=== PATIENT | male | born 1945 | race Caucasian/White ===

== ENCOUNTER 2020-08-22 09:03 | Emergency (ER) | payer MEDICARE, SELFPAY ==
[2020-08-22] VITALS (9 sets, daily range): BP systolic 147–222; BP diastolic 65–153; PULSE 65–76; RESP 11–18; TEMP 36.8; O2SAT 98–100
--- NOTE | ~2020-08-22 | CT_ITS ---
EXAMINATION: CT abdomen pelvis w con DATE: 08/22/2020 13:14 INDICATION: Hematuria. TECHNIQUE: Computed tomography (CT) of the abdomen and pelvis was performed with 100 mL Omnipaque 350 intravenous contrast. Automated exposure control and iterative reconstruction technique were employe d. The dose-length product was 483.19 mGy-cm. COMPARISON: PET CT 05/19/2007 FINDINGS: The visualized portions of the lung bases demonstrate mild atelectasis. No pleural effusion . The heart size is normal. No pericardial effusion. There is a small sliding hiatal hernia. Right-si ded gynecomastia is noted. The liver is normal. There is a gallstone in the gallbladder, which is con tracted. Calcifications in the spleen are consistent with old granulomatous disease. The pancreas and adrenal glands are normal. There are cysts in the kidneys measuring up to 8 mm on the right. The da dder is decompressed by a Gomez catheter. The prostate is mildly enlarged. There is diverticulosis of the colon without evidence of diverticulitis. There are changes of appendectomy. There are no dilate d loops of bowel. There are bilateral inguinal hernias containing fat. There are no pathologically en larged lymph nodes. There is no free intraperitoneal fluid. There is thoracolumbar dextrocurvature. T here is mild thoracic spondylosis and severe lumbar spondylosis. IMPRESSION: 1. No specific etiology for hematuria. Reviewed, dictated and finalized at location A. ICE SUPPORT REPRESENTATIVE
[2020-08-22 09:46] LABS: Basophils Percent Auto 0.3 % (0.2-1.2); Eosinophils Absolute Auto 0.1 K/mm3 (0-0.3); Eosinophils Percent Auto 1.4 % (0-4.4); Hematocrit 41.8 % (42.0-52.0); Hemoglobin 14.5 g/dL (14.0-18.0); Immature Granulocyte Absolute 0.03 K/mm3 (0.00-0.031); Immature Granulocyte Percent A 0.4 % (0-0.5); Lymphocytes Absolute Auto 1.43 K/mm3 (0.9-3.2); Lymphocytes Percent Auto 18.8 % (18.3-44.2); Mean Corpuscular HGB Conc 34.7 g/dl (32-36); Mean Corpuscular Hemoglobin 30.3 pg (26-34); Mean Corpuscular Volume 87.4 fl (80-100); Mean Platelet Volume 8.9 fl (7.4-10.4); Monocytes Absolute Auto 0.5 K/mm3 (0.1-0.6); Neutrophils Absolute Auto 5.6 K/mm3 (1.3-6.7); Neutrophils Percent Auto 73.1 % (45.5-73.1); Platelet Count Result 191 k/mm3 (150-375); Red Blood Count 4.78 M/mm3 (4.6-6.20); Red Cell Distribution Width 12.5 % (11.5-14.5); White Blood Count 7.6 K/mm3 (4.5-10.0)
[2020-08-22 09:59] LABS: Anion Gap 6 mmol/L (8-16); Blood Urea Nitrogen 13 mg/dL (9-20); Calcium 9.1 mg/dL (8.4-10.2); Carbon Dioxide 30 mmol/L (22-30); Chloride 101 mmol/L (98-107); Estimated CRCL calculation 57 ml/min; Estimated Glomerular Filt Rate > 60; Glucose 172 mg/dL (75-110); Potassium 4.3 mmol/L (3.4-5.0); Sodium 137 mmol/L (137-145)
[2020-08-22 10:30] LABS: Appearance Urine Cloudy (Clear); Bilirubin Urine 2+ (Negative); Blood Urine 3+ (Negative); Glucose Urine UA Negative (Negative); Ketones Urine Trace mg/dL (Negative); Leukocyte Esterase Ur 3+ LEU/UL (Negative); Nitrate Urine Positive (Negative); Protein Urine 3+ mg/dL (Negative); Specific Grav Ur 1.025 (1.001-1.035); pH Urine 8.5 (5.0-9.0)
[2020-08-22 10:37] LABS: Add Urine Microscopic? YES; Color Urine Dark Red (Yellow)
--- NOTE | 2020-08-22 10:40 | ED.GENADULT ---
HPI - General Adult General Chief complaint: Urogenital-Male Stated complaint: blood in urine Time Seen by Provider: 08/22/20 09:12 History of Present Illness HPI narrative: Patient is a 74-year-old male who presents ER with hematuria. Reports he began 2 days ago and has increased in darkness and is passing clots. He was started on ciprofloxacin by his PCP and told to come here since it was worsening. He had this happen to him once previously in [place] and it cleared with Cipro. He is having no fevers or chills or sweats. Denies any dysuria. He is having difficulty urinating at this time but had not been having urinary retention prior to this. Related Data Allergies Allergy/AdvReac Type Severity Reaction Status Date / Time NSAIDS (Non-Steroidal Allergy Unknown Swelling Verified 08/22/20 09:07 Anti-Inflamma Review of Systems Review of Systems: All systems reviewed & are unremarkable except as noted in HPI and below Constitutional: Constitutional: Denies chills, Denies fever(s) and Denies weakness ENT: Denies nasal congestion and Denies sore throat Cardiovascular: Cardiovascular: Denies chest pain and Denies radiating jaw, neck or arm pain Genitourinary: Genitourinary: Reports hematuria, Denies dysuria, Denies penile discharge, Denies urinary frequency and Reports urinary incontinence PMFSH Past Medical History Medical History (Updated 08/22/20 @ 14:22 by Marlo Bailey MD) Cerebellar ataxia Depression H/O: hypertension Memory loss Surgical History Surgical History (Updated 08/22/20 @ 10:43 by Marlo Bailey MD) H/O repair of rotator cuff History of partial colectomy Family History Family History (Updated 04/29/14 @ 07:13 by DOCTOR UNKNOWN) Mother Patient's mother is Family history of dementia Father Patient's father is Family history of malignant neoplasm Other Depression Social History Social History Smoking status: Former smoker Smoking end date: 09/02/78 Alcohol intake: never Exam Narrative: Exam Narrative: GENERAL: Well-appearing, well-nourished, and in no acute distress. HEAD: Normocephalic, atraumatic. CHEST: Clear to auscultation. No respiratory distress. HEART: Regular rate and rhythm. Normal peripheral pulses. ABDOMEN: Soft, nontender, nondistended. EXTREMITIES: Normal range of motion. No edema. SKIN: Warm, dry, no rash. NEURO: Alert and oriented x3. PSYCH: Normal mood and affect. Course Course Emergency Course: No large clots with CBI. He does have some pink hue to his urine. CT unremarkable. Discussed with Emily with urology office and she reports he will follow up in the next 1 to 2 days. Patient does not need to keep his catheter in so it has been removed. Vital Signs Vital signs: Vital Signs Temperature 98.3 F 08/22/20 09:00 Pulse Rate 71 08/22/20 09:00 Respiratory Rate 15 08/22/20 09:00 Blood Pressure 147/69 H 08/22/20 09:00 Pulse Oximetry 100 08/22/20 09:00 Temperature 98.3 F 08/22/20 09:00 Pulse Rate 76 08/22/20 12:16 Respiratory Rate 17 08/22/20 12:16 Blood Pressure 222/153 H 08/22/20 12:16 Pulse Oximetry 100 08/22/20 12:16 Medical Decision Making Vital Signs Vital Signs: Vital Signs Temperature 98.3 F 08/22/20 09:00 Pulse Rate 71 08/22/20 09:00 Respiratory Rate 15 08/22/20 09:00 Blood Pressure 147/69 H 08/22/20 09:00 Pulse Oximetry 100 08/22/20 09:00 Temperature 98.3 F 08/22/20 09:00 Pulse Rate 76 08/22/20 12:16 Respiratory Rate 17 08/22/20 12:16 Blood Pressure 222/153 H 08/22/20 12:16 Pulse Oximetry 100 08/22/20 12:16 Lab Data Result diagrams: 08/22/20 09:36 08/22/20 09:36 Labs: Lab Results 08/22/20 08/22/20 08/22/20 Range/Units 09:36 09:36 10:11 WBC 7.6 (4.5-10.0) K/mm3 RBC 4.78 (4.6-6.20) M/mm3 Hgb 14.5 (14.0-18.0) g/dL Hct 41.8 L (42.0-52.0) % MCV 87.4 (80-100)
--- NOTE | 2020-08-22 12:20 | PC.NURSE ---
patient with call light on. this RN to room to check CBI. CBI irrigation done. monsalve emptied. patient incontinent of stool. patient cleaned and repositioned. alert. oriented. asking again about discharge plan and catheter. patient has been advised several times that CBI needs to be completed before further treatment plans.
--- NOTE | 2020-08-22 12:56 | PC.NURSE ---
CBI done. plug in irrigation port. patient to CT via stretcher. and patient asking the same questions repeatedly. reviewed the plan numerous times. planning to do scan then consider removing monsalve. discharge patient home to fu with urology.
== END 2020-08-22 14:53 | disposition home or self-care (01) ==
PROVIDERS: Emergency Provider Emergency Medicine
DX: R31.9 Hematuria, unspecified (principal); I10 Essential (primary) hypertension; Z90.49 Acquired absence of other specified parts of digestive tract; Z87.891 Personal history of nicotine dependence
CPT/HCPCS: 36415; 74177; 80048; 81001; 85025; 99284; Q9967

== ENCOUNTER 2022-09-24 01:59 | Emergency (ER) | payer MEDICARE, SELFPAY ==
[2022-09-24] VITALS (33 sets, daily range): BP systolic 142–187; BP diastolic 62–83; PULSE 60–69; RESP 12–26; TEMP 36.6; O2SAT 94–97
--- NOTE | ~2022-09-24 | XR_ITS ---
Portable chest x-ray Comparison: 09/08/2011 Clinical History: Chest pain Findings: Lungs are clear, without focal consolidation or pleural effusion. Cardiomediastinal silho uette is stable. Bones and soft tissues are unremarkable. Impression: Clear lungs. Reviewed, dictated and finalized at location . [employer]INTENDENT STATIONS Impression: Clear lungs.
--- NOTE | 2022-09-24 02:04 | ECG_ITS ---
Measurements Intervals [place] Rate: 63 P: 6 HI: 167 QRS: -45 QRSD: 82 T: 28 QT: 417 QTc: 430 Interpretive Statements SINUS RHYTHM LOW QRS VOLTAGE IN PRECORDIAL LEADS LEFT ANTERIOR FASCICULAR BLOCK BORDERLINE T WAVE ABNORMALITY- ANTEROLAT/INF LEADS BASELINE ARTIFACT- I, III, AVL, AVF ABNORMAL ECG NO PREVIOUS ECG AVAILABLE FOR COMPARISON Electronically Signed On 09-24-2022 7:47:30 APPRAISAL SPECIALIST by Camron Arriaga D.O.
[2022-09-24 02:24] LABS: Basophils Percent Auto 0.3 % (0.2-1.2); Eosinophils Absolute Auto 0.2 K/mm3 (0-0.3); Eosinophils Percent Auto 2.2 % (0-4.4); Hematocrit 41.2 % (42.0-52.0); Hemoglobin 14.6 g/dL (14.0-18.0); Immature Granulocyte Absolute 0.02 K/mm3 (0.00-0.031); Immature Granulocyte Percent A 0.3 % (0-0.5); Lymphocytes Absolute Auto 2.05 K/mm3 (0.9-3.2); Lymphocytes Percent Auto 28.8 % (18.3-44.2); Mean Corpuscular HGB Conc 35.4 g/dl (32-36); Mean Corpuscular Hemoglobin 30.4 pg (26-34); Mean Corpuscular Volume 85.8 fl (80-100); Monocytes Absolute Auto 0.6 K/mm3 (0.1-0.6); Neutrophils Absolute Auto 4.3 K/mm3 (1.3-6.7); Neutrophils Percent Auto 60.4 % (45.5-73.1); Platelet Count Result 181 k/mm3 (150-375); Red Cell Distribution Width 12.2 % (11.5-14.5); White Blood Count 7.1 K/mm3 (4.5-10.0)
--- NOTE | 2022-09-24 02:39 | ED.GENADULT ---
HPI - General Adult General Chief complaint: Chest Pain Stated complaint: CHEST PAIN Time Seen by Provider: 09/24/22 02:08 History of Present Illness HPI narrative: Patient 77-year-old gentleman who presents the emergency department with chief complaint of chest pain. Patient reports that yesterday he had an episode of chest discomfort on the left side of his chest that did not radiate anywhere reports no shortness of breath the patient states that that lasted only a few seconds and then reports that tonight while he was sleeping he had an episode. The patient reports it resolved at the time EMS arrived denies shortness of breath denies diaphoresis. Patient reports no prior history of cardiac disease Related Data Home Medications Medication Instructions Recorded Confirmed sertraline 100 mg tablet 100 mg PO QPM 04/22/21 04/22/21 trazodone 150 mg tablet 150 mg PO QPM 04/22/21 04/22/21 Allergies Allergy/AdvReac Type Severity Reaction Status Date / Time NSAIDS (Non-Steroidal Allergy Unknown Swelling Verified 05/11/21 11:40 Anti-Inflamma aspirin Allergy Redness of Verified 05/11/21 11:40 Skin Review of Systems Review of Systems: A 10 system review of systems was completed on the patient and is negative except for what is stated in the HPI. Nursing and ancillary documentation was reviewed. [facility], [facility] Past Medical History Medical History Acute insomnia Anxiety Ataxia Bladder cancer Cerebellar ataxia Depression Depression Foot deformity, bilateral H/O: hypertension Memory loss Peripheral neuropathy Urinary hesitancy Surgical History Surgical History H/O repair of rotator cuff History of partial colectomy Family History Family History Mother Patient's mother is Family history of dementia Family history of malignant neoplasm Father Family history of malignant neoplasm Patient's father is Other Depression Social History Social History Social History: . High school graduate. Patient does not wear dentures due to ill-fitting dentures. Patient prefers softer foods. Patient does not wear glasses. He is hard of hearing bilaterally. He is a former smoker. He drinks alcohol occasionally. Patient lives with his in a single-story home. Steps to enter. Smoking status: Former smoker Smoking end date: 09/02/78 Alcohol intake: never Living arrangements: with family Occupation/Education: retired Gender identity (if verbalized by the patient): Male Exam Narrative: GENERAL: Well-appearing, well-nourished, and in no acute distress. HEAD: Normocephalic, atraumatic. EYES: PERRLA and EOMI. ENT: Nares clear, no rhinorrhea or epistaxis. Mucous membranes moist. NECK: Supple. CHEST: Clear to auscultation. No respiratory distress. HEART: Regular rate and rhythm. No murmur heard. Normal peripheral pulses. ABDOMEN: Soft, nontender, nondistended, normal active bowel sounds. EXTREMITIES: Normal range of motion. No edema. SKIN: Warm, dry, no rash. NEURO: No focal deficits. Alert and oriented x3. PSYCH: Normal mood and affect. Course Vital Signs Vital signs: Vital Signs Temperature 36.6 C 09/24/22 01:59 Pulse Rate 62 09/24/22 01:59 Respiratory Rate 20 09/24/22 01:59 Blood Pressure 187/73 H 09/24/22 01:59 Pulse Oximetry 97 09/24/22 01:59 Oxygen Delivery Room Air 09/24/22 01:59 Temperature 36.6 C 09/24/22 01:59 Pulse Rate 60 09/24/22 04:30 Respiratory Rate 15 09/24/22 04:30 Blood Pressure 145/73 H 09/24/22 04:16 Pulse Oximetry 96 09/24/22 04:30 Oxygen Delivery Room Air 09/24/22 01:59 Medical Decision Making MDM Narrative Medical decision making narrative: EKG
[2022-09-24 02:54] LABS: Alanine Aminotransferase 26 U/L (6-50); Albumin Level 3.8 g/dL (3.5-5.1); Alkaline Phosphatase 70 U/L (38-126); Anion Gap 7 mmol/L (8-16); Aspartate Amino Transferase 32 U/L (17-59); Bilirubin,Total 0.6 mg/dL (0.2-1.3); Blood Urea Nitrogen 17 mg/dL (9-20); Calcium 8.8 mg/dL (8.4-10.2); Carbon Dioxide 27 mmol/L (22-30); Chloride 104 mmol/L (98-107); Estimated CRCL calculation 55 ml/min; Estimated Glomerular Filt Rate > 60; Glucose 134 mg/dL (65-110); Lipase 219 U/L (23-300); Sodium 138 mmol/L (137-145)
[2022-09-24 03:00] LABS: Prothrombin Time 12.7 Seconds (11.1-14.7)
[2022-09-24 03:01] LABS: Partial Thromboplastin Time 26.7 SECONDS (22.3-36.8)
[2022-09-24 03:06] LABS: Troponin I < 0.012 ng/mL (0.000-0.034)
[2022-09-24 05:23] LABS: Troponin I < 0.012 ng/mL (0.000-0.034)
== END 2022-09-24 06:05 | disposition home or self-care (01) ==
PROVIDERS: Emergency Provider Emergency Medicine; PCP Family Medicine
DX: R07.89 Other chest pain (principal); I10 Essential (primary) hypertension; G62.9 Polyneuropathy, unspecified; R39.11 Hesitancy of micturition; F41.9 Anxiety disorder, unspecified; F32.A Depression, unspecified; Z90.49 Acquired absence of other specified parts of digestive tract; Z85.51 Personal history of malignant neoplasm of bladder; Z87.891 Personal history of nicotine dependence
CPT/HCPCS: 36415; 71045; 80053; 83690; 84484; 85025; 85610; 85730; 93005; 99284

== ENCOUNTER 2023-03-07 14:20 | Outpatient (CLI) | payer MEDICARE, SELFPAY ==
--- NOTE | ~2023-03-07 | CT_ITS ---
EXAMINATION: CT abdomen pelvis wo/w con DATE: 03/07/2023 15:59 INDICATION: Lateral wall bladder cancer TECHNIQUE: Computed tomography (CT) of the abdomen and pelvis was performed without and subsequently with 130 CC Omnipaque 350 intravenous contrast. Automated exposure control and iterative reconstructi on technique were employed. Exam dose: 1455.70 mGy-cm total exam DLP. COMPARISON: 08/22/2020 CT abdomen pelvis FINDINGS: Mild bilateral gynecomastia. Mild atelectasis in the lower lungs. Calcified pulmonary granulomas. Heart size is within normal range. There is coronary artery calcification. No pericardial or pleural effusion. Small sliding hiatal hernia. Mild gallbladder wall calcification. Cholelithiasis is suggested. Abdominal ultrasound examination wo uld be more sensitive and accurate for detection of cholelithiasis. Calcified splenic granulomas. No hepatic, splenic, pancreatic or adrenal space-occupying mass lesion. Occasional bilateral renal cysts, largest situated on the left, measuring up to approximately 11.7 mm dimension. No urinary tract calculus or hydroureteronephrosis. There is prostate enlargement, impressing the base of the urinary bladder and mild uniform bladder wa ll thickening. No focal bladder wall thickening or intraluminal lesion of the urinary bladder is evid ent. There is extensive atherosclerotic calcification but normal caliber of the abdominal aorta and iliac arteries. No abdominal aortic aneurysm. No intraperitoneal or retroperitoneal or pelvic mass lesion or adenopathy or ascites. Status post appendectomy. There are multiple diverticula of the sigmoid colon; no CT evidence of diverticulitis. No bowel obstr uction, bowel wall thickening, pneumatosis or intraperitoneal free air. Fat-containing left inguinal hernia. Degenerative changes of the included lower thoracic and lumbar spine. No suspicious osteolytic or ost eoblastic lesions are noted. IMPRESSION: Mild bilateral gynecomastia Mild atelectasis of the lower lungs Old granulomatous disease Small sliding hiatal hernia Suspected cholelithiasis. Mild gallbladder wall calcification. Occasional bilateral renal cysts, largest on left, 11.7 mm Prostate enlargement No bladder mass lesion is evident Status post appendectomy Diverticulosis of sigmoid colon; no evidence of diverticulitis Reviewed, dictated and finalized at Location [facility]. Reviewed, dictated and finalized at location A.
== END 2023-03-07 14:21 | disposition home or self-care (01) ==
PROVIDERS: PCP Nurse Practitioner Family; Visit Provider Urology
DX: C67.2 Malignant neoplasm of lateral wall of bladder (principal); R91.8 Other nonspecific abnormal finding of lung field; K44.9 Diaphragmatic hernia without obstruction or gangrene; N40.0 Benign prostatic hyperplasia without lower urinary tract symptoms; K57.30 Diverticulosis of large intestine without perforation or abscess without bleeding
CPT/HCPCS: 74178; Q9967

== ENCOUNTER 2023-07-17 19:30 | Emergency (ER) | payer MEDICARE, SELFPAY ==
[2023-07-17 19:37] VITALS: BP 142/61; PULSE 72; RESP 14; TEMP 36.6; O2SAT 96
== END 2023-07-17 22:18 | disposition left against medical advice (07) ==
PROVIDERS: PCP Nurse Practitioner Family
DX: R10.9 Unspecified abdominal pain (principal)
CPT/HCPCS: 99199

== ENCOUNTER 2023-07-18 09:09 | Emergency (ER) | payer MEDICARE, SELFPAY ==
--- NOTE | ~2023-07-18 | XR_ITS ---
EXAMINATION: XR_RIBSRTCXR1_CR DATE: 07/18/2023 09:51 INDICATION: Lower posterior rib pain. Fall. TECHNIQUE: A frontal view of the chest and 2 views on 3 radiographs of the right ribs were obtained. COMPARISON: Chest single view 09/24/2022, CT abdomen and pelvis 03/07/2023 FINDINGS: There is chronic mild elevation of right hemidiaphragm. There is mild atelectasis in right lower lung zone. No pleural effusion or pneumothorax. The heart size is normal. There are fractures o f right ninth-12th ribs. IMPRESSION: 1. Fractures of right ninth-12th ribs. 2. Chronic mild elevation right hemidiaphragm with mild atelectasis in right lower lung zone. Reviewed, dictated and finalized at location A. ER STEWARD IMPRESSION: 1. Fractures of right ninth-12th ribs. 2. Chronic mild elevation right hemidiaphragm with mild atelectasis in right lo wer lung zone.
--- NOTE | 2023-07-18 09:26 | ED.FALL ---
HPI - Fall General Chief Complaint: Fall Stated Complaint: Right side/back pain Source: patient Mode of arrival: ambulatory Limitations: no limitations History of Present Illness HPI Narrative: 77 y/o male with hx dementia and peripheral neuropathy presented for c/o pain to right posterior lower ribs after fall yesterday. Pt is accompanied by who states she was in the other room when pt fell. States he reached to turn off a light, and lost balance causing him to fall to the hardwood floor. states she thinks he also struck the couch on the way down. She ran to the room when she heard him fall, he was awake and alert. Denies hitting head or LOC. Denies neck pain or pain to UEs. Denies sob, hemoptysis, wheezing or dizziness. Denies change in gait. Patient was seen initially by EMS, who took him to ER; states they waited 3 hours then left. She gave Tramadol this morning for pain. Related Data Allergies Allergy/AdvReac Type Severity Reaction Status Date / Time NSAIDS (Non-Steroidal Allergy Unknown Swelling Verified 07/18/23 12:06 Anti-Inflamma aspirin Allergy Redness of Verified 07/18/23 12:06 Skin Review of Systems Review of Systems: CONSTITUTIONAL: Denies body aches, fever, chills EYES: Denies visual changes CARDIOVASCULAR: Denies chest pain, palpitations, or edema. RESPIRATORY: Denies cough or dyspnea. GASTROINTESTINAL: Denies abdominal pain, nausea, vomiting, or diarrhea. SKIN: Denies rash, itching, or wounds. MUSCULOSKELETAL: reports right posterior rib pain denies neck pain or pain to extremities NEUROLOGIC: Denies headache, numbness, tingling, or weakness. All systems reviewed & are unremarkable except as noted in HPI and below PMFSH Past Medical History Medical History Acute insomnia Anxiety Ataxia Bladder cancer Cerebellar ataxia Dementia Depression Depression Foot deformity, bilateral H/O: hypertension Memory loss Peripheral neuropathy Urinary hesitancy Surgical History Surgical History H/O repair of rotator cuff History of bladder surgery History of partial colectomy Family History Family History Mother Patient's mother is Family history of dementia Family history of malignant neoplasm Father Family history of malignant neoplasm Patient's father is Other Depression Social History Social History Social History: . High school graduate. Patient does not wear dentures due to ill-fitting dentures. Patient prefers softer foods. Patient does not wear glasses. He is hard of hearing bilaterally. He is a former smoker. He drinks alcohol occasionally. Patient lives with his in a single-story home. Steps to enter. Smoking packs per day: 0 Smoking cigarettes per day: 0.0 Years smoked: 0 Smoking pack-years: 0.00 Smoking status: Never smoker Smoking end date: 09/02/78 Alcohol intake: never Substance use: never Substance use type: does not use Lack of Transportation: No Lack of Food: Never True Current Housing: I Have Housing Concerned About Future Housing: No Difficulty Paying Gas/Electric Bills: No Difficulty Paying for Meds: No Currently Unemployed: No Education: High School Diploma/GED Difficulty w/ Childcare or Family Care: No Living arrangements: with family Occupation/Education: retired Gender identity (if verbalized by the patient): Male Comments At time of signature, I have reviewed and agree with nursing past medical, surgical, social and family history unless otherwise noted. Please see nursing chart for further information. There is no relevant family history pertinent to the presenting complaint Exam Narrative: GENERAL: Well-appearing, and in no acute distress.
[2023-07-18 09:30] VITALS: BP 153/72; PULSE 81; RESP 16; TEMP 36.4; O2SAT 99
[2023-07-18 11:37] VITALS: BP 153/68; PULSE 70; RESP 24; O2SAT 98
== END 2023-07-18 11:37 | disposition short-term general hospital (02) ==
PROVIDERS: Emergency Provider Nurse Practitioner Family; PCP Nurse Practitioner Family
DX: S22.41XA Multiple fractures of ribs, right side, initial encounter for closed fracture (principal); W19.XXXA Unspecified fall, initial encounter; F03.90 Unspecified dementia, unspecified severity, without behavioral disturbance, psychotic disturbance, mood disturbance, and anxiety; I10 Essential (primary) hypertension; G62.9 Polyneuropathy, unspecified; F32.A Depression, unspecified; Z87.891 Personal history of nicotine dependence; Z85.51 Personal history of malignant neoplasm of bladder; G11.9 Hereditary ataxia, unspecified
CPT/HCPCS: 71101; 99215; G0463

== ENCOUNTER 2023-07-18 11:57 | Inpatient (IN) | payer MEDICARE, SELFPAY ==
[2023-07-18] VITALS (14 sets, daily range): BP systolic 144–183; BP diastolic 59–84; PULSE 62–78; RESP 14–22; TEMP 36.6–37.1; O2SAT 95–100; BMI 24.6
--- NOTE | ~2023-07-18 | XR_ITS ---
EXAMINATION: XR lumbar spine 2-3V DATE: 07/18/2023 19:36 INDICATION: New onset low back pain with audible pop with movement. TECHNIQUE: Anteroposterior and lateral views of the lumbar spine, and cone-down lateral view of the l umbosacral junction were obtained. COMPARISON: CT abdomen and pelvis dated 03/07/2023 FINDINGS: Transitional L1 segment with bilateral hypoplastic riblets. There are 12 more cephalad paired rib rudy ring thoracic vertebrae on chest CT dated 02/28/2007. There are 5 additional more caudal nonrib-bearin g lumbar segments, L2-L6. 14 degrees thoracolumbar levoscoliosis with 10 degrees compensatory dextroc urvature in the upper lumbar spine. Vertebral body heights are normal. Severe left-sided disc height loss at L2-L3 and severe right-sided disc height loss at L3-L4 and L4-L5. Moderate disc height loss a t L1-L2 and mild disc height loss at L5 bilateral 6 and L6 S1. Moderate to severe facet osteoarthriti s in the mid to lower lumbar spine. Mild bilateral sacroiliac osteoarthritis. Atherosclerotic abdomin al aorta. IMPRESSION: 1. Mild S-shaped curvature of the lumbar spine with moderate to severe spondylosis. Reviewed, dictated and finalized at location A. ACKER IMPRESSION: 1. Mild S-shaped curvature of the lumbar spine with moderate to severe spondylo sis.
--- NOTE | ~2023-07-18 | XR_ITS ---
XR_RIBSBICXR1_CR DATE: 07/18/2023 13:19 INDICATION: Fall today. Right rib pain TECHNIQUE: 3 views of right ribs. 3 views of left ribs. PA chest. . COMPARISON: None FINDINGS: There are displaced anterior right ninth, 10th and 11th rib fractures There is discoid atelectasis at the right lung base and elevation of the right leaf of diaphragm, lik onur due to splinting from the pain from the right rib fractures. The lungs otherwise appear clear. Normal heart size. No pleural effusion or pulmonary vascular congestion or pneumothorax. Is osteoarthritic change at the glenohumeral joints, probable left rotator cuff atrophy. Osteopenia. IMPRESSION: Displaced right anterior ninth through 11th rib fractures; there is discoid atelectasis t he right lung base and mild elevation right diaphragm but no pleural effusion or pneumothorax is note d Reviewed, dictated and finalized at [facility]. Reviewed, dictated and finalized at location L. ER WELT END IMPRESSION: Displaced right anterior ninth through 11th rib fractures; there is discoid atelectasis the right lung base and mild elevation right diaphragm but no pleural effusion or pneumothorax is noted
--- NOTE | 2023-07-18 12:18 | ED.GENADULT ---
HPI - General Adult General Chief complaint: Trauma Stated complaint: mult. rib rx Time Seen by Provider: 07/18/23 12:14 History of Present Illness HPI narrative: Patient is a 77-year-old male who presents to the emergency department this afternoon after sustaining multiple right-sided rib fractures after a fall yesterday. Daughter who is present at bedside states that they actually came to the emergency department yesterday but due to a long wait they went home and today he went to an urgent care who then sent him here. Patient states that the fall was ground level, mechanical, denies any presyncopal or syncopal episodes and denies hitting his head. Patient states that when he is resting he is comfortable, however, if he takes any deep breath or tries to move he gets some sharp pains on his right side. Patient denies any blood thinner use and is currently denies any symptoms including chest pain, shortness of breath, nausea, vomiting, abdominal pain, dysuria, hematuria, constipation, diarrhea, melena, hematochezia, fevers or chills. He also denies any headaches, dizziness, lightheadedness, blurry visions, dizziness, focal weakness, numbness and or tingling. There are no other modifying, alleviating, or precipitating factors at this time. Related Data Allergies Allergy/AdvReac Type Severity Reaction Status Date / Time NSAIDS (Non-Steroidal Allergy Unknown Swelling Verified 07/18/23 12:06 Anti-Inflamma aspirin Allergy Redness of Verified 07/18/23 12:06 Skin Review of Systems Review of Systems: All systems are reviewed and are negative unless stated otherwise in the HPI. [facility] Past Medical History Medical History Acute insomnia Anxiety Ataxia Bladder cancer Cerebellar ataxia Dementia Depression Depression Foot deformity, bilateral H/O: hypertension Memory loss Peripheral neuropathy Urinary hesitancy Surgical History Surgical History H/O repair of rotator cuff History of bladder surgery History of partial colectomy Family History Family History Mother Patient's mother is Family history of dementia Family history of malignant neoplasm Father Family history of malignant neoplasm Patient's father is Other Depression Social History Social History Social History: . High school graduate. Patient does not wear dentures due to ill-fitting dentures. Patient prefers softer foods. Patient does not wear glasses. He is hard of hearing bilaterally. He is a former smoker. He drinks alcohol occasionally. Patient lives with his in a single-story home. Steps to enter. Smoking packs per day: 0 Smoking cigarettes per day: 0.0 Years smoked: 0 Smoking pack-years: 0.00 Smoking status: Never smoker Smoking end date: 09/02/78 Alcohol intake: never Substance use: never Substance use type: does not use Lack of Transportation: No Lack of Food: Never True Current Housing: I Have Housing Concerned About Future Housing: No Difficulty Paying Gas/Electric Bills: No Difficulty Paying for Meds: No Currently Unemployed: No Education: High School Diploma/GED Difficulty w/ Childcare or Family Care: No Living arrangements: with family Occupation/Education: retired Gender identity (if verbalized by the patient): Male Exam Narrative: General: Alert, awake, afebrile, in no acute distress. HEENT: PERRL, no rhinorrhea, no post nasal drip, oropharynx clear. Neck: Trachea midline, no JVD, no lymphadenopathy. Cardiovascular: Regular rate and rhythm, no murmurs, rubs or gallops, no peripheral edema. Respiratory: Clear to auscultation bilaterally, no tachypnea, no wheezing, no rhonchi, no rubs, no respiratory distress. Abdomen: S
[2023-07-18] MEDS: MORPHINE SULFATE (*CRX) 2 MG/ML INJ IV PUSH (13:00)
[2023-07-18] MEDS: ONDANSETRON INJ 4 MG/2 ML VIAL IV PUSH (13:00)
[2023-07-18 13:11] LABS: Basophils Percent Auto 0.2 % (0.2-1.2); Eosinophils Percent Auto 0.4 % (0-4.4); Hemoglobin 14.2 g/dL (14.0-18.0); Immature Granulocyte Absolute 0.03 K/mm3 (0.00-0.031); Immature Granulocyte Percent A 0.3 % (0-0.5); Lymphocytes Absolute Auto 1.43 K/mm3 (0.9-3.2); Lymphocytes Percent Auto 14.5 % (18.3-44.2); Mean Corpuscular HGB Conc 33.8 g/dl (32-36); Mean Corpuscular Hemoglobin 29.6 pg (26-34); Mean Corpuscular Volume 87.7 fl (80-100); Mean Platelet Volume 9.3 fl (7.4-10.4); Monocytes Absolute Auto 0.8 K/mm3 (0.1-0.6); Monocytes Percent Auto 8.4 % (2.6-8.5); Neutrophils Absolute Auto 7.5 K/mm3 (1.3-6.7); Neutrophils Percent Auto 76.2 % (45.5-73.1); Platelet Count Result 195 k/mm3 (150-375); Red Blood Count 4.79 M/mm3 (4.6-6.20); Red Cell Distribution Width 12.8 % (11.5-14.5); White Blood Count 9.8 K/mm3 (4.5-10.0)
[2023-07-18 13:21] LABS: Alanine Aminotransferase 39 U/L (6-50); Albumin Level 4.2 g/dL (3.5-5.1); Alkaline Phosphatase 75 U/L (38-126); Anion Gap 9 mmol/L (8-16); Aspartate Amino Transferase 40 U/L (17-59); Bilirubin,Total 0.9 mg/dL (0.2-1.3); Blood Urea Nitrogen 15 mg/dL (9-20); Calcium 9.2 mg/dL (8.4-10.2); Carbon Dioxide 27 mmol/L (22-30); Chloride 100 mmol/L (98-107); Estimated CRCL calculation 64 ml/min; Estimated Glomerular Filt Rate > 60; Glucose 120 mg/dL (65-110); Potassium 4.4 mmol/L (3.4-5.0); Sodium 136 mmol/L (137-145)
[2023-07-18] MEDS: MORPHINE SULFATE (*CRX) 4 MG/ML INJ IV PUSH (16:21)
--- NOTE | 2023-07-18 17:46 | ADMGEN ---
This patient, Denton Burnett, was admitted to 3 Med Surg Room 317-01. Patient/family oriented to hospital policies and general routines including ID bracelet, bed and alarms, visiting hours, pain management, procedures, bathroom and other care routines, personal items, smoking policy, room service/diet, and visiting hours. Information on how to activate the Rapid Response Team has been discussed. Patient/Family are encouraged to report perceived risks to care and to ask questions if they do not understand what they are told or what they should do.
--- NOTE | 2023-07-18 18:09 | PC.NURSE ---
Pt with hx of dementia was admitted to the unit with and daughter answering questions. Pt has watch, glasses, wedding ring, underwear, and personal news papers for belongings. Pt and family were educated on fall precautions and bed alarm. Pt family agreeable. Pt compliant with care. Pt grimaces when repositioning. Pt family expressed concerns for pt ability to use call light. Family reassured that pt will be checked on throughout night. Will express families concerns to maintenance mechanic 2nd shift nurse. Pt will continue to be monitored for any changes in status.
--- NOTE | 2023-07-18 20:23 | PM.IMHP ---
H&P: HPI History of Present Illness Date/Time: 07/18/23 20:23 Chief Complaint: rib fx Narrative: This is a 77-year-old male past medical history significant for cerebellar ataxia, bladder cancer, depression, anxiety, peripheral neuropathy. Patient sustained a fall he was found to multiple rib fractures has been admitted for pain control. Patient could not really contribute much to history taking has been his usual state of health up until this point. DATE: 07/18/2023 09:51 INDICATION: Lower posterior rib pain. Fall. TECHNIQUE: A frontal view of the chest and 2 views on 3 radiographs of the right ribs were obtained. COMPARISON: Chest single view 09/24/2022, CT abdomen and pelvis 03/07/2023 FINDINGS: There is chronic mild elevation of right hemidiaphragm. There is mild atelectasis in right lower lung zone. No pleural effusion or pneumothorax. The heart size is normal. There are fractures of right ninth-12th ribs. IMPRESSION: 1. Fractures of right ninth-12th ribs. 2. Chronic mild elevation right hemidiaphragm with mild atelectasis in right lower lung zone. XR_RIBSBICXR1_CR DATE: 07/18/2023 13:19 INDICATION: Fall today. Right rib pain? TECHNIQUE: 3 views of right ribs. 3 views of left ribs. PA chest. .? COMPARISON: None? FINDINGS: There are displaced anterior right ninth, 10th and 11th rib fractures There is discoid atelectasis at the right lung base and elevation of the right leaf of diaphragm, likely due to splinting from the pain from the right rib fractures. The lungs otherwise appear clear. Normal heart size. No pleural effusion or pulmonary vascular congestion or pneumothorax. Is osteoarthritic change at the glenohumeral joints, probable left rotator cuff atrophy. Osteopenia.? IMPRESSION: Displaced right anterior ninth through 11th rib fractures; there is discoid atelectasis the right lung base and mild elevation right diaphragm but no pleural effusion or pneumothorax is noted? EXAMINATION: XR lumbar spine 2-3V DATE: 07/18/2023 19:36 INDICATION: New onset low back pain with audible pop with movement. TECHNIQUE: Anteroposterior and lateral views of the lumbar spine, and cone-down lateral view of the lumbosacral junction were obtained. COMPARISON: CT abdomen and pelvis dated 03/07/2023 FINDINGS: Transitional L1 segment with bilateral hypoplastic riblets. There are 12 more cephalad paired rib bearing thoracic vertebrae on chest CT dated 02/28/2007. There are 5 additional more caudal nonrib-bearing lumbar segments, L2-L6. 14 degrees thoracolumbar levoscoliosis with 10 degrees compensatory dextrocurvature in the upper lumbar spine. Vertebral body heights are normal. Severe left-sided disc height loss at L2-L3 and severe right-sided disc height loss at L3-L4 and L4-L5. Moderate disc height loss at L1-L2 and mild disc height loss at L5 bilateral 6 and L6 S1. Moderate to severe facet osteoarthritis in the mid to lower lumbar spine. Mild bilateral sacroiliac osteoarthritis. Atherosclerotic abdominal aorta. IMPRESSION: 1. Mild S-shaped curvature of the lumbar spine with moderate to severe spondylosis. Review of Systems Review of Systems: rib fx ROS unobtainable: Yes other (Patient could not really contribute meaningfully to history take) Musculoskeletal: Comments: rib cage pain, rib fx PMFSH Past Medical History Medical History (Updated 07/19/23 @ 00:40 by Michele Otero MD) Acute insomnia Anxiety Ataxia Bladder cancer Cerebellar ataxia Dementia Depression Depression Foot deformity, bilateral H/O: hypertension Memory loss Peripheral neuropathy Urinary hesitancy Surgical History Surgical History H/O repair of rotator cuff History of bladder surgery History of partial colectomy Family History Family History Mother Patient's mother is Family history of fabricio
[2023-07-19 06:00] VITALS: BP 179/61; PULSE 66; RESP 18; TEMP 36.8; O2SAT 97
--- NOTE | 2023-07-19 07:51 | PM.IMPN ---
Progress Note: A&P Assessment and Plan (1) Ribs, multiple fractures: Code(s): S22.49XA - Multiple fractures of ribs, unspecified side, initial encounter for closed fracture Status: Acute Assessment and Plan: 07/18/23: Admit to regular medical floor Incentive spirometer Breathing treatment Pain management 07/19/23: (2) Peripheral neuropathy: Code(s): G62.9 - Polyneuropathy, unspecified Status: Acute Assessment and Plan: 07/18/23: Resume home meds as needed 07/19/23: (3) Ataxia: Code(s): R27.0 - Ataxia, unspecified Status: Acute Assessment and Plan: 07/18/23: Unchanged 07/19/23: (4) Bladder cancer: Code(s): C67.9 - Malignant neoplasm of bladder, unspecified Status: Acute Assessment and Plan: 07/18/23: Resolved 07/19/23: Time Spent With Patient Time with patient: 25 - 35 minutes Subjective Date/time seen: 07/19/23 07:51 Interval history: This is a 77 year old male with a significant past medical history of cerebellar ataxia, depression, anxiety, bladder cancer, and peripheral neuropathy who presented to the hospital on 07/19/23 with complaints of rib pain s/p ground level fall. Work up in hospital included a chest x-ray that revealed fractures of the right 9th-12th ribs, chronic mild elevation of the right hemidiaphragm with mild atelectasis in the right lower lung zone, there is no pleural effusion or pneumothorax noted. He also had a lumbar spine x-ray which revealed a [id number]-[id number]-[id number] curvature of the lumbar spine with moderate to severe spondylosis. Labs were essentially unremarkable other than Na+ 136 and BG ranging 120-186. He was admitted for pain control. On examination today patientLabs today revealedPatient currently on Tramadol and Dilaudid for pain control. Review of Systems Review of Systems: All systems reviewed & are unremarkable except as noted in HPI and below Constitutional: Constitutional: Reports as per HPI and Reports no additional constitutional complaints Eyes: Eyes: Reports as per HPI and Reports no additional eye complaints ENT: Reports system reviewed and no additional complaints, except as documented and Reports as per HPI Cardiovascular: Cardiovascular: Reports as per HPI and Reports no additional cardiovascular complaints Respiratory: Respiratory: Reports as per HPI and Reports no additional respiratory complaints Gastrointestinal: Gastrointestinal: Reports as per HPI and Reports no additional gastrointestinal complaints Genitourinary: Genitourinary: Reports no additional male genitourinary complaints and Reports as per HPI Musculoskeletal: Musculoskeletal: Reports no additional musculoskeletal complaints and Reports as per HPI Integumentary/Breasts: Skin/Breast: Reports system reviewed and no additional complaints, except as docu and Reports as per HPI Neurologic: Reports system reviewed and no additional complaints, except as documented and Reports as per HPI Psychiatric: Psychiatric: Reports no additional psychiatric complaints and Reports as per HPI Exam Narrative: General: In no acute distress, well nourished Head: atraumatic, no encephalopathy Eyes: EOMI, PERRLA, slcera clear ENT: moist mucous membranes, nasal passages clear Neck: supple, no JVD, no adenopathy, trachea midline Cardiac: Normal S1 and S2. No murmur, gallops or friction rubs, peripheral pulses intact. Respiratory: Lungs clear to auscultation, no adventitious lung sounds Gastrointestinal: soft, non-distended, non-tender, normoactive bowel sounds. : voiding without difficulty. Extremities: moves all extremities well, no edema, good ROM, strength 5/5 Skin: clean, dry, intact. No wounds or lesions. Neuro: Alert and oriented x4, cranial nerves intact, no neuro deficits. Psych: normal mood, normal affect, interactive Objective Data Vital Signs Vital Signs: Vital Signs - 24 hr 07/18/23 11:57
[2023-07-19] MEDS: ENOXAPARIN 40 MG/0.4 ML SYRINGE SUB-Q (08:40)
[2023-07-19 08:45] LABS: Hematocrit 45.2 % (42.0-52.0); Mean Corpuscular HGB Conc 33.2 g/dl (32-36); Mean Corpuscular Volume 87.4 fl (80-100); Mean Platelet Volume 9.2 fl (7.4-10.4); Platelet Count Result 181 k/mm3 (150-375); Red Blood Count 5.17 M/mm3 (4.6-6.20); Red Cell Distribution Width 12.6 % (11.5-14.5); White Blood Count 9.8 K/mm3 (4.5-10.0)
[2023-07-19 09:07] LABS: Alanine Aminotransferase 36 U/L (6-50); Albumin Level 4.2 g/dL (3.5-5.1); Alkaline Phosphatase 79 U/L (38-126); Anion Gap 10 mmol/L (8-16); Aspartate Amino Transferase 36 U/L (17-59); Blood Urea Nitrogen 14 mg/dL (9-20); Carbon Dioxide 27 mmol/L (22-30); Chloride 99 mmol/L (98-107); Estimated CRCL calculation 72 ml/min; Estimated Glomerular Filt Rate > 60; Glucose 125 mg/dL (65-110); Sodium 136 mmol/L (137-145)
--- NOTE | 2023-07-19 09:16 | PC.NURSE ---
Pt's , Guadalupe, called wanting an update. I answered her questions. She asked if pt was going to be discharged. I explained the hospitalist is still making rounds so tbd.
--- NOTE | 2023-07-19 13:12 | PCRCNOTE ---
pt refused 1400 tx, states he is going home soon and does not feel the need to recieve a tx
--- NOTE | 2023-07-19 14:49 | PM.DS ---
DS: Admitting Diagnosis Discharge Date 07/19/23 Admitting Diagnosis Multiple rib fractures Peripheral Ataxia Bladder cancer DS: Discharge Diagnosis Discharge Diagnosis (1) Ribs, multiple fractures: Code(s): S22.49XA - Multiple fractures of ribs, unspecified side, initial encounter for closed fracture Status: Acute (2) Peripheral neuropathy: Code(s): G62.9 - Polyneuropathy, unspecified Status: Acute (3) Ataxia: Code(s): R27.0 - Ataxia, unspecified Status: Acute (4) Bladder cancer: Code(s): C67.9 - Malignant neoplasm of bladder, unspecified Status: Acute DS: Summary Hospital Course Reason for hospitalization: Multiple rib fractures Pain control Hospital Course: This is a 77 year old male with a significant past medical history of cerebellar ataxia, depression, anxiety, bladder cancer, and peripheral neuropathy who presented to the hospital on 07/19/23 with complaints of rib pain s/p ground level fall. Work up in hospital included a chest x-ray that revealed fractures of the right 9th-12th ribs, chronic mild elevation of the right hemidiaphragm with mild atelectasis in the right lower lung zone, there is no pleural effusion or pneumothorax noted. He also had a lumbar spine x-ray which revealed a [id number]-mpttld curvature of the lumbar spine with moderate to severe spondylosis. Labs were essentially unremarkable other than Na+ 136 and BG ranging 120-186. He was admitted for pain control. On examination today patient alert and oriented x3. He states that his pain is well controlled with pain medication. VSS, he is afebrile, and currently on room air. He denies any new complaints at this time. is at bedside who is his primary caregiver. Discussed with to continue tramadol and alternate with Tylenol. Patient is stable for discharge home. He will need to follow up with his PCP in 1 week. Status at Discharge Cognitive/behavioral status at discharge: Alert and oriented x3 Functional status at discharge: uses cane/walker Overall status at discharge: patient is progressing back to baseline Time Spent with Patient Time attestation: Total time spent providing and/or coordinating discharge services: Exam Narrative: General: In no acute distress, well nourished, pleasant Head: atraumatic, no encephalopathy Eyes: EOMI, PERRLA, sclera clear ENT: moist mucous membranes, nasal passages clear Neck: supple, no JVD, no adenopathy, trachea midline Cardiac: Normal S1 and S2. No murmur, gallops or friction rubs, peripheral pulses intact. Respiratory: Lungs clear to auscultation, no adventitious lung sounds Gastrointestinal: soft, non-distended, non-tender, normoactive bowel sounds. : voiding without difficulty. Extremities: moves all extremities well, no edema, good ROM, strength 5/5 Skin: clean, dry, intact. No wounds or lesions. Neuro: Alert and oriented x3, cranial nerves intact, no neuro deficits. Tardive dyskinesia Psych: normal mood, normal affect, interactive DS: Data Data Completed and Pending Completed studies during hospitalization: Ribs with chest x-ray Lumbar spine x-ray Pending studies at discharge: None Labs on day of discharge: Labs from last 24 hours 07/19/23 08:17 WBC 9.8 RBC 5.17 Hgb 15.0 Hct 45.2 MCV 87.4 MCH 29.0 MCHC 33.2 RDW 12.6 Plt Count 181 MPV 9.2 Sodium 136 L Potassium 4.0 Chloride 99 Carbon Dioxide 27 Anion Gap 10 BUN 14 Creatinine 0.80 Estim Creat Clear Calc 72 Estimated GFR > 60 Glucose 125 H Calcium 9.0 Total Bilirubin 1.0 AST 36 ALT 36 Alkaline Phosphatase 79 Total Protein 7.0 Albumin 4.2 Discharge Plan Discharge Attending physician on discharge: Jennifer Rajan Discharging Clinician: Enedelia East Anticipated Discharge Date/Time: 07/19/23 13:05 Patient Disposition: Home, Self-Care Activity: as tolerated Diet: as tolerated Discharge Instructions: Continue to take
== END 2023-07-19 16:21 | disposition home or self-care (01) | DRG 184 ==
LOC: ANHED 15:41 → ANH3MEDSUR 17:41
PROVIDERS: Admitting Provider Student in an Organized Health Care Education/Training Program; Emergency Provider Emergency Medicine; PCP Nurse Practitioner Family; Visit Provider Nurse Practitioner Acute Care
DX: S22.41XA Multiple fractures of ribs, right side, initial encounter for closed fracture (principal); G11.9 Hereditary ataxia, unspecified; I10 Essential (primary) hypertension; G62.9 Polyneuropathy, unspecified; H91.93 Unspecified hearing loss, bilateral; F03.90 Unspecified dementia, unspecified severity, without behavioral disturbance, psychotic disturbance, mood disturbance, and anxiety; F32.A Depression, unspecified; F41.9 Anxiety disorder, unspecified; W19.XXXA Unspecified fall, initial encounter; Z85.51 Personal history of malignant neoplasm of bladder
CPT/HCPCS: 36415; 71101; 71111; 72100; 80053; 85025; 85027; 96374; 96375; 99215; 99285; G0463; J1650; J2270; J2405

== ENCOUNTER 2024-07-24 13:26 | Outpatient (CLI) | payer MEDICARE, SELFPAY ==
--- NOTE | ~2024-07-24 | CT_ITS ---
EXAMINATION: CT abdomen pelvis wo/w con DATE: 07/24/2024 14:34 INDICATION: Hematuria. TECHNIQUE: Computed tomography (CT) of the abdomen and pelvis was performed without and with intraven ous contrast using a total of 130 mL Omnipaque-350 intravenous contrast with a double-bolus technique for simultaneous opacification of the renal parenchyma and renal collecting system. Automated exposu re control and iterative reconstruction technique were employed. The dose-length product was 1471.30 mGy-cm. COMPARISON: CT abdomen and pelvis 03/07/23 FINDINGS: The visualized portions of the lung bases demonstrate mild atelectasis. A calcified left lung nodule is consistent with old granulomatous disease. No pleural effusion. The heart size is normal. There ar e coronary artery calcifications. No pericardial effusion. There is bilateral gynecomastia. The liver is normal. There are gallstones in the gallbladder, which is contracted. Calcifications in the splee n are consistent with old granulomatous disease. There is a calcification the pancreas, consistent wi th chronic pancreatitis. The adrenal glands are normal. There is cortical thinning of the kidneys. Th ere are cysts in the kidneys measuring up to 1.4 cm on the left. There is no urolithiasis. There is d iffuse bladder wall thickening, likely secondary to chronic outlet obstruction from the moderately en larged prostate. There is a 1.3 cm mass in the bladder on the right. There are bilateral inguinal her nias containing fat. There is diverticulosis of the colon without evidence of diverticulitis. There a re changes of appendectomy. There are no dilated loops of bowel. There are no pathologically enlarged lymph nodes. There is no free intraperitoneal fluid. There is moderate thoracic spondylosis and jefry re lumbar spondylosis. IMPRESSION: 1. 1.3 cm mass in the bladder, consistent with urothelial carcinoma. Reviewed, dictated and finalized at location A. ERCIAL LINES SALES EXECUTIVE
[2024-07-24 13:58] LABS: Estimated Glomerular Filt Rate > 60
== END 2024-07-24 13:27 | disposition home or self-care (01) ==
PROVIDERS: PCP Nurse Practitioner Family; Visit Provider Nurse Practitioner
DX: R19.09 Other intra-abdominal and pelvic swelling, mass and lump (principal); R31.9 Hematuria, unspecified
CPT/HCPCS: 74178; Q9967

== ENCOUNTER 2024-09-10 00:17 | Day surgery (SDC) | payer MEDICARE, SELFPAY ==
--- NOTE | 2024-08-31 14:24 | PC.NURSE ---
10 am Report to the Outpatient Waiting Room, entrance under the green pavilion located off [facility], at time __8 am on date _09/10/24 . Planned Procedure Time: __10 am .? Time changes happen often and if your time is changed the preop area will call you the afternoon before. - You and your visitor will be asked to self-screen and do not enter if you have any COVID symptoms. Please call surgeon if you need to reschedule. - A mask is optional within the hospital at this time. Patients may have clear liquids (water, carbonated beverages, clear teas, apple juice) until 3 hours prior to surgery(7 am) with a maximum of 20 ounces. - No food from midnight until time of surgery and no smoking. This includes no chewing gum, candy or mints. - Infants may have breast milk until 4 hours before surgery, infant formula 6 hours prior to surgery. - Children will be allowed to drink immediately following surgery.? If applicable, please bring a bottle or sippy cup to assist with drinking. Juice, water, soda, and popsicles are readily available.? For infants on formula, please bring formula the day of surgery.? Pacifiers are allowed. Take only the following medications with a SIP of water on the morning of surgery: _NONE DO NOT STOP ANY OF YOUR OTHER PRESCRIPTION MEDICATIONS PRIOR TO SURGERY EXCEPT THE FOLLOWING Medications to discontinue per physician NONE Please no make-up, nail english, hairspray, perfume, deodorant, or body powder the day of surgery.? No jewelry (including any body piercings) or valuables the day of surgery, leave them at home.? Please take a shower or bath the night before, or the morning of, surgery with an antibacterial soap.? Wear comfortable, loose fitting clothing.? Children are encouraged to wear pajamas. - Jewelry must be removed prior to entering the operating room.? Rings and piercings that are not removed may be cut off. - The hospital will not accept responsibility for valuables.? - Please leave all valuables, including medications, at home the day of surgery. If you are going home after surgery, a licensed screw driver operator must drive you home.? - NO public transportation without another adult if you receive anesthesia. - We recommend that an adult stay with you for 24 hours following discharge. - We also recommend that you do not drive, make important decision, drink alcoholic beverages, or take any drugs that were not prescribed by your health care provider for at least 24 hours after your discharge time. For Pediatric surgeries, we recommend two adults accompany the child home. Follow any additional instructions given to you from your surgeon. Telephone instructions given to MEET and asked if any additional questions and then verbalized understanding. Patient advised to call surgeon office or pre surgery nurse liaison [phone] if any additional questions.
[2024-08-31 14:40] VITALS: BMI 25.8
[2024-09-10] VITALS (10 sets, daily range): BP systolic 133–200; BP diastolic 63–108; PULSE 57–68; RESP 15–18; TEMP 36.2–36.6; O2SAT 96–100; BMI 23.3
--- NOTE | 2024-09-10 06:24 | WPDHPUPDATE1 ---
History and Physical Update Update Date/Time: 09/10/24 06:24 History and Physical has been reviewed, including an updated exam of the patient. There are NO changes in the patient's condition. Risks, benefits, and alternatives have been discussed and questions answered. Patient agrees to proceed with procedure.
[2024-09-10] MEDS: LACTATED RINGERS 1,000 ML 30 ML IV CONT (08:53)
--- NOTE | 2024-09-10 08:55 | P.PNAN_ITS ---
Anes - Initial Pre Proc Eval Procedure: Operation Date: 09/10/24 10:00 Proposed Procedures p Trans Urethral Resection Bladder Tumor with Gemcitabine Instillation - Kalpesh Clement MD Date/Time: 09/10/24 08:55 Surgeon: Kalpesh Clement MD Pre Op Diagnosis: bladder CA lateral wall Patient Data Age: 79 Gender: M Height: 1.78 m Weight: 74 kg Last Vital Signs Temp 36.2 C L 09/10/24 08:50 Pulse 57 L 09/10/24 08:50 BP 154/91 H 09/10/24 08:50 Pulse Ox 100 09/10/24 08:50 O2 Del Method Room Air 09/10/24 08:50 Allergies Allergy/AdvReac Type Severity Reaction Status Date / Time NSAIDS (Non-Steroidal Allergy Unknown Swelling Verified 08/31/24 14:26 Anti-Inflamma aspirin Allergy Redness of Verified 08/31/24 14:26 Skin Home Medications ?Medication ?Instructions ?Recorded ?Confirmed ?Type tramadol 50 mg tablet 50 mg PO .PRN PRN pain 01/14/24 08/31/24 History trazodone 150 mg tablet See Rx Instructions .Route 07/27/24 08/31/24 Rx .COMPLEX #90 tabs Patient hx anesthesia problems: none Family hx anesthesia problems: none Results Review: All pre-operative results and documents have been reviewed as part of the pre- operative evaluation. FORMERLY [facility], [facility] Past Medical History Medical History Dementia Urinary hesitancy Acute insomnia Depression Anxiety Foot deformity, bilateral Ataxia Peripheral neuropathy Bladder cancer Cerebellar ataxia Depression Memory loss H/O: hypertension Surgical History Surgical History History of bladder surgery History of partial colectomy H/O repair of rotator cuff Family History Family History Mother Patient's mother is Family history of dementia Family history of malignant neoplasm Father Family history of malignant neoplasm Patient's father is Other Depression Social History Social History Social History: . High school graduate. Patient does not wear dentures due to ill-fitting dentures. Patient prefers softer foods. Patient does not wear glasses. He is hard of hearing bilaterally. He is a former smoker. He drinks alcohol occasionally. Patient lives with his in a single-story home. Steps to enter. Smoking packs per day: 1 Smoking cigarettes per day: 20.0 Years smoked: 15 Smoking pack-years: 15.00 Smoking status: Former smoker Tobacco type: cigarettes Smoking end date: 09/02/78 Alcohol intake: former Substance use: never Substance use type: does not use Lack of Transportation: No Lack of Food: Never True Current Housing: I Have Housing Concerned About Future Housing: No Difficulty Paying Gas/Electric Bills: No Difficulty Paying for Meds: No Currently Unemployed: No Education: High School Diploma/GED Difficulty w/ Childcare or Family Care: No Living arrangements: with family Occupation/Education: retired Gender identity (if verbalized by the patient): Male Spiritual care concerns: No Anes - Eval Final PreProcedure Day of Procedure 09/10/24 08:55 Patient weight: normal Heart: regular rate and rhythm Lungs: clear to auscultation Airway: Mallampati scale class II Neurological: alert and oriented Last oral intake: >/= 8 hours ASA classification: III Emergent: no Anesthetic plan: proceed Anesthesia type and monitoring: general LMA Results Review: All pre-operative results and documents have been reviewed as part of the pre- operative evaluation. Informed Consent: The patient's anesthetic plan and its attendant risks and benefits were discussed with the patient/family/POA. Questions were solicited and answers provided to the satisfaction of the patient/family/POA.
[2024-09-10] MEDS: ceFAZolin 2 GM/D5W 50 ML 2 GM/50 ML BAG IVPB (09:06)
[2024-09-10] MEDS: LIDOCAINE 2% GEL UROJET 10 ML PKG MUCOUS MEM (09:25)
--- NOTE | 2024-09-10 09:45 | W.PM.PROC2 ---
Procedure Note - Detailed Date of Procedure 09/10/24 Pre-op Diagnosis Bladder tumor Post-op Diagnosis Same Procedure Performed TURBT ( medium, 3-4 cm) Surgeon Kalpesh Clement MD Anesthesia General Description of Procedure Patient is brought to the operative suite was prepped draped in routine sterile fashion while in dorsal lithotomy position after the uneventful induction of a general LMA anesthetic. A 24 F resectoscope was placed in his bladder. He has no urethral stricture and fairly moderate prostatic hyperplasia with a 2 cm prostatic urethra. He has no median lobe of the prostate. Bladder was very carefully inspected. He has a papillary, superficial appearing neoplasm in the right anterior lateral bladder wall that measures 3-4 cm. The remainder of the bladder mucosa is normal and the mucosa of the prostatic urethra was normal. Twenty-four F resectoscope loop was used to resect the bladder tumor in its entirety with an attempt made to include detrusor muscle for pathological evaluation of invasion. The base and periphery were was cauterized with both a loop and rollerball electrode. Resectoscope was removed and he was taken recovery room good condition. I did place an 18 F Gomez catheter prior to transfer so as to deliver intravesical gemcitabine postoperatively. Drains Yes Packing No Pathology Yes Complications No immediate complications Condition Stable
--- NOTE | 2024-09-10 09:48 | W.PM.PROC2 ---
Procedure Note - Detailed Date of Procedure 09/10/24 Pre-op Diagnosis Bladder tumor Post-op Diagnosis Same Procedure Performed Gemcitabine installation Surgeon Kalpesh Clement MD Anesthesia None Description of Procedure With the patient in the supine position, a 16F Gomez catheter is placed using sterile technique. Using a protective facemask, gown and double layer of gloves Gemcitabine 2gm in 100cc saline is administered through the catheter/into the bladder. The catheter is then plugged. Patient was instructed to lie supine x20min, then to roll both the left and right x20 min. each. Total dwell time will be 60 min., after which the bladder will be drained and catheter removed.
[2024-09-10] MEDS: SODIUM CHLORIDE 0.9% IV 23.7 ML, GEMCITABINE HCL 1,000 MG BLADDER ×2 (09:54→09:55)
[2024-09-10] MEDS: fentaNYL CITRATE INJ (*CRX) 100 MCG/2 ML VIAL 25 MCG IV PUSH ×4 (10:00→10:25)
--- NOTE | 2024-09-10 10:26 | SUR.PHASEI ---
1015 - dr. jackson aware of b/p. no orders received
[2024-09-10] MEDS: SODIUM CHLORIDE 0.9% IV 50 ML BAG 150 ML IRRIGATION (10:50)
--- NOTE | 2024-09-10 11:05 | SUR.PHASEI ---
1050 - pt turned every 20 minutes as ordered while Gemcitabine in bladder
== END 2024-09-10 12:14 | disposition home or self-care (01) ==
PROVIDERS: PCP Nurse Practitioner Family; Visit Provider Urology
PROC: 0TBB8ZZ Excision of Bladder, Via Natural or Artificial Opening Endoscopic (ICD-10-PCS; CPT 52235; principal; 2024-09-10 10:00)
DX: C67.2 Malignant neoplasm of lateral wall of bladder (principal); I10 Essential (primary) hypertension; N40.1 Benign prostatic hyperplasia with lower urinary tract symptoms; N52.9 Male erectile dysfunction, unspecified; F41.9 Anxiety disorder, unspecified; F32.A Depression, unspecified; R30.0 Dysuria; R31.0 Gross hematuria; R39.11 Hesitancy of micturition; F03.90 Unspecified dementia, unspecified severity, without behavioral disturbance, psychotic disturbance, mood disturbance, and anxiety; M19.90 Unspecified osteoarthritis, unspecified site; G47.00 Insomnia, unspecified; M21.962 Unspecified acquired deformity of left lower leg; M21.961 Unspecified acquired deformity of right lower leg; G62.9 Polyneuropathy, unspecified; Z79.891 Long term (current) use of opiate analgesic; Z98.890 Other specified postprocedural states; Z90.49 Acquired absence of other specified parts of digestive tract; Z87.891 Personal history of nicotine dependence; Z85.51 Personal history of malignant neoplasm of bladder; Z80.52 Family history of malignant neoplasm of bladder; Z80.1 Family history of malignant neoplasm of trachea, bronchus and lung
CPT/HCPCS: 52235; 51720; 88307; J0690; J2405; J2704; J3010; J7120; J9201

== ENCOUNTER 2024-09-12 09:43 | Inpatient (IN) | payer MEDICARE, SELFPAY ==
--- NOTE | ~2024-09-12 | XR_ITS ---
XR chest 2V DATE: 09/12/2024 10:23 INDICATION: Weakness TECHNIQUE: AP and lateral views COMPARISON: 09/24/22 portable upright AP chest at 0241 hours FINDINGS: Heart size appears within normal limits. There is aortic arch calcification. No hilar or me diastinal enlargement. There is volume loss of the right lung with rightward shift of heart and mediastinum, not significant ly changed since 09/24 sagittal and 23 considering some patient rotation. There may be minimal atelectasis at the lung bases. The lungs otherwise are clear. No pleural effusion or pulmonary vascular congestion or pneumothorax is evident. Osteopenia. Degenerative spurring of the thoracic spine. IMPRESSION: Chronic right lung volume loss, stable since 09/21 Minimal atelectasis is suggested at the lung bases Aortic atherosclerosis is Osteopenia Reviewed, dictated and finalized at location A. ERY TEST ENGINEER
[2024-09-12 09:43] VITALS: BP 149/58; PULSE 80; RESP 18; TEMP 37.2; O2SAT 98
--- NOTE | 2024-09-12 09:48 | ECG_ITS ---
Test Date: 2024-09-12 09:50:04 Measurements Intervals [place] Rate: 72 P: 38 PA: 148 QRS: -55 QRSD: 81 T: 63 QT: 295 QTc: 324 Interpretive Statements SINUS RHYTHM LEFT AXIS DEVIATION [QRS AXIS < -30] LOW QRS VOLTAGE [QRS DEFLECTION < 0.5/1.0 mV IN LIMB/CHEST LEADS] PATTERN CONSISTENT WITH PULMONARY DISEASE NONSPECIFIC T-WAVE ABNORMALITY ABNORMAL ECG No previous ECG available for comparison Electronically Signed On 09-12-2024 10:52:37 ARTIST COLOR SEPARATION by Reinier Sandhu M.D.
[2024-09-12 10:00] LABS: Basophils Percent Auto 0.1 % (0.2-1.2); Eosinophils Percent Auto 0.4 % (0-4.4); Hematocrit 38.2 % (42.0-52.0); Hemoglobin 13.1 g/dL (14.0-18.0); Immature Granulocyte Absolute 0.03 K/mm3 (0.00-0.031); Immature Granulocyte Percent A 0.3 % (0-0.5); Lymphocytes Absolute Auto 1.22 K/mm3 (0.9-3.2); Lymphocytes Percent Auto 12.7 % (18.3-44.2); Mean Corpuscular HGB Conc 34.3 g/dl (32-36); Mean Corpuscular Hemoglobin 30.8 pg (26-34); Mean Corpuscular Volume 89.9 fl (80-100); Mean Platelet Volume 9.3 fl (7.4-10.4); Monocytes Absolute Auto 0.2 K/mm3 (0.1-0.6); Monocytes Percent Auto 2.3 % (2.6-8.5); Neutrophils Absolute Auto 8.1 K/mm3 (1.3-6.7); Neutrophils Percent Auto 84.2 % (45.5-73.1); Platelet Count Result 165 k/mm3 (150-375); Red Blood Count 4.25 M/mm3 (4.6-6.20); Red Cell Distribution Width 12.5 % (11.5-14.5); White Blood Count 9.6 K/mm3 (4.5-10.0)
[2024-09-12 10:18] LABS: Alanine Aminotransferase 21 U/L (6-50); Albumin Level 3.6 g/dL (3.5-5.1); Alkaline Phosphatase 71 U/L (38-126); Anion Gap 5 mmol/L (4-12); Aspartate Amino Transferase 35 U/L (17-59); Bilirubin,Total 1.4 mg/dL (0.2-1.3); Blood Urea Nitrogen 20 mg/dL (9-20); Calcium 8.4 mg/dL (8.4-10.2); Carbon Dioxide 29 mmol/L (22-30); Chloride 103 mmol/L (98-107); Estimated CRCL calculation 67 ml/min; Estimated Glomerular Filt Rate > 60; Glucose 141 mg/dL (65-110); Potassium 4.3 mmol/L (3.4-5.0); Sodium 137 mmol/L (137-145)
[2024-09-12 11:06] VITALS: BP 164/69; PULSE 73; RESP 18; O2SAT 98
[2024-09-12 11:18] LABS: Add Urine Microscopic? YES; Appearance Urine Clear (Clear); Bacteria Urine None Seen /hpf; Bilirubin Urine Negative (Negative); Blood Urine 3+ (Negative); Color Urine Yellow (Yellow); Glucose Urine UA Negative (Negative); Ketones Urine Negative (Negative); Leukocyte Esterase Ur 2+ LEU/UL (Negative); Nitrate Urine Negative (Negative); Non Pathogenic Casts 0-2; Protein Urine 2+ mg/dL (Negative); RBC Urine >100 /hpf (0-2); Specific Grav Ur 1.018 (1.001-1.035); Squamous Epithelial Cell Urine None Seen /hpf (Few); Urobilinogen Urine 0.2 mg/dL (<2.0); WBC Urine 51-100 /hpf (0-3); pH Urine 6.5 (5.0-9.0)
--- NOTE | 2024-09-12 11:27 | ED.GENADULT ---
HPI - General Adult General Chief complaint: Recheck/Abnormal Lab/Rx Stated complaint: weakness post surgery Time Seen by Provider: 09/12/24 09:45 History of Present Illness HPI narrative: Patient is an 79-year-old male who presents ER with increased weakness and confusion. Has history of dementia but now cannot recommend his daughters. Too weak to get up and walk today. Recently had bladder cancer excision and chemotherapy inside the bladder. No fevers or chills or sweats. Patient was having incontinence throughout the night which is abnormal for him. He is peeing more frequently but also cannot get up to go to the bathroom which did not help the situation. Related Data Home Medications ?Medication ?Instructions ?Recorded ?Confirmed ?Last Taken ?Type tramadol 50 mg tablet 50 mg PO .PRN PRN pain 01/14/24 08/31/24 Unknown History Allergies Allergy/AdvReac Type Severity Reaction Status Date / Time NSAIDS (Non-Steroidal Allergy Unknown Swelling Verified 08/31/24 14:26 Anti-Inflamma aspirin Allergy Redness of Verified 08/31/24 14:26 Skin Review of Systems Review of Systems: ROS unobtainable: Yes unobtainable due to mental status [facility] Past Medical History Medical History Dementia Urinary hesitancy Acute insomnia Depression Anxiety Foot deformity, bilateral Ataxia Peripheral neuropathy Bladder cancer Cerebellar ataxia Depression Memory loss H/O: hypertension Surgical History Surgical History History of bladder surgery History of partial colectomy H/O repair of rotator cuff Family History Family History Mother Patient's mother is Family history of dementia Family history of malignant neoplasm Father Family history of malignant neoplasm Patient's father is Other Depression Social History Social History Social History: . High school graduate. Patient does not wear dentures due to ill-fitting dentures. Patient prefers softer foods. Patient does not wear glasses. He is hard of hearing bilaterally. He is a former smoker. He drinks alcohol occasionally. Patient lives with his in a single-story home. Steps to enter. Smoking packs per day: 1 Smoking cigarettes per day: 20.0 Years smoked: 15 Smoking pack-years: 15.00 Smoking status: Former smoker Tobacco type: cigarettes Smoking end date: 09/02/78 Alcohol intake: former Substance use: never Substance use type: does not use Lack of Transportation: No Lack of Food: Never True Current Housing: I Have Housing Concerned About Future Housing: No Difficulty Paying Gas/Electric Bills: No Difficulty Paying for Meds: No Currently Unemployed: No Education: High School Diploma/GED Difficulty w/ Childcare or Family Care: No Living arrangements: with family Occupation/Education: retired Gender identity (if verbalized by the patient): Male Spiritual care concerns: No Exam Narrative: GENERAL: Well-appearing, well-nourished, and in no acute distress. HEAD: Normocephalic, atraumatic. ENT: Mucous membranes moist. CHEST: Clear to auscultation. No respiratory distress. HEART: Regular rate and rhythm. Normal peripheral pulses. ABDOMEN: Soft, nontender, nondistended. EXTREMITIES: Normal range of motion. No edema. SKIN: Warm, dry, no rash. NEURO: Alert and oriented x1. PSYCH: Normal mood and affect. Course Course Emergency Course: Patient is pleasantly confused. Related to dementia and delirium. Admit to hospitalist service. IV ceftriaxone for UTI. Vital Signs Vital signs: Vital Signs Temperature 98.9 F 09/12/24 09:43 Pulse Rate 80 09/12/24 09:43 Respiratory Rate 18 09/12/24 09:43 Blood Pressure 149/58 H 09/12/24 09:43 Pulse Oximetry 98 09/12/24 09:43 Oxygen Delivery Room Air 09/12/24 09:43 Temperature 98.9 F 09/12/24 09:43 Pulse Rate 73 09/12/24 11:06 Respiratory Rate 18 09/12/24 11:06 Blood Pressure 164/69 H 09/12/24 11:06 Pulse Oximetry 98 09/12/24 11:06 Oxygen Delivery Room Air 09/12/24 09:43 Medical Decision Making Vital Signs Vital Signs: Vital Signs Temperature 98.9 F 09/12/24 09:43 Pulse Rate 80 09/12/24 09:43 Respiratory Rate 18 09/12/24 09:43 Blood Pressure 149/58 H 09/12/24 09:43 Pulse Oximetry 98 09/12/24 09:43 Oxygen Delivery Room Air 09/12/24 09:43 Temperature 98.9 F 09/12/24 09:43 Pulse Rate 73 09/12/24 11:06 Respiratory Rate 18 09/12/24 11:06 Blood Pressure 164/69 H 09/12/24 11:06 Pulse Oximetry 98 09/12/24 11:06 Oxygen Delivery Room Air 09/12/24 09:43 Lab Data 09/12/24 09:54 09/12/24 09:54 Labs: Lab Results 09/12/24 09/12/24 Range/Units 09:54 11:04 WBC 9.6 (4.5-10.0) K/mm3 RBC 4.25 L (4.6-6.20) M/mm3 Hgb 13.1 L (14.0-18.0) g/dL Hct 38.2 L (42.0-52.0) % MCV 89.9 (80-100) fl MCH 30.8 (26-34) pg MCHC 34.3 (32-36) g/dl RDW 12.5 (11.5-14.5) % Plt Count 165 (150-375) k/mm3 MPV 9.3 (7.4-10.4) fl Immature Gran % (Auto) 0.3 (0-0.5) % Neut % (Auto) 84.2 H (45.5-73.1) % Lymph % (Auto) 12.7 L (18.3-44.2) % [place] % (Auto) 2.3 L (2.6-8.5) % Eos % (Auto) 0.4 (0-4.4) % Baso % (Auto) 0.1 L (0.2-1.2) % Lymph # (Auto) 1.22 (0.9-3.2) K/mm3 [place] # (Auto) 0.2 (0.1-0.6) K/mm3 Eos # (Auto) 0.0 (0-0.3) K/mm3 Baso # (Auto) 0.0 (0.0-0.1) K/mm3 Abs Immat Gran (auto) 0.03 (0.00-0.031) K/mm3 Absolute Neuts (auto) 8.1 H (1.3-6.7) K/mm3 Absolute Nucleated RBC 0.000 (0.0-0.012) K/mm3 Nucleated RBC % 0.0 (0.0-0.2) % Sodium 137 (137-145) mmol/L Potassium 4.3 (3.4-5.0) mmol/L Chloride 103 (98-107) mmol/L Carbon Dioxide 29 (22-30) mmol/L Anion Gap 5 (4-12) mmol/L BUN 20 (9-20) mg/dL Creatinine 0.83 (0.7-1.3) mg/dL Estim Creat Clear Calc 67 ml/min Estimated GFR > 60 (59 - ) Glucose 141 H (65-110) mg/dL Calcium 8.4 (8.4-10.2) mg/dL Total Bilirubin 1.4 H (0.2-1.3) mg/dL AST 35 (17-59) U/L ALT 21 (6-50) U/L Alkaline Phosphatase 71 (38-126) U/L Total Protein 6.0 L (6.3-8.2) g/dL Albumin 3.6 (3.5-5.1) g/dL Urine Color Yellow (Yellow) Urine Appearance Clear (Clear) Urine pH 6.5 (5.0-9.0) Ur Specific [place] 1.018 (1.001-1.035) Urine Protein 2+ H (Negative) mg/dL Urine Glucose (UA) Negative (Negative) mg/dL Urine Ketones Negative (Negative) mg/dL Ur Blood (Man) 3+ H (Negative) Urine Nitrate Negative (Negative) Urine Bilirubin Negative (Negative) Urine Urobilinogen 0.2 (<2.0) mg/dL Leukocyte Esterase Rfl 2+ H (Negative) REDD/UL Urine RBC >100 H (0-2) /hpf Urine WBC 51-100 H (0-3) /hpf Ur Squamous Epith Cells None seen (Few) /hpf Urine Bacteria None seen /hpf Urine Casts 0-2 Imaging Data Radiologist's impression: ITS Impressions Chest X-Ray 09/12/24 10:29 IMPRESSION: Chronic right lung volume loss, stable since 09/21 Minimal atelectasis is suggested at the lung bases Aortic atherosclerosis is Osteopenia ECG Data EKG #1: ECG completion date: 09/12/24 ECG completion time: 09:50 EKG Interpretation: normal rate (72), sinus rhythm, normal QRS, normal QT and left axis Discharge Plan Discharge Clinical Impression: Acute UTI, Delirium Patient Disposition: Still a Patient Condition: Stable Patient Language: Turkmen Prescriptions: No Action tramadol 50 mg tablet 50 mg PO .PRN PRN (Reason: pain) trazodone 150 mg tablet See Rx Instructions .ROUTE .COMPLEX Qty: 90 0RF Dose Instruction: TAKE 1 TABLET BY MOUTH EVERY EVENING AT 6 PM Rx Instructions: TAKE 1 TABLET BY MOUTH EVERY EVENING AT 6 PM Follow-up/Referrals: Rubina Arzate APRN [Primary Care Provider] -
--- NOTE | 2024-09-12 12:36 | P.HP_ITS ---
H&P: HPI History of Present Illness Date/Time: 09/12/24 12:36 Chief Complaint: Altered mental status Narrative: 59-year-old male with past medical history of bladder cancer, cerebellar ataxia, hypertension and dementia presents the hospital with altered mental status. Patient is extremely hard of hearing. Per the daughter the patient had a urological procedure on when home same day. Patient was in his normal state held on Saturday. She states that this morning he was severely weak and could walk, was not eating or drinking and was altered from baseline. UA shows 2+ leukocyte esterase, chest x-ray shows atelectasis and chronic right lung volume loss stable since 2019, EKG shows sinus rhythm. Patient was started on Rocephin, blood cultures and urine culture and sensitivity pending. Review of Systems Review of Systems: ROS unobtainable: Yes unobtainable due to mental status [facility] Past Medical History Medical History Dementia Urinary hesitancy Acute insomnia Depression Anxiety Foot deformity, bilateral Ataxia Peripheral neuropathy Bladder cancer Cerebellar ataxia Depression Memory loss H/O: hypertension Surgical History Surgical History History of bladder surgery History of partial colectomy H/O repair of rotator cuff Family History Family History Mother Patient's mother is Family history of dementia Family history of malignant neoplasm Father Family history of malignant neoplasm Patient's father is Other Depression Social History Social History Social History: . High school graduate. Patient does not wear dentures due to ill-fitting dentures. Patient prefers softer foods. Patient does not wear glasses. He is hard of hearing bilaterally. He is a former smoker. He drinks alcohol occasionally. Patient lives with his in a single-story home. Steps to enter. Smoking packs per day: 1 Smoking cigarettes per day: 20.0 Years smoked: 15 Smoking pack-years: 15.00 Smoking status: Former smoker Tobacco type: cigarettes Smoking end date: 09/02/78 Alcohol intake: former Substance use: never Substance use type: does not use Lack of Transportation: No Lack of Food: Never True Current Housing: I Have Housing Concerned About Future Housing: No Difficulty Paying Gas/Electric Bills: No Difficulty Paying for Meds: No Currently Unemployed: No Education: High School Diploma/GED Difficulty w/ Childcare or Family Care: No Living arrangements: with family Occupation/Education: retired Gender identity (if verbalized by the patient): Male Spiritual care concerns: No Meds Home Medications and Allergies Home Medications ?Medication ?Instructions ?Recorded ?Confirmed ?Type tramadol 50 mg tablet 50 mg PO .PRN PRN pain 01/14/24 08/31/24 History trazodone 150 mg tablet See Rx Instructions .Route 07/27/24 08/31/24 Rx .COMPLEX #90 tabs Allergies Allergy/AdvReac Type Severity Reaction Status Date / Time NSAIDS (Non-Steroidal Allergy Unknown Swelling Verified 08/31/24 14:26 Anti-Inflamma aspirin Allergy Redness of Verified 08/31/24 14:26 Skin Vital Signs Vital Signs - 24 hr 09/12/24 09:43 09/12/24 11:06 Temperature 98.9 F Pulse Rate 80 73 Respiratory Rate 18 18 Blood Pressure 149/58 H 164/69 H Pulse Oximetry 98 98 Oxygen Delivery Room Air Exam Narrative: General: well appearing, appears stated age. Heart hearing HEENT: normocephalic, atraumatic. Mucous membranes moist. EOMI, PERRLA, bilateral sclera anicteric, no conjunctival injection. Neck supple without JVD, lymphadenopathy, or bruit. Respiratory: clear to ascultation bilaterally. No rales/rhonic/wheezes. Cardiovascular: Regular rate and rhythm, normal S1-S2 upon ascultation. No murmurs, rubs, or clicks. PMI is nondisplaced, capillary refill less than 3 second. Abdomen: Soft, round, no pulsatile masses, nondistended and nontender. No rebound, no guarding. No CVA tenderness, no hepatosplenomegaly. Bowel sounds present to all four quadrants. No high pitch or tinkling sounds, resonant to percussion. Extremities: No cyanosis, clubbing. 1+ edema present. Pulses are palpable 2/2. Active ROM to all four extremities. Neuro: Alert and orientated x 1. PERRLA. Cranial nerves 2-12 intact without focal deficit. Skin: Warm, dry, and intact, without rash, erythema, or lesion. Psych: pleasant, cooperative, normal speech, normal affect, no hallucinations, no dysarthia H&P: Results Labs Labs: Short CBC 09/12/24 Range/Units 09:54 WBC 9.6 (4.5-10.0) K/mm3 Hgb 13.1 L (14.0-18.0) g/dL Hct 38.2 L (42.0-52.0) % Plt Count 165 (150-375) k/mm3 BMP 09/12/24 09:54 Sodium 137 Potassium 4.3 Chloride 103 Carbon Dioxide 29 BUN 20 Creatinine 0.83 Glucose 141 H Calcium 8.4 Liver Function 09/12/24 Range/Units 09:54 Total Bilirubin 1.4 H (0.2-1.3) mg/dL AST 35 (17-59) U/L ALT 21 (6-50) U/L Alkaline Phosphatase 71 (38-126) U/L Albumin 3.6 (3.5-5.1) g/dL Urine 09/12/24 Range/Units 11:04 Urine Color Yellow (Yellow) Urine Appearance Clear (Clear) Urine pH 6.5 (5.0-9.0) Ur Specific [place] 1.018 (1.001-1.035) Urine Protein 2+ H (Negative) mg/dL Urine Glucose (UA) Negative (Negative) mg/dL Assessment and Plan Assessment and plan (1) Acute UTI: Code(s): N39.0 - Urinary tract infection, site not specified Status: Acute Assessment and Plan: IV Rocephin Urine cultures and sensitivity pending (2) Altered mental status: Code(s): R41.82 - Altered mental status, unspecified Status: Acute Assessment and Plan: Possibly from UTI Increased altered mental status and dementia Blood cultures pending (3) Weakness: Code(s): R53.1 - Weakness Status: Acute Assessment and Plan: PT OT eval and treat Chest x-ray shows no acute process Quality VTE Prophylaxis VTE prophylaxis: mechanical ordered and pharmacologic ordered Hospitalist MIPS Advance Care Plan I have confirmed that the patient's Advanced Care Plan is present, code status is documented, or surrogate decision maker is listed in patient medical record.: Yes Medication Reconciliation I have utilized all available resources to obtain, update and review the patients current medications (includes all prescriptions, OTC, herbals, cannabis, and nutritional supplements).: Yes
[2024-09-12 14:00] VITALS: BP 175/70; PULSE 74; RESP 18; O2SAT 98
[2024-09-12 15:18] VITALS: BP 159/62; PULSE 76; RESP 18; O2SAT 98
--- NOTE | 2024-09-12 15:38 | ADMGEN ---
This patient, Denton Burnett, was admitted to Medical Room 342-01. Patient/family oriented to hospital policies and general routines including ID bracelet, bed and alarms, visiting hours, pain management, procedures, bathroom and other care routines, personal items, smoking policy, room service/diet, and visiting hours. Information on how to activate the Rapid Response Team has been discussed. Patient/Family are encouraged to report perceived risks to care and to ask questions if they do not understand what they are told or what they should do.
[2024-09-12 15:50] VITALS: BP 173/52; PULSE 89; RESP 19; TEMP 36.3; O2SAT 99
[2024-09-12] MEDS: DOCUSATE SODIUM 100 MG CAPSULE PO (16:34)
[2024-09-12] MEDS: SODIUM CHLORIDE 0.9% IV 1,000 ML 100 ML IV CONT (16:34)
[2024-09-12 22:00] VITALS: BP 158/82; PULSE 87; RESP 20; TEMP 36.1; O2SAT 98
[2024-09-13] MEDS: ACETAMINOPHEN 325 MG TABLET 650 MG PO (02:15)
[2024-09-13 05:51] LABS: Basophils Percent Auto 0.2 % (0.2-1.2); Eosinophils Percent Auto 0.4 % (0-4.4); Hematocrit 35.6 % (42.0-52.0); Immature Granulocyte Absolute 0.07 K/mm3 (0.00-0.031); Immature Granulocyte Percent A 0.7 % (0-0.5); Lymphocytes Percent Auto 10.4 % (18.3-44.2); Mean Corpuscular HGB Conc 33.7 g/dl (32-36); Mean Corpuscular Hemoglobin 29.9 pg (26-34); Mean Corpuscular Volume 88.6 fl (80-100); Mean Platelet Volume 9.7 fl (7.4-10.4); Monocytes Absolute Auto 0.1 K/mm3 (0.1-0.6); Monocytes Percent Auto 0.8 % (2.6-8.5); Neutrophils Absolute Auto 8.4 K/mm3 (1.3-6.7); Neutrophils Percent Auto 87.5 % (45.5-73.1); Platelet Count Result 144 k/mm3 (150-375); Red Blood Count 4.02 M/mm3 (4.6-6.20); Red Cell Distribution Width 12.2 % (11.5-14.5); White Blood Count 9.6 K/mm3 (4.5-10.0)
[2024-09-13 06:00] VITALS: BP 156/65; PULSE 71; RESP 18; TEMP 36.4; O2SAT 97
[2024-09-13 06:04] LABS: Anion Gap 4 mmol/L (4-12); Blood Urea Nitrogen 16 mg/dL (9-20); Calcium 8.2 mg/dL (8.4-10.2); Carbon Dioxide 27 mmol/L (22-30); Chloride 103 mmol/L (98-107); Estimated CRCL calculation 80 ml/min; Estimated Glomerular Filt Rate > 60; Glucose 128 mg/dL (65-110); Potassium 3.7 mmol/L (3.4-5.0); Sodium 134 mmol/L (137-145)
[2024-09-13 08:00] VITALS: BP 139/60; PULSE 73; RESP 18; TEMP 36.3; O2SAT 99
[2024-09-13] MEDS: ENOXAPARIN 40 MG/0.4 ML SYRINGE SUB-Q (09:13)
[2024-09-13] MEDS: DOCUSATE SODIUM 100 MG CAPSULE PO ×2 (09:14→17:36)
[2024-09-13] MEDS: SODIUM CHLORIDE 0.9% IV 1,000 ML 100 ML IV CONT (09:15)
[2024-09-13 12:00] VITALS: BP 147/60; PULSE 92; RESP 18; TEMP 36.2; O2SAT 100
--- NOTE | 2024-09-13 13:55 | P.PNIM_ITS ---
Progress Note: A&P Assessment and Plan (1) Acute UTI: Code(s): N39.0 - Urinary tract infection, site not specified Status: Acute Assessment and Plan: Patient s/p recent TURBT with chemo insertion. UA consistent with possible UTI. Continue IV Rocephin Urine cultures and sensitivity pending (2) Altered mental status: Code(s): R41.82 - Altered mental status, unspecified Status: Acute Assessment and Plan: Possibly secondary to UTI Hx of dementia but likely worsened by UTI. Continue to follow cultures. Continue to monitor changes in mentation. (3) Weakness: Code(s): R53.1 - Weakness Status: Acute Assessment and Plan: Possibly worsened by UTI. PT OT eval and treat Fall precautions. (4) Bladder cancer: Code(s): C67.9 - Malignant neoplasm of bladder, unspecified Status: Acute Assessment and Plan: - s/p recent TURBT with chemo insertion. - Continue outpatient f/u with urologist. Plan Continue IV abx as we follow cultures. PT/OT eval and treatment. Fall precautions. DVT PPx: SCD's. Diet: Heart Healthy. Disposition: Pending PT/OT evaluation. Time Spent With Patient Time with patient: 15 - 25 minutes Subjective Date/time seen: 09/13/24 09:55 Patient states he feels alright and has no pain or other distressful symptoms. Interval history: Patient calm on bedrest having breakfast, looks to be in no acute distress. Review of Systems Review of Systems: All systems reviewed & are unremarkable except as noted in HPI and below Exam Narrative: General: well appearing, no acute distress. HEENT: normocephalic, atraumatic. Mucous membranes moist. EOMI, PERRLA, anicteric, Neck supple. Respiratory: clear bilaterally. Cardiovascular: Regular rate and rhythm, No murmurs. Abdomen: Soft, round, nondistended and nontender. Bowel sounds present to all four quadrants. Extremities: No cyanosis or clubbing. Trace edema robyn. LE present. Active ROM to all four extremities. Neuro: Alert and orientated to person and location. Cranial nerves II-XII gr ossly intact. Skin: Warm, dry, and intact, without lesions. Psych: pleasantly confused but cooperative. Objective Data Vital Signs Vital Signs: Vital Signs - 24 hr 09/12/24 14:00 09/12/24 15:18 09/12/24 15:50 Temperature 97.3 F L Pulse Rate 74 76 89 Respiratory Rate 18 18 19 Blood Pressure 175/70 H 159/62 H 173/52 H Pulse Oximetry 98 98 99 Oxygen Delivery 09/12/24 16:00 09/12/24 22:00 09/13/24 06:00 Temperature 97.0 F L 97.6 F Pulse Rate 87 71 Respiratory Rate 20 18 Blood Pressure 158/82 H 156/65 H Pulse Oximetry 98 97 Oxygen Delivery Room Air 09/13/24 08:00 Temperature 97.3 F L Pulse Rate 73 Respiratory Rate 18 Blood Pressure 139/60 Pulse Oximetry 99 Oxygen Delivery Intake/Output Intake/Output: Intake & Output 09/10/24 09/11/24 09/12/24 09/13/24 23:59 23:59 23:59 23:59 Intake Total 170 1490 Output Total 150 400 Balance 20 1090 Meds/Results Medications: Active Medications Generic Name Dose Route Start Last Admin Trade Name Freq PRN Reason Stop Dose Admin Acetaminophen 650 mg 09/12/24 12:41 09/13/24 02:15 Acetaminophen 325 Mg Tablet PO 650 mg Q4H PRN Administration Mild Pain (1-3) or Fever Docusate Sodium 100 mg 09/12/24 17:00 09/13/24 09:14 Docusate Sodium 100 Mg Capsule PO 100 mg BID RAYSHAWN Administration Enoxaparin Sodium 40 mg 09/13/24 09:00 09/13/24 09:13 Enoxaparin 40 Mg/0.4 Ml Syringe SUB-Q 40 mg DAILY RAYSHAWN Administration Ceftriaxone Sodium 1 gm in 50 mls @ 100 mls/hr 09/13/24 12:00 09/13/24 12:51 Rocephin 1 Gm/Ns 50 Ml IVPB 100 mls/hr Q24H RAYSHAWN Administration Sodium Chloride 1,000 mls @ 100 mls/hr 09/12/24 15:45 09/13/24 09:15 Normal Saline Iv IV CONT 100 mls/hr .Q10H RAYSHAWN Administration Ondansetron HCl 4 mg 09/12/24 11:39 Ondansetron Inj 4 Mg/2 Ml Vial IV PUSH Q4H PRN Nausea Radiology Results: ITS Impressions Chest X-Ray 09/12/24 10:29 IMPRESSION: Chronic right lung volume loss, stable since 09/21 Minimal atelectasis is suggested at the lung bases Aortic atherosclerosis is Osteopenia Labs Labs: Laboratory Results - last 24 hr 09/13/24 05:22 WBC 9.6 RBC 4.02 L Hgb 12.0 L Hct 35.6 L MCV 88.6 MCH 29.9 MCHC 33.7 RDW 12.2 Plt Count 144 L MPV 9.7 Immature Gran % (Auto) 0.7 H Neut % (Auto) 87.5 H Lymph % (Auto) 10.4 L [place] % (Auto) 0.8 L Eos % (Auto) 0.4 Baso % (Auto) 0.2 Lymph # (Auto) 1.00 [place] # (Auto) 0.1 Eos # (Auto) 0.0 Baso # (Auto) 0.0 Abs Immat Gran (auto) 0.07 H Absolute Neuts (auto) 8.4 H Absolute Nucleated RBC 0.000 Nucleated RBC % 0.0 Sodium 134 L Potassium 3.7 Chloride 103 Carbon Dioxide 27 Anion Gap 4 BUN 16 Creatinine 0.68 L Estim Creat Clear Calc 80 Estimated GFR > 60 Glucose 128 H Calcium 8.2 L Quality VTE Prophylaxis VTE prophylaxis: mechanical ordered and pharmacologic ordered Hospitalist MIPS Advance Care Plan I have confirmed that the patient's Advanced Care Plan is present, code status is documented, or surrogate decision maker is listed in patient medical record.: Yes Medication Reconciliation I have utilized all available resources to obtain, update and review the patients current medications (includes all prescriptions, OTC, herbals, cannabis, and nutritional supplements).: Yes
[2024-09-13 16:00] VITALS: BP 118/72; PULSE 98; RESP 18; TEMP 36.5; O2SAT 100
[2024-09-13] MEDS: traZODone HCL 50 MG TABLET 150 MG BY MOUTH (17:36)
[2024-09-13 20:00] VITALS: BP 154/71; PULSE 76; RESP 20; TEMP 36.3; O2SAT 100
[2024-09-13] MEDS: traMADol HCL (*CRX) 50 MG TABLET PO (23:35)
[2024-09-14] MEDS: diphenhydrAMINE HCl INJ 50 MG/ML VIAL IV PUSH ×2 (00:17→23:23)
--- NOTE | 2024-09-14 00:47 | PC.NURSE ---
Patient agitated and restless HS x 2 nights. patient stated he hurt all over and was given tramadol for pain and to make patient more comfortable. Patient continued to be impulsive and restless. HospitalistDirk was contacted in regards to patients insomnia. See Mar for orders
--- NOTE | 2024-09-14 05:20 | PC.NURSE ---
Patient has been impulsive and pulling at IV lines, attempting to get out of bed with pull at IV line. System Support Specialist paused fluids at this time to not compromise IV access.
[2024-09-14 06:00] VITALS: BP 142/68; PULSE 70; RESP 18; TEMP 36.1; O2SAT 96
[2024-09-14] MEDS: DOCUSATE SODIUM 100 MG CAPSULE PO ×2 (09:25→17:58)
[2024-09-14] MEDS: SODIUM CHLORIDE 0.9% IV 1,000 ML 100 ML IV CONT ×2 (09:28→17:59)
[2024-09-14 10:16] VITALS: BP 133/66; PULSE 71; RESP 16; TEMP 36.2; O2SAT 100
[2024-09-14 11:26] LABS: Basophils Percent Auto 0.3 % (0.2-1.2); Eosinophils Absolute Auto 0.2 K/mm3 (0-0.3); Eosinophils Percent Auto 2.5 % (0-4.4); Hematocrit 37.4 % (42.0-52.0); Hemoglobin 12.5 g/dL (14.0-18.0); Immature Granulocyte Absolute 0.02 K/mm3 (0.00-0.031); Immature Granulocyte Percent A 0.3 % (0-0.5); Lymphocytes Absolute Auto 0.96 K/mm3 (0.9-3.2); Mean Corpuscular HGB Conc 33.4 g/dl (32-36); Mean Corpuscular Hemoglobin 30.3 pg (26-34); Mean Corpuscular Volume 90.6 fl (80-100); Mean Platelet Volume 9.6 fl (7.4-10.4); Monocytes Percent Auto 0.6 % (2.6-8.5); Neutrophils Absolute Auto 5.7 K/mm3 (1.3-6.7); Neutrophils Percent Auto 82.3 % (45.5-73.1); Platelet Count Result 192 k/mm3 (150-375); Red Blood Count 4.13 M/mm3 (4.6-6.20); Red Cell Distribution Width 12.4 % (11.5-14.5); White Blood Count 6.9 K/mm3 (4.5-10.0)
[2024-09-14 11:36] LABS: Anion Gap 6 mmol/L (4-12); Blood Urea Nitrogen 12 mg/dL (9-20); Calcium 8.4 mg/dL (8.4-10.2); Carbon Dioxide 27 mmol/L (22-30); Chloride 104 mmol/L (98-107); Estimated CRCL calculation 77 ml/min; Estimated Glomerular Filt Rate > 60; Glucose 134 mg/dL (65-110); Potassium 3.7 mmol/L (3.4-5.0); Sodium 137 mmol/L (137-145)
[2024-09-14 13:33] VITALS: BP 150/67; PULSE 85; RESP 18; TEMP 36.8; O2SAT 100
--- NOTE | 2024-09-14 15:39 | P.DS_ITS ---
DS: Admitting Diagnosis Discharge Date 09/14/24 Admitting Diagnosis Altered Mental Status DS: Discharge Diagnosis Discharge Diagnosis (1) Acute UTI: Code(s): N39.0 - Urinary tract infection, site not specified Status: Acute Assessment and Plan: Acute. (2) Altered mental status: Code(s): R41.82 - Altered mental status, unspecified Status: Acute Assessment and Plan: Acute on Chronic. (3) Weakness: Code(s): R53.1 - Weakness Status: Acute Assessment and Plan: Acute on Chronic. (4) Bladder cancer: Code(s): C67.9 - Malignant neoplasm of bladder, unspecified Status: Acute Assessment and Plan: - Chronic. Plan Discharge Home. DS: Summary Hospital Course Reason for hospitalization: Altered Mental Status. Hospital Course: Patient was brought in to the ER with reports of alteration in mentation. Patient was s/p recent TURBT with chemo insertion. Patient's UA was negative for bacteria, but had 51-100 urine WBC's and 2+ leukocyte esterase with urine nitrate negative as well. Blood and urine cultures were collected, with the patient started on empiric Ceftriaxone for possible UTI. Patient's mentation appears baseline currently and her urine and blood cultures have been negative, therefore no abx therapy needed. Patient has no clinical signs of infection, with her WBC's remaining within normal limits since admission. Patient worked with PT and will be discharged home with home health PT and assistance. Pt is medically stable for discharge with no acute distress noted or reported prior to discharge. Status at Discharge Functional status at discharge: uses cane/walker Overall status at discharge: patient is progressing back to baseline Time Spent with Patient Time attestation: Total time spent providing and/or coordinating discharge services: Time spent: Greater than 30 minutes Exam Narrative: General: well appearing, no acute distress. HEENT: normocephalic, atraumatic. Mucous membranes moist. EOMI, PERRLA, anicteric, Neck: Supple. Respiratory: clear bilaterally. Cardiovascular: Regular rate and rhythm, No murmurs. Abdomen: Soft, round, nondistended and nontender. Bowel sounds present to all four quadrants. Extremities: No cyanosis or clubbing. Trace edema robyn. LE present. Active ROM to all four extremities. Neuro: Alert and orientated to person and location. Cranial nerves II-XII grossly intact. Skin: Warm, dry, and intact, without lesions. Psych: pleasantly confused but cooperative. DS: Data Data Completed and Pending Labs on day of discharge: Labs from last 24 hours 09/14/24 11:20 WBC 6.9 RBC 4.13 L Hgb 12.5 L Hct 37.4 L MCV 90.6 MCH 30.3 MCHC 33.4 RDW 12.4 Plt Count 192 MPV 9.6 Immature Gran % (Auto) 0.3 Neut % (Auto) 82.3 H Lymph % (Auto) 14.0 L [place] % (Auto) 0.6 L Eos % (Auto) 2.5 Baso % (Auto) 0.3 Lymph # (Auto) 0.96 [place] # (Auto) 0.0 L Eos # (Auto) 0.2 Baso # (Auto) 0.0 Abs Immat Gran (auto) 0.02 Absolute Neuts (auto) 5.7 Absolute Nucleated RBC 0.000 Nucleated RBC % 0.0 Sodium 137 Potassium 3.7 Chloride 104 Carbon Dioxide 27 Anion Gap 6 BUN 12 Creatinine 0.71 Estim Creat Clear Calc 77 Estimated GFR > 60 Glucose 134 H Calcium 8.4 Preliminary micro results at discharge 09/12/24 12:17 Blood Culture - Preliminary Blood 09/12/24 11:44 Blood Culture - Preliminary Blood Discharge Plan Discharge Attending physician on discharge: Alex Andrade Discharging Clinician: Ángel Chappell Anticipated Discharge Date/Time: 09/14/24 15:44 Patient Disposition: Home, Self-Care Activity: as tolerated Diet: as tolerated Patient Instructions: Antibiotic Form Patient Language: Malagasy Stand Alone Forms: General Discharge Information Follow-up/Referrals: Rubina Arzate APRN [Primary Care Provider] - 1 Week Discharge Medications: Continued tramadol 50 mg tablet 50 mg PO .PRN PRN (Reason: pain) trazodone 150 mg tablet See Rx Instructions .ROUTE .COMPLEX Qty: 90 0RF Dose Instruction: TAKE 1 TABLET BY MOUTH EVERY EVENING AT 6 PM Rx Instructions: TAKE 1 TABLET BY MOUTH EVERY EVENING AT 6 PM Date of admission: 09/13/24 14:32 Primary Care Provider: Rubina Arzate Admitting Provider: Filomena Li Attending physician on admission: Filomena Li Condition: Stable Quality VTE Prophylaxis VTE prophylaxis: mechanical ordered and pharmacologic ordered
--- NOTE | 2024-09-14 15:58 | P.PNIM_ITS ---
Progress Note: A&P Assessment and Plan (1) Acute UTI: Code(s): N39.0 - Urinary tract infection, site not specified Status: Acute Assessment and Plan: - UA negative for bacteria, negative for nitrate, Urine WBC 51-100, 2+ leukocyte esterase. - WBC's wnl. - No fevers and no clinical signs of infection. - Urine and blood cultures negative. - Abx discontinued. (2) Altered mental status: Code(s): R41.82 - Altered mental status, unspecified Status: Acute Assessment and Plan: - Likely related to dementia. - Urine and blood cultures negative. - CXR with no infiltrates. - No significant metabolic derangements. - Fall precautions. - Assist with care. (3) Weakness: Code(s): R53.1 - Weakness Status: Acute Assessment and Plan: - Acute on Chronic. - Possibly related to dementia. - PT/OT eval and treatment. (4) Bladder cancer: Code(s): C67.9 - Malignant neoplasm of bladder, unspecified Status: Acute Assessment and Plan: - Chronic. - s/p recent TURBT with chemo insertion. - Continue outpatient f/u with urologist Plan Continue PT/OT treatment. unable to care for pt at home and pt will likely need placement. Time Spent With Patient Time with patient: 15 - 25 minutes Subjective Date/time seen: 09/14/24 10:48 Patient states he feels alright and has no pain or other distressful symptoms. Interval history: Patient calm on bedrest and looks to be in no acute distress. Review of Systems Review of Systems: All systems reviewed & are unremarkable except as noted in HPI and below Exam Narrative: General: well appearing, no acute distress. HEENT: normocephalic, atraumatic. Mucous membranes moist. EOMI, PERRLA, anicteric, Neck: Supple. Respiratory: clear bilaterally. Cardiovascular: Regular rate and rhythm, No murmurs. Abdomen: Soft, round, nondistended and nontender. Bowel sounds present to all four quadrants. Extremities: No cyanosis or clubbing. Trace edema robyn. LE present. Active ROM to all four extremities. Neuro: Alert and orientated to person and location. Cranial nerves II-XII grossly intact. Skin: Warm, dry, and intact, without lesions. Psych: pleasantly confused but cooperative. Objective Data Vital Signs Vital Signs: Vital Signs - 24 hr 09/13/24 16:00 09/13/24 20:00 09/14/24 06:00 Temperature 97.7 F 97.3 F L 97.0 F L Pulse Rate 98 76 70 Respiratory Rate 18 20 18 Blood Pressure 118/72 154/71 H 142/68 H Pulse Oximetry 100 100 96 Oxygen Delivery 09/14/24 09:25 09/14/24 10:16 09/14/24 11:58 Temperature 97.1 F L Pulse Rate 71 Respiratory Rate 16 Blood Pressure 133/66 Pulse Oximetry 100 Oxygen Delivery Room Air Room Air 09/14/24 12:58 09/14/24 13:33 Temperature 98.2 F Pulse Rate 85 Respiratory Rate 18 Blood Pressure 150/67 H Pulse Oximetry 100 Oxygen Delivery Room Air Intake/Output Intake/Output: Intake & Output 09/11/24 09/12/24 09/13/24 09/14/24 23:59 23:59 23:59 23:59 Intake Total 170 2330 1780 Output Total 567 669 5005 Balance 20 1529 480 Meds/Results Medications: Active Medications Generic Name Dose Route Start Last Admin Trade Name Freq PRN Reason Stop Dose Admin Acetaminophen 650 mg 09/12/24 12:41 09/13/24 02:15 Acetaminophen 325 Mg Tablet PO 650 mg Q4H PRN Administration Mild Pain (1-3) or Fever Docusate Sodium 100 mg 09/12/24 17:00 09/14/24 09:25 Docusate Sodium 100 Mg Capsule PO 100 mg BID RAYSHAWN Administration Enoxaparin Sodium 40 mg 09/13/24 09:00 09/14/24 09:21 Enoxaparin 40 Mg/0.4 Ml Syringe SUB-Q Not Given DAILY RAYSHAWN Ceftriaxone Sodium 1 gm in 50 mls @ 100 mls/hr 09/13/24 12:00 09/14/24 14:28 Rocephin 1 Gm/Ns 50 Ml IVPB 100 mls/hr Q24H RAYSHAWN Administration Sodium Chloride 1,000 mls @ 100 mls/hr 09/12/24 15:45 09/14/24 09:28 Normal Saline Iv IV CONT 100 mls/hr .Q10H RASYHAWN Administration Ondansetron HCl 4 mg 09/12/24 11:39 Ondansetron Inj 4 Mg/2 Ml Vial IV PUSH Q4H PRN Nausea Tramadol HCl 50 mg 09/13/24 14:08 09/13/24 23:35 Tramadol Hcl (*Crx) 50 Mg Tablet PO 50 mg Q6H PRN Administration pain Trazodone HCl 150 mg 09/13/24 18:00 09/13/24 17:36 Trazodone Hcl 50 Mg Tablet BY MOUTH 150 mg EVENING RAYSHAWN Administration Radiology Results: ITS Impressions Chest X-Ray 09/12/24 10:29 IMPRESSION: Chronic right lung volume loss, stable since 09/21 Minimal atelectasis is suggested at the lung bases Aortic atherosclerosis is Osteopenia Labs Labs: Laboratory Results - last 24 hr 09/14/24 11:20 WBC 6.9 RBC 4.13 L Hgb 12.5 L Hct 37.4 L MCV 90.6 MCH 30.3 MCHC 33.4 RDW 12.4 Plt Count 192 MPV 9.6 Immature Gran % (Auto) 0.3 Neut % (Auto) 82.3 H Lymph % (Auto) 14.0 L [place] % (Auto) 0.6 L Eos % (Auto) 2.5 Baso % (Auto) 0.3 Lymph # (Auto) 0.96 [place] # (Auto) 0.0 L Eos # (Auto) 0.2 Baso # (Auto) 0.0 Abs Immat Gran (auto) 0.02 Absolute Neuts (auto) 5.7 Absolute Nucleated RBC 0.000 Nucleated RBC % 0.0 Sodium 137 Potassium 3.7 Chloride 104 Carbon Dioxide 27 Anion Gap 6 BUN 12 Creatinine 0.71 Estim Creat Clear Calc 77 Estimated GFR > 60 Glucose 134 H Calcium 8.4 Quality VTE Prophylaxis VTE prophylaxis: mechanical ordered and pharmacologic ordered Hospitalist MIPS Advance Care Plan I have confirmed that the patient's Advanced Care Plan is present, code status is documented, or surrogate decision maker is listed in patient medical record.: Yes Medication Reconciliation I have utilized all available resources to obtain, update and review the patients current medications (includes all prescriptions, OTC, herbals, cannabis, and nutritional supplements).: Yes
[2024-09-14] MEDS: traZODone HCL 50 MG TABLET 150 MG BY MOUTH (17:58)
[2024-09-14 19:38] VITALS: O2SAT 98
[2024-09-14 23:00] VITALS: BP 150/63; PULSE 70; RESP 20; TEMP 36.6; O2SAT 100
[2024-09-15] MEDS: HALOPERIDOL LACTATE 5 MG/ML VIAL IM (00:27)
[2024-09-15 06:11] VITALS: BP 148/59; PULSE 82; RESP 20; TEMP 36.4; O2SAT 100
[2024-09-15 08:00] VITALS: BP 157/64; PULSE 76; RESP 20; TEMP 36.4; O2SAT 96
[2024-09-15] MEDS: DOCUSATE SODIUM 100 MG CAPSULE PO ×2 (09:32→18:17)
[2024-09-15 12:00] VITALS: BP 148/68; PULSE 88; RESP 20; TEMP 36.6; O2SAT 98
--- NOTE | 2024-09-15 13:08 | P.PNIM_ITS ---
Progress Note: A&P Assessment and Plan (1) Acute UTI: Code(s): N39.0 - Urinary tract infection, site not specified Status: Acute Assessment and Plan: - UA negative for bacteria, negative for nitrate, Urine WBC 51-100, 2+ leukocyte esterase. - WBC's wnl. - No fevers and no clinical signs of infection. - Urine and blood cultures negative. - Abx discontinued. (2) Altered mental status: Code(s): R41.82 - Altered mental status, unspecified Status: Acute Assessment and Plan: - Likely related to dementia. - Urine and blood cultures negative. - CXR with no infiltrates. - No significant metabolic derangements. - Fall precautions. - Assist with care. (3) Weakness: Code(s): R53.1 - Weakness Status: Acute Assessment and Plan: - Acute on Chronic. - Possibly related to dementia vs deconditioning vs other. - Continue PT/OT eval and treatment. - Awaiting placement to SNF. (4) Bladder cancer: Code(s): C67.9 - Malignant neoplasm of bladder, unspecified Status: Acute Assessment and Plan: - Chronic. - s/p recent TURBT with chemo insertion. - Continue outpatient f/u with urologist Plan Continue PT/OT treatment. unable to care for pt at home and pt awaiting placement. Time Spent With Patient Time with patient: 15 - 25 minutes Subjective Date/time seen: 09/15/24 13:08 Patient states he feels alright and has no pain or other distressful symptoms. Interval history: Patient calm on bedrest, pleasantly confused but looks to be in no acute distress. Patient s/p recent TURBT with chemo insertion. UA was consistent with possible UTI and patient was started on IV Rocephin that was discontinued after urine culture came back negative. Patient awaiting placement as his unable to take care of him at home. Review of Systems Review of Systems: All systems reviewed & are unremarkable except as noted in HPI and below Exam Narrative: General: well appearing, no acute distress. HEENT: normocephalic, atraumatic. Mucous membranes moist. EOMI, PERRLA, anicteric, Neck: Supple. Respiratory: clear bilaterally. Cardiovascular: Regular rate and rhythm, No murmurs. Abdomen: Soft, round, nondistended and nontender. Bowel sounds present to all four quadrants. Extremities: No cyanosis or clubbing. Trace edema robyn. LE present. Active ROM to all four extremities. Neuro: Alert and orientated to person. Cranial nerves II-XII grossly intact. Skin: Warm, dry, and intact, without lesions. Psych: pleasantly confused but cooperative. Objective Data Vital Signs Vital Signs: Vital Signs - 24 hr 09/14/24 13:33 09/14/24 19:38 09/14/24 23:00 Temperature 98.2 F 97.8 F Pulse Rate 85 70 Respiratory Rate 18 20 Blood Pressure 150/67 H 150/63 H Pulse Oximetry 100 98 100 Oxygen Delivery Room Air Fraction of Inspired Oxygen 21 09/15/24 06:11 09/15/24 08:00 09/15/24 09:30 Temperature 97.5 F L 97.5 F L Pulse Rate 82 76 Respiratory Rate 20 20 Blood Pressure 148/59 H 157/64 H Pulse Oximetry 100 96 Oxygen Delivery Room Air Fraction of Inspired Oxygen Intake/Output Intake/Output: Intake & Output 09/12/24 09/13/24 09/14/24 09/15/24 23:59 23:59 23:59 23:59 Intake Total 170 2330 4211.7 360 Output Total 819 045 1367 800 Balance 20 1529 2211.7 -440 Meds/Results Medications: Active Medications Generic Name Dose Route Start Last Admin Trade Name Freq PRN Reason Stop Dose Admin Acetaminophen 650 mg 09/12/24 12:41 09/13/24 02:15 Acetaminophen 325 Mg Tablet PO 650 mg Q4H PRN Administration Mild Pain (1-3) or Fever Docusate Sodium 100 mg 09/12/24 17:00 09/15/24 09:32 Docusate Sodium 100 Mg Capsule PO 100 mg BID RAYSHAWN Administration Enoxaparin Sodium 40 mg 09/13/24 09:00 09/15/24 09:24 Enoxaparin 40 Mg/0.4 Ml Syringe SUB-Q Not Given DAILY RAYSHAWN Sodium Chloride 1,000 mls @ 100 mls/hr 09/12/24 15:45 09/15/24 09:24 Normal Saline Iv IV CONT Not Given .Q10H RAYSHAWN Ondansetron HCl 4 mg 09/12/24 11:39 Ondansetron Inj 4 Mg/2 Ml Vial IV PUSH Q4H PRN Nausea Tramadol HCl 50 mg 09/13/24 14:08 09/13/24 23:35 Tramadol Hcl (*Crx) 50 Mg Tablet PO 50 mg Q6H PRN Administration pain Trazodone HCl 150 mg 09/13/24 18:00 09/14/24 17:58 Trazodone Hcl 50 Mg Tablet BY MOUTH 150 mg EVENING RAYSHAWN Administration Radiology Results: ITS Impressions Chest X-Ray 09/12/24 10:29 IMPRESSION: Chronic right lung volume loss, stable since 09/21 Minimal atelectasis is suggested at the lung bases Aortic atherosclerosis is Osteopenia Quality VTE Prophylaxis VTE prophylaxis: mechanical ordered and pharmacologic ordered Hospitalist MIPS Advance Care Plan I have confirmed that the patient's Advanced Care Plan is present, code status is documented, or surrogate decision maker is listed in patient medical record.: Yes Medication Reconciliation I have utilized all available resources to obtain, update and review the patients current medications (includes all prescriptions, OTC, herbals, cannabis, and nutritional supplements).: Yes
[2024-09-15 16:00] VITALS: BP 136/72; PULSE 94; RESP 19; TEMP 36.8; O2SAT 97
[2024-09-15] MEDS: traZODone HCL 50 MG TABLET 150 MG BY MOUTH (18:17)
[2024-09-15 20:00] VITALS: BP 180/69; PULSE 71; RESP 16; TEMP 36.8; O2SAT 100
[2024-09-15 23:54] VITALS: BP 173/62; PULSE 68; RESP 18; TEMP 36.8; O2SAT 100
[2024-09-16 04:00] VITALS: BP 178/79; PULSE 71; RESP 20; TEMP 36.7; O2SAT 100
[2024-09-16 08:00] VITALS: BP 146/78; PULSE 78; RESP 19; TEMP 36.8; O2SAT 97
[2024-09-16] MEDS: DOCUSATE SODIUM 100 MG CAPSULE PO (09:18)
[2024-09-16] MEDS: ENOXAPARIN 40 MG/0.4 ML SYRINGE SUB-Q (09:20)
--- NOTE | 2024-09-16 12:13 | P.PNIM_ITS ---
Progress Note: A&P Assessment and Plan (1) Acute UTI: Code(s): N39.0 - Urinary tract infection, site not specified Status: Acute Assessment and Plan: - UA negative for bacteria, negative for nitrate, Urine WBC 51-100, 2+ leukocyte esterase. - WBC's wnl. - No fevers and no clinical signs of infection. - Urine and blood cultures negative. - Abx discontinued. (2) Altered mental status: Code(s): R41.82 - Altered mental status, unspecified Status: Acute Assessment and Plan: - Likely related to dementia. - Urine and blood cultures negative. - CXR with no infiltrates. - No significant metabolic derangements. - Fall precautions. - Assist with care. (3) Weakness: Code(s): R53.1 - Weakness Status: Acute Assessment and Plan: - Acute on Chronic. - Possibly related to dementia vs deconditioning vs other. - Continue PT/OT eval and treatment. - Awaiting placement to SNF. (4) Bladder cancer: Code(s): C67.9 - Malignant neoplasm of bladder, unspecified Status: Acute Assessment and Plan: - Chronic. - s/p recent TURBT with chemo insertion. - Continue outpatient f/u with urologist Plan Continue PT/OT treatment. pt awaiting placementP Time Spent With Patient Time with patient: 25 - 35 minutes Subjective Date/time seen: 09/16/24 12:13 Interval history: Patient calm on bedrest, pleasantly confused but looks to be in no acute distress. Patient s/p recent TURBT with chemo insertion. UA was consistent with possible UTI and patient was started on IV Rocephin that was discontinued after urine culture came back negative. Patient awaiting placement as his unable to take care of him at home. Review of Systems Review of Systems: All systems reviewed & are unremarkable except as noted in HPI and below ROS unobtainable: Yes unobtainable due to mental status Exam Narrative: General: well appearing, no acute distress. HEENT: normocephalic, atraumatic. Mucous membranes moist. EOMI, PERRLA, anicteric, Neck: Supple. Respiratory: clear bilaterally. Cardiovascular: Regular rate and rhythm, No murmurs. Abdomen: Soft, round, nondistended and nontender. Bowel sounds present to all four quadrants. Extremities: No cyanosis or clubbing. Trace edema robyn. LE present. Active ROM to all four extremities. Neuro: Alert and orientated to person. Cranial nerves II-XII grossly intact. Skin: Warm, dry, and intact, without lesions. Psych: pleasantly confused but cooperative. Objective Data Vital Signs Vital Signs: Vital Signs - 24 hr 09/15/24 16:00 09/15/24 20:00 09/15/24 20:00 Temperature 98.2 F 98.3 F Pulse Rate 94 71 Respiratory Rate 19 16 Blood Pressure 136/72 180/69 H Pulse Oximetry 97 100 Oxygen Delivery Room Air 09/15/24 23:54 09/16/24 04:00 09/16/24 08:00 Temperature 98.2 F 98.1 F Pulse Rate 68 71 Respiratory Rate 18 20 Blood Pressure 173/62 H 178/79 H Pulse Oximetry 100 100 Oxygen Delivery Room Air 09/16/24 08:00 Temperature 98.3 F Pulse Rate 78 Respiratory Rate 19 Blood Pressure 146/78 H Pulse Oximetry 97 Oxygen Delivery Intake/Output Intake/Output: Intake & Output 09/13/24 09/14/24 09/15/24 09/16/24 23:59 23:59 23:59 23:59 Intake Total 2330 4211.7 1570 600 Output Total 801 1999 1110 2300 Balance 1529 2211.7 460 -1700 Meds/Results Medications: Active Medications Generic Name Dose Route Start Last Admin Trade Name Freq PRN Reason Stop Dose Admin Acetaminophen 650 mg 09/12/24 12:41 09/13/24 02:15 Acetaminophen 325 Mg Tablet PO 650 mg Q4H PRN Administration Mild Pain (1-3) or Fever Docusate Sodium 100 mg 09/12/24 17:00 09/16/24 09:18 Docusate Sodium 100 Mg Capsule PO 100 mg BID RAYSHAWN Administration Enoxaparin Sodium 40 mg 09/13/24 09:00 09/16/24 09:20 Enoxaparin 40 Mg/0.4 Ml Syringe SUB-Q 40 mg DAILY RAYSHAWN Administration Ondansetron HCl 4 mg 09/12/24 11:39 Ondansetron Inj 4 Mg/2 Ml Vial IV PUSH Q4H PRN Nausea Tramadol HCl 50 mg 09/13/24 14:08 09/13/24 23:35 Tramadol Hcl (*Crx) 50 Mg Tablet PO 50 mg Q6H PRN Administration pain Trazodone HCl 150 mg 09/13/24 18:00 09/15/24 18:17 Trazodone Hcl 50 Mg Tablet BY MOUTH 150 mg EVENING RAYSHAWN Administration Radiology Results: ITS Impressions Chest X-Ray 09/12/24 10:29 IMPRESSION: Chronic right lung volume loss, stable since 09/21 Minimal atelectasis is suggested at the lung bases Aortic atherosclerosis is Osteopenia Quality VTE Prophylaxis VTE prophylaxis: mechanical ordered and pharmacologic ordered
--- NOTE | 2024-09-16 13:48 | P.DS_ITS ---
DS: Admitting Diagnosis Discharge Date 09/16 Admitting Diagnosis ams DS: Discharge Diagnosis Discharge Diagnosis (1) Acute UTI: Code(s): N39.0 - Urinary tract infection, site not specified Status: Acute Assessment and Plan: - (2) Altered mental status: Code(s): R41.82 - Altered mental status, unspecified Status: Acute Assessment and Plan: - (3) Weakness: Code(s): R53.1 - Weakness Status: Acute (4) Bladder cancer: Code(s): C67.9 - Malignant neoplasm of bladder, unspecified Status: Acute DS: Summary Hospital Course Reason for hospitalization: Altered Mental Status. Hospital Course: 59-year-old male with past medical history of bladder cancer, cerebellar ataxia, hypertension and dementia presents the hospital with altered mental status. Patient is extremely hard of hearing. Per the daughter the patient had a urological procedure on when home same day. Patient was in his normal state held on Saturday. She states that this morning he was severely weak and could walk, was not eating or drinking and was altered from baseline. UA shows 2+ leukocyte esterase, chest x-ray shows atelectasis and chronic right lung volume loss stable since 2019, EKG shows sinus rhythm. Patient was started on Rocephin, blood cultures and urine culture and sensitivity pending. Several issues were addressed during hospitalization: # acute UTI UA negative for bacteria, negative for nitrate, Urine WBC 51-100, 2+ leukocyte esterase. - WBC's wnl. - No fevers and no clinical signs of infection. - Urine and blood cultures negative. - Abx discontinued. #AMS - Likely related to dementia. - Urine and blood cultures negative. - CXR with no infiltrates. - No significant metabolic derangements. - Fall precautions. - improved # dementia Acute on Chronic. - Possibly related to dementia vs deconditioning vs other. - Continue PT/OT eval and treatment. - Awaiting placement to SNF. # bladder ca Chronic. - s/p recent TURBT with chemo insertion. - Continue outpatient f/u with urologist Status at Discharge Functional status at discharge: uses cane/walker Overall status at discharge: patient is progressing back to baseline Time Spent with Patient Time attestation: Total time spent providing and/or coordinating discharge services: Time spent: Greater than 30 minutes Exam Narrative: General: well appearing, no acute distress. HEENT: normocephalic, atraumatic. Mucous membranes moist. EOMI, PERRLA, anicteric, Neck: Supple. Respiratory: clear bilaterally. Cardiovascular: Regular rate and rhythm, No murmurs. Abdomen: Soft, round, nondistended and nontender. Bowel sounds present to all four quadrants. Extremities: No cyanosis or clubbing. Trace edema robyn. LE present. Active ROM to all four extremities. Neuro: Alert and orientated to person. Cranial nerves II-XII grossly intact. Skin: Warm, dry, and intact, without lesions. Psych: pleasantly confused but cooperative. Const: General: comfortable DS: Data Data Completed and Pending Completed studies during hospitalization: chest xray, abd/pelvis CT Labs on day of discharge: Preliminary micro results at discharge 09/12/24 12:17 Blood Culture - Preliminary Blood 09/12/24 11:44 Blood Culture - Preliminary Blood Discharge Plan Discharge Attending physician on discharge: Alex Andrade Discharging Clinician: Ángel Chappell Anticipated Discharge Date/Time: 09/14/24 15:44 Patient Disposition: Home, Self-Care Activity: as tolerated Diet: as tolerated Patient Instructions: Antibiotic Form Patient Language: Swedish Stand Alone Forms: General Discharge Information Follow-up/Referrals: Rubina Arzate APRN [Primary Care Provider] - 1 Week Discharge Medications: Continued tramadol 50 mg tablet 50 mg PO .PRN PRN (Reason: pain) Qty: 12 0RF trazodone 150 mg tablet See Rx Instructions .ROUTE .COMPLEX Qty: 90 0RF Dose Instruction: TAKE 1 TABLET BY MOUTH EVERY EVENING AT 6 PM Rx Instructions: TAKE 1 TABLET BY MOUTH EVERY EVENING AT 6 PM Date of admission: 09/13/24 14:32 Primary Care Provider: Rubina Arzate Admitting Provider: Filomena Li Attending physician on admission: Francisco Yusuf Condition: Stable Quality VTE Prophylaxis VTE prophylaxis: mechanical ordered and pharmacologic ordered
[2024-09-16 14:03] VITALS: BP 142/68; PULSE 78; RESP 18; TEMP 36.8; O2SAT 98
[2024-09-16 15:22] LABS: SARS-CoV-2 RNA PCR Negative (Negative)
--- OUTSIDE RECORDS SUMMARY | 2024-09-19 07:28 | XMS_ITS | Clinical Summary ---
Author Organization [facility] Address [address] [place] [address]. [place] [address] [place] [address] Care Team Providers Care Batch Room Technician Name Role Phone Alton Gonzalez MD Primary Care Provider [phone] Allergies Active Allergy Reactions Criticality Noted Date Comments Ibuprofen Swelling 09/23/2020 Nsaids Other (see comment) 09/23/2020 Was told not to take due top swelling form ibuprofen Medications tamsulosin 0.4 MG Cap Take 0.4 mg by mouth daily. Active finasteride 5 MG tablet Take 5 mg by mouth daily. Active traZODone 50 MG tablet Take 150 mg by mouth nightly at bedtime. Active traMADol 50 MG tablet Take 50 mg by mouth every 6 (six) hours as needed for Pain. Active Active Problems Problem Noted Date Diagnosed Date Bladder cancer ([facility]) 09/27/2020 Family History Medical History Relation Comments Cancer Father Cancer Mother Relation Status Comments Father Mother Social History Tobacco Use Types Packs/Day Years Used Date Smoking Tobacco: Former Cigarettes 1 15 0 09/23/1974 - 09/23/1989 Smokeless Tobacco: Never Alcohol Use Standard Drinks/Week Comments Not Currently 0 (1 standard drink = 0.6 oz pur e alcohol) Sex and Gender Information Value Date Recorded Sex Assigned at Not on file Legal Sex Male 9:51 AM PASTER OPERATOR Gender Identity Not on file Sexual Orientation Not on file Last Filed Vital Signs Vital Sign Reading Time Taken Comments Blood Pressure 177/87 11/01/2020 3:15 PM PASTER OPERATOR Pulse 66 11/01/2020 3:15 PM PASTER OPERATOR Temperature 36.7 ??C (98 ??F) 11/01/2020 3:15 PM PASTER OPERATOR Respiratory Rate 18 11/01/2020 3:15 PM PASTER OPERATOR Oxygen Saturation 100% 11/01/2020 2:35 PM PASTER OPERATOR Inhaled Oxygen Concentration - - Weight 86.8 kg (191 lb 5.8 oz) 11/01/2020 11:30 AM PASTER OPERATOR Height 179.1 cm (5' 10.5 ) 11/01/2020 11:[address] Body Mass Index 27.07 11/01/2020 11:30 AM PASTER OPERATOR Plan of Treatment Health Maintenance Due Date Last Done Comments DTaP, Tdap and Td Vaccines ( 1 - Tdap) 1962 Zoster Vaccines (1 of 2) 1993 Annual Medicare Wellness Visit 2008 Pneumococcal Vaccine: 65+ Ye ars (1 of 1 - PCV) 2008 RSV Immunization or 60+ Years (1 - 1-dose 75+ series) 2018 COVID-19 Vaccine ( - 2023-2 5 season) 2024 Influenza Adult (#1) 2024 Meningococcal Vaccine Aged Out No edel veronica eligible based on patient's age to complete this topic RSV Immunizations Under 20 Months Aged Out No longer eligible based on patient's age to complete this topic Insurance MEDICARE [facility] Care Teams Batch Room Technician Relationship Specialty Start Date End Date Alton Gonzalez MD [address] [place] [address] PCP - General FAMILY PRACTICE 09/23/20
--- OUTSIDE RECORDS SUMMARY | 2024-09-19 07:29 | XMS_ITS | Encounter Summary ---
Author Organization [facility] Address [address] [place] [address]. [place] [address] [place] [address] Care Team Providers Care Freelance Operator Name Role Phone Alton Gonzalez MD Primary Care Provider [phone] Encounter Details Date Type Department Care Team (Latest Contact Info) Description 10/24/2020 Travel Social History Tobacco Use Types Packs/Day Years Used Date Smoking Tobacco: Former Cigarettes 1 15 0 09/23/1974 - 09/23/1989 Smokeless Tobacco: Never Alcohol Use Standard Drinks/Week Comments Not Currently 0 (1 standard drink = 0.6 oz pur e alcohol) Sex and Gender Information Value Date Recorded Sex Assigned at Not on file Legal Sex Male 9:51 AM SONOGRAPHER Gender Identity Not on file Sexual Orientation Not on file COVID-19 Exposure Response Date Recorded In the last month, have you been in contact with someone who was confirmed or suspected to have Coronavirus / COVID-19? No / Unsure 10/24/2020 3:28 PM SONOGRAPHER documented as of this encounter Plan of Treatment Not on file documented as of this encounter Visit Diagnoses Not on filedocumented in this encounter Care Teams Freelance Operator Relationship Specialty Start Date End Date Alton Gonzalez MD [address] [place] [address] PCP - General FAMILY PRACTICE 09/23/20 documented as of this encounter
--- OUTSIDE RECORDS SUMMARY | 2024-09-19 07:29 | XMS_ITS | Encounter Summary ---
Author Organization [facility] Address [address] [place] [address]. [place] [address] [place] [address] Care Team Providers Care Oss Architect Name Role Phone Alton Gonzaelz MD Primary Care Provider [phone] Encounter Details Date Type Department Care Team (Late st Contact Info) Description 09/23/2020 Prep for Procedure [facility] Pre-Admission Testing [address] [place], [place] [id number] Bhavin Garrett MD [address] [facility]. [place], [place] [id number] Social History Tobacco Use Types Packs/Day Years Used Date Smoking Tobacco: Former Cigarettes 1 15 0 09/23/1974 - 09/23/1989 Smokeless Tobacco: Never Alcohol Use Standard Drinks/Week Comments Not Currently 0 (1 standard drink = 0.6 oz pur e alcohol) Sex and Gender Information Value Date Recorded Sex Assigned at Not on file Legal Sex Male 9:51 AM METEOROLOGY TEACHER Gender Identity Not on file Sexual Orientation Not on file COVID-19 Exposure Response Date Recorded In the last month, have you been in contact with someone who was confirmed or suspected to have Coronavirus / COVID-19? No / Unsure 09/23/2020 10:40 AM METEOROLOGY TEACHER documented as of this encounter Plan of Treatment Not on file documented as of this encounter Results * PRE-SURGICAL/PRE-PROCEDURE CORONAVIRUS (COVID 19) (09/24/2020 8:32 AM METEOROLOGY TEACHER) CORONAVIRUS SARS COV 2 PCR (RESP) NOT DETECTED NOT DETECTED 09/25/2020 3:02 PM [employer] [facility] Comment: A Not Detected (negative) test result for this test means that SARS- CoV-2 RNA was not present in the specimen above the limit of detection. A negative result does not rule out the possibility of COVID-19 and should not be used as the sole basis for treatment or patient management decisions. ??If COVID-19 is still suspected, based on exposure history together with other clinical findings, re-testing should be considered in consultation with public health authorities. Laboratory test results should always be considered in the context of clinical observations and epidemiological data in making a final diagnosis and patient management decisions. Please review the Fact Sheets and FDA authorized labeling available for health care providers and patients using the following websites: https://www.[employer]tec.Orlumet/home/Covid-19/HCP/NAAT/fact-sheet2 https://www.[employer].Orlumet/home/Covid-19/Patients/NAAT/ fact-sheet2 This test has been authorized by the FDA under an Emergency Use Authorization (EUA) for use by authorized laboratories. Due to the current public health emergency, [employer] is receiving a high volume of samples from a wide variety of swabs and media for COVID-19 testing. In order to serve patients during this public health crisis, samples from appropriate clinical sources are being tested. Negative test results derived from specimens received in non-commercially manufactured viral collection and transport media, or in media and sample collection kits not yet authorized by FDA for COVID-19 testing should be cautiously evaluated and the patient potentially subjected to extra precautions such as additional clinical monitoring, including collection of an additional specimen. Methodology: ??Nucleic Acid Amplification Test (NAAT) includes RT-PCR or TMA Additional information about COVID-19 can be found at the [employer] website: www.[employer].Orlumet/Covid19. Test performed at [facility] [place] [id number] [place] [address] ??[phone] Director: BHAVIN COOPER DO,MPH FIRST TEST YES 09/24/2020 9:[address] [facility] EMPLOYED IN HEALTHCARE NO 09/24/2020 9:[address] [facility] SYMPTOMATIC DEFINED BY CDC NO 09/24/2020 9:06 AM METEOROLOGY TEACHER [facility] DATE OF SYMPTOM ONSET NO 09/24/2020 9:38 AM METEOROLOGY TEACHER [facility] HOSPITALIZATION STATUS NO 09/24/2020 9:06 AM METEOROLOGY TEACHER [facility] PATIENT IN ICU NO 09/24/2020 9:06 AM METEOROLOGY TEACHER [facility] RESIDENT OF [facility] NO 09/24/2020 9:06 AM METEOROLOGY TEACHER [facility] NO 09/24/2020 9:38 AM METEOROLOGY TEACHER [facility] PATIENT'S RACE WHITE OR 09/24/2020 9:06 AM METEOROLOGY TEACHER [facility] ETHNICITY 09/24/2020 9:[address] [facility] SOURCE (QST) NASOPHARYNGEAL SWAB 09/24/2020 9:06 AM METEOROLOGY TEACHER [facility] NASOPHARYNGEAL SWAB / Unknown 09/24/2020 8:32 AM METEOROLOGY TEACHER us Bhavin Garrett MD MICROBIOLOGY - GENERAL OR DERABLES Final Result Performing Organization Address City/State/[facility] Co de Phone Number [facility] [address] [place] [address], [place] [phone] [facility] [address] [address], documented in this encounter Visit Diagnoses Diagnosis Preop examination- Primary Preoperative examination, unspecified documented in this encounter Additional Health Concerns Infection Onset Date Last Indicated Resolved Time COVID-19 Rule Out 09/24/2020 09/24/2020 09/25/2020 3:02 PM METEOROLOGY TEACHER COVID-19 Rule Out 10/29/2020 10/29/2020 10/30/2020 9:01 PM METEOROLOGY TEACHER documented as of this encounter Care Teams Oss Architect Relationship Specialty Start Date End Date Alton Gonzalez MD [address] [place] [address] PCP - General FAMILY PRACTICE 09/23/20 documented as of this encounter
--- OUTSIDE RECORDS SUMMARY | 2024-09-19 07:29 | XMS_ITS | Encounter Summary ---
Author Organization [facility] - [facility] Address [address] [place] [address]. [place] [address] [place] [address] Care Team Providers Care River Guide Name Role Phone Alton Gonzalez MD Primary Care Provider [phone] Encounter Details Date Type Department Care Team (Latest Contact Info) Description 09/23/2020 Travel Social History Tobacco Use Types Packs/Day Years Used Date Smoking Tobacco: Former Cigarettes 1 15 0 09/23/1974 - 09/23/1989 Smokeless Tobacco: Never Alcohol Use Standard Drinks/Week Comments Not Currently 0 (1 standard drink = 0.6 oz pur e alcohol) Sex and Gender Information Value Date Recorded Sex Assigned at Not on file Legal Sex Male 9:51 AM METALLURGICAL ENGINEERING TECHNICIAN Gender Identity Not on file Sexual Orientation Not on file COVID-19 Exposure Response Date Recorded In the last month, have you been in contact with someone who was confirmed or suspected to have Coronavirus / COVID-19? No / Unsure 09/23/2020 10:40 AM METALLURGICAL ENGINEERING TECHNICIAN documented as of this encounter Plan of Treatment Not on file documented as of this encounter Visit Diagnoses Not on filedocumented in this encounter Care Teams River Guide Relationship Specialty Start Date End Date Alton Gonzalez MD [address] [place] [address] PCP - General FAMILY PRACTICE 09/23/20 documented as of this encounter
--- OUTSIDE RECORDS SUMMARY | 2024-09-19 07:29 | XMS_ITS | Encounter Summary ---
Author Organization [facility] Address [address] [place] [address]. [place] [address] [place] [address] Care Team Providers Care Telephone Coin Box Collector Name Role Phone Alton Gonzalez MD Primary Care Provider [phone] Encounter Details Date Type Department Care Team (Latest Contact Info) Description 09/24/2020 9:05 AM PLACEMENT OFFICER - 09/24/2020 11:59 PM PLACEMENT OFFICER Hospital Encounter [facility] [place] [address] Bhavin Garrett MD [address] [facility] [place] [address] Discharge Disposition: Home or Self Care (Routine Discharge) Social History Tobacco Use Types Packs/Day Years Used Date Smoking Tobacco: Former Cigarettes 1 15 0 09/23/1974 - 09/23/1989 Smokeless Tobacco: Never Alcohol Use Standard Drinks/Week Comments Not Currently 0 (1 standard drink = 0.6 oz pur e alcohol) Sex and Gender Information Value Date Recorded Sex Assigned at Not on file Legal Sex Male 9:51 AM PLACEMENT OFFICER Gender Identity Not on file Sexual Orientation Not on file COVID-19 Exposure Response Date Recorded In the last month, have you been in contact with someone who was confirmed or suspected to have Coronavirus / COVID-19? No / Unsure 09/23/2020 10:40 AM PLACEMENT OFFICER documented as of this encounter Medications at Time of Discharge finasteride 5 MG tablet Take 5 mg by mouth daily. tamsulosin 0.4 MG Cap Take 0.4 mg by mouth daily. traZODone 50 MG tablet Take 150 mg by mouth nightly at bedtime. phenazopyridine 200 MG tablet Take 1 tablet (200 mg total) by mouth 3 (three) times daily as needed for Pain. 9 tablet 09/27/2020 09/30/2020 sulfamethoxazole- trimethoprim 800-160 MG tablet Take 1 tablet by mouth daily for 3 days. 3 tablet 09/27/2020 09/30/2020 documented as of this encounter Plan of Treatment Not on file documented as of this encounter Procedures Procedure Name Priority Date/Time Associated Diagnosis Comments CORONAVIRUS (COVID 19) Routine 09/24/2020 8:32 AM PLACEMENT OFFICER Preop examination documented in this encounter Results * PRE-SURGICAL/PRE-PROCEDURE CORONAVIRUS (COVID 19) (09/24/2020 8:32 AM PLACEMENT OFFICER) CORONAVIRUS SARS COV 2 PCR (RESP) NOT DETECTED NOT DETECTED 09/25/2020 3:02 PM PLACEMENT OFFICER [employer] [facility] Comment: A Not Detected (negative) test result [...] providers and patients using the following websites: https://www.Crowd Cast.com/home/Covid-19/HCP/NAAT/fact-sheet2 https://www.[employer].MassBioEd/home/Covid-19/Patients/NAAT/ fact-sheet2 This test has been authorized by the FDA under an Emergency Use Authorization (EUA) for use by authorized laboratories. Due to the current public health emergency, [employer] is receiving a high volume of samples [...] about COVID-19 can be found at the [employer] website: www.Leapfunder/Covid19. [facility] performed at [facility] [address] [place], [place] ??[phone] Director: BHAVIN COOPER DO,MPH FIRST TEST YES 09/24/2020 9:06 AM [facility] EMPLOYED IN HEALTHCARE NO 09/24/2020 9:06 AM [facility] SYMPTOMATIC DEFINED BY CDC NO 09/24/2020 9:06 AM PLACEMENT OFFICER [facility] DATE OF SYMPTOM ONSET NO 09/24/2020 9:38 AM [facility] HOSPITALIZATION STATUS NO 09/24/2020 9:06 AM PLACEMENT OFFICER [facility] PATIENT IN ICU NO 09/24/2020 9:06 AM [facility] RESIDENT OF [facility] NO 09/24/2020 9:06 AM [facility] NO 09/24/2020 9:38 AM [facility] PATIENT'S RACE WHITE OR 09/24/2020 9:06 AM PLACEMENT OFFICER [facility] ETHNICITY 09/24/2020 9:06 AM PLACEMENT OFFICER [facility] SOURCE (QST) NASOPHARYNGEAL SWAB 09/24/2020 9:06 AM [facility] NASOPHARYNGEAL SWAB / Unknown 09/24/2020 8:32 AM PLACEMENT OFFICER us Bhavin Garrett MD MICROBIOLOGY - GENERAL OR DERABLES Final Result [facility] [address] [place] [address], [place] [phone] [employer] [facility] [address] [place] [address], documented in this encounter Visit Diagnoses Diagnosis Preop examination Preoperative examination, unspecified documented in this encounter Additional Health Concerns Infection Onset Date Last Indicated Resolved Time COVID-19 Rule Out 09/24/2020 09/24/2020 09/25/2020 3:02 PM PLACEMENT OFFICER documented as of this encounter Care Teams Telephone Coin Box Collector Relationship Specialty Start Date End Date Alton Gonzalez MD [address] [place] [address] PCP - General FAMILY PRACTICE 09/23/20 documented as of this encounter
--- OUTSIDE RECORDS SUMMARY | 2024-09-19 07:29 | XMS_ITS | Encounter Summary ---
Author Organization [facility] Address [address] [place] [address]. [place] [address] [place] [address] Care Team Providers Care Bobbin Cleaning Machine Operator Name Role Phone Alton Belle MD Primary Care Provider Reason for Visit * Auth/Cert Specialty Diagnoses / Procedures Referred By Von reza Referred To Contact Diagnoses BLADDER TUMOR D49.4 Procedures TRANSURETHRAL RESECTION BLADDER TUMOR BIPOLAR Referral ID Status Reason Start Date Expiration Date Visits Re quested Visits Authorized [id number] 1 1 Encounter Details Date Type Department Care Team (Latest Contact Info) Description 11/01/2020 10:43 AM GLOVE OPERATOR - 11/01/2020 3:25 PM [facility] Hospital Encounter [facility] [place] [place] [address] Bhavin Garrett MD [address] [place] [address] Discharge Disposition: Home or Self Care (Routine [...] on file Legal Sex Male 9:51 AM GLOVE OPERATOR Gender Identity Not on file Sexual Orientation Not on file COVID-19 Exposure Response Date Recorded In the last month, have you been in contact with someone who was confirmed or suspected to have Coronavirus / COVID-19? No / Unsure 11/01/2020 10:41 AM GLOVE OPERATOR documented as of this encounter Last Filed Vital Signs Vital Sign Reading Time Taken Comments Blood Pressure 177/87 11/01/2020 3:15 PM GLOVE OPERATOR Pulse 66 11/01/2020 3:15 PM GLOVE OPERATOR Temperature 36.7 ??C (98 ??F) 11/01/2020 3:15 PM GLOVE OPERATOR Respiratory Rate 18 11/01/2020 3:15 PM GLOVE OPERATOR Oxygen Saturation 100% 11/01/2020 2:35 PM GLOVE OPERATOR Inhaled Oxygen Concentration - - Weight 86.8 kg (191 lb 5.8 oz) 11/01/2020 11:30 AM GLOVE OPERATOR Height 179.1 cm (5' 10.5 ) 11/01/2020 11:30 AM C Body Mass Index 27.07 11/01/2020 11:30 AM GLOVE OPERATOR documented in this encounter Discharge Instructions * Discharge Instructions* Mahnaz Gill RN - 11/01/2020 2:42 PM GLOVE OPERATOR --Your urine will be bloody and should begin to clear a few days after your treatment. Increase fluids until your urine clears. --Call your doctor if you develop a fever above 100 degrees of have thick, blood clotted urine. --If your doctor hasn???t given you a prescription for pain relievers, take two Tylenol every four hours, as needed. If the pain does not get better, call your doctor. --If you received a prescription for antibiotics, take all of the medication as directed. Do not discontinue this medication until all the pills are gone. --Return to your usual medications, unless otherwise directed by your doctor. --Do not take aspirin products until your urine begins to clear. --Avoid heavy lifting (over 25 to 30 pounds) for long periods of time during the first week after this procedure. Because you had anesthesia No driving for 24 hrs/ or while taking narcotic pain medication No alcohol, no operating machinery, do not sign any binding contracts for 24 hrs/ or while taking narcotic pain medications. Take pain medicine with food. Drink lots of fluids Use stool softener while on narcotics Resume your regular diet and advance as tolerated. Avoid greasy, fried or spicy foods for the rest of today Must have a responsible adult to stay with you for the rest of today and tonight. Home and rest, activity as tolerated. If any emergent problems such as shortness of breath, chest pain or calf pain go to emergency room. If no urine flowing into catheter, go to ED. E OPERATOR * Attachments The following attachments cannot be sent through Care Everywhere. * Transurethral Resection of Bladder Tumor Discharge Instructions (Maldivian) * Sulfamethoxazole and Trimethoprim, ADULT (Maldivian) * Phenazopyridine, ADULT (Maldivian) * General Anesthesia Discharge Instructions (Maldivian) * Monsalve Catheter, Male (Maldivian) documented in this encounter Medications at Time of Discharge finasteride 5 MG tablet Take 5 mg by mouth daily. tamsulosin 0.4 MG Cap Take 0.4 mg by mouth daily. traMADol 50 MG tablet Take 50 mg by mouth every 6 (six) hours as needed for Pain. traZODone 50 MG tablet Take 150 mg by mouth nightly at bedtime. phenazopyridine 200 MG tablet Take 1 tablet (200 mg total) by mouth 3 (three) times daily as needed for Pain (bladder). 9 tablet 11/01/2020 11/04/2020 sulfamethoxazole- trimethoprim 800-160 MG tablet Take 1 tablet by mouth daily for 3 days. 3 tablet 11/01/2020 11/04/2020 documented as of this encounter H&P Notes * Bhavin Garrett MD - 11/01/2020 12:45 PM CST Attending Provider: Bhavin Garrett MD PCP: ALTON BELLE MD Natalia Burnett is an 75-year-old male. Reason for Admission: * No active hospital problems. * HPI: Bladder cancer here for re resection. Past Medical History: Diagnosis Date ??? Bladder tumor ??? Hematuria ??? Neuropathy in feet Allergies: Allergies Allergen Reactions ??? Ibuprofen Swelling ??? Nsaids Other (see comment) Was told not to take due top swelling form ibuprofen Social History Tobacco Use ??? Smoking status: Former Smoker Packs/day: 1.00 Years: 15.00 Pack years: 15.00 Types: Cigarettes Quit date: 09/23/1989 Years since quittin.1 ??? Smokeless tobacco: Never Used Substance Use Topics ??? Alcohol use: Not Currently Past Surgical History: Procedure Laterality Date ??? ARTHROSCOPY SHOULDER ROTATOR CUFF REPAIR Left ??? COLON SURGERY 2005 resection 2/2 polyps Family History Problem Relation Name Age of Onset ??? Cancer Mother ??? Cancer Father Travel Exposure: No current facility-administered medications on file prior to encounter. Current Outpatient Medications on File Prior to Encounter Medication Sig ??? finasteride 5 MG tablet Take 5 mg by mouth daily. ??? tamsulosin 0.4 MG Cap Take 0.4 mg by mouth daily. ??? traZODone 50 MG tablet Take 150 mg by mouth nightly at bedtime. ??? traMADol 50 MG tablet Take 50 mg by mouth every 6 (six) hours as needed for Pain. Blood pressure (!) 155/79, pulse 64, temperature 98.3 ??F (36.8 ??C), temperature source Oral, resp. rate 16, height 5' 10.5 (1.791 m), weight 86.8 kg (191 lb 5.8 oz), SpO2 98 %. Review of Systems All other systems reviewed and are negative. Physical Exam Assessment: 75M with HG T1 on prior resection. Plan: Proceed with re resection. Dicussed again the r/b/a. They know he'll likely go home with another monsalve. BHAVIN GARRETT MD 11/01/2020 E OPERATOR documented in this encounter Nursing Notes * Mahnaz Gill RN - 11/01/2020 3:15 PM CST Catheter care reviewed with patient and his . Both voice understanding. Monsalve bag converted to leg bag. Patient refuses bigger bag. Patient's states she would rather empty smaller bag more frequently instead of changing it out to larger bag. E OPERATOR * Koki Navarrete RN - 11/01/2020 1:04 PM CST CALLED PATIENTS GUADALUPE TO LET HER KNOW WE STARTED AND EVERYTHING IS GOING WELL AND THAT DR. GARRETT WILL TALK TO HER AFTER THE SURGERY IS FINISHED. UPDATED @ 1320 E OPERATOR * Mahnaz Gill RN - 11/01/2020 11:20 AM CST Patient informed this nurse that they have self isolated at home since their covid testing was done. E OPERATOR documented in this encounter OR Notes * Op Note - Bhavin Garrett MD - 11/01/2020 1:47 PM CST Procedure: 1. Transurethral resection of bladder tumor, 2-5 cm Findings: 1. No obvious visible bladder tumor remaining; the base was resected again to gain muscle for analysis. Photographs were taken. Details: The patient was brought back to the operating room. He was prepped, draped, padded per protocol. Cefazolin was administered. Timeout was performed. The anterior urethra was dilated to 28 Singaporean with [place] sounds. The resectoscope was inserted into the bladder. The majority of the bladder was mil dly trabeculated but otherwise unremarkable. On the right lateral wall with some healing fluffy tissue. There is no visible papillary tumor remaining. The base of the tumor was resected again for deeper specimen analysis. Some hemostasis was achieved. Ureteral orifice was again uninjured and was seen with Deflux at the conclusion of the case. Photographs were taken. Because of the amount of resection, a Monsalve catheter was placed. This will be removed in 3 days in the office at which point I will see him back to discuss next steps. E OPERATOR * OR PreOp - ROCHELLE Gordillo - 10/25/2020 12:01 PM CST Chart reviewed. Per phone interview, patient doesn't climb stairs or walk long distances 2/2 neuropathy but denies any SOB/CP at any time. Denies recent changes in activity tolerance in past 6 months. Per phone interview, patient denies having a mechanic field service or previous cardiac testing with exception of recent preop EKG. Testing copied. Patient scheduled for COVID testing 10/29/20 EKG 09/27/20 SINUS RHYTHM MARKED LEFT AXIS DEVIATION No previous ECG available for comparison Rate 65 E OPERATOR * OR PreOp - Aminata Liu RN - 10/24/2020 3:33 PM CST Can you climb 2 flights of stairs without severe SOB or chest pain? Neuropathy pain prevents patient from walking up stairs or long distances but has never c/o chest pain or SOB Are you physically able to do the same things today as 6 months ago? Yes Have you had any heart testing? EKG [facility]op [facility] How long ago? 09/2020 Do you have a mechanic field service? No Telephone consent obtained from patient for COVID-19 testing. Patient agrees to comply with self-isolation as instructed until day of surgery. Patient expressed understanding. E OPERATOR E OPERATOR documented in this encounter Plan of Treatment Not on file documented as of this encounter Procedures Procedure Name Priority Date/Time Associated Diagnosis Comments PROCEDURE GENERIC 11/01/2020 1:0 0 PM GLOVE OPERATOR CYSTOSCOPY TRANSURETHRAL RESECTION BLADDER TUMOR 11/01/2020 12:58 PM GLOVE OPERATOR BLADDER TUMOR D49.4 Case Notes SCHED BY FAX ON 10/18/20 [facility] PHONE ASSESS PATHOLOGY Routine 11/01/2020 12:00 AM GLOVE OPERATOR documented in this encounter Results * PROCEDURE GENERIC (11/01/2020 1:00 PM GLOVE OPERATOR) Narrative 11/01/2020 1:00 PM GLOVE OPERATOR Ordered by an unspecified provider. us Documents Scanned [facility] Final Result * Pathology (11/01/2020 12:00 AM GLOVE OPERATOR) COPATH REPORT ?[facility] ? [address] ? [place], [place] ??[address] ? [id number] ? Department of Pathology ? Pathology Report ? SURGICAL FINAL REPORT Patient Name: NATALIA BURNETT ? : 1945 (Age: 75) ?Location: [facility] Gender: M ?Collected Date: 11/01/2020 Med Rec #: [id number] ?Date Received: 11/01/2020 Date Reported: 11/02/2020 Provider: BHAVIN GARRETT MD Specimen(s) Right bladder wall deep resection Final Pathologic Diagnosis BLADDER, RIGHT DEEP WALL, TRANSURETHRAL RESECTION: ? - ? GRANULATION TISSUE, INFLAMMATION, AND NECROSIS ? - ? MUSCULARIS PROPRIA PRESENT ? - ? NEGATIVE FOR VIABLE MALIGNANCY COMMENT Large areas of necrosis are identified which may be inflammatory secondary to the patient's recent transurethral resection (DO53-304). ??However, the presence of necrotic tumor cannot be entirely excluded. Electronically Signed Out ? KENNETH ALBA MD Pathologist OJL:pb Microscopic Description: Microscopic examination substantiates the above captioned diagnosis. Clinical History Bladder tumor Gross Description The specimen is received in a single formalin-filled container labeled with the patient's name (Natalia Burnett), date, and right bladder wall deep resection. ??It contains multiple fragments of kasper-pink tissue measuring 2.3 x 2.3 x 0.4 cm in aggregate. The tissue is entirely submitted in a single cassette. SMO:pb Billing Fee Code(s): 57692 [facility] Tissue specimen (specimen) (OTHER (type in comments)) 11/01/2020 1:32 PM GLOVE OPERATOR us Bhavin Garrett MD PATHOLOGY/CYTOLOGY ORDERA BLES Final Result [facility] [address] [place] [address], [place] [phone] documented in this encounter Visit Diagnoses Diagnosis Bladder cancer (CMS/HCC [facility])- Primary Malignant neoplasm of bladder, part unspecified Bladder tumor Neoplasm of unspecified nature of bladder documented in this encounter Administered Medications Inactive Administered Medications - up to 3 most recent administrations Medication Order MAR Action Action Date Dose Rate Site acetaminophen (TYLENOL) tablet 1,000 mg 1,000 mg, Oral, Once, 1 dose, On Sat11/01/20 at 1115, Maximum dose of acetaminophen is 4000 mg from all sources in 24 hours., Pre-Op Given 11/01/2020 11:53 AM GLOVE OPERATOR 1,000 mg gabapentin (NEURONTIN) capsule 300 mg 300 mg, Oral, Once, 1 dose, On Sat11/01/20 at 1115, Pre-Op Given 11/01/2020 11:53 AM GLOVE OPERATOR 300 mg lactated ringers infusion at 10 mL/hr, Intravenous, Continuous, Starting on Sat11/01/20 at 1115, Until Sat11/01/20 at 1730, Infuse at TKO rate, Pre-Op New Bag 11/01/2020 12:00 PM GLOVE OPERATOR 10 mL/hr ondansetron (ZOFRAN-ODT) disintegrating tablet 8 mg 8 mg, Oral, Once, 1 dose, On Sat11/01/20 at 1115, On admission, Pre-Op Given 11/01/2020 11:53 AM GLOVE OPERATOR 8 mg documented in this encounter Active and Recently Administered Medications Times are shown in GLOVE OPERATOR. Scheduled Medication Order 10/30/2020 10/31/2020 11/01/2020 acetaminophen (TYLENOL) tablet 1,000 mg (COMPLETED) 1,000 mg, Oral, Once, 1 dose, On Sat11/01/20 at 1115, Maximum dose of acetaminophen is 4000 mg from all sources in 24 hours., Pre-Op 1153 (Given - Provid er: Mahnaz Gill RN) ceFAZolin (ANCEF) 2 g in NS 100 mL IVPB (COMPLETED) 2 g, Intravenous, at 200 mL/hr, call center director to O.R., 1 dose, First dose on Sat11/01/20 at 1115, Pre-Op 1313 (Given - Provid er: Manuel Gray CRNA)1318 (Infusion Stop Time - Provider: Manuel Gray CRNA)1355 (Anesthesia Volume Adjustment - Provider: Manuel Gray CRNA) gabapentin (NEURONTIN) capsule 300 mg (COMPLETED) 300 mg, Oral, Once, 1 dose, On Sat11/01/20 at 1115, Pre-Op 1153 (Given - Provid er: Mahnaz Gill RN) ondansetron (ZOFRAN-ODT) disintegrating tablet 8 mg (COMPLETED) 8 mg, Oral, Once, 1 dose, On Sat11/01/20 at 1115, On admission, Pre-Op 1153 (Given - Provid er: Mahnaz Gill RN) Continuous Medication Order 10/30/2020 10/31/2020 11/01/2020 lactated ringers infusion at 10 mL/hr, Intravenous, Continuous, Starting on Sat11/01/20 at 1115, Until Sat11/01/20 at 1730, Infuse at TKO rate, Pre-Op 1200 (New Bag - Prov ider: Mahnaz Gill RN)1355 (Anesthesia Volume Adjustment - Provider: Manuel Gray CRNA) documented in this encounter Care Teams Bobbin Cleaning Machine Operator Relationship Specialty Start Date End Date Alton Belle MD [address] [address] [place] [address] PCP - General FAMILY PRACTICE 09/23/20 documented as of this encounter
--- OUTSIDE RECORDS SUMMARY | 2024-09-19 07:29 | XMS_ITS | Encounter Summary ---
Author Organization [facility] Address [address] [place] [address]. [place] [address] [place] [address] Care Team Providers Care Mattress Packer Name Role Phone Alton Belle MD Primary Care Provider [phone] Reason for Visit * Auth/Cert Specialty Diagnoses / Procedures Referred By Von reza Referred To Contact Diagnoses BLADDER TUMOR D49.4 Procedures TRANSURETHRAL RESECTION BLADDER TUMOR BIPOLAR Referral ID Status Reason Start Date Expiration Date Visits Re quested Visits Authorized [id number] 1 1 Encounter Details Date Type Department Care Team (Late st Contact Info) Description 11/01/2020 1:00 PM GAUGE CONTROLLER - 11/01/2020 2:27 PM GAUGE CONTROLLER Surgery [facility] [place] [address] Bhavin Garrett MD [address] [facility] [place] [address] TRANSURETHRAL RESECTION BLADDER TUMOR OF 2-5 CM BLADDER TUMOR Surgery Details Date/Time Status Location OR Service Patient Class Case Class Case Type Trauma Case? 11/01/2020 1:00 PM Posted [facility] OR OR 1 Urology Short Stay/Outpati ent Surgery E - Elective No Panel 1 Procedure LRB Anes Op Region Wound Class Comments TRANSURETHRAL RESECTION BLAD KEMAR TUMOR OF 2-5 CM BLADDER TUMOR N/A General Bladder Clean Conta minated Surgeon Surgeon Role Service Panel Bhavin Garrett MD Primary Urology 1 Case Notes SCHED BY FAX ON 10/18/20 [facility] PHONE ASSESS documented in this encounter Social History Tobacco Use Types Packs/Day Years Used Date Smoking Tobacco: Former Cigarettes 1 15 0 09/23/1974 - 09/23/1989 Smokeless Tobacco: Never Alcohol Use Standard Drinks/Week Comments Not Currently 0 (1 standard drink = 0.6 oz pur e alcohol) Sex and Gender Information Value Date Recorded Sex Assigned at Not on file Legal Sex Male 9:51 AM GAUGE CONTROLLER Gender Identity Not on file Sexual Orientation Not on file COVID-19 Exposure Response Date Recorded In the last month, have you been in contact with someone who was confirmed or suspected to have Coronavirus / COVID-19? No / Unsure 11/01/2020 10:41 AM GAUGE CONTROLLER documented as of this encounter Last Filed Vital Signs Vital Sign Reading Time Taken Comments Blood Pressure 165/77 11/01/2020 2:25 PM GAUGE CONTROLLER Pulse 64 11/01/2020 2:25 PM GAUGE CONTROLLER Temperature 36.1 ??C (97 ??F) 11/01/2020 2:25 PM GAUGE CONTROLLER Respiratory Rate 15 11/01/2020 2:25 PM GAUGE CONTROLLER Oxygen Saturation 99% 11/01/2020 2:25 PM GAUGE CONTROLLER Inhaled Oxygen Concentration - - Weight 86.8 kg (191 lb 5.8 oz) 11/01/2020 11:30 AM GAUGE CONTROLLER Height 179.1 cm (5' 10.5 ) 11/01/2020 11:[address] Body Mass Index 27.07 11/01/2020 11:30 AM GAUGE CONTROLLER documented in this encounter Discharge Instructions * Discharge Instructions* Mahnaz Gill RN - 11/01/2020 2:42 PM GAUGE CONTROLLER --Your urine will be bloody and should [...] flowing into catheter, go to ED. E CONTROLLER * Attachments The following attachments cannot be sent through Care Everywhere. * Transurethral Resection of Bladder Tumor Discharge Instructions (Guamanian) * Sulfamethoxazole and Trimethoprim, ADULT (Guamanian) * Phenazopyridine, ADULT (Guamanian) * General Anesthesia Discharge Instructions (Guamanian) * Monsalve Catheter, Male (Guamanian) documented in this encounter Medications at Time [...] another monsalve. BHAVIN GARRETT MD 11/01/2020 E CONTROLLER documented in this encounter Nursing Notes * Mahnaz Gill RN - 11/01/2020 3:15 PM CST Catheter care reviewed with patient and his . Both voice understanding. Monsalve bag converted to leg bag. Patient refuses bigger bag. Patient's states she would rather empty smaller bag more frequently instead of changing it out to larger bag. E CONTROLLER * Koki Navarrete RN - 11/01/2020 1:04 PM CST CALLED PATIENTS GUADALUPE TO LET HER KNOW WE STARTED AND EVERYTHING IS GOING WELL AND THAT DR. GARRETT WILL TALK TO HER AFTER THE SURGERY IS FINISHED. UPDATED @ 1320 E CONTROLLER * Mahnaz Gill RN - 11/01/2020 11:20 AM CST Patient informed this nurse that they have self isolated at home since their covid testing was done. E CONTROLLER documented in this encounter OR Notes * [...] The anterior urethra was dilated to 28 Malagasy with [place] sounds. The resectoscope was inserted into the [...] him back to discuss next steps. E CONTROLLER * OR PreOp - ROCHELLE Gordillo - 10/25/2020 12:01 PM CST Chart reviewed. Per phone interview, patient doesn't climb stairs or walk long distances 2/2 neuropathy but denies any SOB/CP at any time. Denies recent changes in activity tolerance in past 6 months. Per phone interview, patient denies having a commercial correspondent or previous cardiac testing with exception of recent preop EKG. Testing copied. Patient scheduled for COVID testing 10/29/20 EKG 09/27/20 SINUS RHYTHM MARKED LEFT AXIS DEVIATION No previous ECG available for comparison Rate 65 E CONTROLLER * OR PreOp - Aminata Liu RN [...] long ago? 09/2020 Do you have a commercial correspondent? No Telephone consent obtained from patient for COVID-19 testing. Patient agrees to comply with self-isolation as instructed until day of surgery. Patient expressed understanding. E CONTROLLER E CONTROLLER documented in this encounter Plan of Treatment Not on file documented as of this encounter Procedures Procedure Name Priority Date/Time Associated Diagnosis Comments PROCEDURE GENERIC 11/01/2020 1:0 0 PM GAUGE CONTROLLER CYSTOSCOPY TRANSURETHRAL RESECTION BLADDER TUMOR 11/01/2020 12:58 PM GAUGE CONTROLLER BLADDER TUMOR D49.4 Case Notes SCHED BY FAX ON 10/18/20 [facility] PHONE ASSESS PATHOLOGY Routine 11/01/2020 12:00 AM GAUGE CONTROLLER documented in this encounter Results * PROCEDURE GENERIC (11/01/2020 1:00 PM GAUGE CONTROLLER) Narrative 11/01/2020 1:00 PM GAUGE CONTROLLER Ordered by an unspecified provider. us Documents Scanned [facility] Final Result * Pathology (11/01/2020 12:00 AM GAUGE CONTROLLER) COPATH REPORT ?[facility] ? [address] ? [place], [place] ??[address] ? [id number] ? Department of Pathology ? Pathology Report ? SURGICAL FINAL REPORT Patient Name: NATALIA BURNETT ? : 1945 (Age: 75) ?Location: [facility] Gender: M ?Collected Date: 11/01/2020 Med Rec #: [id number] ?Date Received: 11/01/2020 Date Reported: 11/02/2020 Provider: [...] secondary to the patient's recent transurethral resection ([id number]). ??However, the presence of necrotic tumor cannot [...] a single cassette. SMO:pb Billing Fee Code(s): 47465 [facility] Tissue specimen (specimen) (OTHER (type in comments)) 11/01/2020 1:32 PM GAUGE CONTROLLER us Bhavin Garrett MD PATHOLOGY/CYTOLOGY ORDERA BLES Final Result [facility] [address] [place] [address], [place] [phone] documented in this encounter Visit Diagnoses Not on filedocumented in this encounter Administered Medications Inactive Administered Medications - up to 3 most recent administrations Medication Order MAR Action Action Date Dose Rate Site acetaminophen (TYLENOL) tablet 1,000 mg 1,000 mg, Oral, Once, 1 dose, On Sat11/01/20 at 1115, Maximum dose of acetaminophen is 4000 mg from all sources in 24 hours., Pre-Op Given 11/01/2020 11:53 AM GAUGE CONTROLLER 1,000 mg gabapentin (NEURONTIN) capsule 300 mg 300 mg, Oral, Once, 1 dose, On Sat11/01/20 at 1115, Pre-Op Given 11/01/2020 11:53 AM GAUGE CONTROLLER 300 mg lactated ringers infusion at 10 mL/hr, Intravenous, Continuous, Starting on Sat11/01/20 at 1115, Until Sat11/01/20 at 1730, Infuse at TKO rate, Pre-Op New Bag 11/01/2020 12:00 PM GAUGE CONTROLLER 10 mL/hr ondansetron (ZOFRAN-ODT) disintegrating tablet 8 mg 8 mg, Oral, Once, 1 dose, On Sat11/01/20 at 1115, On admission, Pre-Op Given 11/01/2020 11:53 AM GAUGE CONTROLLER 8 mg documented in this encounter Active and Recently Administered Medications Times are shown in GAUGE CONTROLLER. Scheduled Medication Order 10/30/2020 10/31/2020 11/01/2020 acetaminophen (TYLENOL) tablet 1,000 mg (COMPLETED) 1,000 mg, Oral, Once, 1 dose, On Sat11/01/20 at 1115, Maximum dose of acetaminophen is 4000 mg from all sources in 24 hours., Pre-Op 1153 (Given - Provid er: Mahnaz Gill RN) ceFAZolin (ANCEF) 2 g in NS 100 mL IVPB (COMPLETED) 2 g, Intravenous, at 200 mL/hr, design maker to O.R., 1 dose, First dose on [...] CRNA) documented in this encounter Care Teams Mattress Packer Relationship Specialty Start Date End Date Alton Belle MD [address] [place] [address] PCP - General FAMILY PRACTICE 09/23/20 documented as of this encounter
--- OUTSIDE RECORDS SUMMARY | 2024-09-19 07:29 | XMS_ITS | Encounter Summary ---
Author Organization [facility] Address [address] [place] [address]. 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 [address] [address] Sulma Dubois FNP 1 [place] [address] Anesthesia Record Procedure Summary Procedure Name Responsible Anesthesiologist Anesthesia Start Time Anesthesia Stop Time TRANSURETHRAL RESECTION BLADDER TUMOR OF 2-5 CM BLADDER TUMOR (Bladder) Samm Sanchez MD 11/01/20 1258 11/01/20 1356 Events Date Time Event Comment 11/01/2020 1144 1144 AN Anesthesia Prepped 1222 AN REVENUE CYCLE ADMINISTRATOR Prepped 1258 An Start Patient ID and consent checked and patient reassessed. 1258 Quick Note After speaking with the patient and explaining all aspects of the the planned analgesic/anesthetic, and offering alternatives, informed consent was obtained in which the patient demonstrated the ability to participate in care decisions, to understand pertinent issues, and to be free from control by others in making decisions. The Student Registered Nurse Deliverer Outside, TERRELL, was introduced to the patient and again, consent for the SRNA to participate in all aspects of the care for the patient was obtained. Jeovanny Grant, TERRELL present. I remain present for continuous supervision of TERRELL and maintain responsibility for documentation. 1301 An Start Data 1303 Preoxygenation 1305 An Induction 1309 An Intubation 1311 Anesthesia Ready 1342 An Emergence 1349 An Extubation 1351 Face Mask Applied 1352 an stop data 1356 Post Anesthetic Care Handoff I completed my handoff to the receiving nurse during which we: 1. Identified the patient 2. Identified the responsible provider 3. Reviewed the pertinent medical history 4. Discussed the surgical course 5. Reviewed intra-op anesthesia management and issues during anesthesia 6. Set expectations for post-procedure period 7. Allowed opportunity for questions and acknowledgement of understanding. 1356 An Stop Meds Name Total lidocaine (PF) (XYLOCAINE) 2% injection 60 mg propofol (DIPRIVAN) 200 mg/20 mL injecti on 200 mg fentaNYL (SUBLIMAZE) 100 mcg/2 mL inject ion 100 mcg rocuronium (ZEMURON) 50 mg/5 mL injectio n 30 mg ceFAZolin (ANCEF) 2 g in NS 100 mL IVPB 2 g sugammadex (BRIDION) 200 mg/2 mL injecti on 200 mg lactated ringers infusion 700 mL * Agents Name O2 N2O Air Inspired Sevoflurane Sevoflurane * Blood No blood administrations on file. Lines, Drains, and Airways Type Details Placement Removal Gomez Catheter 09/27/20; 1419; No; Urologic Surgical intervention - Bladder, Prostate, LOWERATOR OPERATOR procedures; 1; Hand hygiene performed, Sterile gloves, drape and lubricant used, Gomez care post catheter insertion, Drainage bag secured below level of bladder, Anchoring device applied, Catheter inserted using aseptic technique, Site cleansed with sterile antiseptic, Closed system maintained; Stat lock; Latex, Straight-tip; 18 Fr. 09/27/20 1419 by Tracey Samano RN Gomez Catheter 11/01/20; 1336; No; Hematuria - Gross Hematuria or CBI; 1; Hand hygiene performed, Site cleansed with sterile antiseptic, Sterile gloves, drape and lubricant used, Catheter inserted using aseptic technique, Gomez care post catheter insertion, Anchoring device applied, Drainage bag secured below level of bladder, Closed system maintained; Stat lock; Latex; 18 Fr. 11/01/20 1336 by Koki Navarrete RN ETT Placement Time: 1432 ; Extubation Assessment: Tolerated well, Suctioned, Patient spontaneously breathing, Atraumatic; Removal Date: 11/01/20; Removal Time: 1349; Removal Person: REVENUE CYCLE ADMINISTRATOR; Removal Reason: End of Case 09/27/20 1445 by 11/01/20 1349 by Manuel Gray CRNA ETT Placement Date: 09/03 02/20; Placement Time: 1348; Placed Outside of This Facility?:No; Mask Ventilate: Prior to intubation; Size (mm) : 7.5; Endotracheal: Oral; Blade Type: MAC 4; Placement Method: Direct Laryngoscopy (blade type in comment); View Grade: 2; Viewable Anatomy: Vocal cords; Insertion Attempts: 1; Placement Verified By: Capnography, Chest Rise; Placed By: MAHIN; Removal Date: 11/01/20; Removal Time: 1349 09/27/20 1348 by Paola Pace CRNA 11/01/20 1349 by Manuel Gray CRNA Peripheral IV Placement Date: 10/23; Placement Time: 1200; Placed Outside of This Facility?: No; Size: 20 G; Orientation: Right; Location: Forearm; Site Prep: Chlorhexidine; Insertion attempts: 2; Ultrasound-guided Placement?: No; Patient Tolerance: Tolerated well; Removal Date: 11/01/20; Removal Time: 1515; Removal Reason: Patient Discharged 11/01/20 1200 by Mahnaz Gill RN 11/01/20 1515 by Mahnaz Gill RN Surgical/Incision 11/01/20; 1306; Surg ical Wound; Other (Comment); NO DRESSINGS NEEDED; 11/01/20; 1515 11/01/20 1306 by Koki Navarrete RN 11/01/20 1515 by Mahnaz Gill RN ETT Placement Date: 10/23; Placement Time: 1309; Placed Outside of This Facility?:No; Mask Ventilate: Prior to intubation, Easy; Size (mm) : 8; Endotracheal: Oral, Stylet used; Blade Type: MAC 3; Placement Method: Direct Laryngoscopy (blade type in comment); View Grade: 1; Viewable Anatomy: Epiglottis, Arytenoid, Vocal cords; Insertion Attempts: 1; Placement Verified By: Capnography, Auscultation, Chest Rise; Placed By: Other (Comment) (Jeovanny Grant); Extubation Assessment: Tolerated well, Patient spontaneously breathing, Lifts et holds head > 5 seconds, Atraumatic, Able to swallow, Other (comment) (Coughing); Removal Date: 11/01/20; Removal Time: 1349; Removal Person: Other (Comment) (Jeovanny TEJADA); Removal Reason: End of Case 11/01/20 1309 by Manuel Gray CRNA 11/01/20 1349 by Manuel Gray CRNA documented in this encounter Social History Tobacco Use Types Packs/Day Years Used Date Smoking Tobacco: Former Cigarettes 1 15 0 09/23/1974 - 09/23/1989 Smokeless Tobacco: Never Alcohol Use Standard Drinks/Week Comments Not Currently 0 (1 standard drink = 0.6 oz pur e alcohol) Sex and Gender Information Value Date Recorded Sex Assigned at Not on file Legal Sex Male 9:51 AM STATE GAME WARDEN Gender Identity Not on file Sexual Orientation Not on file COVID-19 Exposure Response Date Recorded In the last month, have you been in contact with someone who was confirmed or suspected to have Coronavirus / COVID-19? No / Unsure 11/01/2020 10:41 AM STATE GAME WARDEN documented as of this encounter OR Notes * Anesthesia Postprocedure Evaluation - Samm Sanchez MD - 11/01/2020 5:07 PM CST Anesthesia Post-op Note Denton Burnett Procedure(s): TRANSURETHRAL RESECTION BLADDER TUMOR OF 2-5 CM BLADDER TUMOR (N/A Bladder) Anesthesia type: general Vitals: 11/01/20 1515 BP: (!) 177/87 Vitals: 11/01/20 1515 Pulse: 66 Vitals: 11/01/20 1515 Resp: 18 Vitals: 11/01/20 1515 Temp: 36.7 ??C Vitals: 11/01/20 1435 SpO2: 100% Patient Location: PACU Level of Consciousness: awake and lethargic Pain Management: adequate analgesia Airway Patency: patent Respiratory Status: acceptable Cardiovascular Status: acceptable Post-Op Nausea: none Postoperative Hydration: euvolemic Complications: no anesthesia complication E GAME WARDEN * Anesthesia Preprocedure Evaluation - Samm Sanchez MD - 11/01/2020 11:42 AM CST Anesthesia ROS/MED History Reviewed: Patient summary , Family history anesthesia, Anesthesia history , Medications , Unchecked boxes arenot applicable Pre-Anesthetic State: alert, awake and responds appropriately no history of anesthetic complications Pulmonary (+) COPD(-) sleep apnea, asthma, smoker Cardiovascular neg cardio ROS (-) hypertension, CAD, angina Neuro/Psych (+) neuromuscular disease, (neuropathy)(-) no TIA, no CVA, no substance use GI/Hepatic/Renal neg GI/hepatic/renal ROS (-) GERD, liver disease, renal disease Endo/Other (-) diabetes, hypothyroidism, hyperthyroidism, arthritis, blood dyscrasia GENERAL COMMENTS -- Ibuprofen -- Swelling -- Nsaids -- Other (see comment) -- Was told not to take due top swelling form ibuprofen Past Medical History: No date: Bladder tumor No date: Hematuria No date: Neuropathy Comment: in feet Past Surgical History: No date: ARTHROSCOPY SHOULDER ROTATOR CUFF REPAIR; Left 2005: COLON SURGERY Comment: resection 2/2 polyps Former smoker Poor historian. History mostly from Physical Evaluation Airway Mallampati: I TM Distance: >3 FB Neck ROM: normal Dental (edentulous) Pulmonary Pulmonary exam normal Breath sounds clear to auscultation Cardiovascular Rhythm: regular Rate: normal Cardiovascular exam normal Other findings: Blood pressure (!) 155/79, pulse 64, temperature 36.8 ??C, temperature source Oral,resp. rate 16, height 5' 10.5 (1.791 m), weight 86.8 kg (191 lb 5.8 oz), SpO2 98 %. No results for input(s): WBC, RBC, HGB, HCT, PLT, NA, K, CL, CO2, AGAP, BUN, CR, BUNCREATININ, GFRNON, GFR, GLU, CA in the last 72 hours. Anesthesia Plan ASA 2 Intravenous Induction Anesthesia type: general Discussed potential risks of General Anesthesia including but not limited to corneal abrasion, visual impairment or visual loss, mouth injury, dental damage, sore throat, hoarseness, esophageal injury, awareness under anesthesia, nerve injury due to positioning, aspiration, pneumonia, stroke, cardiac event, adverse drug reactions and . TIVA (possible Gen with LMA) Informed Consent Anesthetic plan and risks discussed with patient of whom consent was obtained. . E GAME WARDEN documented in this encounter Plan of Treatment Not on file documented as of this encounter Visit Diagnoses Not on filedocumented in this encounter Administered Medications Inactive Administered Medications - up to 3 most recent administrations Medication Order MAR Action Action Date Dose Rate Site ceFAZolin (ANCEF) 2 g in NS 100 mL IVPB 2 g, Intravenous, at 200 mL/hr, call out operator to O.R., 1 dose, First dose on Sat11/01/20 at 1115, Pre-OpIndications:Bladder tumor Given 11/01/2020 1:13 PM STATE GAME WARDEN 2 g fentaNYL (SUBLIMAZE) injection PRN, Starting on Sat11/01/20 at 1321, Until 11/01/20 at 1356, Anesthesia Intra-Op Given 11/01/2020 1:55 PM STATE GAME WARDEN 25 mcg Given 11/01/2020 1:24 PM STATE GAME WARDEN 25 mcg Given 11/01/2020 1:21 PM STATE GAME WARDEN 25 mcg lidocaine (PF) (XYLOCAINE) 2 % injection PRN, Starting on Sat11/01/20 at 1305, Until Tu11/01/20 at 1356, Anesthesia Intra-Op Given 11/01/2020 1:05 PM STATE GAME WARDEN 60 mg propofol (DIPRIVAN) IV bolus PRN, Starting on e 11/01/20 at 1311, Until 11/01/20 at 1356, Anesthesia Intra-Op Given 11/01/2020 1:28 PM STATE GAME WARDEN 40 mg Given 11/01/2020 1:11 PM STATE GAME WARDEN 40 mg Given 11/01/2020 1:05 PM STATE GAME WARDEN 120 mg rocuronium (ZEMURON) injection PRN, Starting on Sat11/01/20 at 1306, Until Tu11/01/20 at 1356, Anesthesia Intra-Op Given 11/01/2020 1:26 PM STATE GAME WARDEN 5 mg Given 11/01/2020 1:06 PM STATE GAME WARDEN 25 mg sugammadex (BRIDION) injection PRN, Starting on Sat11/01/20 at 1337, Until Sat11/01/20 at 1356, Anesthesia Intra-Op Given 11/01/2020 1:37 PM STATE GAME WARDEN 200 mg documented in this encounter Care Teams Coat Joiner Lockstitch Relationship Specialty Start Date End Date Alton Gonzalez MD [address] [place] [address] PCP - General FAMILY PRACTICE 09/23/20 documented as of this encounter
--- OUTSIDE RECORDS SUMMARY | 2024-09-19 07:29 | XMS_ITS | Encounter Summary ---
Author Organization [facility] Address [address] [place] [address]. [place] [address] [place] [address] Care Team Providers Care Fire Equipment Inspector Helper Name Role Phone Alton Gonzalez MD Primary Care Provider [phone] Encounter Details Date Type Department Care Team (Late st Contact Info) Description 10/24/2020 Prep for Procedure [facility] Pre-Admission Testing [place], [place] [id number] Bhavin Garrett MD [address] [facility]. [place], [place] [id number] Social History Tobacco Use Types Packs/Day Years Used Date Smoking Tobacco: Former Cigarettes 1 15 0 09/23/1974 - 09/23/1989 Smokeless Tobacco: Never Alcohol Use Standard Drinks/Week Comments Not Currently 0 (1 standard drink = 0.6 oz pur e alcohol) Sex and Gender Information Value Date Recorded Sex Assigned at Not on file Legal Sex Male 9:51 AM APARTMENT LEASING AGENT Gender Identity Not on file Sexual Orientation Not on file COVID-19 Exposure Response Date Recorded In the last month, have you been in contact with someone who was confirmed or suspected to have Coronavirus / COVID-19? No / Unsure 10/24/2020 3:28 PM APARTMENT LEASING AGENT documented as of this encounter Plan of Treatment Not on file documented as of this encounter Results * PRE-SURGICAL/PRE-PROCEDURE CORONAVIRUS (COVID 19) (10/29/2020 9:42 AM APARTMENT LEASING AGENT) CORONAVIRUS SARS COV 2 PCR (RESP) NOT DETECTED NOT DETECTED 10/30/2020 9:01 PM APARTMENT LEASING AGENT [facility] Comment: A Not Detected (negative) test [...] providers and patients using the following websites: https://www.[employer].Tamion/home/Covid-19/HCP/[facility]/fact- sheet.html https://www.[employer].Tamion/home/Covid-19/Patients/ [employer]/fact-sheet.html This test has been authorized by the FDA under an Emergency Use Authorization (EUA) for use by authorized laboratories. Due to the current public health emergency, [facility] is receiving a high volume of samples [...] about COVID-19 can be found at the [facility] website: www.[employer].Tamion/Covid19. Test performed at [facility] [address] ??[phone] Director: BHAVIN COOPER DO,MPH FIRST TEST NO 10/29/2020 8:56 AM [facility] EMPLOYED IN HEALTHCARE NO 10/29/2020 8:56 AM [facility] SYMPTOMATIC DEFINED BY CDC NO 10/29/2020 8:56 AM APARTMENT LEASING AGENT [facility] DATE OF SYMPTOM ONSET NO 10/29/2020 10:55 AM APARTMENT LEASING AGENT [facility] HOSPITALIZATION STATUS NO 10/29/2020 8:56 AM APARTMENT LEASING AGENT [facility] PATIENT IN ICU NO 10/29/2020 8:56 AM APARTMENT LEASING AGENT [facility] RESIDENT OF CONGREGATE CARE NO 10/29/2020 8:56 AM APARTMENT LEASING AGENT [facility] NO 10/29/2020 10:55 AM APARTMENT LEASING AGENT [facility] PATIENT'S RACE WHITE OR 10/29/2020 8:56 AM APARTMENT LEASING AGENT [facility] ETHNICITY 10/29/2020 8:56 AM APARTMENT LEASING AGENT [facility] SOURCE (QST) NASOPHARYNGEAL SWAB 10/29/2020 8:56 AM APARTMENT LEASING AGENT [facility] NASOPHARYNGEAL SWAB / Unknown 10/29/2020 9:42 AM APARTMENT LEASING AGENT Bhavin Garrett MD MICROBIOLOGY - GENERAL OR DERABLES Final Result [facility] [address] [place] [address], [facility] [id number] [place] [id number], documented in this encounter Visit Diagnoses Diagnosis Preop examination- Primary Preoperative examination, unspecified documented in this encounter Additional Health Concerns Infection Onset Date Last Indicated Resolved Time COVID-19 Rule Out 10/29/2020 10/29/2020 10/30/2020 9:01 PM APARTMENT LEASING AGENT documented as of this encounter Care Teams Fire Equipment Inspector Helper Relationship Specialty Start Date End Date Alton Gonzalez MD [address] [address] PCP - General FAMILY PRACTICE 09/23/20 documented as of this encounter
--- OUTSIDE RECORDS SUMMARY | 2024-09-19 07:29 | XMS_ITS | Encounter Summary ---
Author Organization [facility] Address [address] [place] [address]. [place] [address] [place] [address] Care Team Providers Care Bottle Cleaner Name Role Phone Alton Gonzalez MD Primary Care Provider Encounter Details Date Type Department Care Team (Latest Contact Info) Description 09/27/2020 Travel Social History Tobacco Use Types Packs/Day Years Used Date Smoking Tobacco: Former Cigarettes 1 15 0 09/23/1974 - 09/23/1989 Smokeless Tobacco: Never Alcohol Use Standard Drinks/Week Comments Not Currently 0 (1 standard drink = 0.6 oz pur e alcohol) Sex and Gender Information Value Date Recorded Sex Assigned at Not on file Legal Sex Male 9:51 AM MOBILITY ARCHITECT Gender Identity Not on file Sexual Orientation Not on file COVID-19 Exposure Response Date Recorded In the last month, have you been in contact with someone who was confirmed or suspected to have Coronavirus / COVID-19? No / Unsure 09/27/2020 12:11 PM MOBILITY ARCHITECT documented as of this encounter Plan of Treatment Not on file documented as of this encounter Visit Diagnoses Not on filedocumented in this encounter Care Teams Bottle Cleaner Relationship Specialty Start Date End Date Alton Gonzalez MD [address] [place] [address] PCP - General FAMILY PRACTICE 09/23/20 documented as of this encounter
--- OUTSIDE RECORDS SUMMARY | 2024-09-19 07:29 | XMS_ITS | Encounter Summary ---
Author Organization [facility] Address [address] [place] [address]. [place] [address] [place] [address] Care Team Providers Care Mangle Operator Garments Name Role Phone Alton Belle MD Primary Care Provider [phone] Reason for Visit * Auth/Cert Specialty Diagnoses / Procedures Referred By Contlittle t Referred To Contact Diagnoses GROSS HEMATURIA, BLADDER TUMOR R31.0, D49.4 Procedures TRANSURETHRAL RESECTION BLADDER TUMOR (BIPOLAR 4CM) Referral ID Status Reason Start Date Expiration Date Visits Re quested Visits Authorized [id number] 1 1 Encounter Details Date Type Department Care Team (Late st Contact Info) Description 09/27/2020 1:55 PM [facility] - 09/27/2020 3:29 PM [facility] Surgery [facility] [place] [address] Tegan Garrett MD [address] [place] [address] TRANSURETHRAL RESECTION BLADDER TUMOR 2-5CM Surgery Details Date/Time Status Location OR Service Patient Class Case Class Case Type Trauma Case? 09/27/2020 1:55 PM Posted [facility] OR OR 6 Urology Short Stay/Outpati ent Surgery E - Elective No Panel 1 Procedure LRB Anes Op Region Wound Class Comments TRANSURETHRAL RESECTION BLAD KEMAR TUMOR 2-5CM N/A General Bladder Clean Contaminated Surgeon Surgeon Role Service Panel Tegan Garrett MD Primary Urology 1 Case Notes SCHED BY FAX ON 09/23/20 SMI PHONE ASSESS Special Needs BIPOLAR RESECTOSCOPE documented in this encounter Social History Tobacco Use Types Packs/Day Years Used Date Smoking Tobacco: Former Cigarettes 1 15 0 09/23/1974 - 09/23/1989 Smokeless Tobacco: Never Alcohol Use Standard Drinks/Week Comments Not Currently 0 (1 standard drink = 0.6 oz pur e alcohol) Sex and Gender Information Value Date Recorded Sex Assigned at Not on file Legal Sex Male 9:51 AM ESTIMATOR [facility]ES Gender Identity Not on file Sexual Orientation Not on file COVID-19 Exposure Response Date Recorded In the last month, have you been in contact with someone who was confirmed or suspected to have Coronavirus / COVID-19? No / Unsure 09/27/2020 12:11 PM [facility] documented as of this encounter Last Filed Vital Signs Vital Sign Reading Time Taken Comments Blood Pressure 182/83 09/27/2020 3:15 PM [facility] Pulse 61 09/27/2020 3:15 PM [facility] Temperature 36 ??C (96.8 ??F) 09/27/2020 2:38 PM [facility]ES Respiratory Rate 16 09/27/2020 3:15 PM [facility]ES Oxygen Saturation 98% 09/27/2020 3:15 PM [facility] Inhaled Oxygen Concentration - - Weight 81.6 kg (179 lb 14.3 oz) 09/27/2020 1:00 PM [facility] Height 179.1 cm (5' 10.5 ) 09/27/2020 1:00 PM CS T Body Mass Index 25.45 09/27/2020 1:00 PM [facility] documented in this encounter Discharge Instructions * Discharge Instructions* Tita Ray RN - 09/27/2020 4:33 PM [employer]IMATOR [facility] [facility]ES Because you had anesthesia No driving for [...] pain or calf pain go to emergency room If unable to void go to ED If you have fever, pain not controlled by your medication, signs of infection, or any other questions, please call your surgeon. [facility] * Attachments The following attachments cannot be sent through Care Everywhere. * Transurethral Resection of Bladder Tumor Discharge Instructions ([place]) * General Anesthesia Discharge Instructions ([place]) * How to Care for Your Gomez Catheter, Male ([place]) documented in this encounter Medications at Time [...] 09/27/2020 09/30/2020 documented as of this encounter H&P Notes * Tegan Garrett MD - 09/27/2020 12:41 PM CST Attending Provider: Tegan Garrett MD PCP: ALTON BELLE MD Natalia Burnett is an 75-year-old male. Reason for Admission: * No active hospital problems. * HPI: 75M with GH, found to have large bladder tumor, here for TURBT. Culture negative from last week. Past Medical History: Diagnosis Date ??? Bladder tumor ??? Hematuria ??? Neuropathy in feet Allergies: Allergies Allergen Reactions ??? Ibuprofen Swelling ??? Nsaids Other (see comment) Was told not to take due top swelling form ibuprofen Social History Tobacco Use ??? Smoking status: Former Smoker Packs/day: 1.00 Years: 15.00 Pack years: 15.00 Types: Cigarettes Quit date: 09/23/1989 Years since quittin.0 ??? Smokeless tobacco: Never Used Substance Use [...] 150 mg by mouth nightly at bedtime. Height 5' 10.5 (1.791 m), weight 81.6 kg (180 lb). Review of Systems All other systems reviewed and are negative. Physical Exam Constitutional: He is oriented to person, place, and time. He appears well- developed and well-nourished. HENT: Head: Normocephalic and atraumatic. Eyes: Pupils are equal, round, and reactive to light. EOM are normal. Neurological: He is alert and oriented to person, place, and time. Skin: Skin is warm and dry. Psychiatric: He has a normal mood and affect. Judgment normal. Assessment: 68M with bladder tumor here for TURBT. Plan: Proceed. Discussed r/b/a. Discussed that he will have a catheter afterwards. Needs general ET tube and paralysis. TEGAN GARRETT MD 09/27/2020 [facility] documented in this encounter Nursing Notes * Annabelle Tipton RN - 09/27/2020 4:12 PM CST Patient anxious while in PACU. Givine oxybutin and pyridium for penile burning. Patient states it helped slightly, but burning sensation still significant. Blood pressure continuing to increase. Dr Alexis at bedside. Patient's BP 181/85 HR 65. Pre-op it was 137/75 with HR of 65. Per Dr Alexis, gave 5mg Oxycodone. Will continue to monitor. [facility] * Tracey Samano RN - 09/27/2020 2:[address] Garrett updated patient's , Guadalupe, on procedure end via phone at [phone]. [facility] * Shaylee Win RN - 09/27/2020 1:45 PM CST Patient informed this nurse that they have self isolated at home since their covid testing was done. [facility] documented in this encounter OR Notes * Op Note - Tegan Garrett MD - 09/27/2020 2:39 PM CST Procedure: 1. Transurethral resection of bladder tumor, 2-5 cm Findings: 1. Large nodular, suspect muscle invasive bladder tumor completely resected from the right lateral bladder wall 2. Clear urine seen effluxing from the right ureteral orifice at the conclusion of the case Details: The patient was brought back to the operating room. He was prepped, draped, padded per protocol. Cefazolin was administered. Timeout was performed. The urethra was dilated to 28 Croatian with [place]. The bladder was entered with the resectoscope, bipolar. The majority of the bladder was unremarkable. On the right lateral wall just lateral to the ureteral orifice there was a large nodular bladder tumor, approximately 3-4 cm. This was completely resected down to the base. There is no visible tumor remaining. A portion of this resection was over the intramural tunnel but there was clear efflux seen from the right ureteral orifice at the conclusion. Hemostasis was achieved. The specimenwas removed and sent to pathology. The scope was removed. An 18 Croatian Gomez catheter was placed. The patient was awoken and sent to recovery. Plan: Follow-up for catheter removal in 2-3 days. Await pathology. [facility] * OR PreOp - ROCHELLE Gordillo - 09/23/2020 1:16 PM CST Chart reviewed. Per phone interview, patient states he's unable to climb stairs 2/2 neuropathy but denies any SOB/CP with ADLs. Ambulates with scooter for long distances. Denies recent changes in activity tolerance in past 6 months. Per phone interview, patient denies having a pen rider or previous cardiac testing. Patient scheduled for COVID testing 09/24/20 [facility] * OR PreOp - Amanda Brandon RN - 09/23/2020 11:05 AM CST Denies getting chest pain or SOB with ALS- unable to climb 2 flights of stairs 2/2 Neuropathy in feet- does walk slow ans uses scooter when he goes to store Activity tolerance the same as it was 6 months ago Denies recent cardiac testing pcp- Ildefonso Arroyo Cardio- none Telephone consent obtained from patient for COVID-19 testing. Patient agrees to comply with self-isolation as instructed until day of surgery. Patient expressed understanding. [facility] documented in this encounter Plan of Treatment Not on file documented as of this encounter Procedures Procedure Name Priority Date/Time Associated Diagnosis Comments CYSTOSCOPY TRANSURETHRAL RESECTION BLADDER TUMOR 09/27/2020 1:40 PM ESTIMATOR [facility]OXES GROSS HEMATURIA, BLADDER TUMOR R31.0, D49.4 Case Notes SCHED BY FAX ON 09/23/20 SMI PHONE ASSESS Special Needs BIPOLAR RESECTOSCOPE ECG 12-LEAD Routine 09/27/2020 1:22 PM [facility] TYPE & SCREEN Routine 09/27/2020 1:10 PM [facility] PROTHROMBIN TIME, VENOUS Routine 09/27/2020 1:10 PM [facility] BASIC METABOLIC PANEL STAT 09/27/2020 1:10 PM [facility]ES Preop examination CBC, AUTO, NO DIFF STAT 09/27/2020 1: 10 PM [facility]OXES Preop examination PATHOLOGY Routine 09/27/2020 12:00 AM [facility] documented in this encounter Results * ECG 12 lead (09/27/2020 1:22 PM ESTIMATOR [facility] [facility]OXES) 09/27/2020 1:22 PM [facility]ES Narrative [facility] - 09/27/2020 11:20 PM ESTIMATOR PAP[facility]BOARD [facility]OXES ?[place] ? [address] [place] ? Test Date: ?2020-09-27 Pat Name: ? NATALIA BURNETT ?Department: ? Room: ? ODS Gender: ? Male ? Pourer Bull Ladle: ?? CH : ?1945 ? Requested By: SAMM SANCHEZ Order Number: [id number] ? Reading MD: ?? Agapito Gallagher ? Measurements Intervals ?[place] ? Rate: ? 65 ? P: ?-1 IN: ? 164 ?QRS: ?-35 QRSD: ? 80 ? T: ?9 QT: ? 405 ? QTc: ?424 ? Interpretive Statements SINUS RHYTHM MARKED LEFT AXIS DEVIATION No previous ECG available for comparison [facility] Procedure Note Agapito Gallagher MD - 09/27/[address] Test Date: 2020-09-27 Pat Name: NATALIA BURNETT Department: Room: ODS Gender: Male Pourer Bull Ladle: : 1945 Requested By: SAMM SANCHEZ Order Number: [id number] Reading MD: Agapito Gallagher Measurements Intervals [place] Rate: 65 P: -1 IN: 164 QRS: -35 QRSD: 80 T: 9 QT: 405 QTc: 424 Interpretive Statements SINUS RHYTHM MARKED LEFT AXIS DEVIATION No previous ECG available for comparison [facility] us Samm Sanchez MD ECG ORDERABLES Final Result [facility] RAD * TYPE AND SCREEN - Verify expiration date is current (09/27/2020 1:10 PM ESTIMATOR [facility]OXES) ABO/RH A POSITIVE 09/27/2020 2:22 PM [facility]ES [facility] ANTIBODY SCREEN NEGATIVE 09/27/2020 2:22 PM [facility]ES [facility] SAMPLE EXPIRATION 09/30/2020,2 359 09/27/2020 2:22 PM [facility]ES [facility] 09/27/2020 1:10 PM ESTIM[facility]OXES Samm Sanchez MD BLOOD BANK TEST ORDERABLES Fi nal Result Performing Organization Address [facility] [address]/[facility] Co de Phone Number [facility] [address] [place] [address], [place] [phone] * PROTIME/INR, VENOUS (09/27/2020 1:10 PM ESTIMATOR PAP[facility]BOARD BOXES) PROTIME 12.4 10.2 - 12.9 SEC 09/27/2020 2:25 PM [facility]ES [facility] INR 1.1 09/27/2020 2:25 PM [facility]OXES [facility] Comment: Recommended INR Therapeutic Goals: ??2.0-3.0 Routine Therapy ??2.5-3.5 Mechanical Prosthetic Valves (High Risk) 09/27/2020 1:10 PM [facility]ES Samm Sanchez MD LABORATORY Final Result Performing Organization Address [facility] [address]/ZIP Co de Phone Number [facility] [address] [place] [address], [place] [phone] * (ABNORMAL) BASIC METABOLIC PANEL (09/27/2020 1:10 PM ESTIMATOR [facility]OXES) GLUCOSE 97 70 - 99 MG/DL 09/27/2020 2:03 PM [facility]ES [facility] BUN 18 7 - 18 MG/DL 09/27/2020 2:03 PM [facility]ES [facility] CREATININE S/P/B 1.05 0.7 - 1.3 MG/DL 09/27/2020 2:03 PM [facility] SODIUM S/P/B 138 136 - 145 MMOL/L 09/27/2020 2:03 PM [facility] POTASSIUM S/P/B 3.8 3.5 - 5.1 MMOL/L 09/27/2020 2:03 PM [facility] CHLORIDE S/P/B 105 100 - 108 MMOL/L 09/27/2020 2:03 PM [facility] CO2 27.1 21 - 32 MMOL/L 09/27/2020 2:03 PM [facility] CALCIUM S/P/B 8.8 8.5 - 10.1 MG/DL 09/27/2020 2:03 PM [facility] ANION GAP 5.9 5 - 15 MMOL/L 09/27/2020 2:03 PM [facility] BUN CREATININE RATIO 17.1 6 - 26 09/27/2020 2:03 PM [facility] EGFR NON-AFR. AMER. 68(L) >90 ML/MIN/1.7 3 M2 09/27/2020 2:03 PM [facility] EGFR AFR. AMER. 79(L) >90 ML/MIN/1.7 3 M2 09/27/2020 2:03 PM [facility] Comment: NOTE: eGFR is not calculated for patients <18 years of age. This is an estimated GFR (CKD EPI) and should not be used for calculating drug doses. 09/27/2020 1:10 PM [facility] Sulma Dubois ELECTRONIC COMMUNICATIONS TECHNICIAN LABORATORY Final R esult [facility] [address] [place] [address], [place] [phone] * (ABNORMAL) CBC, AUTO, NO DIFF (09/27/2020 1:10 PM [facility]) WBC 7.2 4.5 - 11.0 x10'3/uL 09/27/2020 1:41 PM [facility] [facility]OXES [facility] RBC 4.71 4.70 - 6.10 x10'6/uL 09/27/2020 1:41 PM [facility] HGB 14.2 14.0 - 18.0 G/DL 09/27/2020 1:41 PM [facility] [facility]ES [facility] HCT 41.0(L) 43.0 - 54.0 % 09/27/2020 1:41 PM [facility] [facility] MCV 87.0 80.0 - 94.0 FL 09/27/2020 1:41 PM [facility]IM[facility] [facility]ES [facility] MCH 30.1 27.0 - 31.0 PG 09/27/2020 1:41 PM [facility] MCHC 34.6 32.0 - 36.0 G/DL 09/27/2020 1:41 PM [facility] [facility] RDW 12.1 11.5 - 14.5 % 09/27/2020 1:41 PM [facility] PLT 183 130 - 400 x10'3/uL 09/27/2020 1:41 PM [facility] [facility] MPV 9.3 9.3 - 12.2 FL 09/27/2020 1:41 PM [facility] 09/27/2020 1:10 PM [employer]IM[facility] [facility]ES Sulma Dubois ELECTRONIC COMMUNICATIONS TECHNICIAN LABORATORY Final R esult [facility] [address] [facility] [place] [address], * Pathology (09/27/2020 12:00 AM ESTIMATOR PAPERBOARD BOXES) COPATH REPORT ? [facility] ? [address] [facility] [address] ? [place] ??[id number] ? [id number] ? Department of Pathology ? Pathology Report ? SURGICAL FINAL REPORT Patient Name: NATALIA BURNETT ? : 1945 (Age: 75) ?Location: [facility] Gender: M ?Collected Date: 09/27/2020 Med Rec #: [id number] ?Date Received: 09/27/2020 Date Reported: 09/29/2020 Provider: TEGAN GARRETT MD ?ALTON BELLE MD Specimen(s) Bilateral bladder wall tumor Final Pathologic Diagnosis BLADDER, TRANSURETHRAL RESECTION: ? INVASIVE HIGH-GRADE PAPILLARY UROTHELIAL CARCINOMA ? SEE DESCRIPTION Electronically Signed Out ? CHRISTIN GIFFORD MD Pathologist SMO:maria del carmen Microscopic Description: Microscopic examination shows invasive high grade papillary urothelial carcinoma. ??The tumor shows extensive involvement of the biopsy tissue. Although some small muscle fibers are present in block 2, as highlighted on a desmin immunostain, these may represent muscularis mucosae rather than muscularis propria given the small size of the fibers. ??No definitive muscularis propria is identified. This case underwent intradepartmental review. IHC controls stained appropriately. ?? Clinical History Gross hematuria, bladder tumor Gross Description The specimen is received in a formalin-filled container labeled (Natalia Burnett), with the patient's date of and bilateral bladder wall tumor and consists of 2 grams of cauterized, pinkish kasper to possibly necrotic tissue that range from 0.1 to 0.7 cm in greatest dimension and have an aggregate measurement of 2.0 x 2.0 x 0.5 cm. ??The specimen is entirely submitted in three cassettes. OJL: Billing Fee Code(s): 79282, 51962 [facility] Tissue specimen (specimen) URINARY BLADDER STRUCTURE / Unknown 09/27/2020 2:22 PM [facility] us Tegan Garrett MD PATHOLOGY/CYTOLOGY ORDERA BLES Final Result [facility] [address] [place] [address], [place] [phone] documented in this encounter Visit Diagnoses Not on filedocumented in this encounter Administered Medications Inactive Administered Medications - up to 3 most recent administrations Medication Order MAR Action Action Date Dose Rate Site acetaminophen (TYLENOL) tablet 1,000 mg 1,000 mg, Oral, Once, 1 dose, On Sat09/27/20 at 1245, Maximum dose of acetaminophen is 4000 mg from all sources in 24 hours., Pre-Op Given 09/27/2020 1:29 PM [facility] 1,000 mg gabapentin (NEURONTIN) capsule 300 mg 300 mg, Oral, Once, 1 dose, On Sat09/27/20 at 1245, Pre-Op Given 09/27/2020 1:29 PM [facility] 300 mg lactated ringers infusion at 10 mL/hr, Intravenous, Continuous, Starting on Sat09/27/20 at 1245, Until Sat09/27/20 at 1920, Infuse at TKO rate, Pre-Op New Bag 09/27/2020 1:13 PM [facility]ES ondansetron (ZOFRAN-ODT) disintegrating tablet 8 mg 8 mg, Oral, Once, 1 dose, On Sat09/27/20 at 1245, On admission, Pre-Op Given 09/27/2020 1:29 PM [facility] 8 mg oxybutynin (DITROPAN) tablet 5 mg 5 mg, Oral, 3 times daily, First dose on Sat09/27/20 at 1515, Until Discontinued Given 09/27/2020 3:12 PM [facility] 5 mg oxyCODONE immediate release (ROXICODONE) tablet 5 mg 5 mg, Oral, Once, 1 dose, On Sat09/27/20 at 1630 Given 09/27/2020 4:09 PM [facility] 5 mg phenazopyridine tablet 190 mg 190 mg, Oral, Once, 1 dose, On Sat09/27/20 at 1545, Give after meals. May discolor urine (orange/yellow); will stain fabric. Given 09/27/2020 3:35 PM [facility] 190 mg documented in this encounter Active and Recently Administered Medications Times are shown in [facility]. Scheduled Medication Order 09/25/2020 09/26/2020 09/27/2020 acetaminophen (TYLENOL) tablet 1,000 mg (COMPLETED) 1,000 mg, Oral, Once, 1 dose, On Sat09/27/20 at 1245, Maximum dose of acetaminophen is 4000 mg from all sources in 24 hours., Pre-Op 1329 (Given - Provid er: Shaylee Win RN) ceFAZolin (ANCEF) 2 g in sodium chloride 0.9 % 100 mL IVPB (COMPLETED) 2 g, Intravenous, at 200 mL/hr, call center manager to O.R., 1 dose, First dose on Sat09/28/20 at 0600, Pre-Op 1351 (New Bag - Prov ider: Paola Pace CRNA)1401 (Infusion Stop Time - Provider: Paola Pace CRNA) gabapentin (NEURONTIN) capsule 300 mg (COMPLETED) 300 mg, Oral, Once, 1 dose, On Sat09/27/20 at 1245, Pre-Op 1329 (Given - Provid er: Shaylee Win RN) ondansetron (ZOFRAN-ODT) disintegrating tablet 8 mg (COMPLETED) 8 mg, Oral, Once, 1 dose, On Sat09/27/20 at 1245, On admission, Pre-Op 1329 (Given - Provid er: Shaylee Win RN) oxybutynin (DITROPAN) tablet 5 mg 5 mg, Oral, 3 times daily, First dose on Sat09/27/20 at 1515, Until Discontinued 1512 (Given - Provid er: Annabelle Tipton RN) oxyCODONE immediate release (ROXICODONE) tablet 5 mg (COMPLETED) 5 mg, Oral, Once, 1 dose, On Sat09/27/20 at 1630 1609 (Given - Provid er: Annabelle Tiptno RN) phenazopyridine tablet 190 mg (COMPLETED) 190 mg, Oral, Once, 1 dose, On Sat09/27/20 at 1545, Give after meals. May discolor urine (orange/yellow); will stain fabric. 1535 (Given - Provid er: Annabelle Tipton RN) Continuous Medication Order 09/25/2020 09/26/2020 09/27/2020 lactated ringers infusion at 10 mL/hr, Intravenous, Continuous, Starting on Sat09/27/20 at 1245, Until Sat09/27/20 at 1920, Infuse at TKO rate, Pre-Op 1313 (New Bag - Prov ider: Paola Pace CRNA)1443 (Anesthesia Volume Adjustment - Provider: Paola Pace CRNA) PRN Medication Order 09/25/2020 09/26/2020 09/27/2020 opium-belladonna (B&O SUPPRETTES) 16.2-60 mg suppository 60 mg 60 mg (1 suppository), Rectal, Once as needed, Bladder spasms, 1 dose, Starting on Tu09/27/20 at 1650, Until 09/27/20 at 1920, If being sent home with catheter in place or after a cysto hydrodistention for interstitial cystitis (IC), Post-Op documented in this encounter Care Teams Mangle Operator Garments Relationship Specialty Start Date End Date Alton Belle MD [address] [place] [address] PCP - General FAMILY PRACTICE 09/23/20 documented as of this encounter
--- OUTSIDE RECORDS SUMMARY | 2024-09-19 07:29 | XMS_ITS | Encounter Summary ---
Author Organization [facility] Address [address] [place] [address]. 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 Procedures TRANSURETHRAL RESECTION BLADDER TUMOR (BIPOLAR 4CM) Referral ID Status Reason Start Date Expiration Date Visits Re quested Visits Authorized [id number] 1 1 Encounter Details Date Type Department Care Team (Late st Contact Info) Description 09/27/2020 1:40 PM MATTRESS PACKER Anesthesia Event [facility] [place] [address] Natalie Barragan MD [address] [facility] [address] [place], [place] [address] Sulma Dubois FNP 1 [place] [address] Anesthesia Record Procedure Summary Procedure Name Responsible Anesthesiologist Anesthesia Start Time Anesthesia Stop Time TRANSURETHRAL RESECTION BLADDER TUMOR 2-5CM (Bladder) Natalie Corea MD 09/27/20 1340 09/27/20 1444 Events Date Time Event Comment 09/27/2020 1317 AN EQUIPMENT SCHEDULER Prepped 1322 1322 AN Anesthesia Prepped 1340 An Start Patient ID and consent checked and patient reassessed. 1340 An Start Data 1346 Preoxygenation 1347 An Induction 1348 An Intubation 1350 Anesthesia Ready 1425 An Emergence 1432 An Extubation 1435 an stop data 1443 Post Anesthetic Care Handoff I completed my handoff to the receiving nurse during which we: 1. Identified the patient 2. Identified the responsible provider 3. Reviewed the pertinent medical history 4. Discussed the surgical course 5. Reviewed intra-op anesthesia management and issues during anesthesia 6. Set expectations for post-procedure period 7. Allowed opportunity for questions and acknowledgement of understanding. 1444 An Stop Meds Name Total fentaNYL (SUBLIMAZE) 100 mcg/2 mL inject ion 100 mcg lidocaine (PF) (XYLOCAINE) 2% injection 50 mg propofol (DIPRIVAN) 200 mg/20 mL injecti on 200 mg succinylcholine (ANECTINE) 20 mg/mL inje ction 100 mg rocuronium (ZEMURON) 50 mg/5 mL injectio n 25 mg ceFAZolin (ANCEF) 2 g in sodium chloride 0.9 % 100 mL IVPB 2 g dexamethasone (DECADRON) 4 mg/mL injecti on 8 mg metoprolol tartrate (LOPRESSOR) 1 mg/mL injection 5 mg sugammadex (BRIDION) 200 mg/2 mL injecti on 150 mg lactated ringers infusion 500 mL * Agents Name O2 N2O Air Inspired Sevoflurane Sevoflurane * Blood No blood administrations on file. Lines, Drains, and Airways Type Details Placement Removal Gomez Catheter 09/27/20; 1419; No; Urologic Surgical intervention - Bladder, Prostate, SACK FILLER procedures; 1; Hand hygiene performed, Sterile gloves, drape and lubricant used, Gomez care post catheter insertion, Drainage bag secured below level of bladder, Anchoring device applied, Catheter inserted using aseptic technique, Site cleansed with sterile antiseptic, Closed system maintained; Stat lock; Latex, Straight-tip; 18 Fr. 09/27/20 1419 by Tracey Samano RN ETT Placement Time: 1432 ; Extubation Assessment: Tolerated well, Suctioned, Patient spontaneously breathing, Atraumatic; Removal Date: 11/01/20; Removal Time: 1349; Removal Person: EQUIPMENT SCHEDULER; Removal Reason: End of Case 09/27/20 1445 by 11/01/20 1349 by Manuel Gray CRNA Peripheral IV Placement Date: 09/03 02/20; Placement Time: 1340; Placed Outside of This Facility?: No; Size: 18 G; Orientation: Left; Location: Wrist; Site Prep: Chlorhexidine; Local Anesthetic: None; Inserted By: liliya hernandez rn; Insertion attempts: 1; Ultrasound-guided Placement?: No; Patient Tolerance: Tolerated well; Removal Date: 09/27/20; Removal Time: 1710; Removal Reason: Patient Discharged 09/27/20 1340 by Shaylee Win RN 09/27/20 1710 by Tita Ray RN ETT Placement Date: 09/03 02/20; Placement Time: 1348; Placed Outside of This Facility?:No; Mask Ventilate: Prior to intubation; Size (mm) : 7.5; Endotracheal: Oral; Blade Type: MAC 4; Placement Method: Direct Laryngoscopy (blade type in comment); View Grade: 2; Viewable Anatomy: Vocal cords; Insertion Attempts: 1; Placement Verified By: Capnography, Chest Rise; Placed By: EQUIPMENT SCHEDULER; Removal Date: 11/01/20; Removal Time: 1349 09/27/20 [...] on file Legal Sex Male 9:51 AM MATTRESS PACKER Gender Identity Not on file Sexual Orientation Not on file COVID-19 Exposure Response Date Recorded In the last month, have you been in contact with someone who was confirmed or suspected to have Coronavirus / COVID-19? No / Unsure 09/27/2020 12:11 PM MATTRESS PACKER documented as of this encounter OR Notes * Anesthesia Postprocedure Evaluation - Natalie Raza MD - 09/27/2020 3:24 PM CST Anesthesia Post-op Note Denton Burnett Procedure(s): TRANSURETHRAL RESECTION BLADDER TUMOR 2-5CM (N/A Bladder) Anesthesia type: general Vitals: 09/27/20 1515 BP: (!) 182/83 Vitals: 09/27/20 1515 Pulse: 61 Vitals: 09/27/20 1515 Resp: 16 Vitals: 09/27/20 1438 Temp: 36 ??C Vitals: 09/27/20 1515 SpO2: 98% Patient Location: PACU Level of Consciousness: awake, alert and oriented Pain Management: adequate analgesia Airway Patency: patent Respiratory Status: spontaneous ventilation, unassisted and nonlabored ventilation Cardiovascular Status: hemodynamically stable Post-Op Nausea: none Postoperative Hydration: euvolemic Complications: no anesthesia complication Comments: Patient evaluated prior to discharge from PACU. RESS PACKER * Anesthesia Preprocedure Evaluation - Samm Sanchez MD - 09/27/2020 12:37 PM CST Anesthesia ROS/MED History Reviewed: Patient summary , Family history anesthesia, Anesthesia history , Medications , Labs , Unchecked boxes are not applicable Pre-Anesthetic State: alert, awake and responds appropriately no history of anesthetic complications Pulmonary (+) COPD(-) sleep apnea, asthma, smoker Cardiovascular neg cardio ROS (-) hypertension, CAD, angina Neuro/Psych (+) neuromuscular disease, (neuropathy)(-) no TIA, no CVA, no substance use GI/Hepatic/Renal neg GI/hepatic/renal ROS (+) (well controlled)(-) GERD, liver disease, renal disease Endo/Other (-) [...] normal Breath sounds clear to auscultation Cardiovascular Rate: normal Cardiovascular exam normal Other findings: Height 5' 10.5 (1.791 m), weight 81.6 kg (180 lb). No results for input(s): WBC, RBC, HGB, HCT, PLT, NA, K, CL, CO2, AGAP, BUN, CR, BUNCREATININ, GFRNON, GFR, GLU, CA in the last 72 hours. Anesthesia Plan ASA 3 Intravenous Induction Anesthesia type: general Discussed potential risks of General Anesthesia including but not limited to corneal abrasion, visual impairment or visual loss, mouth injury, dental damage, sore throat, hoarseness, esophageal injury, awareness under anesthesia, nerve injury due to positioning, aspiration, pneumonia, stroke, cardiac event, adverse drug reactions and . GETA per surgeon's request Informed Consent Anesthetic plan and risks discussed with patient of whom consent was obtained. . RESS PACKER documented in this encounter Plan of Treatment Not on file documented as of this encounter Visit Diagnoses Not on filedocumented in this encounter Administered Medications Inactive Administered Medications - up to 3 most recent administrations Medication Order MAR Action Action Date Dose Rate Site ceFAZolin (ANCEF) 2 g in sodium chloride 0.9 % 100 mL IVPB 2 g, Intravenous, at 200 mL/hr, senior unix administrator to O.R., 1 dose, First dose on Sat09/28/20 at 0600, Pre-Op New Bag 09/27/2020 1:51 PM MATTRESS PACKER 2 g dexamethasone (DECADRON) injection PRN, Starting on Sat09/27/20 at 1354, Until Sat09/27/20 at 1444, Anesthesia Intra-Op Given 09/27/2020 1:54 PM MATTRESS PACKER 8 mg fentaNYL (SUBLIMAZE) injection Intravenous, PRN, Starting on Sat09/27/20 at 1347, Until Sat09/27/20 at 1444, Anesthesia Intra-Op Given 09/27/2020 1:57 PM MATTRESS PACKER 50 mcg Given 09/27/2020 1:47 PM MATTRESS PACKER 50 mcg lactated ringers infusion at 10 mL/hr, Intravenous, Continuous, Starting on Sat09/27/20 at 1245, Until Sat09/27/20 at 1920, Infuse at TKO rate, Pre-Op New Bag 09/27/2020 1:13 PM MATTRESS PACKER lidocaine (PF) (XYLOCAINE) 2 % injection Intravenous, PRN, Starting on Sat09/27/20 at 1347, Until Sat09/27/20 at 1444, Anesthesia Intra-Op Given 09/27/2020 1:47 PM MATTRESS PACKER 50 mg metoprolol tartrate (LOPRESSOR) injection PRN, Starting on Sat09/27/20 at 1418, Until Sat09/27/20 at 1444, Anesthesia Intra-Op Given 09/27/2020 2:18 PM MATTRESS PACKER 5 m g propofol (DIPRIVAN) IV bolus Intravenous, PRN, Starting on Sat09/27/20 at 1347, Until Sat09/27/20 at 1444, Anesthesia Intra-Op Given 09/27/2020 2:01 PM MATTRESS PACKER 50 mg Given 09/27/2020 1:52 PM MATTRESS PACKER 30 mg Given 09/27/2020 1:47 PM MATTRESS PACKER 120 mg rocuronium (ZEMURON) injection Intravenous, PRN, Starting on Sat09/27/20 at 1355, Until Sat09/27/20 at 1444, Anesthesia Intra-Op Given 09/27/2020 1:55 PM MATTRESS PACKER 25 mg succinylcholine (ANECTINE) injection Intravenous, PRN, Starting on Sat09/27/20 at 1347, Until Sat09/27/20 at 1444, Anesthesia Intra-Op Given 09/27/2020 1:47 PM MATTRESS PACKER 100 mg sugammadex (BRIDION) injection PRN, Starting on Sat09/27/20 at 1423, Until Sat09/27/20 at 1444, Anesthesia Intra-Op Given 09/27/2020 2:23 PM MATTRESS PACKER 150 mg documented in this encounter Care Teams Air Transportation Provider Relationship Specialty Start Date End Date Alton Gonzalez MD [address] [place] [address] PCP - General FAMILY PRACTICE 09/23/20 documented as of this encounter
--- OUTSIDE RECORDS SUMMARY | 2024-09-19 07:29 | XMS_ITS | Encounter Summary ---
Author Organization [facility] Address [address] [place] [address]. [place] [address] [place] [address] Care Team Providers Care Street Light Mechanic Name Role Phone Alton Gonzalez MD Primary Care Provider [phone] Encounter Details Date Type Department Care Team (Latest Contact Info) Description 11/01/2020 Travel Social History Tobacco Use Types Packs/Day Years Used Date Smoking Tobacco: Former Cigarettes 1 15 0 09/23/1974 - 09/23/1989 Smokeless Tobacco: Never Alcohol Use Standard Drinks/Week Comments Not Currently 0 (1 standard drink = 0.6 oz pur e alcohol) Sex and Gender Information Value Date Recorded Sex Assigned at Not on file Legal Sex Male 9:51 AM CORRECTION OFFICER PENITENTIARY Gender Identity Not on file Sexual Orientation Not on file COVID-19 Exposure Response Date Recorded In the last month, have you been in contact with someone who was confirmed or suspected to have Coronavirus / COVID-19? No / Unsure 11/01/2020 10:41 AM CORRECTION OFFICER PENITENTIARY documented as of this encounter Plan of Treatment Not on file documented as of this encounter Visit Diagnoses Not on filedocumented in this encounter Care Teams Street Light Mechanic Relationship Specialty Start Date End Date Alton Gonzalez MD [address] [place] [address] PCP - General FAMILY PRACTICE 09/23/20 documented as of this encounter
--- OUTSIDE RECORDS SUMMARY | 2024-09-19 07:29 | XMS_ITS | Encounter Summary ---
Author Organization [facility] Address [address] [place] [address]. 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 Procedures TRANSURETHRAL RESECTION BLADDER TUMOR (BIPOLAR 4CM) Referral ID Status Reason Start Date Expiration Date Visits Re quested Visits Authorized [id number] 1 1 Encounter Details Date Type Department Care Team (Latest Contact Info) Description 09/27/2020 12:14 PM STITCHDOWN THREAD LASTER - 09/27/2020 5:10 PM [facility] Hospital Encounter [facility] [place] [address] Tegan Garrett MD [address] [place] [address] Discharge Disposition: Home or Self Care (Routine [...] on file Legal Sex Male 9:51 AM STITCHDOWN THREAD LASTER Gender Identity Not on file Sexual Orientation Not on file COVID-19 Exposure Response Date Recorded In the last month, have you been in contact with someone who was confirmed or suspected to have Coronavirus / COVID-19? No / Unsure 09/27/2020 12:11 PM STITCHDOWN THREAD LASTER documented as of this encounter Last Filed Vital Signs Vital Sign Reading Time Taken Comments Blood Pressure 147/100 09/27/2020 5:10 PM STITCHDOWN THREAD LASTER Pulse 65 09/27/2020 5:10 PM STITCHDOWN THREAD LASTER Temperature 36.5 ??C (97.7 ??F) 09/27/2020 5:10 PM CS T Respiratory Rate 16 09/27/2020 5:10 PM STITCHDOWN THREAD LASTER Oxygen Saturation 98% 09/27/2020 5:10 PM STITCHDOWN THREAD LASTER Inhaled Oxygen Concentration - - Weight 81.6 kg (179 lb 14.3 oz) 09/27/2020 1:00 PM STITCHDOWN THREAD LASTER Height 179.1 cm (5' 10.5 ) 09/27/2020 1:00 PM CS T Body Mass Index 25.45 09/27/2020 1:00 PM STITCHDOWN THREAD LASTER documented in this encounter Discharge Instructions * Discharge Instructions* Tita Ray RN - 09/27/2020 4:33 PM STITCHDOWN THREAD LASTER Because you had anesthesia No driving for [...] any other questions, please call your surgeon. CHDOWN THREAD LASTER * Attachments The following attachments cannot be sent through Care Everywhere. * Transurethral Resection of Bladder Tumor Discharge Instructions (Barbadian) * General Anesthesia Discharge Instructions (Barbadian) * How to Care for Your Gomez Catheter, Male (Barbadian) documented in this encounter Medications at Time [...] tube and paralysis. TEGAN GARRETT MD 09/27/2020 [facility]DOWN THREAD LASTER documented in this encounter Nursing Notes * [...] gave 5mg Oxycodone. Will continue to monitor. CHDOWN THREAD LASTER * Tracey Samnao RN - 09/27/2020 2:[address] Garrett updated patient's , Guadalupe, on procedure end via phone at [phone]. CHDOWN THREAD LASTER * Shaylee Win RN - 09/27/2020 1:45 PM CST Patient informed this nurse that they have self isolated at home since their covid testing was done. [facility]DOWN THREAD LASTER documented in this encounter OR Notes * [...] performed. The urethra was dilated to 28 Monegasque with [place]. The bladder was entered [...] pathology. The scope was removed. An 18 Monegasque Gomez catheter was placed. The patient was awoken and sent to recovery. Plan: Follow-up for catheter removal in 2-3 days. Await pathology. [facility]DOWN THREAD LASTER * OR PreOp - ROCHELLE Gordillo - 09/23/2020 1:16 PM CST Chart reviewed. Per phone interview, patient states he's unable to climb stairs 2/2 neuropathy but denies any SOB/CP with ADLs. Ambulates with scooter for long distances. Denies recent changes in activity tolerance in past 6 months. Per phone interview, patient denies having a hourly sign language interpreter or previous cardiac testing. Patient scheduled for COVID testing 09/24/20 CHDOWN THREAD LASTER * OR PreOp - Amanda Brandon RN [...] until day of surgery. Patient expressed understanding. 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 Case Notes SCHED BY FAX ON 09/23/20 SMI PHONE ASSESS Special Needs BIPOLAR RESECTOSCOPE ECG 12-LEAD Routine 09/27/2020 1:22 PM STITCHDOWN THREAD LASTER TYPE & SCREEN Routine 09/27/2020 1:10 PM ST[facility]DOWN THREAD LASTER PROTHROMBIN TIME, VENOUS Routine 09/27/2020 1:10 PM STITCHDOWN THREAD LASTER BASIC METABOLIC PANEL STAT 09/27/2020 1:10 PM STITCHDOWN THREAD LASTER Preop examination CBC, AUTO, NO DIFF STAT 09/27/2020 1: 10 PM STITCHDOWN THREAD LASTER Preop examination PATHOLOGY Routine 09/27/2020 12:00 AM STITCHDOWN THREAD LASTER documented in this encounter Results * ECG 12 lead (09/27/2020 1:22 PM STITCHDOWN THREAD LASTER) 09/27/2020 1:22 PM STITCHDOWN THREAD LASTER Narrative [facility] - 09/27/2020 11:20 PM STITCHDOWN THREAD LASTER ?[facility] ? [address], [place] ? Test Date: ?2020-09-27 Pat Name: ? NATALIA BURNETT ?Department: ? Room: ? ODS Gender: ? Male ? Acquisition Specialist: ?? CH : ?1945 ? Requested By: SAMM SANCHEZ Order Number: [id number] ? Reading MD: ?? Agapito Hushion ? Measurements Intervals ?Tillar ? Rate: ? 65 ? P: ?-1 DE: ? 164 ?QRS: ?-35 QRSD: ? 80 ? T: ?9 QT: ? 405 ? QTc: ?424 ? Interpretive Statements SINUS RHYTHM MARKED LEFT AXIS DEVIATION No previous ECG available for comparison [facility]READ LASTER Procedure Note Agapito Gallagher MD - 09/27/[address] Test Date: 2020-09-27 Pat Name: NATALIA BURNETT Department: Room: [facility] Gender: Male Acquisition Specialist: GIANCARLO : 1945 Requested By: SAMM SANCHEZ Order Number: [id number] Reading MD: Agapito Gallagher Measurements Intervals Tillar Rate: 65 P: -1 DE: 164 QRS: -35 QRSD: 80 T: 9 QT: 405 QTc: 424 Interpretive Statements SINUS RHYTHM MARKED LEFT AXIS DEVIATION No previous ECG available for comparison [facility]DOWN [facility]READ LASTER us Samm Sanchez MD ECG ORDERABLES Final Result [facility] RAD * TYPE AND SCREEN - Verify expiration date is current (09/27/2020 1:10 PM STITCHDOWN THREAD LASTER) ABO/RH A POSITIVE 09/27/2020 2:22 PM STITCHDOWN THREAD LASTER [facility] ANTIBODY SCREEN NEGATIVE 09/27/2020 2:22 PM STITCHDOWN THREAD LASTER [facility] SAMPLE EXPIRATION 09/30/2020,2 359 09/27/2020 2:22 PM ST[facility]DOWN THREAD LASTER [facility] 09/27/2020 1:10 PM STITCHDOWN THREAD LASTER Samm Sanchez MD BLOOD BANK TEST ORDERABLES Fi nal Result Performing Organization Address [facility]/ZIP Co de Phone Number [facility] [address] [place] [address], * PROTIME/INR, VENOUS (09/27/2020 1:10 PM STITCHDOWN THREAD LASTER) PROTIME 12.4 10.2 - 12.9 SEC 09/27/2020 2:25 PM STITCHDOWN THREAD LASTER [facility] INR 1.1 09/27/2020 2:25 PM STITCHDOWN THREAD LASTER [facility] Comment: Recommended INR Therapeutic Goals: ??2.0-3.0 Routine Therapy ??2.5-3.5 Mechanical Prosthetic Valves (High Risk) 09/27/2020 1:10 PM ST[facility]DOWN THREAD LASTER [facility] Final Result Performing Organization Address [facility] Co de Phone Number [facility] [address] [place] [address], [place] [phone] * (ABNORMAL) BASIC METABOLIC PANEL (09/27/2020 1:10 PM STITCHDOWN THREAD LASTER) GLUCOSE 97 70 - 99 MG/DL 09/27/2020 2:03 PM ST[facility]DOWN THREAD LASTER [facility] BUN 18 7 - 18 MG/DL 09/27/2020 2:03 PM [facility]DOWN [facility]READ LASTER [facility] CREATININE S/P/B 1.05 0.7 - 1.3 MG/DL 09/27/2020 2:03 PM STITCHDOWN THREAD LASTER [facility] SODIUM S/P/B 138 136 - 145 MMOL/L 09/27/2020 2:03 PM ST[facility]DOWN THREAD LASTER [facility] POTASSIUM S/P/B 3.8 3.5 - 5.1 MMOL/L 09/27/2020 2:03 PM ST[facility]DOWN THREAD LASTER [facility] CHLORIDE S/P/B 105 100 - 108 MMOL/L 09/27/2020 2:03 PM STITCHDOWN THREAD LASTER [facility] CO2 27.1 21 - 32 MMOL/L 09/27/2020 2:03 PM [facility] CALCIUM S/P/B 8.8 8.5 - 10.1 MG/DL 09/27/2020 2:03 PM [facility] ANION GAP 5.9 5 - 15 MMOL/L 09/27/2020 2:03 PM [facility] BUN CREATININE RATIO 17.1 6 - 09/27/2020 2:03 PM [facility] EGFR NON-AFR. AMER. 68(L) >90 ML/MIN/1.7 3 M2 09/27/2020 2:03 PM [facility] EGFR AFR. AMER. 79(L) >90 ML/MIN/1.7 3 M2 09/27/2020 2:03 PM [facility] Comment: NOTE: eGFR is not calculated for patients <18 years of age. This is an estimated GFR (CKD EPI) and should not be used for calculating drug doses. 09/27/2020 1:10 PM STITCHDOWN THREAD LASTER [facility] Final R esult [facility] [address] [place] [address], [place] [phone] * (ABNORMAL) CBC, AUTO, NO DIFF (09/27/2020 1:10 PM STITCHDOWN THREAD LASTER) WBC 7.2 4.5 - 11.0 x10'3/uL 09/27/2020 1:41 PM STITCHDOWN THREAD LASTER [facility] RBC 4.71 4.70 - 6.10 x10'6/uL 09/27/2020 1:41 PM ST[facility]DOWN THREAD LASTER [facility] HGB 14.2 14.0 - 18.0 G/DL 09/27/2020 1:41 PM [facility] HCT 41.0(L) 43.0 - 54.0 % 09/27/2020 1:41 PM STITCHDOWN THREAD LASTER [facility] MCV 87.0 80.0 - 94.0 FL 09/27/2020 1:41 PM STITCHDOWN THREAD LASTER [facility] MCH 30.1 27.0 - 31.0 PG 09/27/2020 1:41 PM STITCHDOWN THREAD LASTER [facility] MCHC 34.6 32.0 - 36.0 G/DL 09/27/2020 1:41 PM [facility] RDW 12.1 11.5 - 14.5 % 09/27/2020 1:41 PM [facility] PLT 183 130 - 400 x10'3/uL 09/27/2020 1:41 PM [facility] MPV 9.3 9.3 - 12.2 FL 09/27/2020 1:41 PM [facility] 09/27/2020 1:10 PM ST[facility]DOWN THREAD LASTER [facility] Final R esult [facility] [address] [place] [address], * Pathology (09/27/2020 12:00 AM STITCHDOWN THREAD LASTER) COPATH REPORT ? [facility] ? [address] ? [place], [place] ??[address] ? [id number] ? Department of Pathology ? Pathology Report ? SURGICAL FINAL REPORT Patient Name: NATALIA BURNETT ? : 1945 (Age: 75) ?Location: [facility] Gender: M ?Collected Date: 09/27/2020 Med Rec #: [id number] ?Date Received: 09/27/2020 Date Reported: 09/29/2020 Provider: [...] in three cassettes. OJL: Billing Fee Code(s): 01351, 66856 [facility] Tissue specimen (specimen) URINARY BLADDER STRUCTURE / Unknown 09/27/2020 2:22 PM STITCHDOWN THREAD LASTER Tegan Garrett MD PATHOLOGY/CYTOLOGY ORDERA BLES Final Result Performing Organization Address [facility]/State/ZIP Co de Phone Number [facility] [address] [place] [address], documented in this encounter Visit Diagnoses Diagnosis Bladder cancer (CMS/HCC HHS/HCC)- Primary Malignant neoplasm of bladder, part unspecified Preop examination Preoperative examination, unspecified documented in this encounter Administered Medications Inactive Administered Medications - up to 3 most recent administrations Medication Order MAR Action Action Date Dose Rate Site acetaminophen (TYLENOL) tablet 1,000 mg 1,000 mg, Oral, Once, 1 dose, On Sat09/27/20 at 1245, Maximum dose of acetaminophen is 4000 mg from all sources in 24 hours., Pre-Op Given 09/27/2020 1:29 PM STITCHDOWN THREAD LASTER 1,000 mg gabapentin (NEURONTIN) capsule 300 mg 300 mg, Oral, Once, 1 dose, On Sat09/27/20 at 1245, Pre-Op Given 09/27/2020 1:29 PM ST[facility]DOWN THREAD LASTER 300 mg lactated ringers infusion at 10 mL/hr, Intravenous, Continuous, Starting on Sat09/27/20 at 1245, Until Sat09/27/20 at 1920, Infuse at TKO rate, Pre-Op New Bag 09/27/2020 1:13 PM [facility]DOWN THREAD LASTER ondansetron (ZOFRAN-ODT) disintegrating tablet 8 mg 8 mg, Oral, Once, 1 dose, On Sat09/27/20 at 1245, On admission, Pre-Op Given 09/27/2020 1:29 PM [facility]DOWN THREAD LASTER 8 mg oxybutynin (DITROPAN) tablet 5 mg 5 mg, Oral, 3 times daily, First dose on Sat09/27/20 at 1515, Until Discontinued Given 09/27/2020 3:12 PM STITCHDOWN THREAD LASTER 5 mg oxyCODONE immediate release (ROXICODONE) tablet 5 mg 5 mg, Oral, Once, 1 dose, On Sat09/27/20 at 1630 Given 09/27/2020 4:09 PM ST[facility]DOWN THREAD LASTER 5 mg phenazopyridine tablet 190 mg 190 mg, Oral, Once, 1 dose, On Sat09/27/20 at 1545, Give after meals. May discolor urine (orange/yellow); will stain fabric. Given 09/27/2020 3:35 PM STITCHDOWN THREAD LASTER 190 mg documented in this encounter Active and Recently Administered Medications Times are shown in STITCHDOWN THREAD LASTER. Scheduled Medication Order 09/25/2020 09/26/2020 09/27/2020 acetaminophen (TYLENOL) tablet 1,000 mg (COMPLETED) 1,000 mg, Oral, Once, 1 dose, On Sat09/27/20 at 1245, Maximum dose of acetaminophen is 4000 mg from all sources in 24 hours., Pre-Op 1329 (Given - Provid er: Shaylee Win RN) ceFAZolin (ANCEF) 2 g in sodium chloride 0.9 % 100 mL IVPB (COMPLETED) 2 g, Intravenous, at 200 mL/hr, yardage caller to O.R., 1 dose, First dose on [...] 1630 1609 (Given - Provid er: Annabelle Tipton RN) phenazopyridine tablet 190 mg (COMPLETED) 190 [...] needed, Bladder spasms, 1 dose, Starting on Sat09/27/20 at 1650, Until Sat09/27/20 at 1920, If being sent home with catheter in place or after a cysto hydrodistention for interstitial cystitis (IC), Post-Op documented in this encounter Care Teams Turret Press Operator Relationship Specialty Start Date End Date Alton Belle MD [address] [place] [address] PCP - General FAMILY PRACTICE 09/23/20 documented as of this encounter
--- OUTSIDE RECORDS SUMMARY | 2024-09-19 07:29 | XMS_ITS | Encounter Summary ---
Author Organization [facility] Address [address] [place] [address]. [place] [address] [place] [address] Care Team Providers Care Mine Equipment Design Engineer Name Role Phone Alton Gonzalez MD Primary Care Provider [phone] Encounter Details Date Type Department Care Team (Latest Contact Info) Description 10/29/2020 8:56 AM TOUR ACTOR - 10/29/2020 11:59 PM TOUR ACTOR Hospital Encounter [facility] [place] [address] Bhavin Garrett MD [address] [facility] [place] [address] Discharge Disposition: Home or Self Care (Routine [...] on file Legal Sex Male 9:51 AM TOUR ACTOR Gender Identity Not on file Sexual Orientation Not on file COVID-19 Exposure Response Date Recorded In the last month, have you been in contact with someone who was confirmed or suspected to have Coronavirus / COVID-19? No / Unsure 10/24/2020 3:28 PM TOUR ACTOR documented as of this encounter Medications at [...] 11/01/2020 11/04/2020 documented as of this encounter Plan of Treatment Not on file documented as of this encounter Procedures Procedure Name Priority Date/Time Associated Diagnosis Comments CORONAVIRUS (COVID 19) STAT 10/29/2020 9:42 AM TOUR ACTOR Preop examination documented in this encounter Results * PRE-SURGICAL/PRE-PROCEDURE CORONAVIRUS (COVID 19) (10/29/2020 9:42 AM TOUR ACTOR) CORONAVIRUS SARS COV 2 PCR (RESP) NOT DETECTED NOT DETECTED 10/30/2020 9:01 PM TOUR ACTOR [employer] [facility] Comment: A Not Detected (negative) test result [...] providers and patients using the following websites: https://www.[employer]/home/Covid-19/HCP/[employer]/fact- sheet.html https://www.[employer]/home/Covid-19/Patients/ [employer]/fact-sheet.html This test has been authorized by the FDA under an Emergency Use Authorization (EUA) for use by authorized laboratories. Due to the current public health emergency, [employer] is receiving a high volume of samples [...] about COVID-19 can be found at the [employer] website: www.moziy/Covid19. Test performed at [facility] [facility] [address] [place], [place] ??[address] Director: BHAVIN COOPER DO,MPH FIRST TEST NO 10/29/2020 8:56 AM [facility] EMPLOYED IN HEALTHCARE NO 10/29/2020 8:56 AM [facility] SYMPTOMATIC DEFINED BY CDC NO 10/29/2020 8:56 AM [facility] DATE OF SYMPTOM ONSET NO 10/29/2020 10:55 AM [facility] HOSPITALIZATION STATUS NO 10/29/2020 8:56 AM [facility] PATIENT IN ICU NO 10/29/2020 8:56 AM [facility] RESIDENT OF [facility] NO 10/29/2020 8:56 AM [facility] NO 10/29/2020 10:55 AM [facility] PATIENT'S RACE WHITE OR 10/29/2020 8:56 AM [facility] ETHNICITY 10/29/2020 8:56 AM [facility] SOURCE (QST) NASOPHARYNGEAL SWAB 10/29/2020 8:56 AM [facility] NASOPHARYNGEAL SWAB / Unknown 10/29/2020 9:42 AM TOUR ACTOR us Bhavin Garrett MD MICROBIOLOGY - GENERAL OR DERABLES Final Result [facility] [address] [place] [address], [place] [phone] [employer] [facility] [address] [place] [address], documented in this encounter Visit Diagnoses Diagnosis Preop examination Preoperative examination, unspecified documented in this encounter Additional Health Concerns Infection Onset Date Last Indicated Resolved Time COVID-19 Rule Out 10/29/2020 10/29/2020 10/30/2020 9:01 PM TOUR ACTOR documented as of this encounter Care Teams Mine Equipment Design Engineer Relationship Specialty Start Date End Date Alton Gonzalez MD [address] [address] PCP - General FAMILY PRACTICE 09/23/20 documented as of this encounter
--- OUTSIDE RECORDS SUMMARY | 2024-09-19 07:31 | XMS_ITS | Referral Summary ---
Author Organization [facility] [address] [place] [id number] Care Team Providers Care Poultry Processing Supervisor Name Role Phone Norm Eden MD Primary Care Provider [phone] Allergies Active Allergy Reactions Criticality Noted Date Comments Ibuprofen Swelling Medium 09/23/2020 Nsaids (Non-Steroidal Anti-Inflammatory Drug) Other (See comments) Low 09/23/2020 Was told not to take due top swelling form ibuprofen Doxepin Itching,Rash Medium 07/12/2022 Reaction: ITCHING Reaction: ITCHING, ??RASH, ?? Venlafaxine Unknown High Medications finasteride (PROSCAR) 5 mg tablet Take 5 mg by mouth daily Active tamsulosin (FLOMAX) 0.4 mg extended release capsule Take 0.4 mg by mouth daily Active traMADoL (ULTRAM) 50 mg tablet Take 50 mg by mouth every 6 (six) hours as needed Active traZODone (DESYREL) 150 mg tablet Take 150 mg by mouth daily 05/09/2022 Active Active Problems Problem Noted Date Diagnosed Date Bladder cancer 09/27/2020 Social History Tobacco Use Types Packs/Day Years Used Date Smoking Tobacco: Never Tobacco Cessation:Counseling Given: Not Answered Personal Safety Answer Date Recorded Getting School Help Needed Not on file 10/26 Sex and Gender Information Value Date Recorded Sex Assigned at Not on file Legal Sex Male 8:06 AM WATER PLANT PUMP OPERATOR Gender Identity Not on file Sexual Orientation Not on file Last Filed Vital Signs Vital Sign Reading Time Taken Comments Blood Pressure 145/78 07/12/2022 1:06 PM WATER PLANT PUMP OPERATOR Pulse 73 07/12/2022 1:06 PM WATER PLANT PUMP OPERATOR Temperature 36.8 ??C (98.2 ??F) 07/12/2022 1:06 PM CS T Respiratory Rate - - Oxygen Saturation - - Inhaled Oxygen Concentration - - Weight 86.2 kg (190 lb) 07/12/2022 1:06 PM WATER PLANT PUMP OPERATOR Height 180.3 cm (5' 11 ) 07/12/2022 1:06 PM WATER PLANT PUMP OPERATOR Body Mass Index 26.5 07/12/2022 1:06 PM WATER PLANT PUMP OPERATOR Plan of Treatment Not on file Insurance MEDICARE [facility] MEDICARE SUPPLEMENT INSURANCE [facility] MEDICARE SUPPLEMENT INSURANCE MEDICARE MEDICARE [employer] MEDICARE SUPPLEMENT INSURANCE Care Teams Poultry Processing Supervisor Relationship Specialty Start Date End Date Norm Eden MD PCP - General Family Medicine 07/12/22
--- OUTSIDE RECORDS SUMMARY | 2024-09-19 07:31 | XMS_ITS | Clinical Summary ---
Author Organization [facility]ician [facility] [address] [place] [phone] Care Team Providers Care Software Product Specialist Name Role Phone Norm Eden MD Primary Care Provider [phone] Allergies Active Allergy Reactions Criticality Noted Date [...] Noted Date Diagnosed Date Bladder cancer 09/27/2020 Medical History Medical History Date Comments Dementia (HCC) Bladder cancer (HCC) Social History Tobacco Use Types Packs/Day Years Used Date Smoking Tobacco: Never Tobacco Cessation:Counseling Given: Not Answered Personal Safety Answer Date Recorded Getting School Help Needed Not on file 10/26 Sex and Gender Information Value Date Recorded Sex Assigned at Not on file Legal Sex Male 8:06 AM APPLICATION DEVELOPMENT CONSULTANT Gender Identity Not on file Sexual Orientation Not on file Obstetrics History Last Filed Vital Signs Vital Sign Reading Time Taken Comments Blood Pressure 145/78 07/12/2022 1:06 PM APPLICATION DEVELOPMENT CONSULTANT Pulse 73 07/12/2022 1:06 PM APPLICATION DEVELOPMENT CONSULTANT Temperature 36.8 ??C (98.2 ??F) 07/12/2022 1:06 PM CS T Respiratory Rate - - Oxygen Saturation - - Inhaled Oxygen Concentration - - Weight 86.2 kg (190 lb) 07/12/2022 1:06 PM APPLICATION DEVELOPMENT CONSULTANT Height 180.3 cm (5' 11 ) 07/12/2022 1:06 PM APPLICATION DEVELOPMENT CONSULTANT Body Mass Index 26.5 07/12/2022 1:06 PM APPLICATION DEVELOPMENT CONSULTANT Plan of Treatment Health Maintenance Due Date Last Done Comments Depression Screening 1945 Fall Risk Assessment 1945 DTaP/Tdap/Td Vaccine (1 - Tdap) 1954 Hepatitis B Screening 1961 Zoster Vaccine (1 of 2) 1993 Pneumococcal vaccine 65+ (1 of 1 - PCV) 2008 Well Visit 65+ 2008 Influenza Vaccine (#1) 2024 Insurance MEDICARE [facility] MEDICARE SUPPLEMENT INSURANCE [facility] MEDICARE SUPPLEMENT INSURANCE MEDICARE MEDICARE [facility] MEDICARE SUPPLEMENT INSURANCE Care Teams Software Product Specialist Relationship Specialty Start Date End Date Norm Eden MD PCP - General Family Medicine 07/12/22
--- OUTSIDE RECORDS SUMMARY | 2024-09-19 07:31 | XMS_ITS | Encounter Summary ---
Author Organization [facility] Healthcare Address [facility] [place] [address] Care Team Providers Care Pantry Cook Name Role Phone Norm Eden MD Primary Care Provider [phone] Reason for Referral * Diagnostic Lab (Routine) - Closed Specialty Diagnoses / Procedures Referred By Contac t Referred To Contact Lab Diagnoses History of bladder cancer Hematuria, unspecified type Procedures Cytology Speedy Brown MD Phone: tel: fax: Referral ID Status Reason Start Date Expiration Date Visits Re quested Visits Authorized [id number] Closed 07/12/2022 08/11/2023 1 1 MAINTENANCE MECHANIC Encounter Details Date Type Department Care Team (Latest Contact Info) Description 07/12/2022 2:10 PM CNC MAINTENANCE MECHANIC - 07/12/2022 11:59 PM CNC MAINTENANCE MECHANIC Hospital Encounter [address] [address] History of bladder cancer; Hematuria, unspecified type Discharge Disposition: Discharge to home or self care Social History Tobacco Use Types Packs/Day Years Used Date Smoking Tobacco: Never Sex and Gender Information Value Date Recorded Sex Assigned at Not on file Legal Sex Male 8:06 AM CNC MAINTENANCE MECHANIC Gender Identity Not on file Sexual Orientation Not on file documented as of this encounter Medications at Time of Discharge finasteride (PROSCAR) 5 mg tablet Take 5 mg by mouth daily tamsulosin (FLOMAX) 0.4 mg extended release capsule Take 0.4 mg by mouth daily traMADoL (ULTRAM) 50 mg tablet Take 50 mg by mouth every 6 (six) hours as needed traZODone (DESYREL) 150 mg tablet Take 150 mg by mouth daily 05/09/2022 sulfamethoxazole-t rimethoprim (BACTRIM DS) 800-160 mg per tabletIndications: Hematuria, unspecified type Take 1 tablet by mouth 2 (two) times a day for 7 days 14 tablet 07/12/2022 07/19/2022 documented as of this encounter Discharge Disposition Disposition Code Departure Means Destination Discharge to home or self care documented in this encounter Plan of Treatment Not on file documented as of this encounter Procedures Procedure Name Priority Date/Time Associated Diagnosis Comments URINE CULTURE Routine 07/12/2022 2:10 PM CNC MAINTENANCE MECHANIC History of bladder cancer Hematuria, unspecified type CYTOLOGY Routine 07/12/2022 12:00 AM CNC MAINTENANCE MECHANIC History of bladder cancer Hematuria, unspecified type documented in this encounter Results * (ABNORMAL) Urine culture Urine, clean voided (07/12/2022 2:10 PM CNC MAINTENANCE MECHANIC) Report Final Report: Greater than or equal to 100,000 colonies/mL of Coagulase negative Staphylococcus species not S. lugdunensis or S. saprophyticus Plus growth of clinically insignificant bacterial consuelo. (.) ALFREDA MONDRAGON Comment:Testing performed by : [facility], [address] [place]., [address] Organism COAGULASE NEGATIVE STAPHYLOCOCCUS SPECIES ALFREDA Organism PLUS GROWTH OF CLINICALLY INSIGNIFICANT CONSUELO. ALFREDA MONDRAGON Urine, clean voided 07/12/2022 2:10 PM CNC MAINTENANCE MECHANIC 07/12/2022 10:55 PM CNC MAINTENANCE MECHANIC Narrative ALFREDA - 07/14/2022 6:56 AM CNC MAINTENANCE MECHANIC Testing performed by [facility] ([phone]) us Speedy Brown MD LAB MICROBIOLOGY - GENERAL OR DERABLES Final Result ALFREDA MONDRAGON [id number] Department [place] [address] * Cytology (07/12/2022 12:00 AM CNC MAINTENANCE MECHANIC) Fluid (Urine, Voided (Cytology)) 07/12/2022 07/12/2022 10:17 AM CNC MAINTENANCE MECHANIC Narrative PATHOLOGY CH - 07/16/2022 2:59 PM CNC MAINTENANCE MECHANIC EPIC results best viewed via link to PDF [facility] Department of Pathology [address] [place] [address] Note to Patients: ??This report may contain a detailed description of human tissue sent by a health care provider to the laboratory for pathologic evaluation. ??The content of this report is essential for diagnosis and may provide important critical findings. ??This information may be unfamiliar to patients to review without a medical professional present. ?? It is advised that the patient review this report in the presence of a health care provider who can answer questions and explain the details. Final Report Patient Name: ??NATALIA BURNETTTheo Address: ??[address], [place] [address] Gender: ??M : ??1945 (Age: 76) Service: ??Laboratory Location: ?? Hospital # ??[id number] Patient Type: ?? SPECIMEN Taken: ??07/12/2022 Received: ?? 07/12/2022 Accessioned: ?? 07/13/2022 Reported: ?? 07/16/2022 Physician(s): ??Speedy Brown MD Diagnosis: Urine, voided, cytology: ? - Negative for high-grade urothelial carcinoma (Jessica system). Noemi Berg M.D. Report Electronically Reviewed and Signed Out By ??Noemi Julien M.D. ??07/16/2022 14:59:42Specimen(s) Received: A: Urine, Voided Clinical History: The patient is a 76 year old male with bladder cancer. Gross Description: 1 container received with 70 cc yellow CytoLyt solution. 1 ThinPrep made. Microscopic Description: Microscopic examination of the voided urine (one ThinPrep slide) reveals a specimen that is adequate for evaluation. ??The specimen consists of scattered benign urothelial cells in a background of triple phosphate crystals, occasional squamous cells and mild acute inflammatory cells. ??There is no evidence of high-grade urothelial carcinoma. ?? The performance characteristics of some immunohistochemical stains, fluorescence in-situ hybridization tests and immunophenotyping by flow cytometry cited in this report (if any) were determined by the Surgical Pathology Department at [facility] as part of an ongoing automotive quality engineer program and in compliance with federally mandated regulations drawn from the Clinical Laboratory Improvement Act of 1988 (CLIA '88). ??Some of these tests rely on the use of analyte specific reagents and are subject to specific labeling requirements by the US Food and Drug Administration. ??Such diagnostic tests may only be performed in a facility that is certified by the Department of Health and Human Services as a high complexity laboratory under CLIA '88. The FDA has determined that such clearance or approval is not necessary. ??This test is used for clinical purposes. ??It should not be regarded as investigational or for research. ??Nevertheless, federal rules concerning the medical use of analyte specific reagents require that the following disclaimer be attached to the report: This test was developed and its performance characteristics determined by the Surgical Pathology Department [facility]. ??It has not been cleared or approved by the U. S. Food and Drug Administration. Unless otherwise noted all cytology processing, staining and screening is performed at [facility] ([address] [place] [address]). REPORT IMAGES AND SCANNED DOCUMENTS, IF INCLUDED, ONLY VIEWABLE IN PDF VERSION OF REPORT us Speedy Brown MD LAB CYTOLOGY ORDERABLES [place] [address] documented in this encounter Visit Diagnoses Diagnosis History of bladder cancer Personal history of malignant neoplasm of bladder Hematuria, unspecified type documented in this encounter Care Teams Pantry Cook Relationship Specialty Start Date End Date Norm Eden MD PCP - General Family Medicine 07/12/22 documented as of this encounter
--- OUTSIDE RECORDS SUMMARY | 2024-09-19 07:31 | XMS_ITS | Encounter Summary ---
Author Organization [facility] Healthcare Address [address] [place] [address] Care Team Providers Care Dray Driver Name Role Phone Norm Eden MD Primary Care Provider [phone] Encounter Details Date Type Department Care Team (Late st Contact Info) Description 07/31/2022 Telephone [facility] [address] [place] [id number] Jossy Kat RT Social History Tobacco Use Types Packs/Day Years Used Date Smoking Tobacco: Never Sex and Gender Information Value Date Recorded Sex Assigned at Not on file Legal Sex Male 8:06 AM RETAIL SALES SPECIALIST Gender Identity Not on file Sexual Orientation Not on file documented as of this encounter Miscellaneous Notes * Telephone Encounter - Jossy Kat RT - 07/31/2022 3:30 PM CST Confirmed appt [place] SALES SPECIALIST documented in this encounter Plan of Treatment Not on file documented as of this encounter Visit Diagnoses Not on filedocumented in this encounter Care Teams Dray Driver Relationship Specialty Start Date End Date Norm Eden MD PCP - General Family Medicine 07/12/22 documented as of this encounter
--- OUTSIDE RECORDS SUMMARY | 2024-09-19 07:32 | XMS_ITS | Encounter Summary ---
Author Organization [facility] Healthcare Address [address] [place] [address] Care Team Providers Care Apiculturist Name Role Phone Unavailable Primary Care Provider Unavailabl e Encounter Details Date Type Department Care Team (Late st Contact Info) Description 02/21/2016 11:45 AM CDT - 02/21/2016 11:59 PM CDT Hospital Encounter [facility] Social History Tobacco Use Types Packs/Day Years Used Date Smoking Tobacco: Never Assessed Sex and Gender Information Value Date Recorded Sex Assigned at Not on file Legal Sex Male 8:06 AM FUEL EFFICIENT AUTOMOBILE DESIGNER Gender Identity Not on file Sexual Orientation Not on file documented as of this encounter Plan of Treatment Not on file documented as of this encounter Visit Diagnoses Not on filedocumented in this encounter
--- OUTSIDE RECORDS SUMMARY | 2024-09-19 07:32 | XMS_ITS | Encounter Summary ---
Author Organization [facility] Healthcare Address [address] [place] [address] Care Team Providers Care [employer] Name Role Phone Unavailable Primary Care Provider Unavailabl e Encounter Details Date Type Department Care Team (Late st Contact Info) Description 02/21/2016 10:56 AM CDT - 02/28/2016 11:20 AM CDT Hospital Encounter [facility] Jose Elias Arcos MD [address] [address] Major depressive disorder, single episode (CMS/HCC); Suicidal ideations; Essential (primary) hypertension; Insomnia; Personal history of nicotine dependence; Family history of other mental and behavioral disorders; Acquired absence of other specified parts of digestive tract Social History Tobacco Use Types Packs/Day Years Used Date Smoking Tobacco: Never Assessed Sex and Gender Information Value Date Recorded Sex Assigned at Not on file 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 Gender Identity Not on file Sexual Orientation Not on file documented as of this encounter Last Filed Vital Signs Vital Sign Reading Time Taken Comments Blood Pressure 128/76 02/28/2016 6:40 AM CDT Pulse 58 02/28/2016 6:40 AM CDT Temperature - - Respiratory Rate - - Oxygen Saturation - - Inhaled Oxygen Concentration - - Weight 93.8 kg (206 lb 12.7 oz) 02/25/2016 6:30 PM CDT Height 180.3 cm (5' 10.98 ) 02/21/2016 8:17 PM C DT Body Mass Index 28.85 02/21/2016 8:17 PM CDT documented in this encounter Discharge Summaries * ProviderJunior MD - 02/28/2016 12:00 AM CDT DISCHARGE SUMMARY Patient: NATALIA BURNETT Account: [id number] Room No: 284-02 : 1945 Patient Type: IP Attend.: Jose Elias Moss M.D. Admit Date: 02/21/2016 Dict.: Jose Elias Moss M.D. Disch. Date: 02/28/2016 REASON FOR ADMISSION/COURSE OF TREATMENT The patient is a 70-year-old male who lives with his . He came to the hospital because of depression and suicidal thoughts. Patient has a long history of depression. Patient had reported that he had ECT treatment in the past. Lately, he became more depressed. He was feeling suicidal, hopeless, helpless, so he came to the hospital. Patient was admitted to the geropsychiatric unit. Labs were done. His medications were adjusted. He was seen by the medicine. At the time of discharge, patient was doing better. He was sleeping, eating well. He was denying any hallucinations, delusions, manic or hypomanic symptoms. He was alert, oriented x3. His mood was pleasant. Affect was appropriate to mood. He was cooperative in taking his medications. DISCHARGE DISPOSITION Home. FOLLOWUP With Dr. Clemente, psychiatrist. Follow with his primary care physician. DISCHARGE MEDICATIONS 1. Celexa 40 mg daily. 2. Lisinopril 10 mg daily. 3. Vitamin B12 1000 mcg once a day. 4. Remeron 15 mg at bedtime. 5. Trazodone 50 mg at bedtime. 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 Wyckoff II: None. Wyckoff III: Hypertension. Wyckoff IV: Chronic mental illness. Wyckoff V: Current GAF is 50. CONDITION AT TIME OF DISCHARGE Improved. Electronically Authenticated by: Jose Elias Moss MD On 03/21/2016 07:47 PM CDT Kiki Ovalle/alicja TD: 03/20/2016 18:54 documented in this encounter Consult Notes * Provider, Historical, - 02/22/2016 12:00 AM CDT CONSULTATION REPORT Patient: NATALIA BURNETT Service Date: 02/22/2016 Account: [id number] Room No: 284-02 : 1945 Patient Type: IP Attend.: Jose Elias Moss M.D. Admit Date: 02/21/2016 Consult: Britney Magdaleno M.D. Disch. Date: DATE OF CONSULTATION 02/22/16 CONSULTING PHYSICIAN Britney Magdaleno M.D. REFERRING PHYSICIAN Dr. Moss. CHIEF COMPLAINT Medical management. SOURCE OF INFORMATION Patient and medical records. The patient is a 70-year-old, male with a history of hypertension, depression, was admitted to the psych unit for mental health evaluation. The patient mentioned that he was not eating and drinking and not able to sleep for the last couple of weeks. Patient denies any chest pain, any cough, any phlegm. No headache. No focal neurological deficits. The patient is presently living with family. Patient denies any suicidal thoughts. PAST MEDICAL HISTORY Neuropathy, depression and hypertension. PAST SURGICAL HISTORY Colectomy and left rotator cuff repair surgery. Patient mentioned that he had some polyps suspicious of cancer, so he had colectomy in the past. HOME MEDICATIONS Reviewed and placed in the chart. ALLERGIES EFFEXOR. SILENOR. FAMILY HISTORY Hypertension, depression runs in the family. SOCIAL HISTORY Was a smoker, quit 25 years ago. Used to smoke 1 pack per day. Used to drink in the past, but quit 20 years ago. Presently living with the family, at home. REVIEW OF SYSTEMS Ten systems reviewed. Patient denies any headache, any nausea, vomiting. No abdominal pain. No constipation. No diarrhea. No chest pain. No shortness of breath. No cough. No urinary complaints. Does not feel like eating food. As per the patient, the main problem is sleep. He was not able to sleep. Recently the psychiatrist adjusted his psychiatric medications and his symptoms were gradually getting worse. Vital Signs: Blood pressure is 149/79, pulse rate 63, respiratory rate is 18, temperature 36.9, saturating 96% to 97%. PHYSICAL EXAMINATION Awake, alert, not in any distress. HEENT: No pallor or icterus. Lungs: Bilateral air entry noted. No wheezes or crackles. CVS: S1, S2 heard. No murmur appreciated. Abdomen: Soft, nontender. Bowel sounds are heard. Neuro: Oriented x3. Psych: Pleasant and cooperative. Musculoskeletal: No joint tenderness, erythema or redness. LABS Sodium is 134, potassium is 4.8, chloride is 98, bicarb is 26, anion gap is 16, glucose is 103, BUN is 10.4, creatinine is 0.9. GFR is greater than 60, bilirubin is 0.4. Calcium is 8.7, albumin is 3.9, alk phos is 74, AST is 18, ALT is 15. TSH is 1.17. Calcium is 8.7, vitamin B12 is 284. PSA is 1.07. WBC 6.5, hemoglobin is 13, hematocrit is 40, platelets are 187. Folic acid is 25. UA is negative for nitrites and leukocyte esterase. Chest x-ray no infiltrate. ASSESSMENT AND PLAN 1. Depression with insomnia. Psychiatrist is on board and adjusted the medications. Will follow Dr. Moss's recommendation. 2. Hypertension. Controlled. Will resume his home medication. 3. Low vitamin B12 levels. Will place him on p.o. vitamin B12 and 1000 mcg sc once daily. I advised the patient to follow up with the PCP as an outpatient. Thank you for consultation. Electronically Authenticated and Edited by: Britney Magdaleno MD On 02/23/2016 12:44 PM CDT Britney Magdaleno M.D. ELROY/alicja TD: 02/22/2016 20:53 documented in this encounter Plan of Treatment Not on file documented as of this encounter Procedures Procedure Name Priority Date/Time Associated Diagnosis Comments DISCHARGE LABORATORY CUMULATIVE REPORT 02/28/2016 STAPH AUREUS (MRSA/MSSA) CULTURE, CDR Routine 02/21/2016 10:25 PM CDT XR CHEST PA LATERAL 2 VIEWS Routine 02/21/2016 2:09 PM CDT URINALYSIS Routine 02/21/2016 12:22 PM CDT SERUM THYROID-STIMULATING HORMONE (TSH) Routine 02/21/2016 11:45 AM CDT SERUM PROSTATE-SPECIFIC ANTIGEN (PSA) Routine 02/21/2016 11:45 AM CDT SERUM FOLIC ACID Routine 02/21/2016 11:4 5 AM CDT SERUM ESTIMATED GLOMERULAR FILTRATION RATE Routine 02/21/2016 11:45 AM CDT SERUM CYANOCOBALAMIN (VITAMIN B12) Routine 02/21/2016 11:45 AM CDT PLASMA COMPREHENSIVE METABOLIC PANEL Routine 02/21/2016 11:45 AM CDT BLOOD CELL COUNT (CBC), MORPHOLOGIC EXAM Routine 02/21/2016 11:45 AM CDT BLOOD CELL MORPHOLOGIC EXAM Routine 02/21/2016 11:45 AM CDT ELECTROCARDIOGRAPHY (ECG) 02/21/2016 documented in this encounter Results * DISCHARGE LABORATORY CUMULATIVE REPORT (02/28/2016) Narrative 02/28/2016 Ordered by an unspecified provider. us Historical Provider LAB BLOOD ORDERABLES Lali l Result * Staph aureus (MRSA/MSSA) Culture (02/21/2016 10:25 PM CDT) Nasal (Unknown) 02/21/2016 1 0:25 PM CDT Impressions HISTORICAL RESULTS - 02/23/2016 10:48 AM CDT Patient's Nasal specimens are processed for Methicillin-resistant Staphylococcus aureus (MRSA) only. Current interpretive data was last revised on 2015. Narrative HISTORICAL RESULTS - 02/23/2016 10:48 AM CDT No Methicillin Resistant Staph aureus cultured us Historical Provider LAB MICROBIOLOGY - GENERA L ORDERABLES Final Result HISTORICAL RESULTS * XR Chest Pa Lateral 2 Vw (02/21/2016 2:09 PM CDT) Anatomical Region Laterality Modality Body, Chest N/A Radiographic Renetta ging 02/21/2016 2:09 PM CDT Narrative 02/21/2016 5:02 PM CDT XR Chest 2 Views ?[id number] ??Acc#: ??[id number] DATE OF EXAM: ??Feb 21 2016 CLINICAL HISTORY: Chest pain. ??Altered mental status. RESULT: AP and lateral radiographs of the chest with no previous study for review demonstrates a normal size heart. ??Lungs are clear. IMPRESSION: NO ACTIVE DISEASE. Interpreting Physician: ??CHINMAY AGUIRRE M.D. ??Read on: ??Feb 21 2016 ??3:55P Transcribed by: ??lisa ??On: Feb 21 2016 ??4:53P Approved Electronically by: ??CHINMAY AGUIRRE M.D. ??on: ??Feb 21 2016 ??5:02P Attending: ??JOSE ELIAS MOSS Requesting: ??DIXON FLOYD Requesting Fax: ??-- Attending Fax: ??-- Attending ID: ??[id number] Requesting ID: ??[id number] Report To 1 ID: ??[id number] Report To 1 Name: ??JOSE ELIAS MOSS Report To 1 FAX: ??-- NextGen Order #: Procedure Note Provider, MD Junior - 01/07/2017 XR Chest 2 Views [id number] Acc#: [id number] DATE OF EXAM: Feb 21 2016 CLINICAL HISTORY: Chest pain. Altered mental status. RESULT: AP and lateral radiographs of the chest with no previous study for reviewdemonstrates a normal size heart. Lungs are clear. IMPRESSION: NO ACTIVE DISEASE. Interpreting Physician: CHINMAY AGUIRRE M.D. Read on: Feb 21 2016 3:55P Transcribed by: lisa On: Feb 21 2016 4:53P Approved Electronically by: CHINMAY AGUIRRE M.D. on: Feb 21 2016 5:02P Attending: JOSE ELIAS MOSS Requesting: DIXON FLOYD Requesting Fax: -- Attending Fax: -- Attending ID: [id number] Requesting ID: [id number] Report To 1 ID: [id number] Report To 1 Name: JOSE ELIAS MOSS Report To 1 FAX: -- NextGen Order #: Historical Provider IMShira XR PROCEDURES Final R esult * Urinalysis (02/21/2016 12:22 PM CDT) Color, ur Yellow Yellow HISTORICAL RESULTS Clarity, ur Clear Clear HISTORIC AL RESULTS Specific gravity, ur 1.013 1.003 - 1.030 HISTORICAL RESULTS Comment:Normal Ranges: 1.003 -1.030 pH, ur 7.5 4.5 - 8.0 HISTORICAL RESULTS Comment:Normal ranges: 4.5-8 .0 Protein, ur, quant Negative Negative mg/dl HISTORICAL RESULTS Glucose, ur, quant Negative Negative mg/dl HISTORICAL RESULTS Ketones, ur Negative Negative HISTORIC AL RESULTS Bilirubin, ur Negative Negative HISTOR ICAL RESULTS U Blood Negative Negative HISTORICAL RESULTS Urobilinogen, quant, ur 0.2 0.2 - 1.0 Jacklyn Units/dl HISTORICAL RESULTS Comment:Normal Ranges: 0.2-1 .0 EU/dL Nitrites, ur Negative Negative HISTORI DENISSE RESULTS Leukocyte esterase, ur Negative Negative HISTORICAL RESULTS Urine 02/21/2016 12:2 2 PM CDT Historical Provider LAB BLOOD ORDERABLES Lali l Result Performing Organization Address City/[facility] Co de Phone Number HISTORICAL RESULTS * (ABNORMAL) Serum folic acid (02/21/2016 11:45 AM CDT) Folic acid >24.8(H) 4.0 - 24.8 mcg/L HISTORICAL RESULTS Comment:Test performed at [facility], [address] [place] [address], [place]., [address] Serum 02/21/2016 11:4 5 AM CDT Historical Provider LAB BLOOD ORDERABLES Lali l Result Performing Organization Address [facility]/ZIP Co de Phone Number HISTORICAL RESULTS * Serum thyroid-stimulating hormone (TSH) (02/21/2016 11:45 AM CDT) TSH 1.17 0.30 - 5.00 7669 HISTORICAL RESULTS Serum 02/21/2016 11:4 5 AM CDT Historical Provider LAB BLOOD ORDERABLES Lali veras Result Performing Organization Address [facility] Co de Phone Number HISTORICAL RESULTS * Plasma comprehensive metabolic panel (02/21/2016 11:45 AM CDT) Sodium 135 135 - 145 mmol/L HISTORICAL RESULTS K, pl 4.8 3.5 - 5.1 mmol/L HISTORICAL RESULTS Chloride 98 97 - 110 mmol/L HISTORICAL RESULTS CO2 26 22 - 32 mmol/L HISTORICAL RESULTS A. gap 16 8 - 16 mmol/L HISTORICAL RESULTS Glucose 103 70 - 199 mg/dl HISTORICAL RESULTS Comment: Interpretive Data Note:The glucose is assumed non fasting Fastin-99 mg/dL Random: ??70-199 mg/dL Either a fasting glucose > 126 mg/dL or a random glucose > 200 mg/dL plus symptoms is diagnostic of diabetes when confirmed on another day. Fasting values > 100 mg/dL but < 125 mg/dL are diagnostic of impaired fasting glucose. Current interpretive data was last revised on 2014. BUN 10.4 8.0 - 25.0 mg/dl HISTORICAL RESULTS Creatinine 0.90 0.70 - 1.30 mg/dl HISTORICAL RESULTS BUN/creat ratio 12 10 - 20 HIST ORICAL RESULTS Calcium 8.7 8.6 - 10.2 mg/dl HISTORICAL RESULTS Protein, sr 6.0 6.0 - 8.4 g/dl HISTORICAL RESULTS Alb 3.9 3.6 - 5.0 g/dl HISTORICAL RESULTS Alk phos 74 40 - 130 2000 HISTORICAL RESULTS ALT 15 5 - 50 2000 HISTORICAL RESULTS AST 18 10 - 45 2000 HISTORICAL RESULTS Bilirubin 0.4 <=1.2 mg/dl HISTORICAL RESULTS Plasma 02/21/2016 11:4 5 AM CDT Historical Provider LAB BLOOD ORDERABLES Lali l Result HISTORICAL RESULTS * Blood cell morphologic exam (02/21/2016 11:45 AM CDT) Neutrophils 70.6 44.0 - 80.0 % HISTORICAL RESULTS Immature granulocytes 0.2 0.0 - 1.0 % HISTORICAL RESULTS Lymphocytes 21.8 13.0 - 44.0 % HISTORICAL RESULTS Monos 6.5 2.0 - 11.0 % HISTORICAL RESULTS Eosinophils 0.6 0.0 - 6.0 % HISTORICAL RESULTS Basophils 0.3 0.0 - 3.0 % HISTORICAL RESULTS Neutrophils, abs 4.6 1.6 - 7.0 6096 HISTORICAL RESULTS Immature granulocyte, abs 0.0 0.0 - 0.2 6096 HISTORICAL RESULTS Lymphocytes, abs 1.4 0.5 - 4.3 6096 HISTORICAL RESULTS Monocytes, absolute 0.4 0.1 - 1.0 6096 HISTORICAL RESULTS Eosinophils, abs 0.0 0.0 - 0.6 6096 HISTORICAL RESULTS Basophils, abs 0.0 0.0 - 0.3 6096 HISTORICAL RESULTS Blood specimen (specimen) 02/21/2016 11:45 AM CDT us Historical Provider LAB BLOOD ORDERABLES Lali l Result HISTORICAL RESULTS * (ABNORMAL) Blood cell count (CBC), morphologic exam (02/21/2016 11:45 AM CDT) WBC 6.5 3.8 - 9.8 6096 HISTORICAL RESULTS RBC 4.51 4.50 - 5.70 M/cumm HISTORICAL RESULTS Hgb 13.4(L) 13.8 - 17.2 g/dl HISTORICAL RESULTS Hct 39.5(L) 40.7 - 50.3 % HISTORICAL RESULTS MCV 87.6 80.0 - 100.0 2004 HISTORICAL RESULTS MCH 29.7 26.7 - 33.7 pg HISTORICAL RESULTS MCHC 33.9 32.7 - 36.0 g/dl HISTORICAL RESULTS Rdw 12.5 11.5 - 14.6 % HISTORICAL RESULTS Platelets 187 140 - 440 6096 HISTORICAL RESULTS MPV 9.6 8.0 - 12.0 2004 HISTORICAL RESULTS NRBC 0.0 0.0 - 0.0 % HISTORIC AL RESULTS NRBC, abs 0.00 0.00 - 0.00 6096 HISTORICAL RESULTS Blood specimen (specimen) 02/21/2016 11:45 AM CDT Historical Provider LAB BLOOD ORDERABLES Lali l Result Performing Organization Address [facility] de Phone Number HISTORICAL RESULTS * Serum estimated glomerular filtration rate (02/21/2016 11:45 AM CDT) eGFR >60 ml/min/1.7 3 m2 HISTORICAL RESULTS Comment: Interpretation of Estimated GFR (eGFR): Normal ?>/= 60 mL/min/1.73m2 Possible Chronic Kidney Disease ??15 - 59 mL/min/1.73m2 Possible Kidney Failure ?< 15 ??mL/min/1.73m2 If -Dutch multiply value by 1.16. ??Estimated glomerular filtration rate is determined by the CKD-EPI equation recommended by the National Kidney Foundation (KDIGO 2012 Clinical Practice Guideline for the Evaluation and Management of Chronic Kidney Disease. ??Kidney Intnl Suppl Sep 2012;3:1). ??The CKD-EPI equation should not be used in acute renal failure or acute kidney injury and is not valid in children. Serum 02/21/2016 11:4 5 AM CDT Historical Provider LAB BLOOD ORDERABLES Lali l Result Performing Organization Address [facility] de Phone Number HISTORICAL RESULTS * Serum prostate-specific antigen (PSA) (02/21/2016 11:45 AM CDT) PSA 1.07 0.00 - 4.00 3931 HISTORICAL RESULTS Comment:Test performed at [facility], [address] [place] [address], [place]., [address] Serum 02/21/2016 11:4 5 AM CDT Historical Provider LAB BLOOD ORDERABLES Lali l Result Performing Organization Address [facility]/ZIP Co de Phone Number HISTORICAL RESULTS * Serum cyanocobalamin (vitamin B12) (02/21/2016 11:45 AM CDT) Cyanocobalamin (Vit B12) 284 946 - 310 9580 HISTORICAL RESULTS Comment: B12 Reference Ranges: (greater than 1 year of age) ?Normal: ?180 - 920 pg/ml Indeterminate: ??145 - 180 pg/ml ?? Deficient: ? <145 pg/ml Test performed at [facility], [address] [place] [address]., [address] Serum 02/21/2016 11:4 5 AM CDT Historical Provider LAB BLOOD ORDERABLES Lali veras Result Performing Organization Address [facility] de Phone Number HISTORICAL RESULTS * ELECTROCARDIOGRAPHY (ECG) (02/21/2016) Narrative 02/21/2016 Ordered by an unspecified provider. Historical Provider ECG ORDERABLES Final Res ult documented in this encounter Visit Diagnoses Diagnosis Major depressive disorder, single episode Major depressive disorder, single episode, unspecified Suicidal ideations Essential (primary) hypertension Unspecified essential hypertension Insomnia Insomnia, unspecified Personal history of nicotine dependence Family history of other mental and behavioral disorders Acquired absence of other specified parts of digestive tract documented in this encounter
--- OUTSIDE RECORDS SUMMARY | 2024-09-19 07:32 | XMS_ITS | Encounter Summary ---
Author Organization [facility] Address [address] [place] [address] Phone Care Team Providers Care Animal Treatment Investigator Name Role Phone Norm Eden MD Primary Care Provider [phone] Reason for Referral * Diagnostic Lab (Routine) - Closed Specialty Diagnoses / Procedures Referred By Von reza Referred To Contact Lab Diagnoses History of bladder cancer Hematuria, unspecified type Procedures Cytology Speedy Brown MD Phone: tel: fax: Referral ID Status Reason Start Date Expiration Date Visits Re quested Visits Authorized [id number] Closed 07/12/2022 08/11/2023 1 1 ESSING SPECIALIST Reason for Visit * Reason Comments Bladder Cancer * Consultation (Routine) - Closed Specialty Diagnoses / Procedures Referred By Von reza Referred To Contact Urology Diagnoses History of bladder cancer Referral, Self [facility] (All Locations) Referral ID Status Reason Start Date Expiration Date V isits Requested Visits Authorized [id number] Closed Specialty Services Required 07/05/2022 08/04/2023 10 10 Encounter Details Date Type Department Care Team (Late st Contact Info) Description 07/12/2022 1:00 PM PROCESSING SPECIALIST Office Visit [facility]) - [facility] Urology [address] [place] [address] [place] [address] [facility] [address] [place] [address] Hematuria, unspecified type (Primary Dx); History of bladder cancer Social History Tobacco Use Types Packs/Day Years Used Date Smoking Tobacco: Never Tobacco Cessation:Counseling Given: Not Answered Sex and Gender Information Value Date Recorded Sex Assigned at Not on file Legal Sex Male 8:06 AM PROCESSING SPECIALIST Gender Identity Not on file Sexual Orientation Not on file documented as of this encounter Last Filed Vital Signs Vital Sign Reading Time Taken Comments Blood Pressure 145/78 07/12/2022 1:06 PM PROCESSING SPECIALIST Pulse 73 07/12/2022 1:06 PM PROCESSING SPECIALIST Temperature 36.8 ??C (98.2 ??F) 07/12/2022 1:06 PM CS T Respiratory Rate - - Oxygen Saturation - - Inhaled Oxygen Concentration - - Weight 86.2 kg (190 lb) 07/12/2022 1:06 PM PROCESSING SPECIALIST Height 180.3 cm (5' 11 ) 07/12/2022 1:06 PM PROCESSING SPECIALIST Body Mass Index 26.5 07/12/2022 1:06 PM PROCESSING SPECIALIST documented in this encounter Ordered Prescriptions Prescription Sig Dispense Quantity Refills Last Filled Start Date End Date sulfamethoxazole-t rimethoprim (BACTRIM DS) 800-160 mg per tabletIndications: Hematuria, unspecified type Take 1 tablet by mouth 2 (two) times a day for 7 days 14 tablet 07/12/2022 07/19/2022 documented in this encounter Progress Notes * Speedy Brown MD - 07/12/2022 1:00 PM CST Urology History and Physical CC: Bladder cancer HPI: Natalia Burnett is a 76 y.o. male history of high-grade T1 bladder cancer diagnosed in September 2020in outside hospital he subsequently underwent a staging TURBT in October 2020 which was negative. Subsequently, he had 6 cycles of induction BCG and was on regular cystoscopy surveillance. Patient reports no recurrence till date the last cystoscopy done 3 months back. Currently asymptomatic and denies hematuria or any systemic signs including loss of weight or appetite. He denies any significant lower urinary tract symptoms. Past Medical History: Diagnosis Date Bladder cancer (CMS/HCC) (HCC) Dementia (HCC) History reviewed. No pertinent surgical history. Social History Tobacco Use Smoking status: Never Smokeless tobacco: None Substance and Sexual Activity Drug use: None Sexual activity: None Alcohol Use: Not on file History reviewed. No pertinent family history. (Not in a hospital admission) Allergies Allergen Reactions Venlafaxine Unknown Ibuprofen Swelling Silenor [Doxepin] Itching and Rash Reaction: ITCHING Reaction: ITCHING, RASH, Nsaids (Non-Steroidal Anti-Inflammatory Drug) Other (See comments) Was told not to take due top swelling form ibuprofen Review of Systems: All other symptoms except HPI are negative Objective: Vitals: BP 145/78 Pulse 73 Temp 36.8 ??C (98.2 ??F) Ht 180.3 cm (5' 11 ) Wt 86.2 kg (190 lb) BMI 26.50 kg/m?? Physical exam: General: Does not appear in acute distress; No pain present Head: Normocephalic/Atraumatic Eyes: No discharge noted; (R,L) extraocular movements are intact; Ears: (R,L) hearing grossly normal Nose/Mouth/Throat: Mucous membranes moist Neck: Neck inspection is normal; neck ROM normal Respiratory: Has normal respiratory effort; Extremities: (R,L) [place] and warm; no edema Musculoskeletal: Normal range of motion present Neurology: Patient is alert and oriented to person, place and time. Mood: Has normal mood and affect Lab/Radiology/Diagnostic Review: Results for orders placed or performed in visit on 07/12/22 POCT urinalysis dipstick Result Value Ref Range Glucose, ur, POC Negative Negative MG/DL Bilirubin, ur, POC Negative Negative, Small, Moderate, Large Ketones, ur, POC Negative Negative Blood, ur, POC 2+ (A) Negative pH, ur, POC 6.0 5.0 - 8.0 Protein, ur, POC 2+ (A) Negative Nitrite, ur, POC Positive (A) Negative Leukocytes, ur, POC 3+ (A) Negative Lot Number 0 Assessment : Natalia Burnett is a 76 y.o. male with history of high-grade T1 bladder cancer status post induction BCG in 2020 and no recurrence till date. - discussed about the NCCN guidelines for management of high-grade T1 bladder cancer. Patient and his family's not interested in aggressive surveillance and wishes to have cystoscopy every 6-8 months. Plan: Send urine cytology and get CT urogram - plan for cystoscopy after 4 months Speedy Brown MD Faculty, Urology division, Department of surgery, [facility] ([facility]) [facility] [place] [facility]) ESSING SPECIALIST documented in this encounter Plan of Treatment Not on file documented as of this encounter Procedures Procedure Name Priority Date/Time Associated Diagnosis Comments POCT URINALYSIS DIPSTICK Routine 07/12/2022 3:01 PM PROCESSING SPECIALIST History of bladder cancer Hematuria, unspecified type documented in this encounter Results * (ABNORMAL) POCT urinalysis dipstick (07/12/2022 3:01 PM PROCESSING SPECIALIST) Glucose, ur, POC Negative Negative MG/DL Bilirubin, ur, POC Negative Negative, Small, Moderate, Large Ketones, ur, POC Negative Negative Blood, ur, POC 2+(A) Negative pH, ur, POC 6.0 5.0 - 8.0 Protein, ur, POC 2+(A) Negative Nitrite, ur, POC Positive(A) Negative Leukocytes, ur, POC 3+(A) Negative Lot Number 0 Urine 07/12/2022 3:01 PM PROCESSING SPECIALIST Speedy Brown MD POINT OF CARE TEST ORDERABLES Final Result * (ABNORMAL) Urine culture Urine, clean voided (07/12/2022 2:10 PM PROCESSING SPECIALIST) Report Final Report: Greater than or equal to 100,000 colonies/mL of Coagulase negative Staphylococcus species not S. lugdunensis or S. saprophyticus Plus growth of clinically insignificant bacterial consuelo. (.) ALFREDA MONDRAGON Comment:Testing performed by : [facility], [address], [place]., [address] Organism COAGULASE NEGATIVE STAPHYLOCOCCUS SPECIES ALFREDA Organism PLUS GROWTH OF CLINICALLY INSIGNIFICANT CONSUELO. ALFREDA Urine, clean voided 07/12/2022 2:10 PM PROCESSING SPECIALIST 07/12/2022 10:55 PM PROCESSING SPECIALIST Narrative ALFREDA - 07/14/2022 6:56 AM PROCESSING SPECIALIST Testing performed by [facility] Microbiology Laboratory ([phone]) Speedy Brown MD LAB MICROBIOLOGY - GENERAL OR DERABLES Final Result [facility] [address] Department [place] [address] * Cytology (07/12/2022 12:00 AM PROCESSING SPECIALIST) Fluid (Urine, Voided (Cytology)) 07/12/2022 07/12/2022 10:17 AM PROCESSING SPECIALIST Narrative PATHOLOGY CH - 07/16/2022 2:59 PM PROCESSING SPECIALIST EPIC results best viewed via link to PDF [facility] Department of Pathology [address] [place] [id number] Note to Patients: ??This report may contain [...] the details. Final Report Patient Name: ??NATALIA BURNETT Address: ??[address], [place] [address] Gender: ??M : ??1945 (Age: 76) Service: ??Laboratory Location: ?? Hospital # ??[id number] Patient Type: ?? SPECIMEN Taken: ??07/12/2022 Received: [...] determined by the Surgical Pathology Department at [facility] as part of an ongoing quality process auditor program and in compliance with federally mandated [...] characteristics determined by the Surgical Pathology Department [facility]. ??It has not been cleared or approved by the U. S. Food and Drug Administration. Unless otherwise noted all cytology processing, staining and screening is performed at [facility] ([address] [place] [address]). REPORT IMAGES AND SCANNED DOCUMENTS, IF INCLUDED, ONLY VIEWABLE IN PDF VERSION OF REPORT Speedy Brown MD LAB CYTOLOGY ORDERABLES [place] [address] documented in this encounter Visit Diagnoses Diagnosis Hematuria, unspecified type- Primary History of bladder cancer Personal history of malignant neoplasm of bladder History of bladder cancer Personal history of malignant neoplasm of bladder Hematuria, unspecified type documented in this encounter Historical Medications * This list may reflect changes made after this encounter. traZODone (DESYREL) 150 mg tablet Take 150 mg by mouth daily 05/09/2022 traMADoL (ULTRAM) 50 mg tablet Take 50 mg by mouth every 6 (six) hours as needed tamsulosin (FLOMAX) 0.4 mg extended release capsule Take 0.4 mg by mouth daily finasteride (PROSCAR) 5 mg tablet Take 5 mg by mouth daily added in this encounter Orders Outpatient Referral Count Last Ordered Date Fir st Ordered Date AMB REFERRAL TO UROLOGY 1 07/12/2022 documented in this encounter Care Teams Animal Treatment Investigator Relationship Specialty Start Date End Date Norm Eden MD PCP - General Family Medicine 07/12/22 documented as of this encounter
== END 2024-09-16 15:55 | DRG 690 ==
LOC: ANHED 12:01 → ANH3MED 09-14 06:09 → ANH2MED 09-14 13:08 → ANH3MED 09-14 13:08
PROVIDERS: Nurse Practitioner Adult Health; Nurse Practitioner Gerontology; Admitting Provider Internal Medicine; Emergency Provider Emergency Medicine; PCP Nurse Practitioner Family; Visit Provider Nurse Practitioner
DX: N39.0 Urinary tract infection, site not specified (principal); C67.9 Malignant neoplasm of bladder, unspecified; F03.90 Unspecified dementia, unspecified severity, without behavioral disturbance, psychotic disturbance, mood disturbance, and anxiety; I10 Essential (primary) hypertension; H91.90 Unspecified hearing loss, unspecified ear; Z87.891 Personal history of nicotine dependence; Z85.51 Personal history of malignant neoplasm of bladder; Z20.822 Contact with and (suspected) exposure to COVID-19
CPT/HCPCS: 36415; 71046; 80048; 80053; 81001; 85025; 87040; 87086; 87635; 93005; 96365; 96375; 97110; 97162; 97166; 97530; 97535; 99285; A9270; G0378; J0696; J1200; J1630; J1650; J7030

== ENCOUNTER 2025-02-24 13:38 | Emergency (ER) | payer MEDICARE, SELFPAY ==
[2025-02-24 14:43] VITALS: BP 146/63; PULSE 71; RESP 18; TEMP 36.6; O2SAT 100
--- NOTE | 2025-02-24 14:51 | PC.NURSE ---
1425- MISSION ANALYST went into exam room to ask about pts tetanus status, and responds that we dont take shots anymore.
--- NOTE | 2025-02-24 14:52 | ED_ITS ---
HPI - General Adult General Chief complaint: Extremity Problem,Nontraumatic Stated complaint: bilateral feet swelling/Uti symptoms Time Seen by Provider: 02/24/25 14:15 Source: patient and RN notes reviewed Mode of arrival: ambulatory Limitations: no limitations History of Present Illness HPI narrative: 79-year-old male presents to the [facility] with spouse complaining of bilateral feet swelling and wound to left foot. Patient's spouse is the POA for patient, patient has a history of dementia. Spouse states the other days use putting a shoe on his left foot when she injury to the left foot causing an abr asion. Spouse states that his feet have been swelling recently and is being currently evaluated by his PCP for it. Spouse also noticed increased confusion yesterday and that he has not been acting himself according to baseline she states. Spouse states yesterday he went into her room and had a bowel movement on the bedroom floor which she states is abnormal for him. Patient has history of UTIs it is possible in the make sure patient is not having any urinary tract infection symptoms. Patient is verbal denies any symptoms. Related Data Allergies Allergy/AdvReac Type Severity Reaction Status Date / Time NSAIDS (Non-Steroidal Allergy Unknown Swelling Verified 12/30/24 12:35 Anti-Inflamma aspirin Allergy Redness of Verified 12/30/24 12:35 Skin Review of Systems Review of Systems: CONSTITUTIONAL: Denies fever, chills, or sweats. EYES: Denies visual changes, redness, or discharge. ENT: Denies rhinorrhea, congestion, sore throat, or otalgia. CARDIOVASCULAR: Denies chest pain, palpitations. Positive for edema. RESPIRATORY: Denies cough or dyspnea. GASTROINTESTINAL: Denies abdominal pain, nausea, vomiting, or diarrhea. GENITOURINARY: Denies dysuria or hematuria. SKIN: Denies rash or itching. Positive for wound. MUSCULOSKELETAL: Denies back pain, joint pain, or myalgia. NEUROLOGIC: Denies headache, numbness, or weakness. PSYCHIATRIC: Denies anxiety or depression. All other systems reviewed are negative, except as documented in HPI. [facility] Past Medical History Medical History Dementia Urinary hesitancy Acute insomnia Depression Anxiety Foot deformity, bilateral Ataxia Peripheral neuropathy Bladder cancer Cerebellar ataxia Depression Memory loss H/O: hypertension Surgical History Surgical History History of bladder surgery History of partial colectomy H/O repair of rotator cuff Family History Family History Mother Patient's mother is Family history of dementia Family history of malignant neoplasm Father Family history of malignant neoplasm Patient's father is Other Depression Social History Social History Social History: . High school graduate. Patient does not wear dentures due to ill-fitting dentures. Patient prefers softer foods. Patient does not wear glasses. He is hard of hearing bilaterally. He is a former smoker. He drinks alcohol occasionally. Patient lives with his in a single-story home. Steps to enter. Smoking packs per day: 1 Smoking cigarettes per day: 20.0 Years smoked: 15 Smoking pack-years: 15.00 Smoking status: Former smoker Tobacco type: cigarettes Alcohol intake: never Substance use: never Substance use type: does not use Do You Feel Safe in your Home?: Yes Lack of Transportation: No Lack of Food: Never True Current Housing: I Have Housing Concerned About Future Housing: No Difficulty Paying Gas/Electric Bills: No Difficulty Paying for Meds: No Currently Unemployed: No Education: High School Diploma/GED Difficulty w/ Childcare or Family Care: No Living arrangements: with family Occupation/Education: retired Gender identity (if verbalized by the patient): Male Sexual Orientation (if Verbalized by the Patient): Straight or Heterosexual Spiritual care concerns: No Agree to blood products: Yes Comments At the time of my signature, I reviewed and agree with the nursing past medical, surgical, social, and family history. There is no relevant family history pertinent to the patient complaint. Exam Narrative: GENERAL: This is a well-nourished, well-developed adult, in no apparent distress. They are non ill-appearing, nontoxic appearing. Patient is sitting in a wheelchair. HEAD: normocephalic, atraumatic. EYES: Sclera clear/white. Conjunctiva normal. Vision is grossly intact. Extraocular movements intact EARS: External ears normal, Hearing grossly intact. NOSE: External nose normal THROAT: Mucous membranes moist, NECK: Neck supple, CARDIOVASCULAR: Regular rate and rhythm RESPIRATORY: Respiratory rate normal, respiratory effort nonlabored, no respiratory distress SKIN: warm, Dry, intact with no suspicious lesions or rash, good texture and turgor. NEURO: awake, alert, and oriented to person. Mental status is baseline. No obvious focal neurological deficits. EXTREMITIES: Bilateral feet: Feet are edematous and pitting 2+. Bilateral pedal pulses 2+ and palpable, capillary refill less than 3 seconds.. Left foot: There is abrasion to the distal dorsal surface of foot. No induration, no surrounding cellulitis, no area of fluctuance, no exudate. Abrasions measuring approximately 2 cm x 3 cm. BACK: Nontender without deformity. Course Course Emergency Course: Portions of this record may have been created with voice recognition software Level of Care: Express Care Visit Vital Signs Vital signs: Vital Signs Temperature 97.8 F 02/24/25 14:43 Pulse Rate 71 02/24/25 14:43 Respiratory Rate 18 02/24/25 14:43 Blood Pressure 146/63 H 02/24/25 14:43 Pulse Oximetry 100 02/24/25 14:43 Temperature 97.8 F 02/24/25 14:43 Pulse Rate 71 02/24/25 14:43 Respiratory Rate 18 02/24/25 14:43 Blood Pressure 146/63 H 02/24/25 14:43 Pulse Oximetry 100 02/24/25 14:43 Reviewed Medical Decision Making MDM Narrative Medical decision making narrative: Urine dipstick showed evidence of leukocytes. Urine culture is pending. Abrasion on left foot appears to be healing well with no evidence of cellulitis or infection. However spouse states that she feels like he is not acting himself lately. It may be possibly as a urinary tract infection or other underlying condition that may be worsening his confusion. PCP is evaluating patient's leg swelling, review of previous lab work from PCP office shows no elevated BNP. Given patient's symptoms, it is recommend the patient seek a higher level care and proceed immediately to the emergency department. Spouse is POA patient she does not want to take the patient to the ER. Patient's spouse has the mental capacity to make informed medical decisions for him. Patient's spouse will be signing patient out against medical advice and states she will wait till her his PCP returns from vacation to have him follow-up. Patient is hemodynamically stable, nontoxic appearing, and does not appear to be in any apparent distress. T Asked patient's spouse if patient's tetanus is up-to-date within the last 10 years and she is unsure and is refusing a tetanus prophylaxis for his wound. Will go ahead and treat him prophylactically for urinary tract infection with cefuroxime. Strict ER precautions discussed. Differential Diagnosis Differential Diagnosis: Urinary tract infection, sepsis, dementia, cellulitis, heart failure, dependent edema Vital Signs Vital Signs: Vital Signs Temperature 97.8 F 02/24/25 14:43 Pulse Rate 71 02/24/25 14:43 Respiratory Rate 18 02/24/25 14:43 Blood Pressure 146/63 H 02/24/25 14:43 Pulse Oximetry 100 02/24/25 14:43 Temperature 97.8 F 02/24/25 14:43 Pulse Rate 71 02/24/25 14:43 Respiratory Rate 18 02/24/25 14:43 Blood Pressure 146/63 H 02/24/25 14:43 Pulse Oximetry 100 02/24/25 14:43 Critical Care Time Critical Care Time Critical Care Time: No Discharge Plan Discharge Clinical Impression: Visit for wound check, Bilateral swelling of feet Urinary tract infection Qualifiers: Urinary tract infection type: site unspecified Hematuria presence: without hematuria Qualified Code(s): N39.0 - Urinary tract infection, site not specified Patient Disposition: Left Against Medical Advice Condition: Stable Instructions: Antibiotic Form, Abrasion (ED), Urinary Tract Infection in Older Adults (ED) Additional Instructions: Take the antibiotic as prescribed The urine will be sent of for a culture to identify what type of bacteria is causing your infection. If the culture shows that the antibiotic will not get rid of your infection, you will be notified and a new antibiotic will be called in for you. Increase water intake Hirsch with does not appear infected on his foot. Please wash the wound daily with mild soap and water. Please keep it dry and covered. Do not use any peroxide or alcohol in the wound. Please monitor for signs of worsening infection which she can include increased redness, swelling, pain, green yellow discharge, red streaking, or fevers. you will need to follow up with your PCP 3-5 days. Go to the ER for any worsening symptoms, abdominal pain, worsening confusion, fevers, nausea, vomiting, or worsening redness, swelling, green or yellow drainage from his wound, or any other concerns Patient Language: Jordanian Prescriptions: New cefuroxime axetil 500 mg tablet 500 mg PO Q12H 7 Days Qty: 14 0RF No Action trazodone 150 mg tablet See Rx Instructions .ROUTE .COMPLEX Qty: 90 1RF Dose Instruction: TAKE 1 TABLET BY MOUTH EVERY EVENING AT 6 PM Rx Instructions: TAKE 1 TABLET BY MOUTH EVERY EVENING AT 6 PM tramadol 50 mg tablet 50 mg PO .PRN PRN (Reason: pain) Qty: 12 0RF Follow-up/Referrals: Rubina Arzate APRN [Primary Care Provider] - Time of Disposition: 14:34
== END 2025-02-24 14:40 | disposition left against medical advice (07) ==
PROVIDERS: PCP Nurse Practitioner Family
DX: S90.812A Abrasion, left foot, initial encounter (principal); X58.XXXA Exposure to other specified factors, initial encounter; R22.43 Localized swelling, mass and lump, lower limb, bilateral; N39.0 Urinary tract infection, site not specified; F03.90 Unspecified dementia, unspecified severity, without behavioral disturbance, psychotic disturbance, mood disturbance, and anxiety; G62.9 Polyneuropathy, unspecified; F32.A Depression, unspecified; Z90.49 Acquired absence of other specified parts of digestive tract; Z87.891 Personal history of nicotine dependence
CPT/HCPCS: 87086; 87181; 99213; G0463

== ENCOUNTER 2025-07-06 09:03 | Emergency (ER) | payer MEDICARE, SELFPAY ==
--- NOTE | ~2025-07-06 | CT_ITS ---
EXAMINATION: CT brain wo serafin, 07/06/2025 10:00 GUIDE ESCORT HISTORY: AMS COMPARISON: No comparisons available. Technique: Axial images obtained of the brain without contrast. One or more of the following dose reduction techniques were used: automated exposure control, adjustment of the mA and/or kV according to patient size, use of iterative reconstruction technique. Findings: No acute infarct or parenchymal hemorrhage. No abnormal mass or mass effect. No midline shift. No extra-axial fluid collections. No hydrocephalus. Mastoid air cells unremarkable. Sinuses and orbits unremarkable. No acute fracture. No significant facial or scalp soft tissue swelling evident. No radiopaque foreign body is seen. Impression: 1.No acute intracranial abnormality. Reviewed, dictated and finalized at location P. E ESCORT Impression: 1.No acute intracranial abnormality.
--- NOTE | ~2025-07-06 | XR_ITS ---
EXAMINATION: XR chest 2V, 07/06/2025 10:00 COMPLIANCE REPRESENTATIVE HISTORY: new cough WEAKNESS AND CONFUSION NOTED COMPARISON: No comparisons available. Technique: 2 views obtained. Findings: The lungs are clear, no effusion. No pneumothorax. Heart is normal size. Mediastinal and hilar contours are within normal limits. Bony thorax no acute abnormality. Impression: No acute cardiopulmonary abnormality. Reviewed, dictated and finalized at location P. LIANCE REPRESENTATIVE Impression: No acute cardiopulmonary abnormality.
[2025-07-06 09:06] VITALS: BP 169/77; PULSE 67; RESP 20; TEMP 36.8; O2SAT 96
--- NOTE | 2025-07-06 09:11 | ECG_ITS ---
Test Date: 2025-07-06 09:18:36 Measurements Intervals [place] Rate: 67 P: 0 [place]: 168 QRS: -34 QRSD: 79 T: 42 QT: 400 QTc: 423 Interpretive Statements SINUS RHYTHM MARKED LEFT AXIS DEVIATION [QRS AXIS < -30] LOW QRS VOLTAGE IN EXTREMITY LEADS [QRS DEFLECTION < 0.5 mV IN LIMB LEADS] Compared to ECG 09/12/2024 09:50:04 T-wave abnormality no longer present Electronically Signed On 07-06-2025 21:25:11 RECEIVING SPECIALIST by Graciela Newberry M.D.
--- NOTE | 2025-07-06 10:04 | ED_ITS ---
HPI - General Adult General Chief complaint: Altered Mental Status Stated complaint: AMS Time Seen by Provider: 07/06/25 09:07 History of Present Illness HPI narrative: 79-year-old male with PMH bladder cancer arrived by EMS from home presenting with increased weakness according to , increased urinary frequency compared to baseline, and a new cough/congestion. is primary cat driver. Daughter is at bedside. Patient is A&O x1 at baseline. Daughter states according to he was up 4 times in the night to use the restroom which is abnormal for him. Daughter states he had a follow-up with his doctor for his bladder cancer which often results in a UTI shortly afterwards. They started old antibiotics he was sent back in March. Patient usually gets around on his own at home. Daughter states no recent fall/trauma, no recent illness, no fevers/chills as far she knows. Patient is alert and oriented to person only which is his baseline. According to daughter he lives a sedentary lifestyle and was a previous smoker pack in the 80s. Related Data Allergies Allergy/AdvReac Type Severity Reaction Status Date / Time NSAIDS (Non-Steroidal Allergy Unknown Swelling Verified 03/17/25 12:52 Anti-Inflamma aspirin Allergy Redness of Verified 03/17/25 12:52 Skin Review of Systems Review of Systems: All systems reviewed & are unremarkable except as noted in HPI and below PMFSH Past Medical History Medical History Onychomycosis of toenail Male erectile dysfunction, unspecified Major depressive disorder, single episode, unspecified Laxative abuse Hypertension, benign History of colonic polyps Herpes zoster without complication Hereditary and idiopathic neuropathy Constipation, unspecified Colon cancer screening Cellulitis of great toe of left foot B12 deficiency Acquired absence of other specified parts of digestive tract Dementia Urinary hesitancy Acute insomnia Depression Anxiety Foot deformity, bilateral Ataxia Peripheral neuropathy Bladder cancer Cerebellar ataxia Depression Memory loss H/O: hypertension Surgical History Surgical History History of amputation of finger of left hand History of bladder surgery History of partial colectomy H/O repair of rotator cuff Family History Family History Mother Patient's mother is Family history of dementia Family history of malignant neoplasm Father Family history of malignant neoplasm Patient's father is Other Depression Social History Social History (Reviewed 03/17/25 @ 12:54 by Hailey Barahona [facility]) Social History: . High school graduate. Patient does not wear dentures due to ill-fitting dentures. Patient prefers softer foods. Patient does not wear glasses. He is hard of hearing bilaterally. He is a former smoker. He drinks alcohol occasionally. Patient lives with his in a single-story home. Steps to enter. Smoking packs per day: 1 Smoking cigarettes per day: 20.0 Years smoked: 15 Smoking pack-years: 15.00 Smoking status: Former smoker Tobacco type: cigarettes Alcohol intake: never Substance use: never Substance use type: does not use Do You Feel Safe in your Home?: Yes Lack of Transportation: No Lack of Food: Never True Current Housing: I Have Housing Concerned About Future Housing: No Difficulty Paying Gas/Electric Bills: No Difficulty Paying for Meds: No Currently Unemployed: No Education: High School Diploma/GED Difficulty w/ Childcare or Family Care: No Living arrangements: with family Occupation/Education: retired Gender identity (if verbalized by the patient): Male Sexual Orientation (if Verbalized by the Patient): Straight or Heterosexual Spiritual care concerns: No Agree to blood products: Yes Exam Narrative: GENERAL: Well-appearing, well-nourished, and in no acute distress. HEAD: Normocephalic, atraumatic. EYES: PERRLA and EOMI. ENT: Nares clear, no rhinorrhea or epistaxis. Mucous membranes moist. Oropharynx without tonsillar hypertrophy exudate or other lesions. Bilateral TMs pearly peterson non-bulging NECK: Supple. No adenopathy or masses. No carotid bruits or JVD CHEST: Clear to auscultation. No respiratory distress. No wheezes rales or rhonchi. HEART: Regular rate and rhythm. No murmur heard. Normal peripheral pulses. ABDOMEN: Soft, nontender, nondistended, normal active bowel sounds. EXTREMITIES: Normal range of motion. Bilateral 2+ pitting edema. SKIN: Warm, dry, no rash. NEURO: No focal deficits. Alert and oriented x1 which is baseline. Appropriate finger to nose, no pronator drift, ambulation at baseline. PSYCH: Normal mood and affect Course Vital Signs Vital signs: Vital Signs Temperature 98.2 F 07/06/25 09:06 Pulse Rate 67 07/06/25 09:06 Respiratory Rate 20 07/06/25 09:06 Blood Pressure 169/77 H 07/06/25 09:06 Pulse Oximetry 96 07/06/25 09:06 Oxygen Delivery Room Air 07/06/25 09:06 Temperature 98.2 F 07/06/25 09:06 Pulse Rate 67 07/06/25 09:06 Respiratory Rate 20 07/06/25 09:06 Blood Pressure 169/77 H 07/06/25 09:06 Pulse Oximetry 96 07/06/25 09:06 Oxygen Delivery Room Air 07/06/25 09:06 Medical Decision Making MDM Narrative Medical decision making narrative: 79-year-old male with PMH bladder cancer arrived by EMS from home presenting with increased weakness according to , increased urinary frequency compared to baseline, and a new cough/congestion. is primary cat driver. Daughter is at bedside. Patient is A&O x1 at baseline. Daughter states according to he was up 4 times in the night to use the restroom which is abnormal for him. Daughter states he had a follow-up with his doctor for his bladder cancer which often results in a UTI shortly afterwards. They started old antibiotics he was sent back in March. Patient usually gets around on his own at home. Daughter states no recent fall/trauma, no recent illness, no fevers/chills as far she knows. Patient is alert and oriented to person only which is his baseline. According to daughter he lives a sedentary lifestyle and was a previous smoker pack in the 80s. Labs WNL for patient. Urinalysis was completely clean. CXR demonstrated no acute cardiopulmonary abnormalities. Non con head CT demonstrated no acute intracranial abnormalities. Patient maintained baseline ambulation abilities with a walker. Patient sat comfortably throughout visit. All orders and results discussed with family. Patient was hypertensive throughout his visit without acute symptoms or signs of end organ damage and was educated on lifestyle modifications for treatment. Close outpatient follow-up recommended. Utilizing shared decision making, family is comfortable with d/c and close outpatient follow-up. Will recommend OTC anti-tussives. Medical Records Medical records reviewed: Yes I reviewed the external patient's medical records. Vital Signs Vital Signs: Vital Signs Temperature 98.2 F 07/06/25 09:06 Pulse Rate 67 07/06/25 09:06 Respiratory Rate 20 07/06/25 09:06 Blood Pressure 169/77 H 07/06/25 09:06 Pulse Oximetry 96 07/06/25 09:06 Oxygen Delivery Room Air 07/06/25 09:06 Temperature 98.2 F 07/06/25 09:06 Pulse Rate 67 07/06/25 09:06 Respiratory Rate 20 07/06/25 09:06 Blood Pressure 169/77 H 07/06/25 09:06 Pulse Oximetry 96 07/06/25 09:06 Oxygen Delivery Room Air 07/06/25 09:06 Lab Data Lab results reviewed: Yes I reviewed the patient's lab results. Imaging Data Attestation: I personally reviewed and interpreted this imaging study as follows: Radiologist's impression: ITS Impressions Head CT 07/06/25 10:18 Impression: 1.No acute intracranial abnormality. Chest X-Ray 07/06/25 10:20 Impression: No acute cardiopulmonary abnormality. ECG Data EKG #1: ECG completion date: 07/06/25 ECG completion time: 09:18 EKG Interpretation: normal rate, sinus rhythm and no ST changes Critical Care Time Critical Care Time Critical Care Time: No Discharge Plan Discharge Clinical Impression: Acute viral syndrome Patient Disposition: Home Condition: Stable Additional Instructions: Patient has been advised to remain well-hydrated and get plenty of rest. Take Tylenol or Motrin for pain and anti-tussives such as Mucinex [id number] as needed. Return to the emergency department if symptoms don't improve within 3 days or if symptoms worsen. Discussed with patient results of workup and diagnosis. Discussed need for follow-up with primary care, proper use of medication, and reasons to return to the emergency department, including but not limited to cp, SOB, intractable vomiting. Patient Language: Syriac Prescriptions: No Action tramadol 50 mg tablet 50 mg PO .PRN PRN (Reason: pain) Qty: 12 0RF trazodone 150 mg tablet See Rx Instructions .ROUTE .COMPLEX Qty: 90 1RF Dose Instruction: TAKE 1 TABLET BY MOUTH EVERY EVENING AT 6 PM Rx Instructions: TAKE 1 TABLET BY MOUTH EVERY EVENING AT 6 PM Follow-up/Referrals: Rubina Arzate APRN [Primary Care Provider, Internal Medicine]
[2025-07-06 10:10] LABS: Add Urine Microscopic? NO; Appearance Urine Clear (Clear); Glucose Urine UA Negative (Negative); Hematocrit 38.3 % (42.0-52.0); Hemoglobin 12.9 g/dL (14.0-18.0); Immature Granulocyte Percent A 0.3 % (0-0.5); Leukocyte Esterase Ur Negative LEU/UL (Negative); Lymphocytes Absolute Auto 0.98 K/mm3 (0.9-3.2); Mean Corpuscular HGB Conc 33.7 g/dl (32-36); Mean Corpuscular Hemoglobin 29.6 pg (26-34); Mean Corpuscular Volume 87.8 fl (80-100); Nitrate Urine Negative (Negative); Nucleated Red Blood Cells Absolute Auto 0.000 K/mm3 (0.0-0.012); Nucleated Red Blood Cells Perc 0.0 % (0.0-0.2); Platelet Count Result 150 k/mm3 (150-375); Red Blood Count 4.36 M/mm3 (4.6-6.20); Specific Grav Ur 1.010 (1.001-1.035); White Blood Count 8.9 K/mm3 (4.5-10.0)
[2025-07-06 10:21] LABS: INR 1.0; Prothrombin Time 13.8 Seconds (11.1-14.7)
[2025-07-06 10:22] LABS: Partial Thromboplastin Time 34.4 Seconds (22.3-36.8)
[2025-07-06 10:27] LABS: Alanine Aminotransferase 17 U/L (6-50); Albumin Level 3.7 g/dL (3.5-5.1); Alkaline Phosphatase 80 U/L (38-126); Anion Gap 3 mmol/L (4-12); Aspartate Amino Transferase 23 U/L (17-59); Bilirubin,Total 0.6 mg/dL (0.2-1.3); Blood Urea Nitrogen 15 mg/dL (9-20); Calcium 8.8 mg/dL (8.4-10.2); Carbon Dioxide 28 mmol/L (22-30); Chloride 102 mmol/L (98-107); Estimated Glomerular Filt Rate > 60; Glucose 123 mg/dL (65-110); Potassium 4.3 mmol/L (3.4-5.0); Sodium 133 mmol/L (137-145); Total Protein 6.3 g/dL (6.3-8.2)
[2025-07-06 10:30] VITALS: O2SAT 100
--- OUTSIDE RECORDS SUMMARY | 2025-07-06 10:33 | XMS_ITS | Data Portability ---
Author Organization [facility], Main Office Address [address] [place] [address] Care Team Providers Care Retail Event Assistant Name Role Phone GCP [facility] FAX OTHER KUSH RUBINA Primary Care Provider Assessment Encounter Date Assessment Date Assessment LastModified by Organization Details LastModified Time 09/17/2024 09/17/2024 Labs pending from this AM. Not available 09/18/2024 10:48:12 09/18/2024 09/18/2024 Pt will discharge back home with [facility] today. PCP & oncology/urol ogy need to follow up regarding neutropenia/b ladder cancer and new mild elevation of LFTs. Not available 09/18/2024 11:22:52 Plan of Treatment Reminders Order Date Submit Date Provider Last Modified By Organization Details Last Modified Time Details Appointments None record ed. Lab None record ed. Referral None record ed. Procedures None record ed. Surgeries None record ed. Imaging None record ed. Medication Orders None record ed. Patient TargetsNo targets recorded. Patient Instructions Encounter Date Encounter Id Patient Instructions Last Modified By Organization Details Last Modified Time 09/17/2024 [id number] I spent 55 minutes providing care to the patient today. More than 50% of that time was spent in discussing the expected course of the disease, discussing prognosis, coordinating care and counseling of the patient/family. Not available 09/18/2024 10:53:14 09/18/2024 [id number] I spent 45 minutes providing care to the patient today. More than 50% of that time was spent in discussing the expected course of the disease, discussing prognosis, coordinating care and counseling of the patient/family. The patient will be discharged home with home health orders of home health RN / PT / OT to evaluate and treat. The patient is homebound because of fall risk and is unable to leave home safely because requires considerable and taxing effort to leave home. The patient requires home health nursing for instruction, observation and assessment; PT for training to restore safe independent functional ambulation in community; and OT for training to improve ability to fulfill ADLs. Please follow-up with your primary care provider within 1 week. Call your primary care provider for instructions or go to the emergency room for new or worsening symptoms. Not available 09/18/2024 11:24:14 Reason for Referral None Reported. Procedures Surgical History Date Name Laterality Status Provider Name and Address Organization Details Recorded Time operation on urinary bladder completed [facility] 09/16/2024 22:33:49 partial resection of colon completed [facility] 09/16/2024 22:33:57 repair of musculotendinous cuff of shoulder completed [facility] 09/16/2024 22:34:08 transurethral excision of neoplasm [place] [address] [place], [address] 09/18/2024 10:01:09 Imaging Results None recorded. Procedure Notes None recorded. Medical Equipment None Reported. Medications Name Sig Start Date Stop Date Status Note LastModified by Organization Details LastModified Time tramadol 50 mg tablet Take 1 tablet every 6 hours by oral route as needed. 025 active Not Available Not Available Not Avai lable trazodone 150 mg tablet Take 1 tablet every day by oral route at bedtime. active Not Available Not Available No t Available Vitals Date Recorded Heart rate Oxygen saturation Oxygen saturation in Arterial blood by Pulse oximetry Respiratory rate Body temperature Body height Systolic And Diastolic Provider Name and Address Organization Details Last Updated DateTime 5 69 /min 99 % 99 % 20 /min 98 [degF] 154.94 cm 136/78 mm[Hg] [place] [address] [place], [address], [facility] 5 11:18:11 Social History Question Answer Notes LastModified by Organizat ion Details LastModified Time Tobacco Smoking Status Former Smoker [facility] 09/16/2024 22:36:49 What Is Your Code Status? Full Code Information not available 09/16/2024 When Did You Quit Smoking? 16+yearssinc elastcigaret te Information not available 09/16/2024 What Was The Date Of Your Most Recent Tobacco Screening? 09/17/2024 Information not available 09/17/2024 What Is Your Relationship Status? Information not available 09/18/2024 How Much Tobacco Do You Smoke? 1 PPD Information not available 09/16/2024 Sex: Unknown Functional Status Question Answer Note LastModified by Organizat ion Details LastModified Time Do you use any illicit or recreational drugs? No Information not available 09/17/2024 What is your level of alcohol consumption? None Information not available 09/16/2024 Mental Status None recorded. Family History Relationship Description Onset Age of this Age Resolved Age Notes LastModified by Organization Details LastModified Time Mother Dementia Not available 0 09/16/2024 22:34:52 Father Malignant neoplastic disease Not available 2024 22:35:02 Unspecified Relation History of depression Not available 09/16 22:35:13 Medical History Condition Response Psychiatric -- Anxiety Disorder Y Psychiatric -- Depression Y Insomnia Y Dementia Y Cancer -- Bladder Y Neuropathy Y Past Encounters Encounter ID Performer Location Encounter Start Date Encounter Closed Date Diagnosis/Indication Diagnosis SNOMED-CT Code Diagnosis ICD10 Code Diagnosis IMO Codes Diagnosis Note [id number] Carrie Hall, [address] [address] 09/17/2024 09:49:15 10/19/2024 09:08:43 Dementia 76365497 F03.93 Advancing. Continue Trazodone as sole treatment. Does not follow with neurology and/or psychiatry any longer although has in the distant past -- PCP is managing behaviors. SEE ABOVE... Metabolic encephalopathy 17102375 G93.41 Likely sec to anesthesia on 09/10 during TURBT and chemothera py.Urine cx, blood cxs, CXR, etc. unconcerni ng.He was treated with 2 days of IV Rocephin while inpatient before urine cx returned negative, stopped.Im proved back to baseline per .Antonina nue therapies and monitor for reversible causes. Mixed anxi ety and depressive disorder 195658930 F41.8 SEE ABOVE... Insomnia 352704892 G47.0 0 SEE ABOVE... Cerebellar ataxia 144723 08 G32.81 Details unclear. Walks with w/w at baseline.C ontinue PT/OT. Neuropathy 103152443 G62 .9 No concerns today. Continue PRN APAP per standing orders & PRN Tramadol for pain. Malignant neoplasm of urinary bladder 552646347 C67.9 s/p TURBT & chemo on 09/10.Contin ue PRN Tramadol & APAP per standing orders.F/U with urology as directed. Physical deconditioning [id number] 9102 R68.89 Related to age, recent inpatient stay, and multiple comorbidit ies.Contin ue PT/OT/ST and monitor progress. Goal is for pt to return home with his .Antonina nue PRN APAP per standing orders for pain.No DVT prophylaxi s in ambulatory pt with fall risk.PRN cathartics per standing orders for constipati on. [id number] Carrie Hall, DO [address] [address] 09/18/2024 09:00:13 10/19/2024 09:11:57 Neutropenia due to and following chemotherapy 872138318 D70.1 WBC 2 today, ANC 0.8. Likely sec to chemothera py.Oncolog y/urology to follow. Liver enzy mes level above reference range 055959154 R74.01 First noted on 09/17 although LFTs hadn't been checked since 09/12.PCP to follow.No symptoms today. Metabolic encephalopathy 22124386 G93.41 Likely sec to anesthesia on 09/10 during TURBT and chemothera py.Urine cx, blood cxs, CXR, etc. unconcerni ng.He was treated with 2 days of IV Rocephin while inpatient before urine cx returned negative, stopped.Im proved back to baseline per .Antonina nue therapies and monitor for reversible causes. Malignant neoplasm of urinary bladder 627869167 C67.9 s/p TURBT & chemo on 09/10.Contin ue PRN Tramadol & APAP per standing orders.F/U with urology as directed. Dementia 78255622 F03.93 Advancing. Continue Trazodone as sole treatment. Does not follow with neurology and/or psychiatry any longer although has in the distant past -- PCP is managing behaviors. SEE ABOVE... Mixed anxi ety and depressive disorder 835766899 F41.8 SEE ABOVE... Insomnia 918663806 G47.0 0 SEE ABOVE... Cerebellar ataxia 076846 08 G32.81 Details unclear. Walks with w/w at baseline. Neuropathy 494316686 G62 .9 No concerns today. Continue PRN APAP per standing orders & PRN Tramadol for pain. Health Concerns Section Related Observation LastModified by Organization Detai ls LastModified Time None Recorded Concern Status LastModified by Organization Details LastModified Time None Recorded Advance Directives Directive None Recorded Payers Insurance Date Sequence Insurance Name Policy Number Policy Moore Covered Member ID Moore Member ID Guarantor Name 10/19/2024 1 [employer]ARE[employer] (MEDICARE) Denton Burnett [id number] Denton Burnett 10/19/2024 2 [employer] Denton Burnett [id number] Denton Burnett Notes Date Note Type Note Provider Name and Address Organization Details Recorded Time 09/17/2024 text/html 79-year-old male with PMH of Dementia, MDD/ROSALINA, Insomnia, Cerebellar Ataxia, Neuropathy, and Bladder Cancer for rehabilitation following hospitalization at [facility] from 09/12 to 09/16/24 for altered mental status on dementia, recent TURBT with chemo (09/10), weakness, and chronic medical conditions. Bryn lives at home with his , who is his primary caregiver. Guadalupe tells me he started developing memory concerns about 5 years ago and was eventually diagnosed with dementia. He recently underwent treatment for bladder cancer -- TURBT and chemotherapy on 09/10. He was in his usual health on 09/11 but gradually became weaker over the weekend. Guadalupe noted he was too weak to walk, had urinary frequency and incontinence, and was more confused than usual. PCP instructed her to contact EMS. Bryn was brought to [place] ER on 09/12, where he was diagnosed with a UTI even though UA was negative for bacteria & nitrates. Urine culture resulted with no growth. He was treated with IV Rocephin x at least 2 doses before they were stopped. Workup was otherwise unremarkable. Ultimately it was deduced AMS was secondary to dementia in the setting of recent bladder operation & chemotherapy. No medications were added or adjusted. He has discharged here for rehabilitation with goal to return back home with . Bryn is seated in the common area, calm, reticent, responds to direct questions asked but otherwise does not attempt to interact. He stands up unassisted from chair and uses w/w to walk off down the patterson. Gait is steady. Affect is flat. VSS. Staff is without concerns today. Guadalupe is also without concerns, believes that Bryn's stay here will be short as she notes he is back to his baseline level already and would do better returning home to his normal environment with her. She is discussing with SW today. PCP SURVEILLANCE INVESTIGATOR Rubina Arzate.Lisandro is Guadalupe.Pt is a full code -- discussed with Guadalupe today, she would like him to remain a full code but plans to discuss possibly changing to DNR with her daughter Perla. Yanet Lorenzo, PACO [address] [place], [address], [facility] 09/18/2024 10:53:30 09/18/2024 text/html 79-year-old male with PMH of Dementia, MDD/ROSALINA, Insomnia, Cerebellar Ataxia, Neuropathy, and Bladder Cancer for rehabilitation following hospitalization at [facility] from 09/12 to 09/16/24 for altered mental status on dementia, recent TURBT with chemo (09/10), weakness, and chronic medical conditions. Bryn lives at home with his , who is his primary caregiver. Guadalupe tells me he started developing memory concerns about 5 years ago and was eventually diagnosed with dementia. He recently underwent treatment for bladder cancer -- TURBT and chemotherapy on 09/10. He was in his usual health on 09/11 but gradually became weaker over the weekend. Guadalupe noted he was too weak to walk, had urinary frequency and incontinence, and was more confused than usual. PCP instructed her to contact EMS. Bryn was brought to [place] ER on 09/12, where he was diagnosed with a UTI even though UA was negative for bacteria & nitrates. Urine culture resulted with no growth. He was treated with IV Rocephin x at least 2 doses before they were stopped. Workup was otherwise unremarkable. Ultimately it was deduced AMS was secondary to dementia in the setting of recent bladder operation & chemotherapy. No medications were added or adjusted. He has discharged here for rehabilitation with goal to return back home with . PCP SURVEILLANCE INVESTIGATOR Rubina Arzate.Lisandro is Guadalupe.Pt is a full code -- discussed with Guadalupe today, she would like him to remain a full code but plans to discuss possibly changing to DNR with her daughter Perla.---09/17/24Bogen is seated in the common area, calm, reticent, responds to direct questions asked but otherwise does not attempt to interact. He stands up unassisted from chair and uses w/w to walk off down the patterson. Gait is steady. Affect is flat. VSS. Staff is without concerns today. Guadalupe is also without concerns, believes that Bryn's stay here will be short as she notes he is back to his baseline level already and would do better returning home to his normal environment with her. She is discussing with SW today.---09/18/24Bogen is seated in the common area, having finished eating breakfast. He is more talkative today. When I tell him that he will be discharging home today, he tells me I'll act surprised when my gets here. He tells me her name is Guadalupe and that he met her when they were working at [facility] [employer]. He will discharge home today with his per /daughter's election. VSS. Staff is without concerns today. Labs from yesterday morning show leukopenia, likely sec to recent chemotherapy, but also mild LFT elevation. Will need follow-up as OP by PCP. Yanet Lorenzo, SURVEILLANCE INVESTIGATOR [address] [facility], [place], [address], [place] - [facility] 09/18/2024 11:26:12
--- OUTSIDE RECORDS SUMMARY | 2025-07-06 10:33 | XMS_ITS | Encounter Summary ---
Author Organization [facility] Address [address] [place] [address] Care Team Providers Care Brain Wave Technician Name Role Phone Alton Gonzalez MD Primary Care Provider [phone] Encounter Details Date Type Department Care Team (Late st Contact Info) Description 09/23/2020 Prep for Procedure [facility] Pre-Admission Testing [address] [place], [place] [id number] Bhavin Garrett MD 3 [facility]. [place], [place] [id number] Social History Tobacco Use Types Packs/Day Years Used Date Smoking Tobacco: Former Cigarettes 1 15 0 09/23/1974 - 09/23/1989 Smokeless Tobacco: Never Alcohol Use Standard Drinks/Week Comments Not Currently 0 (1 standard drink = 0.6 oz pur e alcohol) Sex and Gender Information Value Date Recorded Sex Assigned at Not on file Legal Sex Male 9:51 AM CLAY PRODUCTS GLAZER Gender Identity Not on file Sexual Orientation Not on file COVID-19 Exposure Response Date Recorded In the last month, have you been in contact with someone who was confirmed or suspected to have Coronavirus / COVID-19? No / Unsure 09/23/2020 10:40 AM CLAY PRODUCTS GLAZER documented as of this encounter Plan of Treatment Not on file documented as of this encounter Results * PRE-SURGICAL/PRE-PROCEDURE CORONAVIRUS (COVID 19) (09/24/2020 8:32 AM CLAY PRODUCTS GLAZER) CORONAVIRUS SARS COV 2 PCR (RESP) NOT DETECTED NOT DETECTED 09/25/2020 3:02 PM [facility] Comment: A Not Detected (negative) test result for this test means that SARS- CoV-2 RNA was not present in the specimen above the limit of detection. A negative result does not rule out the possibility of COVID-19 and should not be used as the sole basis for treatment or patient management decisions. If COVID-19 is still suspected, based on exposure [...] providers and patients using the following websites: https://www.[facility].yourdelivery/home/Covid-19/HCP/NAAT/fact-sheet2 https://www.[facility].yourdelivery/home/Covid-19/Patients/NAAT/ fact-sheet2 This test has been authorized by the FDA under an Emergency Use Authorization (EUA) for use by authorized laboratories. Due to the current public health emergency, [facility] is receiving a high volume of samples [...] including collection of an additional specimen. Methodology: Nucleic Acid Amplification Test (NAAT) includes RT-PCR or TMA Additional information about COVID-19 can be found at the [facility] website: www.[employer].com.yourdelivery/Covid19. Test performed at [facility] [place] [address] [place] [address] Director: BHAVIN COOPER DO,MPH FIRST TEST YES 09/24/2020 9:06 AM [facility] EMPLOYED IN HEALTHCARE NO 09/24/2020 9:06 AM [facility] SYMPTOMATIC DEFINED BY CDC NO 09/24/2020 9:06 AM [facility] DATE OF SYMPTOM ONSET NO 09/24/2020 9:38 AM CLAY PRODUCTS GLAZER [facility] HOSPITALIZATION STATUS NO 09/24/2020 9:06 AM CLAY PRODUCTS GLAZER [facility] PATIENT IN ICU NO 09/24/2020 9:06 AM CLAY PR[employer] GLAZER [facility] RESIDENT OF CONGREGATE CARE NO 09/24/2020 9:06 AM CLAY PR[employer] GLAZER [facility] NO 09/24/2020 9:38 AM C[employer] GLAZER [facility] PATIENT'S RACE WHITE OR 09/24/2020 9:06 AM C[employer] GLAZER [facility] ETHNICITY 09/24/2020 9:06 AM C[employer] GLAZER [facility] SOURCE (QST) NASOPHARYNGEAL SWAB 09/24/2020 9:06 AM [employer] [facility] NASOPHARYNGEAL SWAB / Unknown 09/24/2020 8:32 AM C[employer] GLAZER us Bhavin Garrett MD MICROBIOLOGY - GENERAL OR DERABLES Final Result Performing Organization Address City/State/[facility] Co de Phone Number [facility] [address] [place] [address], [place] [address], documented in this encounter Visit Diagnoses Diagnosis Preop examination- Primary Preoperative examination, unspecified documented in this encounter Additional Health Concerns Infection Onset Date Last Indicated Resolved Time COVID-19 Rule Out 09/24/2020 09/24/2020 09/25/2020 3:02 PM C[employer] GLAZER COVID-19 Rule Out 10/29/2020 10/29/2020 10/30/2020 9:01 PM [employer] GLA[employer]ER documented as of this encounter Care Teams Brain Wave Technician Relationship Specialty Start Date End Date Alton Gonzalez MD [address] [place] [address] PCP - General FAMILY PRACTICE 09/23/20 documented as of this encounter
--- OUTSIDE RECORDS SUMMARY | 2025-07-06 10:33 | XMS_ITS | Clinical Summary ---
Author Organization [facility] Address [address] [place] [address] Care Team Providers Care Geodetic Engineer Name Role Phone Alton Gonzalez MD Primary Care Provider [phone] Allergies Active Allergy Reactions Criticality Noted Date [...] Noted Date Diagnosed Date Bladder cancer 09/27/2020 Family History Medical History Relation Comments [...] on file Legal Sex Male 9:51 AM DENTAL LAB TECHNICIAN Gender Identity Not on file Sexual Orientation Not on file Last Filed Vital Signs Vital Sign Reading Time Taken Comments Blood Pressure 177/87 11/01/2020 3:15 PM DENTAL LAB TECHNICIAN Pulse 66 11/01/2020 3:15 PM DENTAL LAB TECHNICIAN Temperature 36.7 C (98 F) 11/01/2020 3:15 PM DENTAL LAB TECHNICIAN Respiratory Rate 18 11/01/2020 3:15 PM DENTAL LAB TECHNICIAN Oxygen Saturation 100% 11/01/2020 2:35 PM DENTAL LAB TECHNICIAN Inhaled Oxygen Concentration - - Weight 86.8 kg (191 lb 5.8 oz) 11/01/2020 11:30 AM DENTAL LAB TECHNICIAN Height 179.1 cm (5' 10.5) 11/01/2020 11:30 AM [facility] Body Mass Index 27.07 11/01/2020 11:30 AM DENTAL LAB TECHNICIAN Plan of Treatment Health Maintenance Due Date Last Done Comments DTaP, Tdap and Td Vaccines ( 1 - Tdap) 1962 Pneumococcal Vaccine: 50+ Ye ars (1 of 1 - PCV) 1993 Zoster Vaccines (1 of 2) 1993 Annual Medicare Wellness Visit 2008 RSV Immunization or 60+ Years (1 - 1-dose 75+ series) 2018 COVID-19 Vaccine ( - 2024-2 6 season) 2025 Influenza Adult (#1) 2025 Hepatitis A Vaccines Aged Out No long er eligible based on patient's age to complete this topic Meningococcal B Vaccine Aged Out No l onger eligible based on patient's age to complete this topic Meningococcal Vaccine Aged Out No edel veronica eligible based on patient's age to complete this topic RSV Immunizations Under 20 Months Aged Out No longer eligible based on patient's age to complete this topic Insurance MEDICARE [facility] Care Teams Geodetic Engineer Relationship Specialty Start Date End Date Alton Gonzalez MD [address] [address] [address] PCP - General FAMILY PRACTICE 09/23/20
--- OUTSIDE RECORDS SUMMARY | 2025-07-06 10:33 | XMS_ITS | Encounter Summary ---
Author Organization [facility] Address [address] [place] [address] Care Team Providers Care Gym Teacher Name Role Phone Alton Gonzalez MD Primary Care Provider [phone] Encounter Details Date Type Department Care Team (Late st Contact Info) Description 10/24/2020 Prep for Procedure [facility] Pre-Admission Testing [address] [place], [place] [id number] Bhavin Garrett MD 3 [facility]. [place], [place] [phone] Social History Tobacco Use Types Packs/Day Years Used Date Smoking Tobacco: Former Cigarettes 1 15 0 09/23/1974 - 09/23/1989 Smokeless Tobacco: Never Alcohol Use Standard Drinks/Week Comments Not Currently 0 (1 standard drink = 0.6 oz pur e alcohol) Sex and Gender Information Value Date Recorded Sex Assigned at Not on file Legal Sex Male 9:51 AM CORPORATE COMPLIANCE OFFICER Gender Identity Not on file Sexual Orientation Not on file COVID-19 Exposure Response Date Recorded In the last month, have you been in contact with someone who was confirmed or suspected to have Coronavirus / COVID-19? No / Unsure 10/24/2020 3:28 PM CORPORATE COMPLIANCE OFFICER documented as of this encounter Plan of Treatment Not on file documented as of this encounter Results * PRE-SURGICAL/PRE-PROCEDURE CORONAVIRUS (COVID 19) (10/29/2020 9:42 AM CORPORATE COMPLIANCE OFFICER) CORONAVIRUS SARS COV 2 PCR (RESP) NOT DETECTED NOT DETECTED 10/30/2020 9:01 PM [facility] Comment: A Not Detected (negative) test [...] providers and patients using the following websites: https://www.[employer]/home/Covid-19/HCP/[facility]/fact- sheet.html https://www.[employer]/home/Covid-19/Patients/ [employer]/fact-sheet.html This test has been authorized by the FDA under an Emergency Use Authorization (EUA) for use by authorized laboratories. Due to the current public health emergency, [facility] is receiving a high volume of samples [...] about COVID-19 can be found at the [facility] website: www.[employer]/Covid19. Test performed at [facility] [place] [address] [place] [address] Director: BHAVIN COOPER DO,MPH FIRST TEST NO 10/29/2020 8:56 AM [facility] EMPLOYED IN HEALTHCARE NO 10/29/2020 8:56 AM [facility] SYMPTOMATIC DEFINED BY [facility] NO 10/29/2020 8:56 AM CORPORATE COMPLIANCE OFFICER [facility] DATE OF SYMPTOM ONSET NO 10/29/2020 10:55 AM CORPORATE COMPLIANCE OFFICER [facility] HOSPITALIZATION STATUS NO 10/29/2020 8:56 AM CORPORATE COMPLIANCE OFFICER [facility] PATIENT IN ICU NO 10/29/2020 8:56 AM CORPORATE COMPLIANCE OFFICER [facility] RESIDENT OF CONGREGATE CARE NO 10/29/2020 8:56 AM CORPORATE COMPLIANCE OFFICER [facility] NO 10/29/2020 10:55 AM CORPORATE COMPLIANCE OFFICER [facility] PATIENT'S RACE WHITE OR 10/29/2020 8:56 AM CORPORATE COMPLIANCE OFFICER [facility] ETHNICITY 10/29/2020 8:56 AM CORPORATE COMPLIANCE OFFICER [facility] SOURCE (QST) NASOPHARYNGEAL SWAB 10/29/2020 8:56 AM CORPORATE COMPLIANCE OFFICER [facility] NASOPHARYNGEAL SWAB / Unknown 10/29/2020 9:42 AM CORPORATE COMPLIANCE OFFICER us Bhavin Garrett MD MICROBIOLOGY - GENERAL OR DERABLES Final Result [facility] [address] [place] [address], [place] [phone] [facility] [address] [address], documented in this encounter Visit Diagnoses Diagnosis Preop examination- Primary Preoperative examination, unspecified documented in this encounter Additional Health Concerns Infection Onset Date Last Indicated Resolved Time COVID-19 Rule Out 10/29/2020 10/29/2020 10/30/2020 9:01 PM CORPORATE COMPLIANCE OFFICER documented as of this encounter Care Teams Gym Teacher Relationship Specialty Start Date End Date Alton Gonzalez MD [address] [place] [address] PCP - General FAMILY PRACTICE 09/23/20 documented as of this encounter
--- OUTSIDE RECORDS SUMMARY | 2025-07-06 10:33 | XMS_ITS | Clinical Summary ---
Author Organization [facility] [address] [place] [id number] Care Team Providers Care Orthodontic Technician Name Role Phone Norm Eden MD Primary Care Provider [phone] Allergies Active Allergy Reactions Criticality Noted Date Comments Ibuprofen Swelling Medium 09/23/2020 Nsaids (Non-Steroidal Anti-Inflammatory Drug) Other (See comments) Low 09/23/2020 Was told not to take due top swelling form ibuprofen Doxepin Itching,Rash Medium 07/12/2022 Reaction: ITCHING Reaction: ITCHING, RASH, Venlafaxine Unknown High Medications finasteride (PROSCAR) 5 [...] on file Legal Sex Male 8:06 AM LINE ORDERING CLINICIAN Gender Identity Not on file Sexual Orientation Not on file Last Filed Vital Signs Vital Sign Reading Time Taken Comments Blood Pressure 145/78 07/12/2022 1:06 PM LINE ORDERING CLINICIAN Pulse 73 07/12/2022 1:06 PM LINE ORDERING CLINICIAN Temperature 36.8 C (98.2 F) 07/12/2022 1:06 PM LINE ORDERING CLINICIAN Respiratory Rate - - Oxygen Saturation - - Inhaled Oxygen Concentration - - Weight 86.2 kg (190 lb) 07/12/2022 1:06 PM LINE ORDERING CLINICIAN Height 180.3 cm (5' 11) 07/12/2022 1:06 PM LINE ORDERING CLINICIAN Body Mass Index 26.5 07/12/2022 1:06 PM LINE ORDERING CLINICIAN Plan of Treatment Health Maintenance Due Date Last Done Comments Depression Screening 1943 Fall Risk Assessment 1943 DTaP/Tdap/Td Vaccine (1 - Tdap) 1954 Hepatitis B Screening 1961 Pneumococcal vaccine 65+ (1 of 1 - PCV) 1993 Zoster Vaccine (1 of 2) 1993 Well Visit 65+ 2008 Influenza Vaccine (#1) 2025 Insurance MEDICARE [facility] MEDICARE SUPPLEMENT INSURANCE [facility] MEDICARE SUPPLEMENT INSURANCE MEDICARE MEDICARE [facility] MEDICARE SUPPLEMENT INSURANCE Care Teams Orthodontic Technician Relationship Specialty Start Date End Date Norm Eden MD PCP - General Family Medicine 07/12/22
[2025-07-06 10:44] LABS: Influenza A QL RT-PCR Negative (Negative); Influenza B QL RT-PCR Negative (Negative); RSV RNA, RT-PCR Negative (Negative); SARS-CoV-2 RNA PCR Negative (Negative)
[2025-07-06 10:47] VITALS: BP 194/68; PULSE 61; RESP 17; O2SAT 99
[2025-07-06 12:30] VITALS: BP 182/70; PULSE 62; RESP 19; O2SAT 100
--- NOTE | 2025-07-06 12:30 | PC.NURSE ---
PA at bedside updating pt. family.
[2025-07-06 12:54] VITALS: TEMP 36.6
== END 2025-07-06 14:32 | disposition home or self-care (01) ==
PROVIDERS: PCP Nurse Practitioner Family
DX: B34.9 Viral infection, unspecified (principal); Z20.822 Contact with and (suspected) exposure to COVID-19; C67.9 Malignant neoplasm of bladder, unspecified; I10 Essential (primary) hypertension; G60.9 Hereditary and idiopathic neuropathy, unspecified; E53.8 Deficiency of other specified B group vitamins; F03.90 Unspecified dementia, unspecified severity, without behavioral disturbance, psychotic disturbance, mood disturbance, and anxiety; F41.9 Anxiety disorder, unspecified; F32.9 Major depressive disorder, single episode, unspecified; Z86.0100 Personal history of colon polyps, unspecified; Z87.891 Personal history of nicotine dependence; Z89.022 Acquired absence of left finger(s); Z90.49 Acquired absence of other specified parts of digestive tract; Z79.899 Other long term (current) drug therapy
CPT/HCPCS: 36415; 70450; 71046; 80053; 81003; 85025; 85610; 85730; 87637; 93005; 99284

== ENCOUNTER 2025-08-16 12:05 | Inpatient (IN) | payer MEDICARE, SELFPAY ==
--- NOTE | ~2025-08-16 | CT_ITS ---
EXAM/PROCEDURE: CT abdomen pelvis w con HISTORY: weakness, poss intraabdominal infeciton COMPARISON: July 24, 2024 TECHNIQUE: IV contrast enhanced CT of the abdomen and pelvis FINDINGS: Mild dependent atelectatic changes in lung bases right greater than left. Lung bases otherwise are clear. Heart size normal. No pericardial effusion. Coronary artery calcifications. In the abdomen and pelvis, the bowel gas pattern is nonobstructive with no free air free fluid or pneumatosis. Partial colectomy surgical changes. Moderate to large amount stool extends to the cecum. Urinary bladder markedly distended may have mild wall thickening. Prostate moderately enlarged. Bilateral small fat-containing inguinal hernias left greater than right. No AAA. Gallbladder is contracted with small stones and/or gallbladder wall calcification. Pancreas spleen stomach and adrenal glands as well as liver appear stable. Splenic granuloma. Bones appear intact. Diffuse degenerative changes throughout the spine. IMPRESSION: 1. No focal acute process seen to explain source of patient's symptoms. 2. Moderate amount of stool which extends to the cecum. 3. Possible mild urinary bladder wall thickening. Correlate with urinalysis. 4. Mild bibasilar atelectatic appearing changes in the lung bases which are otherwise clear. Reviewed, dictated and finalized at location A. ENTICE INSTRUMENT TECHNICIAN IMPRESSION: 1. No focal acute process seen to explain source of patient's symptoms. 2. Moderate amount of stool which extends to the cecum. 3. Possible mild urinary bladder wall thickening. Correlate with urinalysis. 4. Mild bibasilar atelectatic appearing changes in the lung bases which are oth erwise clear.
--- NOTE | ~2025-08-16 | XR_ITS ---
EXAMINATION: XR chest 2V, 08/16/2025 13:50 SALESPERSON TERRAZZO TILES HISTORY: ams COMPARISON: No comparisons available. Technique: 2 views obtained. Findings: The lungs are clear, no effusion. No pneumothorax. Heart is normal size. Mediastinal and hilar contours are within normal limits. Bony thorax no acute abnormality. Impression: No acute cardiopulmonary abnormality. Reviewed, dictated and finalized at location P. SPERSON TERRAZZO TILES Impression: No acute cardiopulmonary abnormality.
--- NOTE | ~2025-08-16 | CT_ITS ---
EXAMINATION: CT brain wo con, 08/16/2025 16:13 ASSET RECOVERY SPECIALIST HISTORY: weakness COMPARISON: No comparisons available. Technique: Axial images obtained of the brain without contrast. One or more of the following dose reduction techniques were used: automated exposure control, adjustment of the mA and/or kV according to patient size, use of iterative reconstruction technique. Findings: No acute infarct or parenchymal hemorrhage. No abnormal mass or mass effect. No midline shift. No extra-axial fluid collections. No hydrocephalus. Mastoid air cells unremarkable. Sinuses and orbits unremarkable. No acute fracture. No significant facial or scalp soft tissue swelling evident. No radiopaque foreign body is seen. Impression: 1.No acute intracranial abnormality. Reviewed, dictated and finalized at location P. T RECOVERY SPECIALIST Impression: 1.No acute intracranial abnormality.
[2025-08-16 12:06] VITALS: PULSE 68; RESP 18; TEMP 37; O2SAT 99
--- NOTE | 2025-08-16 12:13 | ECG_ITS ---
Test Date: 2025-08-16 12:20:20 Measurements Intervals [place] Rate: 65 P: 24 [place]: 159 QRS: -27 QRSD: 82 T: 52 QT: 407 QTc: 425 Interpretive Statements SINUS RHYTHM BORDERLINE T WAVE ABNORMALITY- ANTERIOR LEADS BASELINE ARTIFACT- I, II, III, AVF, V1-V4 BORDERLINE ECG Compared to ECG 07/06/2025 09:18:36 No significant changes Electronically Signed On 08-16-2025 13:00:42 BARYTES GRINDER by Camron Arriaga D.O.
--- NOTE | 2025-08-16 13:21 | PC.NURSE ---
Discussed with family of patient probable need for a straight cath for a urine sample, daughter stated that this is what started all of these problems to begin with a procedure for bladder cancer back in june.
--- NOTE | 2025-08-16 13:41 | PC.NURSE ---
patient and family educated that they did order a urine sample, family not wanting straight cath done- patient provided with a urinal to attempt to collect urine sample at this time
[2025-08-16 13:46] VITALS: BP 176/70; PULSE 65; RESP 18; O2SAT 98
[2025-08-16 13:47] LABS: Hematocrit 40.4 % (42.0-52.0); Hemoglobin 13.9 g/dL (14.0-18.0); Immature Granulocyte Percent A 0.4 % (0-0.5); Lymphocytes Absolute Auto 1.58 K/mm3 (0.9-3.2); Mean Corpuscular HGB Conc 34.4 g/dl (32-36); Mean Corpuscular Hemoglobin 30.0 pg (26-34); Mean Corpuscular Volume 87.3 fl (80-100); Nucleated Red Blood Cells Absolute Auto 0.000 K/mm3 (0.0-0.012); Nucleated Red Blood Cells Perc 0.0 % (0.0-0.2); Platelet Count Result 191 k/mm3 (150-375); Red Blood Count 4.63 M/mm3 (4.6-6.20); White Blood Count 10.0 K/mm3 (4.5-10.0)
--- NOTE | 2025-08-16 13:51 | ED.WEAKNESS ---
HPI - Weakness General Chief complaint: Weakness Stated complaint: wekness Time Seen by Provider: 08/16/25 13:06 Source: patient Mode of arrival: ambulatory Limitations: dementia History of Present Illness HPI Narrative: This is an 79-year-old male with history of bladder cancer in remission, dementia presents to the ED for weakness. Family states that for the past 2 months the patient has at nightly urinary urge incontinence since a cystoscopy was done. They state that this morning, patient woke up and was unable to stand due to weakness and was having urinary incontinence during the day which was new for him as well. History is otherwise limited to the patient's dementia. Related Data Home Medications ?Medication ?Instructions ?Recorded ?Confirmed ?Last Taken ?Type tramadol 50 mg tablet 50 mg PO Q6H PRN 07/20/25 07/20/25 Unknown History Allergies Allergy/AdvReac Type Severity Reaction Status Date / Time NSAIDS (Non-Steroidal Allergy Unknown Swelling Verified 08/16/25 19:29 Anti-Inflamma aspirin Allergy Redness of Verified 08/16/25 19:29 Skin Review of Systems Review of Systems: ROS unobtainable: Yes unobtainable due to mental status PMFSH Past Medical History Medical History Male erectile dysfunction, unspecified Laxative abuse Hypertension, benign no longer on medications as of 2024 History of colonic polyps Herpes zoster without complication Hereditary and idiopathic neuropathy Colon cancer screening B12 deficiency Acquired absence of other specified parts of digestive tract HO partial colectomy Dementia Urinary hesitancy Anxiety Foot deformity, bilateral Bladder cancer Cerebellar ataxia Depression Surgical History Surgical History History of amputation of finger of left hand History of bladder surgery History of partial colectomy H/O repair of rotator cuff Family History Family History Mother Patient's mother is Family history of dementia Family history of malignant neoplasm Father Family history of malignant neoplasm Patient's father is Other Depression Social History Social History Social History: . High school graduate. Patient does not wear dentures due to ill-fitting dentures. Patient prefers softer foods. Patient does not wear glasses. He is hard of hearing bilaterally. He is a former smoker. He drinks alcohol occasionally. Patient lives with his in a single-story home. Steps to enter. Smoking packs per day: 1 Smoking cigarettes per day: 20.0 Years smoked: 15 Smoking pack-years: 15.00 Smoking status: Former smoker Tobacco type: cigarettes Alcohol intake: never Substance use: never Substance use type: does not use Lack of Transportation: No Lack of Food: Never True Current Housing: I Have Housing Concerned About Future Housing: No Difficulty Paying Gas/Electric Bills: No Difficulty Paying for Meds: No Currently Unemployed: No Education: High School Diploma/GED Difficulty w/ Childcare or Family Care: No Living arrangements: with family Occupation/Education: retired Gender identity (if verbalized by the patient): Male Sexual Orientation (if Verbalized by the Patient): Straight or Heterosexual Spiritual care concerns: No Agree to blood products: Yes Exam Narrative: APPEARANCE: No acute distress, nontoxic, resting in bed EYES: EOMI HEENT: Normocephalic, atraumatic, OMM RESPIRATORY: No respiratory distress Clear to auscultation bilaterally with no rhonchi wheezing or rales. CARDIOVASCULAR: Regular rate and rhythm without murmurs rubs or gallops. ABDOMINAL: Soft, nontender, nondistended, no rebound or guarding MUSCULOSKELETAl: Moves all extremities. Trace edema to the bilateral lower extremities up to the ankles NEURO: AAO x2. Following commands, speech normal, no focal deficits SKIN:: Warm, dry. No rashes lesions or abrasions PSYCHIATRIC: Normal affect/mood, Course Vital Signs Vital signs: Vital Signs Temperature 98.6 F 08/16/25 12:06 Pulse Rate 68 08/16/25 12:06 Respiratory Rate 18 08/16/25 12:06 Pulse Oximetry 99 08/16/25 12:06 Oxygen Delivery Room Air 08/16/25 12:06 Temperature 98.4 F 08/16/25 18:01 Pulse Rate 55 L 08/16/25 18:01 Respiratory Rate 18 08/16/25 18:01 Blood Pressure 163/67 H 08/16/25 18:01 Pulse Oximetry 98 08/16/25 18:01 Oxygen Delivery Room Air 08/16/25 12:06 MDM MDM Narrative Medical decision making narrative: 79-year-old male Presenting for new weakness. On initial evaluation patient was in no acute distress afebrile, hemodynamic stable. Differentials include but are not limited to: CVA, TIA, ICH, meningitis, UTI, cancer, drug intoxication, hypoglycemia, electrolyte abnormality Notable exam findings: A/O x2. No abdominal tenderness to palpation. Heart and lungs clear. No focal deficits I personally reviewed the patient's lab result. Notable lab findings: CBC and CMP without significant abnormalities. Troponin negative. UA with hematuria but no UTI. I personally reviewed the patient's images and interpret as follows: Chest x-ray: Normal cardiac silhouette, no consolidations, no pleural effusions, no pulmonary vascular congestion I personally reviewed the patient's EKGs: Normal sinus rhythm, normal axis, normal intervals, no acute ST or T-wave changes No obvious source of the patient's weakness at this time. This may be related to his baseline dementia. Patient's daughter did report that her and family did not feel comfortable taking care of the patient at home if he is not able stand on his own. Patient is not able ambulate at this time. He did require admission for PT OT evaluation and possible rehab versus nursing placement. Case was discussed with hospitalist who will admit the patient. Differential Diagnosis Differential Diagnosis: CVA, TIA, ICH, meningitis, UTI, cancer, drug intoxication, hypoglycemia, electrolyte abnormality Lab Data MDM Lab Attestation statement: I personally reviewed the patient's lab results. 08/16/25 13:42 08/16/25 13:42 Labs: Lab Results 08/16/25 08/16/25 Range/Units 13:42 16:58 WBC 10.0 (4.5-10.0) K/mm3 RBC 4.63 (4.6-6.20) M/mm3 Hgb 13.9 L (14.0-18.0) g/dL Hct 40.4 L (42.0-52.0) % MCV 87.3 (80-100) fl MCH 30.0 (26-34) pg MCHC 34.4 (32-36) g/dl RDW 12.7 (11.5-14.5) % Plt Count 191 (150-375) k/mm3 MPV 8.6 (7.4-10.4) fl Immature Gran % (Auto) 0.4 (0-0.5) % Neut % (Auto) 75.4 H (45.5-73.1) % Lymph % (Auto) 15.9 L (18.3-44.2) % [place] % (Auto) 7.1 (2.6-8.5) % Eos % (Auto) 0.9 (0-4.4) % Baso % (Auto) 0.3 (0.2-1.2) % Lymph # (Auto) 1.58 (0.9-3.2) K/mm3 [place] # (Auto) 0.7 H (0.1-0.6) K/mm3 Eos # (Auto) 0.1 (0-0.3) K/mm3 Baso # (Auto) 0.0 (0.0-0.1) K/mm3 Abs Immat Gran (auto) 0.04 H (0.00-0.031) K/mm3 Absolute Neuts (auto) 7.5 H (1.3-6.7) K/mm3 Absolute Nucleated RBC 0.000 (0.0-0.012) K/mm3 Nucleated RBC % 0.0 (0.0-0.2) % Sodium 137 (137-145) mmol/L Potassium 4.2 (3.4-5.0) mmol/L Chloride 106 (98-107) mmol/L Carbon Dioxide 29 (22-30) mmol/L Anion Gap 2 L (4-12) mmol/L BUN 22 H (9-20) mg/dL Creatinine 0.94 (0.7-1.3) mg/dL Estim Creat Clear Calc 54 ml/min Estimated GFR > 60 (59 - ) Glucose 115 H (65-110) mg/dL Lactic Acid 1.3 (0.7-2.0) mmol/L Calcium 9.0 (8.4-10.2) mg/dL Total Bilirubin 0.7 (0.2-1.3) mg/dL AST 26 (17-59) U/L ALT 17 (6-50) U/L Alkaline Phosphatase 96 (38-126) U/L Troponin I < 0.012 (0.000-0.034) ng/mL Total Protein 6.6 (6.3-8.2) g/dL Albumin 3.8 (3.5-5.1) g/dL Urine Color Yellow (Yellow) Urine Appearance Cloudy H (Clear) Urine pH 8.0 (5.0-9.0) Ur Specific [place] 1.032 (1.001-1.035) Urine Protein Negative (Negative) mg/dL Urine Glucose (UA) Negative (Negative) mg/dL Urine Ketones Negative (Negative) mg/dL Ur Blood (Man) 2+ H (Negative) Urine Nitrate Negative (Negative) Urine Bilirubin Negative (Negative) Urine Urobilinogen 0.2 (<2.0) mg/dL Leukocyte Esterase Rfl Negative (Negative) REDD/UL Urine RBC 51-100 H (0-2) /hpf Urine WBC 0-5 (0-3) /hpf Ur Squamous Epith Cells None seen (Few) /hpf Urine Bacteria None seen /hpf Urine Casts 0-2 Imaging Data Radiologist's impression: ITS Impressions Chest X-Ray 08/16/25 13:56 Impression: No acute cardiopulmonary abnormality. Head CT 08/16/25 16:24 Impression: 1.No acute intracranial abnormality. Abdomen/Pelvis CT 08/16/25 16:26 IMPRESSION: 1. No focal acute process seen to explain source of patient's symptoms. 2. Moderate amount of stool which extends to the cecum. 3. Possible mild urinary bladder wall thickening. Correlate with urinalysis. 4. Mild bibasilar atelectatic appearing changes in the lung bases which are otherwise clear. Discharge Plan Discharge Clinical Impression: Adult failure to thrive Hematuria Qualifiers: Hematuria type: unspecified type Qualified Code(s): R31.9 - Hematuria, unspecified Patient Disposition: Still a Patient Condition: Stable
[2025-08-16 14:06] LABS: Alanine Aminotransferase 17 U/L (6-50); Albumin Level 3.8 g/dL (3.5-5.1); Alkaline Phosphatase 96 U/L (38-126); Anion Gap 2 mmol/L (4-12); Aspartate Amino Transferase 26 U/L (17-59); Bilirubin,Total 0.7 mg/dL (0.2-1.3); Blood Urea Nitrogen 22 mg/dL (9-20); Calcium 9.0 mg/dL (8.4-10.2); Carbon Dioxide 29 mmol/L (22-30); Chloride 106 mmol/L (98-107); Estimated CRCL calculation 54 ml/min; Estimated Glomerular Filt Rate > 60; Glucose 115 mg/dL (65-110); Potassium 4.2 mmol/L (3.4-5.0); Sodium 137 mmol/L (137-145); Total Protein 6.6 g/dL (6.3-8.2)
[2025-08-16] MEDS: SODIUM CHLORIDE 0.9% IV 1,000 ML 999 ML IV CONT (15:05)
[2025-08-16 15:30] VITALS: BP 173/55; PULSE 58; RESP 14; O2SAT 99
--- NOTE | 2025-08-16 16:06 | PC.NURSE ---
Patient unable to provide urine sample in a urinal or urine cup, patient family members refuse straight cath due to bladder cancer. MD ashbyed male elizabethwijun to collect urine sample - purewick on and in place and waiting for urine at this time. patient and family educated on the urine test that we are waiting for.
[2025-08-16 16:40] LABS: Troponin I < 0.012 ng/mL (0.000-0.034)
[2025-08-16 17:08] VITALS: PULSE 60; RESP 18; O2SAT 93
[2025-08-16 17:10] LABS: Add Urine Microscopic? YES; Appearance Urine Cloudy (Clear); Glucose Urine UA Negative (Negative); Leukocyte Esterase Ur Negative LEU/UL (Negative); Nitrate Urine Negative (Negative); Non Pathogenic Casts 0-2; Specific Grav Ur 1.032 (1.001-1.035)
[2025-08-16 18:01] VITALS: BP 163/67; PULSE 55; RESP 18; TEMP 36.9; O2SAT 98
--- NOTE | 2025-08-16 18:11 | WPCEDHO ---
ED Hand Off Checklist All vitals saved: YES IV Site documented: YES All med administrations documented: YES Triage Note Triage Note pt to ed via [facility] from 08/16/25 12:06 home with c/o increased weakness over the past week per family, having urinary incontinence, lethargy. pt a/o x 2 - which is his baseline pt has pmhx of dementia Allergies NSAIDS (Non-Steroidal Anti-Inflamma Allergy (Unknown, Verified 07/20/25 14:04) Swelling aspirin Allergy (Verified 07/20/25 14:04) Redness of Skin Family History (Last Reviewed 08/16/25 @ 13:53 by Stefan Beach DO) Mother Patient's mother is Family history of dementia Family history of malignant neoplasm Father Family history of malignant neoplasm Patient's father is Other Depression Administered/Completed Medications Discontinued Medications Sodium Chloride (Normal Saline Iv) 1,000 mls @ 999 mls/hr IV CONT .Q1H1M STA Stop: 08/16/25 15:43 Last Infusion: 08/16/25 16:23 Dose: Infused Documented By: Admin: 08/16/25 15:05 Dose: 999 mls/hr Documented By: LACI Notes 08/16/25 16:06 Nurse Note by Mirna Marie. Patient unable to provide urine sample in a urinal or urine cup, patient family members refuse straight cath due to bladder cancer. MD grewal male purewick to collect urine sample - purewick on and in place and waiting for urine at this time. patient and family educated on the urine test that we are waiting for. Initialized on 08/16/25 16:06 - END OF NOTE 08/16/25 13:41 Nurse Note by Mirna Marie patient and family educated that they did order a urine sample, family not wanting straight cath done- patient provided with a urinal to attempt to collect urine sample at this time Initialized on 08/16/25 13:41 - END OF NOTE 08/16/25 13:21 Nurse Note by Mirna Marie Discussed with family of patient probable need for a straight cath for a urine sample, daughter stated that this is what started all of these problems to begin with a procedure for bladder cancer back in june. Initialized on 08/16/25 13:21 - END OF NOTE Interventions/Assessments IV / Saline Lock, Insert Start: 08/16/25 11:56 Freq: Status: Active Protocol: Document 08/16/25 15:05 AJW (Rec: 08/16/25 15:06 AJW [id number]) IV Assessment Peripheral Access Right Antecubital IV Catheter Access Initiated IV Insertion Date 08/16/25 IV Insertion Time 15:06 Catheter Gauge 20 IV Site Assessment WNL IV Care and WNL Maintenance PA: Cardiovascular Assessment Start: 08/16/25 11:56 Freq: Status: Active Protocol: Document 08/16/25 13:22 AJW (Rec: 08/16/25 13:23 AJW [id number]) Cardiovascular Assessment Cardiovascular None Symptoms Skin Description Normal Color PA: Neurological Assessment Start: 08/16/25 11:56 Freq: Status: Active Protocol: Document 08/16/25 13:22 AJW (Rec: 08/16/25 13:23 AJW [id number]) Neurological Assessment Level of Alert,Awake Consciousness Arousable to Verbal Neurological Weakness, General Symptoms Ability to Maintain Unable to Assess Balance Facial Symmetry Symmetrical Ajay Coma Scale Eyes Open Verbal Disoriented Motor Follows Commands Ajay Coma Total 14 Score Last Vital Signs Temperature 98.4 F 08/16/25 18:01 Pulse Rate 55 L 08/16/25 18:01 Respiratory Rate 18 08/16/25 18:01 Pulse Oximetry 98 08/16/25 18:01 Blood Pressure 163/67 H 08/16/25 18:01 Blood Pressure Mean 99 08/16/25 18:01 Oxygen Delivery Room Air 08/16/25 12:06 Weight 82.9 kg 08/16/25 12:06 Last Result - Abnormals Only Hgb 13.9 g/dL (14.0-18.0) L 08/16/25 13:42 Hct 40.4 % (42.0-52.0) L 08/16/25 13:42 Neut % (Auto) 75.4 % (45.5-73.1) H 08/16/25 13:42 Lymph % (Auto) 15.9 % (18.3-44.2) L 08/16/25 13:42 [place] # (Auto) 0.7 K/mm3 (0.1-0.6) H 08/16/25 13:42 Abs Immat Gran (auto) 0.04 K/mm3 (0.00-0.031) H 08/16/25 13:42 Absolute Neuts (auto) 7.5 K/mm3 (1.3-6.7) H 08/16/25 13:42 Anion Gap 2 mmol/L (4-12) L 08/16/25 13:42 BUN 22 mg/dL (9-20) H 08/16/25 13:42 Glucose 115 mg/dL (65-110) H 08/16/25 13:42 Urine Appearance Cloudy (Clear) H 08/16/25 16:58 Ur Blood (Man) 2+ (Negative) H 08/16/25 16:58 Urine RBC 51-100 /hpf (0-2) H 08/16/25 16:58 Most Recent Suicide Severity Rating Suicide Severity Rating NO RISK INDICATED 08/16/25 12:06
--- NOTE | 2025-08-16 18:31 | PM.IMHP2 ---
H&P: HPI History of Present Illness Date/Time: 08/16/25 18:31 Chief Complaint: Generalized Weakness, Urinary Incontinence Narrative: 79 y/o M with PMH of depression/anxiety, dementia, bladder cancer, S cerebellar ataxia, and hypertension presents here with generalized weakness and urinary incontinence. The patient presents here from home via EMS on 08/16 for further evaluation of worsening generalized weakness and urinary incontinence. HPI obtained through chart review and patient report. Patient currently poor historian secondary to dementia, A/Ox2 and at baseline. Per family report to the ED provider the patient has been increasingly weak over the past week. Patient was not able to stand today with assistance which is new for him. Patient does endorse generalized weakness, however he does not report any difficulty standing. He denies any focal weakness, focal numbness, changes in speech, changes in vision, or trouble swallowing. Additionally, the family reports he has been experiencing urge incontinence for the past 2 months. Developed after he had a cystoscopy done. However he has developed new urinary incontinence during the daytime which he does not typically have. Currently lives at home with his elderly . Family voice concerns that he is too weak to be safely care for at home to the emergency room provider. Initial VS at presentation: 98.6? F, HR 68, R 18, 176/70, and 99% on RA. ED workup showed: No leukocytosis, hemoglobin 13.9, no significant electrolyte derangements, creatinine 0.94 and GFR >60, glucose 115, initial troponin negative, and UA was cloudy with 2+ blood/51-100 RBC. CXR showed no acute cardiopulmonary abnormality. Head CT showed no acute intracranial abnormality. CT of the abdomen/pelvis showed no focal acute process to explain patient's symptoms, moderate amount of stool which extensive the cecum, possible mild urinary bladder wall thickening, mild bibasilar atelectatic changes in the lung bases which are otherwise clear. EKG showed sinus rhythm, borderline T-wave abnormality anterior leads, baseline artifact. Review of Systems Review of Systems: All systems reviewed & are unremarkable except as noted in HPI and below (Limited, history of dementia and A&O x2) [facility] Past Medical History Medical History Male erectile dysfunction, unspecified Laxative abuse Hypertension, benign no longer on medications as of 2024 History of colonic polyps Herpes zoster without complication Hereditary and idiopathic neuropathy Colon cancer screening B12 deficiency Acquired absence of other specified parts of digestive tract HO partial colectomy Dementia Urinary hesitancy Anxiety Foot deformity, bilateral Bladder cancer Cerebellar ataxia Depression Surgical History Surgical History History of amputation of finger of left hand History of bladder surgery History of partial colectomy H/O repair of rotator cuff Family History Family History Mother Patient's mother is Family history of dementia Family history of malignant neoplasm Father Family history of malignant neoplasm Patient's father is Other Depression Social History Social History Social History: . High school graduate. Patient does not wear dentures due to ill-fitting dentures. Patient prefers softer foods. Patient does not wear glasses. He is hard of hearing bilaterally. He is a former smoker. He drinks alcohol occasionally. Patient lives with his in a single-story home. Steps to enter. Smoking packs per day: 1 Smoking cigarettes per day: 20.0 Years smoked: 15 Smoking pack-years: 15.00 Smoking status: Former smoker Alcohol intake: former Substance use: never Substance use type: does not use Lack of Transportation: No Lack of Food: Never True Current Housing: I Have Housing Concerned About Future Housing: No Difficulty Paying Gas/Electric Bills: No Difficulty Paying for Meds: No Currently Unemployed: No Education: High School Diploma/GED Difficulty w/ Childcare or Family Care: No Living arrangements: with family Occupation/Education: retired Gender identity (if verbalized by the patient): Male Sexual Orientation (if Verbalized by the Patient): Straight or Heterosexual Spiritual care concerns: No Agree to blood products: Yes Meds Home Medications and Allergies Home Medications ?Medication ?Instructions ?Recorded ?Confirmed ?Type tramadol 50 mg tablet 50 mg PO Q6H PRN pain 07/20/25 08/16/25 History trazodone 150 mg tablet 150 mg PO HS 08/16/25 08/16/25 History Allergies Allergy/AdvReac Type Severity Reaction Status Date / Time NSAIDS (Non-Steroidal Allergy Unknown Swelling Verified 08/16/25 19:29 Anti-Inflamma aspirin Allergy Redness of Verified 08/16/25 19:29 Skin Vital Signs Vital Signs - 24 hr 08/16/25 12:06 08/16/25 13:46 08/16/25 15:30 Temperature 98.6 F Pulse Rate 68 65 58 L Respiratory Rate 18 18 14 Blood Pressure 176/70 H 173/55 H Pulse Oximetry 99 98 99 Oxygen Delivery Room Air 08/16/25 17:08 08/16/25 18:01 Temperature 98.4 F Pulse Rate 60 55 L Respiratory Rate 18 18 Blood Pressure 163/67 H Pulse Oximetry 93 98 Oxygen Delivery Exam Const: General: comfortable and no acute distress Other: , male, elderly, nontoxic appearance HENMT: Face/Nose/Sinus: Normal nares present Mouth: Yes moist mucous membranes Eyes: General: appearance normal, both eyes and all related structures Sclera: sclerae normal Pupils: Equal, round and reactive pupils present EOM: EOMs intact bilaterally Resp: Effort & Inspection: normal respiratory effort Auscultation: clear to auscultation bilaterally Cardio: Rate: regular rate Rhythm: regular rhythm Other: S1-S2 present without murmur, rub, ectopy GI: Other: Abdomen soft, nondistended, nontender. Normoactive bowel sounds in all quadrants. Skin: General skin exam: normal color and no rashes or lesions noted Wounds: no wounds Neuro: Other: A&O to self and town. Not able to provide her virtually any situational history and does not know the year. No dysarthria or facial droop appreciated. Generally weak. 4+ in the bilateral upper extremities, symmetric. 5+ in the bilateral lower extremities, symmetric. No sensory deficits. Extrem: Other: Trace edema to the bilateral ankles, symmetric Psych: Other: Poor insight and judgment Results Labs Labs: Short CBC 08/16/25 Range/Units 13:42 WBC 10.0 (4.5-10.0) K/mm3 Hgb 13.9 L (14.0-18.0) g/dL Hct 40.4 L (42.0-52.0) % Plt Count 191 (150-375) k/mm3 BMP 08/16/25 13:42 Sodium 137 Potassium 4.2 Chloride 106 Carbon Dioxide 29 BUN 22 H Creatinine 0.94 Glucose 115 H Calcium 9.0 Cardiac Enzymes 08/16/25 Range/Units 13:42 Troponin I < 0.012 (0.000-0.034) ng/mL Liver Function 08/16/25 Range/Units 13:42 Total Bilirubin 0.7 (0.2-1.3) mg/dL AST 26 (17-59) U/L ALT 17 (6-50) U/L Alkaline Phosphatase 96 (38-126) U/L Albumin 3.8 (3.5-5.1) g/dL Urine 08/16/25 Range/Units 16:58 Urine Color Yellow (Yellow) Urine Appearance Cloudy H (Clear) Urine pH 8.0 (5.0-9.0) Ur Specific [place] 1.032 (1.001-1.035) Urine Protein Negative (Negative) mg/dL Urine Glucose (UA) Negative (Negative) mg/dL Quality VTE Prophylaxis VTE prophylaxis: mechanical ordered Assessment and Plan Assessment and plan (1) Weakness: Code(s): R53.1 - Weakness Status: Acute Assessment and Plan: Patient has generalize weakness that has been increasing over the past week. Today upon awakening the patient was no longer able to stand due to the generalized weakness. No focal deficits on exam. Patient does have history of dementia and is currently at baseline. No leukocytosis or evidence of infection. No symptoms endorsed beyond urge incontinence and UA was unremarkable. Suspect failure to thrive as etiology for patient's general decline/generalized weakness. - care coordination consulted for possible acute rehab/senior care placement - PT/OT evaluation for discharge planning - fall precautions (2) Urinary incontinence: Qualifiers: Urinary Incontinence type: urge incontinence Qualified Code(s): N39.41 - Urge incontinence Code(s): R32 - Unspecified urinary incontinence Status: Acute Assessment and Plan: Urinary urge incontinence nightly for the past 2 months. Started after a cystoscopy was done. Now having new urinary incontinence during the day which is not typical for him. UA obtained in the emergency department on 08/16, which was cloudy with 2+ blood/51-100 RBC and no indicators of infection. CT of the abdomen/pelvis was obtained which showed a moderate amount of stool which is since the cecum, possible mild urinary bladder wall thickening, and mild bibasilar atelectatic changes with otherwise clear lungs. Patient does have a history of constipation, given moderate amount of stool burden could be contributing to patient's urinary incontinence. - given history of constipation, will trial oxybutynin transdermal given lower rates of constipation with transdermal application. >> per pharmacy not available until Saturday, will give oral dose of oxybutynin today and tomorrow to bridge to the transdermal - moderate stool burden on CT, start scheduled docusate b.i.d. and MiraLax daily - IV fluids: 1L bolus - UA obtained on 08/16, no indicators of infection (3) Insomnia: Qualifiers: Insomnia type: unspecified Qualified Code(s): G47.00 - Insomnia, unspecified Code(s): G47.00 - Insomnia, unspecified Status: Chronic Assessment and Plan: - continue home medication: trazodone Plan Diet: Regular GI Prophylaxis: N/a DVT Prophylaxis: SCDs IV fluids: 1L bolus Lines/Tubes: pIV Code Status: full code Prior Studies I have reviewed the following patient records and this information was taken into consideration when formulating the assessment and plan.: previous labs, previous ER visits, previous hospitalizations and previous clinic visits Time Spent with Patient Time with patient: less than 45 minutes Hospitalist MIPS Advance Care Plan I have confirmed that the patient's Advanced Care Plan is present, code status is documented, or surrogate decision maker is listed in patient medical record.: Yes Medication Reconciliation I have utilized all available resources to obtain, update and review the patients current medications (includes all prescriptions, OTC, herbals, cannabis, and nutritional supplements).: Yes
--- NOTE | 2025-08-16 18:45 | PC.NURSE ---
frank and this RN went to the patients room to get him situated to go upstairs, daughter at bedside states that she wasn't aware that the patient was being admitted. aware and going to speak to the patient and family member.
[2025-08-16 19:19] VITALS: BMI 24.1
--- NOTE | 2025-08-16 19:19 | ADMGEN ---
This patient, Denton Burnett, was admitted to Medical Room 261-01. Patient/family oriented to hospital policies and general routines including ID bracelet, bed and alarms, visiting hours, pain management, procedures, bathroom and other care routines, personal items, smoking policy, room service/diet, and visiting hours. Information on how to activate the Rapid Response Team has been discussed. Patient/Family are encouraged to report perceived risks to care and to ask questions if they do not understand what they are told or what they should do.
[2025-08-16 19:32] VITALS: BP 173/61; PULSE 58; RESP 18; TEMP 36.4; O2SAT 100
--- NOTE | 2025-08-16 19:46 | PC.NURSE ---
Patient is newly established with a new PCP: Ney Long
[2025-08-16] MEDS: DOCUSATE SODIUM 100 MG CAPSULE PO (20:35)
[2025-08-16] MEDS: oxyBUTYnin CHLORIDE XL 5 MG TAB.ER.24 PO (20:35)
[2025-08-17 05:24] VITALS: BP 155/58; PULSE 75; RESP 18; TEMP 36.5; O2SAT 96
--- OUTSIDE RECORDS SUMMARY | 2025-08-17 11:56 | XMS_ITS | Encounter Summary ---
Author Organization [facility] Address [address] [place] [address] Care Team Providers Care Gas Plant Specialist Name Role Phone Alton Gonzalez MD Primary Care Provider [phone] Encounter Details Date Type Department Care Team (Late st Contact Info) Description 10/24/2020 Prep for Procedure [facility] Pre-Admission Testing [place], [place] [id number] Bhavin Garrett MD 3 [facility]. [place], [place] [id number] Social History Tobacco Use Types Packs/Day Years Used Date Smoking Tobacco: Former Cigarettes 1 15 0 09/23/1974 - 09/23/1989 Smokeless Tobacco: Never Alcohol Use Standard Drinks/Week Comments Not Currently 0 (1 standard drink = 0.6 oz pur e alcohol) Sex and Gender Information Value Date Recorded Sex Assigned at Not on file Legal Sex Male 9:51 AM BUFFER INFLATED PAD Gender Identity Not on file Sexual Orientation Not on file COVID-19 Exposure Response Date Recorded In the last month, have you been in contact with someone who was confirmed or suspected to have Coronavirus / COVID-19? No / Unsure 10/24/2020 3:28 PM BUFFER INFLATED PAD documented as of this encounter Plan of Treatment Not on file documented as of this encounter Results * PRE-SURGICAL/PRE-PROCEDURE CORONAVIRUS (COVID 19) (10/29/2020 9:42 AM BUFFER INFLATED PAD) CORONAVIRUS SARS COV 2 PCR (RESP) NOT DETECTED NOT DETECTED 10/30/2020 9:01 PM Appear [facility] Comment: A Not Detected (negative) test result [...] providers and patients using the following websites: https://www.[employer]Jay[facility]/home/Covid-19/HCP/Quest[employer]D/fact- sheet.html https://www.[employer]/home/Covid-19/Patients/ Quest[employer]/fact-sheet.html This test has been authorized by the FDA under an Emergency Use Authorization (EUA) for use by authorized laboratories. Due to the current public health emergency, [facility] is receiving a high volume of samples [...] about COVID-19 can be found at the [facility] website: www.[employer]/Covid19. Test performed at [email or web address] [place] [address] [place] [address] Director: BHAVIN COOPER DO,MPH FIRST TEST NO 10/29/2020 8:56 AM [facility] EMPLOYED IN HEALTHCARE NO 10/29/2020 8:56 AM [facility] SYMPTOMATIC DEFINED BY [facility] NO 10/29/2020 8:[address] [facility] DATE OF SYMPTOM ONSET NO 10/29/2020 10:[address] [facility] HOSPITALIZATION STATUS NO 10/29/2020 8:[address] [facility] PATIENT IN ICU NO 10/29/2020 8:[address] [facility] RESIDENT OF CONGREGATE CARE NO 10/29/2020 8:[address] [facility] NO 10/29/2020 10:[address] [facility] PATIENT'S RACE WHITE OR 10/29/2020 8:[address] [facility] ETHNICITY 10/29/2020 8:[address] [facility] SOURCE (QST) NASOPHARYNGEAL SWAB 10/29/2020 8:[address] [facility] NASOPHARYNGEAL SWAB / Unknown 10/29/2020 9:42 AM BUFFER INFLATED PAD us Bhavin Garrett MD MICROBIOLOGY - GENERAL OR DERABLES Final Result [facility] [address] [place] [address], [place] [phone] [email or web address] [address] [address], documented in this encounter Visit Diagnoses Diagnosis Preop examination- Primary Preoperative examination, unspecified documented in this encounter Additional Health Concerns Infection Onset Date Last Indicated Resolved Time COVID-19 Rule Out 10/29/2020 10/29/2020 10/30/2020 9:01 PM BUFFER INFLATED PAD documented as of this encounter Care Teams Gas Plant Specialist Relationship Specialty Start Date End Date Alton Gonzalez MD [address] [place] [place] [address] PCP - General FAMILY PRACTICE 09/23/20 documented as of this encounter
--- OUTSIDE RECORDS SUMMARY | 2025-08-17 11:56 | XMS_ITS | Clinical Summary ---
Author Organization [facility] [address] [place] [id number] Care Team Providers Care Potato Spotter Name Role Phone Norm Eden MD Primary Care Provider [phone] Allergies Active Allergy Reactions Criticality Noted Date [...] on file Legal Sex Male 8:06 AM TRUCK CAR AND BUS CLEANER Gender Identity Not on file Sexual Orientation Not on file Last Filed Vital Signs Vital Sign Reading Time Taken Comments Blood Pressure 145/78 07/12/2022 1:06 PM TRUCK CAR AND BUS CLEANER Pulse 73 07/12/2022 1:06 PM TRUCK CAR AND BUS CLEANER Temperature 36.8 C (98.2 F) 07/12/2022 1:06 PM TRUCK CAR AND BUS CLEANER Respiratory Rate - - Oxygen Saturation - - Inhaled Oxygen Concentration - - Weight 86.2 kg (190 lb) 07/12/2022 1:06 PM TRUCK CAR AND BUS CLEANER Height 180.3 cm (5' 11) 07/12/2022 1:06 PM TRUCK CAR AND BUS CLEANER Body Mass Index 26.5 07/12/2022 1:06 PM TRUCK CAR AND BUS CLEANER Plan of Treatment Not on [place] [address] [facility] MEDICARE SUPPLEMENT INSURANCE [facility] MEDICARE SUPPLEMENT INSURANCE MEDICARE MEDICARE [employer] MEDICARE SUPPLEMENT INSURANCE Care Teams Potato Spotter Relationship Specialty Start Date End Date Norm Eden MD PCP - General Family Medicine 07/12/22
--- OUTSIDE RECORDS SUMMARY | 2025-08-17 11:56 | XMS_ITS | Clinical Summary ---
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 Gender Identity Not on file Sexual Orientation Not on file Last Filed Vital Signs Vital Sign Reading Time Taken Comments Blood Pressure 177/87 11/01/2020 3:15 PM NUCLEAR SUPERVISING OPERATOR Pulse 66 11/01/2020 3:15 PM NUCLEAR SUPERVISING OPERATOR Temperature 36.7 C (98 F) 11/01/2020 3:15 PM NUCLEAR SUPERVISING OPERATOR Respiratory Rate 18 11/01/2020 3:15 PM NUCLEAR SUPERVISING OPERATOR Oxygen Saturation 100% 11/01/2020 2:35 PM NUCLEAR SUPERVISING OPERATOR Inhaled Oxygen Concentration - - Weight 86.8 kg (191 lb 5.8 oz) 11/01/2020 11:30 AM NUCLEAR SUPERVISING OPERATOR Height 179.1 cm (5' 10.5) 11/01/2020 11:30 AM [facility] Body Mass Index 27.07 11/01/2020 11:30 AM NUCLEAR SUPERVISING OPERATOR Plan of Treatment Health Maintenance Due [...] to complete this topic Insurance MEDICARE [facility] Care Teams Operations Support Manager Relationship Specialty Start Date End Date Alton Gonzalez MD [address] [address] PCP - General FAMILY PRACTICE 09/23/20
--- OUTSIDE RECORDS SUMMARY | 2025-08-17 11:57 | XMS_ITS | Encounter Summary ---
Author Organization [facility] Address [address] [place] [address] Care Team Providers Care Ceramic Engineering Professor Name Role Phone Alton Gonzalez MD Primary Care Provider [phone] Encounter Details Date Type Department Care Team (Late st Contact Info) Description 09/23/2020 Prep for Procedure [facility] Pre-Admission Testing [place], [place] [id number] Bhavin Garrett MD 3 [facility]. [place], [place] [phone] Social History Tobacco Use Types Packs/Day Years Used Date Smoking Tobacco: Former Cigarettes 1 15 0 09/23/1974 - 09/23/1989 Smokeless Tobacco: Never Alcohol Use Standard Drinks/Week Comments Not Currently 0 (1 standard drink = 0.6 oz pur e alcohol) Sex and Gender Information Value Date Recorded Sex Assigned at Not on file Legal Sex Male 9:51 AM CARDIOTHORACIC ICU RN Gender Identity Not on file Sexual Orientation Not on file COVID-19 Exposure Response Date Recorded In the last month, have you been in contact with someone who was confirmed or suspected to have Coronavirus / COVID-19? No / Unsure 09/23/2020 10:40 AM CARDIOTHORACIC ICU RN documented as of this encounter Plan of Treatment Not on file documented as of this encounter Results * PRE-SURGICAL/PRE-PROCEDURE CORONAVIRUS (COVID 19) (09/24/2020 8:32 AM CARDIOTHORACIC ICU RN) CORONAVIRUS SARS COV 2 PCR (RESP) NOT DETECTED NOT DETECTED 09/25/2020 3:02 PM [facility] Comment: A Not Detected (negative) test result [...] providers and patients using the following websites: https://www.[facility]/home/Covid-19/HCP/NAAT/fact-sheet2 https://www.[facility]/home/Covid-19/Patients/NAAT/ fact-sheet2 This test has been authorized by the FDA under an Emergency Use Authorization (EUA) for use by authorized laboratories. Due to the current public health emergency, [facility] is receiving a high volume of samples [...] about COVID-19 can be found at the [facility] website: www.[employer]/Covid19. Test performed at [facility] [place] [address] [place] [address] Director: BHAVIN COOPER DO,MPH FIRST TEST YES 09/24/2020 9:06 AM [facility] EMPLOYED IN HEALTHCARE NO 09/24/2020 9:06 AM [facility] SYMPTOMATIC DEFINED BY CDC NO 09/24/2020 9:06 AM [facility] DATE OF SYMPTOM ONSET NO 09/24/2020 9:38 AM CARDIOTHORACIC ICU RN [facility] HOSPITALIZATION STATUS NO 09/24/2020 9:06 AM CARDIOTHORACIC ICU RN [facility] PATIENT IN ICU NO 09/24/2020 9:06 AM CARDIOTHORACIC ICU RN [facility] RESIDENT OF CONGREGATE CARE NO 09/24/2020 9:06 AM CARDIOTHORACIC ICU RN [facility] NO 09/24/2020 9:38 AM CARDIOTHORACIC ICU RN [facility] PATIENT'S RACE WHITE OR 09/24/2020 9:06 AM CARDIOTHORACIC ICU RN [facility] ETHNICITY 09/24/2020 9:06 AM CARDIOTHORACIC ICU RN [facility] SOURCE (QST) NASOPHARYNGEAL SWAB 09/24/2020 9:06 AM CARDIOTHORACIC ICU RN [facility] NASOPHARYNGEAL SWAB / Unknown 09/24/2020 8:32 AM CARDIOTHORACIC ICU RN us Bhavni Garrett MD MICROBIOLOGY - GENERAL OR DERABLES Final Result Performing Organization Address City/State/[facility] Co de Phone Number [facility] [address] [place] [address], [place] [address], documented in this encounter Visit Diagnoses Diagnosis Preop examination- Primary Preoperative examination, unspecified documented in this encounter Additional Health Concerns Infection Onset Date Last Indicated Resolved Time COVID-19 Rule Out 09/24/2020 09/24/2020 09/25/2020 3:02 PM CARDIOTHORACIC ICU RN COVID-19 Rule Out 10/29/2020 10/29/2020 10/30/2020 9:01 PM CARDIOTHORACIC ICU RN documented as of this encounter Care Teams Ceramic Engineering Professor Relationship Specialty Start Date End Date Alton Gonzalez MD [address] [address] PCP - General FAMILY PRACTICE 09/23/20 documented as of this encounter
--- NOTE | 2025-08-17 12:00 | P.PNIM_ITS ---
Assessment and Plan Assessment and Plan (1) Adult failure to thrive: Code(s): R62.7 - Adult failure to thrive Status: Acute (2) Hematuria: Qualifiers: Hematuria type: unspecified type Qualified Code(s): R31.9 - Hematuria, unspecified Code(s): R31.9 - Hematuria, unspecified Status: Acute (3) Hx of bladder cancer: Code(s): Z85.51 - Personal history of malignant neoplasm of bladder Status: Acute Plan 79 y/o M with PMH of depression/anxiety, dementia, bladder cancer, S cerebellar ataxia, and hypertension presents here with generalized weakness and urinary incontinence.Head CT showed no acute intracranial abnormality. CT of the abdomen/pelvis showed no focal acute process to explain patient's symptoms, moderate amount of stool which extensive the cecum, possible mild urinary bladder wall thickening, mild bibasilar atelectatic changes in the lung bases which are otherwise clear. CXR showed no acute cardiopulmonary abnormality. 1.Generalized Weakness: PT/OT as toledated Fall precaution Needs placement (2) Urinary incontinence: recent cystoscopy c/w oxybutynin UA not s/o infection (3) Insomnia: c/w trazodone 4. Constipation: Continue with Colace, MiraLax 5. Code:full 6. DVT ppx: Heparin subQ 7. Disposition: Pending improvement/pending placement Subjective Date/time seen: 08/17/25 12:00 Interval history: confused Review of Systems Review of Systems: ROS unobtainable: Yes unobtainable due to medical condition Exam Const: General: comfortable Other: , male, elderly, nontoxic appearance HENMT: Mouth: Yes moist mucous membranes Eyes: Sclera: sclerae normal Resp: Effort & Inspection: normal respiratory effort Auscultation: clear to auscultation bilaterally Cardio: Rate: regular rate Rhythm: regular rhythm Other: S1-S2 present without murmur, rub, ectopy GI: Other: Abdomen soft, nondistended, nontender. Normoactive bowel sounds in all quadrants. Skin: General skin exam: normal color Neuro: Other: A&O to self and town. Not able to provide her virtually any situational history and does not know the year. No dysarthria or facial droop appreciated. Generally weak. 4+ in the bilateral upper extremities, symmetric. 5+ in the bilateral lower extremities, symmetric. No sensory deficits. Extrem: Other: Trace edema to the bilateral ankles, symmetric Psych: Other: Poor insight and judgment Objective Data Vital Signs Vital Signs: Vital Signs - 24 hr 08/16/25 12:06 08/16/25 13:46 08/16/25 15:30 Temperature 98.6 F Pulse Rate 68 65 58 L Respiratory Rate 18 18 14 Blood Pressure 176/70 H 173/55 H Pulse Oximetry 99 98 99 Oxygen Delivery Room Air 08/16/25 17:08 08/16/25 18:01 08/16/25 19:32 Temperature 98.4 F 97.6 F Pulse Rate 60 55 L 58 L Respiratory Rate 18 18 18 Blood Pressure 163/67 H 173/61 H Pulse Oximetry 93 98 100 Oxygen Delivery 08/16/25 20:00 08/17/25 05:24 08/17/25 09:30 Temperature 97.7 F Pulse Rate 75 Respiratory Rate 18 Blood Pressure 155/58 H Pulse Oximetry 96 Oxygen Delivery Room Air Room Air Intake/Output Intake/Output: Intake & Output 08/14/25 08/15/25 08/16/25 08/17/25 23:59 23:59 23:59 23:59 Intake Total 1000 220 Output Total 600 Balance 1000 -380 Meds/Results Medications: Active Medications Generic Name Dose Route Start Last Admin Trade Name Freq PRN Reason Stop Dose Admin Acetaminophen 650 mg 08/16/25 18:32 Acetaminophen 325 Mg Tablet PO Q4H PRN Mild Pain (1-3) or Fever Calcium Carbonate 200 mg 08/16/25 18:32 Calcium Carbonate (Tums) 500 Mg (200 Mg Elemental) PO Q6H PRN Indigestion Docusate Sodium 100 mg 08/16/25 21:00 08/17/25 09:31 Docusate Sodium 100 Mg Capsule PO Not Given Q12HR [facility] Ondansetron HCl 4 mg 08/16/25 18:32 Ondansetron Inj 4 Mg/2 Ml Vial IV PUSH Q6H PRN Nausea And Vomiting Oxybutynin Chloride 5 mg 08/17/25 13:00 Oxybutynin Chloride Xl 5 Mg Tab.Er.24 PO DAILY RAYSHAWN Polyethylene Glycol 17 gm 08/17/25 09:00 08/17/25 09:32 Polyethylene Glycol 3350 17 Gm Powd.Pack PO Not Given QAM [facility] Tramadol HCl 50 mg 08/16/25 21:26 Tramadol Hcl (*Crx) 50 Mg Tablet PO Q6H PRN Pain Rated 4-6 Trazodone HCl 150 mg 08/16/25 21:30 08/16/25 21:46 Trazodone Hcl 50 Mg Tablet PO 150 mg HS [facility] Administration Radiology Results: ITS Impressions Chest X-Ray 08/16/25 13:56 Impression: No acute cardiopulmonary abnormality. Head CT 08/16/25 16:24 Impression: 1.No acute intracranial abnormality. Abdomen/Pelvis CT 08/16/25 16:26 IMPRESSION: 1. No focal acute process seen to explain source of patient's symptoms. 2. Moderate amount of stool which extends to the cecum. 3. Possible mild urinary bladder wall thickening. Correlate with urinalysis. 4. Mild bibasilar atelectatic appearing changes in the lung bases which are otherwise clear. Labs Labs: Laboratory Results - last 24 hr 08/16/25 08/16/25 13:42 16:58 WBC 10.0 RBC 4.63 Hgb 13.9 L Hct 40.4 L MCV 87.3 MCH 30.0 MCHC 34.4 RDW 12.7 Plt Count 191 MPV 8.6 Immature Gran % (Auto) 0.4 Neut % (Auto) 75.4 H Lymph % (Auto) 15.9 L [place] % (Auto) 7.1 Eos % (Auto) 0.9 Baso % (Auto) 0.3 Lymph # (Auto) 1.58 [place] # (Auto) 0.7 H Eos # (Auto) 0.1 Baso # (Auto) 0.0 Abs Immat Gran (auto) 0.04 H Absolute Neuts (auto) 7.5 H Absolute Nucleated RBC 0.000 Nucleated RBC % 0.0 Sodium 137 Potassium 4.2 Chloride 106 Carbon Dioxide 29 Anion Gap 2 L BUN 22 H Creatinine 0.94 Estim Creat Clear Calc 54 Estimated GFR > 60 Glucose 115 H Lactic Acid 1.3 Calcium 9.0 Total Bilirubin 0.7 AST 26 ALT 17 Alkaline Phosphatase 96 Troponin I < 0.012 Total Protein 6.6 Albumin 3.8 Urine Color Yellow Urine Appearance Cloudy H Urine pH 8.0 Ur Specific [place] 1.032 Urine Protein Negative Urine Glucose (UA) Negative Urine Ketones Negative Ur Blood (Man) 2+ H Urine Nitrate Negative Urine Bilirubin Negative Urine Urobilinogen 0.2 Leukocyte Esterase Rfl Negative Urine RBC 51-100 H Urine WBC 0-5 Ur Squamous Epith Cells None seen Urine Bacteria None seen Urine Casts 0-2 Quality VTE Prophylaxis VTE prophylaxis: mechanical ordered
[2025-08-17] MEDS: oxyBUTYnin CHLORIDE XL 5 MG TAB.ER.24 PO (12:45)
[2025-08-17 13:16] VITALS: BMI 24.1
[2025-08-17 14:00] VITALS: BP 128/62; PULSE 71; RESP 18; TEMP 36.4; O2SAT 97
[2025-08-17 20:08] VITALS: BP 169/60; PULSE 57; RESP 20; TEMP 36.4; O2SAT 100
[2025-08-17] MEDS: DOCUSATE SODIUM 100 MG CAPSULE PO (20:28)
[2025-08-18 04:15] VITALS: BP 185/62; PULSE 59; RESP 18; TEMP 36.5; O2SAT 100
[2025-08-18] MEDS: DOCUSATE SODIUM 100 MG CAPSULE PO ×2 (09:02→20:17)
[2025-08-18] MEDS: oxyBUTYnin CHLORIDE XL 5 MG TAB.ER.24 PO (09:02)
--- NOTE | 2025-08-18 13:16 | P.PNIM_ITS ---
Assessment and Plan Assessment and Plan (1) Adult failure to thrive: Code(s): R62.7 - Adult failure to thrive Status: Acute (2) Hematuria: Qualifiers: Hematuria type: unspecified type Qualified Code(s): R31.9 - Hematuria, unspecified Code(s): R31.9 - Hematuria, unspecified Status: Acute (3) Hx of bladder cancer: Code(s): Z85.51 - Personal history of malignant neoplasm of bladder Status: Acute Plan 79 y/o M with PMH of depression/anxiety, dementia, bladder cancer, cerebellar ataxia, and hypertension presents here with generalized weakness and urinary incontinence.Head CT showed no acute intracranial abnormality. CT of the abdomen/pelvis showed no focal acute process to explain patient's symptoms, moderate amount of stool which extensive the cecum, possible mild urinary bladder wall thickening, mild bibasilar atelectatic changes in the lung bases which are otherwise clear. CXR showed no acute cardiopulmonary abnormality. 1.GNW/FTT: PT/OT as tolerated Fall precaution Monitor oral intake Placement being arranged. 2. Urinary incontinence: recent cystoscopy Continue oxybutynin UA not consistent with infection 3. Hematuria: recent cystoscopy in September Follow up with Urology 4. Insomnia: continue trazodone 5. Constipation: Continue with Colace, MiraLax Code:full DVT ppx: Heparin subQ Disposition: Pending improvement/pending placement Subjective Date/time seen: 08/18/25 13:16 Interval history: 79yo male with depression/anxiety, dementia, bladder cancer, cerebellar ataxia, and hypertension presents here with generalized weakness and urinary incontinenc e. Assuming care. Chart reviewed. Patient unable to provide history. Review of Systems Review of Systems: ROS unobtainable: Yes unobtainable due to mental status Exam Narrative: AF 97.7 185/62 59 18 100% ra Gen - NARD Chest -a few scattered inspiratory crackles otherwise clear. CV - RRR S1/S2 Abd - Soft, NT/ND, Positive BS Ext - No pedal edema Neuro -alert but confused. Psych - Nml mood and affect. Calm and cooperative Skin - Warm and dry Objective Data Vital Signs Vital Signs: Vital Signs - 24 hr 08/17/25 14:00 08/17/25 20:00 08/17/25 20:08 Temperature 97.6 F 97.6 F Pulse Rate 71 57 L Respiratory Rate 18 20 Blood Pressure 128/62 169/60 H Pulse Oximetry 97 100 Oxygen Delivery Room Air 08/18/25 04:15 08/18/25 08:12 08/18/25 09:00 Temperature 97.7 F Pulse Rate 59 L Respiratory Rate 18 Blood Pressure 185/62 H Pulse Oximetry 100 Oxygen Delivery Room Air Room Air Intake/Output Intake/Output: Intake & Output 08/15/25 08/16/25 08/17/25 08/18/25 23:59 23:59 23:59 23:59 Intake Total 1000 320 600 Output Total 800 800 Balance 1000 -480 -200 Meds/Results Medications: Active Medications Generic Name Dose Route Start Last Admin Trade Name Freq PRN Reason Stop Dose Admin Acetaminophen 650 mg 08/16/25 18:32 Acetaminophen 325 Mg Tablet PO Q4H PRN Mild Pain (1-3) or Fever Calcium Carbonate 200 mg 08/16/25 18:32 Calcium Carbonate (Tums) 500 Mg (200 Mg Elemental) PO Q6H PRN Indigestion Docusate Sodium 100 mg 08/16/25 21:00 08/18/25 09:02 Docusate Sodium 100 Mg Capsule PO 100 mg Q12HR RAYSHAWN Administration Heparin Sodium (Porcine) 5,000 units 08/17/25 21:00 08/18/25 09:02 Heparin Sodium 5,000 Units/Ml Vial SUB-Q 5,000 units Q12HR RAYSHAWN Administration Ondansetron HCl 4 mg 08/16/25 18:32 Ondansetron Inj 4 Mg/2 Ml Vial IV PUSH Q6H PRN Nausea And Vomiting Oxybutynin Chloride 5 mg 08/17/25 13:00 08/18/25 09:02 Oxybutynin Chloride Xl 5 Mg Tab.Er.24 PO 5 mg DAILY RAYSHAWN Administration Polyethylene Glycol 17 gm 08/17/25 09:00 08/18/25 09:02 Polyethylene Glycol 3350 17 Gm Powd.Pack PO 17 gm QAM RAYSHAWN Administration Tramadol HCl 50 mg 08/16/25 21:26 Tramadol Hcl (*Crx) 50 Mg Tablet PO Q6H PRN Pain Rated 4-6 Trazodone HCl 150 mg 08/16/25 21:30 08/17/25 20:27 Trazodone Hcl 50 Mg Tablet PO 150 mg HS RAYSHAWN Administration Radiology Results: ITS Impressions Chest X-Ray 08/16/25 13:56 Impression: No acute cardiopulmonary abnormality. Head CT 08/16/25 16:24 Impression: 1.No acute intracranial abnormality. Abdomen/Pelvis CT 08/16/25 16:26 IMPRESSION: 1. No focal acute process seen to explain source of patient's symptoms. 2. Moderate amount of stool which extends to the cecum. 3. Possible mild urinary bladder wall thickening. Correlate with urinalysis. 4. Mild bibasilar atelectatic appearing changes in the lung bases which are otherwise clear.
[2025-08-18 14:00] VITALS: BP 127/74; PULSE 83; RESP 16; TEMP 36.4; O2SAT 100
[2025-08-18 20:06] VITALS: BP 152/48; PULSE 59; RESP 18; TEMP 36.6; O2SAT 98
[2025-08-18 22:54] VITALS: O2SAT 94
[2025-08-19] VITALS (7 sets, daily range): BP systolic 128–214; BP diastolic 50–95; PULSE 61–80; RESP 16–20; TEMP 36.4–36.9; O2SAT 96–100
[2025-08-19 05:27] LABS: Platelet Count Result 191 k/mm3 (150-375)
[2025-08-19] MEDS: DOCUSATE SODIUM 100 MG CAPSULE PO ×2 (08:19→21:52)
[2025-08-19] MEDS: oxyBUTYnin CHLORIDE XL 5 MG TAB.ER.24 PO (08:19)
[2025-08-19 09:17] LABS: Ammonia < 9 umol/L (9-30)
[2025-08-19 09:20] LABS: Vitamin B12 377.0 pg/mL (239-931)
--- NOTE | 2025-08-19 11:02 | PCNFU ---
Nutrition Follow-Up Complete: Suboptimal Energy Intake as related to dementia as evidenced by poor po intake reported. Goal: Meet estimated nutritional needs. Patient is progressing towards goal. We will continue current goal. Pt current nutrition is Soft and Bite Sized, Level 6 with diet supplements. Last recorded weight is 80.8 kg, no new weight to report. Bowel Motility: Last reported BM 08/18 Labs Reviewed: No new labs Meds Noted: Miralax, Colace Skin: WNL Additional Notes: Patient is tolerated Soft and Bite Sized, ,Level 6 diet. Oral Intake about 75% of meal today. Diet supplements are providing an additional 350 kcal and 20 gm protein. Agree with diet orders. . Will monitor weight, labs, skin, diet orders, meds every 5 days.
[2025-08-19 11:38] LABS: Thyroid Stimulating Hormone Reflex 3.110 uIU/mL (0.465-4.68)
--- NOTE | 2025-08-19 17:21 | PM.IMPN2 ---
Assessment and Plan Assessment and Plan (1) Adult failure to thrive: Code(s): R62.7 - Adult failure to thrive Status: Acute (2) Urinary incontinence: Qualifiers: Urinary Incontinence type: urge incontinence Qualified Code(s): N39.41 - Urge incontinence Code(s): R32 - Unspecified urinary incontinence Status: Acute (3) Dementia: Qualifiers: Dementia type: unspecified type Dementia severity: severe Dementia behavioral or psychological symptom: without behavioral, psychotic, or mood disturbance or anxiety Qualified Code(s): F03.C0 - Unspecified dementia, severe, without behavioral disturbance, psychotic disturbance, mood disturbance, and anxiety Code(s): F03.90 - Unspecified dementia, unspecified severity, without behavioral disturbance, psychotic disturbance, mood disturbance, and anxiety Status: Acute (4) Hematuria: Qualifiers: Hematuria type: unspecified type Qualified Code(s): R31.9 - Hematuria, unspecified Code(s): R31.9 - Hematuria, unspecified Status: Acute (5) Insomnia: Qualifiers: Insomnia type: unspecified Qualified Code(s): G47.00 - Insomnia, unspecified Code(s): G47.00 - Insomnia, unspecified Status: Chronic (6) Hx of bladder cancer: Code(s): Z85.51 - Personal history of malignant neoplasm of bladder Status: Acute (7) Constipation: Code(s): K59.00 - Constipation, unspecified Status: Acute Plan 79 y/o M with PMH of depression/anxiety, dementia, bladder cancer, cerebellar ataxia, and hypertension presents here with generalized weakness and urinary incontinence.Head CT showed no acute intracranial abnormality. CT of the abdomen/pelvis showed no focal acute process to explain patient's symptoms, moderate amount of stool which extensive the cecum, possible mild urinary bladder wall thickening, mild bibasilar atelectatic changes in the lung bases which are otherwise clear. CXR showed no acute cardiopulmonary abnormality. 1.GNW/FTT: EKG showing sinus rhythm BCx NGTD. CXR was clear Head CT showing no acute findings. CT Abd/pelvis showing no focal acute process Ammonia level less than 9. TSH, folate and B12 level normal. Vitamin-D <13. Fall precaution. Monitor oral intake PT/OT ordered. Placement being arranged. Add vitamin-D. 2. Urinary incontinence: CT Abd showing possible mild urinary bladder wall thickening. UA was cloudy with 2+ blood and 51-100 red blood cells otherwise negative urinalysis Patient has had a recent cystoscopy in September. Continue oxybutynin UA not consistent with infection 3. Dementia: Mood stable. Follow 4. Hematuria: As above Patient with hx of bladder cancer. recent cystoscopy in September Follow up with Urology 5. Insomnia: Stable. Continue trazodone 6. Constipation: CT of the abdomen showed moderate amount of stool which extends to the cecum. One BM yesterday. Continue with Colace, MiraLax Code:full DVT ppx: Heparin subQ Disposition: Pending improvement/pending placement Subjective Date/time seen: 08/19/25 17:21 Interval history: 79yo male with depression/anxiety, dementia, bladder cancer, cerebellar ataxia, and hypertension presents here with generalized weakness and urinary incontinence. Denies CP or abd pain. Eating okay. Slept well. Patient confused so hx unreliable. Review of Systems Review of Systems: ROS unobtainable: Yes unobtainable due to mental status Exam Narrative: AF 98.4 128/66 80 16 100% ra Gen - NARD Chest -clear to quiet respirations. CV - RRR S1/S2 Abd - Soft, NT/ND, Positive BS Ext - No pedal edema Neuro -alert but confused. Psych - Nml mood and affect. Calm and cooperative Skin - Warm and dry Objective Data Vital Signs Vital Signs: Vital Signs - 24 hr 08/18/25 20:00 08/18/25 20:06 08/18/25 22:54 Temperature 97.8 F Pulse Rate 59 L Respiratory Rate 18 Blood Pressure 152/48 H Pulse Oximetry 98 94 Oxygen Delivery Room Air Room Air 08/19/25 04:18 08/19/25 06:01 08/19/25 08:20 Temperature 97.6 F Pulse Rate 61 61 Respiratory Rate 20 20 Blood Pressure 214/70 H 179/95 H Pulse Oximetry 96 96 Oxygen Delivery Room Air 08/19/25 09:15 08/19/25 14:00 Temperature 98.4 F Pulse Rate 80 Respiratory Rate 16 Blood Pressure 140/50 L 128/66 Pulse Oximetry 100 Oxygen Delivery Intake/Output Intake/Output: Intake & Output 08/16/25 08/17/25 08/18/25 08/19/25 23:59 23:59 23:59 23:59 Intake Total 1000 320 960 670 Output Total 800 950 900 Balance 1000 -480 10 -230 Meds/Results Medications: Active Medications Generic Name Dose Route Start Last Admin Trade Name Freq PRN Reason Stop Dose Admin Acetaminophen 650 mg 08/16/25 18:32 Acetaminophen 325 Mg Tablet PO Q4H PRN Mild Pain (1-3) or Fever Calcium Carbonate 200 mg 08/16/25 18:32 Calcium Carbonate (Tums) 500 Mg (200 Mg Elemental) PO Q6H PRN Indigestion Docusate Sodium 100 mg 08/16/25 21:00 08/19/25 08:19 Docusate Sodium 100 Mg Capsule PO 100 mg Q12HR RAYSHAWN Administration Heparin Sodium (Porcine) 5,000 units 08/17/25 21:00 08/19/25 08:19 Heparin Sodium 5,000 Units/Ml Vial SUB-Q 5,000 units Q12HR RAYSHAWN Administration Hydralazine HCl 10 mg 08/19/25 04:36 Hydralazine Hcl 20 Mg/Ml Vial IV PUSH Q4H PRN HYPERTENSION Ondansetron HCl 4 mg 08/16/25 18:32 Ondansetron Inj 4 Mg/2 Ml Vial IV PUSH Q6H PRN Nausea And Vomiting Oxybutynin Chloride 5 mg 08/17/25 13:00 08/19/25 08:19 Oxybutynin Chloride Xl 5 Mg Tab.Er.24 PO 5 mg DAILY RAYSHAWN Administration Polyethylene Glycol 17 gm 08/17/25 09:00 08/19/25 08:19 Polyethylene Glycol 3350 17 Gm Powd.Pack PO 17 gm QAM RAYSHAWN Administration Tramadol HCl 50 mg 08/16/25 21:26 Tramadol Hcl (*Crx) 50 Mg Tablet PO Q6H PRN Pain Rated 4-6 Trazodone HCl 150 mg 08/16/25 21:30 08/18/25 20:17 Trazodone Hcl 50 Mg Tablet PO 150 mg HS RAYSHAWN Administration Radiology Results: ITS Impressions Chest X-Ray 08/16/25 13:56 Impression: No acute cardiopulmonary abnormality. Head CT 08/16/25 16:24 Impression: 1.No acute intracranial abnormality. Abdomen/Pelvis CT 08/16/25 16:26 IMPRESSION: 1. No focal acute process seen to explain source of patient's symptoms. 2. Moderate amount of stool which extends to the cecum. 3. Possible mild urinary bladder wall thickening. Correlate with urinalysis. 4. Mild bibasilar atelectatic appearing changes in the lung bases which are otherwise clear. Labs Labs: Laboratory Results - last 24 hr 08/19/25 08/19/25 05:08 08:30 Plt Count 191 MPV 9.0 Ammonia < 9 L Vitamin B12 377.0 Vitamin D 25-Hydroxy < 12.8 Folate 5.9 TSH (Reflex) 3.110
[2025-08-19] MEDS: CHOLECALCIFEROL (VITAMIN D3) 25 MCG (1,000 UNITS) TABLET PO (17:45)
[2025-08-20 04:48] VITALS: BP 182/70; PULSE 57; RESP 18; TEMP 36.4; O2SAT 100
[2025-08-20 05:30] LABS: Hematocrit 40.1 % (42.0-52.0); Hemoglobin 13.4 g/dL (14.0-18.0); Immature Granulocyte Percent A 0.3 % (0-0.5); Lymphocytes Absolute Auto 1.86 K/mm3 (0.9-3.2); Mean Corpuscular HGB Conc 33.4 g/dl (32-36); Mean Corpuscular Hemoglobin 29.3 pg (26-34); Mean Corpuscular Volume 87.7 fl (80-100); Nucleated Red Blood Cells Absolute Auto 0.000 K/mm3 (0.0-0.012); Nucleated Red Blood Cells Perc 0.0 % (0.0-0.2); Platelet Count Result 197 k/mm3 (150-375); Red Blood Count 4.57 M/mm3 (4.6-6.20); White Blood Count 6.1 K/mm3 (4.5-10.0)
[2025-08-20 05:55] LABS: Albumin Level 3.6 g/dL (3.5-5.1); Anion Gap 5 mmol/L (4-12); Blood Urea Nitrogen 22 mg/dL (9-20); Calcium 9.3 mg/dL (8.4-10.2); Carbon Dioxide 28 mmol/L (22-30); Chloride 104 mmol/L (98-107); Estimated CRCL calculation 57 ml/min; Estimated Glomerular Filt Rate > 60; Glucose 121 mg/dL (65-110); Magnesium 2.1 mg/dL (1.6-2.3); Potassium 4.3 mmol/L (3.4-5.0); Sodium 137 mmol/L (137-145)
[2025-08-20 08:00] VITALS: PULSE 57; RESP 18; O2SAT 100
[2025-08-20] MEDS: DOCUSATE SODIUM 100 MG CAPSULE PO (08:30)
[2025-08-20] MEDS: oxyBUTYnin CHLORIDE XL 5 MG TAB.ER.24 PO (08:30)
[2025-08-20] MEDS: CHOLECALCIFEROL (VITAMIN D3) 25 MCG (1,000 UNITS) TABLET PO (08:30)
[2025-08-20 14:00] VITALS: BP 154/60; PULSE 65; RESP 16; TEMP 36.3; O2SAT 100
--- NOTE | 2025-08-20 14:25 | P.DS_ITS ---
DS: Admitting Diagnosis Discharge Date 08/20/25 Admitting Diagnosis Generalized weakness. DS: Discharge Diagnosis Discharge Diagnosis (1) Adult failure to thrive: Code(s): R62.7 - Adult failure to thrive Status: Acute (2) Urinary incontinence: Qualifiers: Urinary Incontinence type: urge incontinence Qualified Code(s): N39.41 - Urge incontinence Code(s): R32 - Unspecified urinary incontinence Status: Acute (3) Dementia: Qualifiers: Dementia type: unspecified type Dementia severity: severe Dementia behavioral or psychological symptom: without behavioral, psychotic, or mood disturbance or anxiety Qualified Code(s): F03.C0 - Unspecified dementia, severe, without behavioral disturbance, psychotic disturbance, mood disturbance, and anxiety Code(s): F03.90 - Unspecified dementia, unspecified severity, without behavioral disturbance, psychotic disturbance, mood disturbance, and anxiety Status: Acute (4) Hematuria: Qualifiers: Hematuria type: unspecified type Qualified Code(s): R31.9 - Hematuria, unspecified Code(s): R31.9 - Hematuria, unspecified Status: Acute (5) Insomnia: Qualifiers: Insomnia type: unspecified Qualified Code(s): G47.00 - Insomnia, unspecified Code(s): G47.00 - Insomnia, unspecified Status: Chronic (6) Hx of bladder cancer: Code(s): Z85.51 - Personal history of malignant neoplasm of bladder Status: Acute (7) Constipation: Code(s): K59.00 - Constipation, unspecified Status: Acute Plan DS: Summary Hospital Course Reason for hospitalization: 79yo male with depression/anxiety, dementia, bladder cancer, cerebellar ataxia, and hypertension presents here with generalized weakness and urinary incontinence. Please see H&P for details. Hospital Course: Following issues were addressed during his hospital course: moderate amount of stool which extensive the cecum, mild bibasilar atelectatic changes in the lung bases which are otherwise clear. CXR showed no acute cardiopulmonary abnormality. 1.GNW/FTT: EKG showing sinus rhythm BCx NGTD. CXR was clear Head CT showed no acute intracranial abnormality. CT Abd/pelvis showing no focal acute process to explain patient's symptoms Ammonia level less than 9. TSH, folate and B12 level normal. Vitamin-D <13. Fall precaution initiated. PT/OT ordered. We added vitamin-D. 2. Urinary incontinence: CT Abd/Pelvis showing possible mild urinary bladder wall thickening. UA was cloudy with 2+ blood and 51-100 red blood cells otherwise negative urinalysis so not consistent with infection Patient has had a recent cystoscopy in September. He was given oxybutynin but concern for the anticholinergic properties including constipation and memory so this was not continued 3. Dementia: Mood stable. Not on treatment. 4. Hematuria: As above Patient with hx of bladder cancer. Recent cystoscopy in September Follow up with Urology after discharge 5. Insomnia: Stable. We continued trazodone 6. Constipation: CT of the abdomen showed moderate amount of stool which extends to the cecum. Was having BM here. We continued with Colace, MiraLax Patient overall did well and was able be discharged on 08/20/2025. Status at Discharge Cognitive/behavioral status at discharge: Stable Time Spent with Patient Time attestation: Total time spent providing and/or coordinating discharge services: 35 minutes Time spent: Greater than 30 minutes Exam Narrative: AF 97.3 154/60 65 16 100% ra Gen - NARD Chest -lungs clear anteriorly and in the flanks. CV - RRR S1/S2 Abd - Soft, NT/ND, Positive BS Ext -trace pedal edema. Neuro -alert but confused. Patient feeding himself. Psych - Nml mood and affect. Calm and cooperative Skin - Warm and dry DS: Data Data Completed and Pending Labs on day of discharge: Labs from last 24 hours 08/20/25 08/20/25 13:50 05:23 WBC 6.1 RBC 4.57 L Hgb 13.4 L Hct 40.1 L MCV 87.7 MCH 29.3 MCHC 33.4 RDW 13.2 Plt Count 197 MPV 9.1 Immature Gran % (Auto) 0.3 Neut % (Auto) 57.5 Lymph % (Auto) 30.4 Merrick % (Auto) 8.2 Eos % (Auto) 3.3 Baso % (Auto) 0.3 Lymph # (Auto) 1.86 Merrick # (Auto) 0.5 Eos # (Auto) 0.2 Baso # (Auto) 0.0 Abs Immat Gran (auto) 0.02 Absolute Neuts (auto) 3.5 Absolute Nucleated RBC 0.000 Nucleated RBC % 0.0 Sodium 137 Potassium 4.3 Chloride 104 Carbon Dioxide 28 Anion Gap 5 BUN 22 H Creatinine 0.98 Estim Creat Clear Calc 57 Estimated GFR > 60 Glucose 121 H Calcium 9.3 Phosphorus 3.8 Magnesium 2.1 Albumin 3.6 Influenza A (RT-PCR) Pending Influenza B (RT-PCR) Pending RSV (RT-PCR) Pending SARS-CoV-2 RNA (RT-PCR) Pending Preliminary micro results at discharge 08/16/25 15:00 Blood Culture - Preliminary Blood 08/16/25 13:42 Blood Culture - Preliminary Blood Discharge Plan Discharge Attending physician on discharge: Ifeanyi Larkin Discharging Clinician: Ifeanyi Larkin Anticipated Discharge Date/Time: 08/20/25 14:32 Patient Disposition: SNF Activity: as tolerated Diet: regular and other - see discharge instructions Discharge Instructions: Soft and bite size level 6 diet. Assess for supplements requirements. Take precautions to avoid falls. Rise slowly from a lying or sitting position. Pause before standing or walking. Contact the doctor if the patient has any type of trauma, lightheadedness with standing or other worrisome symptoms. Avoid NSAIDs (ibuprofen, naproxen, Aleve). Tylenol is safe to take. Follow-up with the provider at the facility. Thank you for using [facility] for your health care needs. Patient Language: Georgian Stand Alone Forms: General Discharge Information Follow-up/Referrals: Ney Long MD [Primary Care Provider, Family Practice] - Call for Appointment Discharge Medications: New polyethylene glycol 3350 [Miralax] 17 gram Powder In Packet 17 g PO BID Qty: 60 0RF docusate sodium 100 mg Capsule 100 mg PO Q12HR Qty: 60 0RF cholecalciferol (vitamin D3) 25 mcg (1,000 unit) Tablet 25 mcg PO DAILY Qty: 30 0RF Continued tramadol 50 mg tablet 50 mg PO Q6H PRN (Reason: pain) trazodone 150 mg tablet 150 mg PO HS Date of admission: 08/17/25 14:49 Primary Care Provider: Ney Long Admitting Provider: Filomena Li Attending physician on admission: Filomena Li Condition: Stable Hospitalist MIPS Heart Failure (Exclusion) Patient has history of Heart Transplant or Left Ventricular Assistive Device?: No IF YES, STOP HERE Heart Failure (Qualifier) Patient has current or prior documentation of LVEF less than or equal to 40%, or mod/servere depressed LVSF?: No IF NO, STOP HERE
[2025-08-20 14:33] LABS: Influenza A QL RT-PCR Negative (Negative); Influenza B QL RT-PCR Negative (Negative); RSV RNA, RT-PCR Negative (Negative); SARS-CoV-2 RNA PCR Negative (Negative)
== END 2025-08-20 16:07 | DRG 641 ==
LOC: ANHED 13:09 → ANH2MED 19:10
PROVIDERS: Internal Medicine; Admitting Provider Internal Medicine; Emergency Provider Student in an Organized Health Care Education/Training Program; PCP Family Medicine; Visit Provider Internal Medicine
DX: R62.7 Adult failure to thrive (principal); G11.9 Hereditary ataxia, unspecified; R32 Unspecified urinary incontinence; F03.90 Unspecified dementia, unspecified severity, without behavioral disturbance, psychotic disturbance, mood disturbance, and anxiety; G47.00 Insomnia, unspecified; K59.00 Constipation, unspecified; F41.8 Other specified anxiety disorders; I10 Essential (primary) hypertension; G60.9 Hereditary and idiopathic neuropathy, unspecified; R31.9 Hematuria, unspecified; Z85.51 Personal history of malignant neoplasm of bladder; Z87.891 Personal history of nicotine dependence
CPT/HCPCS: 36415; 70450; 71046; 74177; 80053; 80069; 81001; 82140; 82306; 82607; 82746; 83605; 83735; 84443; 84484; 85025; 85049; 87040; 87637; 93005; 96360; 97116; 97161; 97165; 97530; 99285; A9270; G0378; J0360; J1644; J7030; Q9967